=== PATIENT | male | born 1955 | race Caucasian/White ===

== ENCOUNTER 2020-07-12 12:08 | Inpatient (IN) ==
[2020-07-12] MEDS ORDERED: LASIX IVP STA (13:17)
--- NOTE | 2020-07-12 13:17 | DR.GENAD ---
HPI Time Seen Time Seen by Provider: 07/12/20 13:07 PCP Primary Care Physician: DACIA DAVISON HPI Comment HPI Comment: PATIENT WITH A HISTORY OF TYPE 2 DIABETES, HYPERTENSION, ONSET OF SWOLLEN SCROTUM AND DEPENDENT EDEMA IN LEGS AND FEET PAST 4 MONTHS. HAS HAD NO CHANGE IN SWELLING AFTER TAKING DIURETICS FOR 4 MONTHES. HAS BEEN CONSULTED BY A UROLOGIST ON 4 OCCASIONS. PATIENT IS MORBID OBESE, HAS OCCASIONAL DYSPNEA, DENIES CHEST PAIN, PAIN IN SCROTUM. Complaint/Symptoms Chief Complaint Doctors Comments: CHRONIC SWELLING IN SCROTUM AND LEGS X 4 MONTHS Chief Complaint:: PT. C/O CHRONIC PROBLEM WITH TESTICLES SWELLING. PROBLEM BEGAN IN MARCH. PT. STATES HE HAS BEEN TAKING LASIX AND ANTIBIOTICS. PT. STATES "I NEED SOME HELP. I NEED TO BE IN THE HOSPITAL." HE STATES THE SWELLING HAS GOTTEN WORSE. PT. HAS BEEN TO THE ER TWICE SINCE ONSET OF PROBLEM. COVID-19 Coronavirus risk:travel/contact w/high risk person: No Has patient experienced Coronavirus symptoms: No Source History Provided: Patient Mode of Arrival Mode of Arrival: Ambulatory Timing Onset of Chief Complaint: 03/21/20 PMH PMH Past Medical History: Yes Past Medical History: Diabetes, Dyslipidemia and Hypertension Past Surgical History: Yes Surgical History: Other Past Surgical History Comment: UMBILICAL HERNIA Family History History of Family Medical Conditions: Yes Family Medical History: Coronary Artery Disease Social History Does patient currently use any type of tobacco product: No Have you used tobacco products in the last 12 months: No Type of Tobacco Use: None Does any household member use tobacco: No Alcohol Use: None Do you use any recreational Drugs:: No Lives With: Family Lives Where: Home Travel Risk Coronavirus risk:travel/contact w/high risk person: No Has patient experienced Coronavirus symptoms: No Infectious screening In the last 2 months have you had wt loss of >10#?: NO Have you had fever, night sweats or hemotysis?: No Have you traveled outside the country in the last 6 months?: No Isolation: Standard ROS Review of Systems Constitutional: See HPI Eyes: No Symptoms Reported ENTM: No Symptoms Reported Respiratoy: See HPI and Short of Breath Cardiovascular: No Symptoms Reported Gastrointestinal/Abdominal: No Symptoms Reported Genitourinary: No Symptoms Reported and Other (SCROTAL EDEMA AND SWELLING) Neurological: No Symptoms Reported Musculoskeletal: No Symptoms Reported and Other (LOWER EXTREMITY EDEMA) Integumentary: No Symptoms Reported Hematologic/Lymphatic: No Symptoms Reported Endocrine: No Symptoms Reported Psychiatric: No Symptoms Reported All Other Systems: Reviewed and Negative PE Vital Signs Vitals: Temperature 98.6 F Pulse Rate [Left Brachial] 54 Pulse Rate 54 Respiratory Rate 18 Blood Pressure [Left Arm] 175/77 Blood Pressure 146/73 O2 Sat by Pulse Oximetry 99 General Limitations: No Limitations General Appearance: Alert and In No Apparent Distress Head Head Exam: Normal Inspection and Atraumatic Eyes Eye exam: Normal Appearance, PERRL and EOMI ENT ENT Exam: Normal Exam and Normal Oropharynx External Ear Exam: Normal External Inspection TM/Canal Exam: Bilateral: Normal Nose Exam: Normal Nose Exam Mouth Exam: Normal Inspection Throat Exam: Normal Inspection Neck Neck Exam: Normal Inspection and Full ROM Chest Chest Inspection: Normal Inspection and Symmetric Chest Wall Rise Respiratory Respiratory Exam: Normal Lung Sounds Bilat Respiratory Exam: Bilateral: Clear to Auscultation Cardiovascular Cardiovascular Exam: Regular Rate and Normal Rhythm Abdominal Exam Abdominal Exam: Normal Inspection, Normal Bowel Sounds and Soft Abdominal Tenderness: Other (MODERATE SCROTAL EDEMA WITH TESTICULAR TENDERNESS) Extremities Extremities Exam: Edema (3 + PITTING EDEMA BILAT FEET TO MID THIGH) Back Back Exam: Normal Inspection Neurologic Neurological Exam: Alert and Oriented X3 Psychiatric Psychiatric Exam: Normal Affect and Normal Mood Skin Skin Exam: Warm, Dry, Intact and Normal Color MDM Differential Diagnosis Differential Diagnosis: RIGHT SIDED CONGESTIVE HEART FAILURE, DEPENDENT EDEMA, COURSE Treatment Treatment: DEEPA DIURESIS AFTER IV LASIX 60MG IV Consultation Call Returned: 18:15 Consultation Comments: DISCUSSED WITH DR HOLLINS FOR OBSERVATION ROR Labs Reviewed Laboratory Results Reviewed?: Yes Result Diagrams: 07/12/20 13:48 07/12/20 13:48 Laboratory: WBC 8.9 X10^3/uL (3.6-10.0) 07/12/20 13:48 RBC 4.18 X10^6/uL (4.7-6.0) L 07/12/20 13:48 Hgb 12.7 g/dL (13.5-18.0) L 07/12/20 13:48 Hct 38.1 % (42.0-54.0) L 07/12/20 13:48 MCV 91.2 fL (80.0-100.0) 07/12/20 13:48 MCH 30.5 pg (27.0-34.0) 07/12/20 13:48 MCHC 33.4 g/dL (33.0-35.0) 07/12/20 13:48 RDW 14.6 % (11.6-16.5) 07/12/20 13:48 Plt Count 183 X10^3/uL (150.0-450.0) 07/12/20 13:48 MPV 9.4 fL (7.4-11.0) 07/12/20 13:48 Neut % (Auto) 70.8 % (42.0-75.0) 07/12/20 13:48 Lymph % (Auto) 17.1 % (21.0-51.0) L 07/12/20 13:48 [place] % (Auto) 9.0 % (0.0-13.0) 07/12/20 13:48 Eos % (Auto) 2.1 % (0.9-2.9) 07/12/20 13:48 Baso % (Auto) 1.0 % (0.2-1.0) 07/12/20 13:48 Neut # (Auto) 6.3 x10^3/uL (2.2-4.8) H 07/12/20 13:48 Lymph # (Auto) 1.5 X10^3/uL (1.3-2.9) 07/12/20 13:48 [place] # (Auto) 0.8 x10^3/uL (0.3-0.8) 07/12/20 13:48 Eos # (Auto) 0.2 x10^3/uL (0.0-0.2) 07/12/20 13:48 Baso # (Auto) 0.1 X10^3/uL (0.0-0.1) 07/12/20 13:48 Absolute Nucleated RBC 0.0 /100WBC 07/12/20 13:48 Sodium 142 mmol/L (136-145) 07/12/20 13:48 Corrected Sodium 143 mmol/L (136-145) 07/12/20 13:48 Potassium 3.8 mmol/L (3.5-5.1) 07/12/20 13:48 Chloride 106 mmol/L (98-107) 07/12/20 13:48 Carbon Dioxide 31.4 mmol/L (21-32) 07/12/20 13:48 BUN 18 mg/dL (7-18) 07/12/20 13:48 Creatinine 0.85 mg/dL (0.70-1.30) 07/12/20 13:48 Est GFR (MDRD) Af Amer > 60 (>60) 07/12/20 13:48 Est GFR (MDRD) Non-Af > 60 (>60) 07/12/20 13:48 Glucose 126 mg/dL (65-99) H 07/12/20 13:48 Calcium 8.8 mg/dL (8.5-10.1) 07/12/20 13:48 Corrected Calcium 10.2 mg/dL (8.5-10.1) H 07/12/20 13:48 Total Bilirubin 0.20 mg/dL (0.2-1.0) 07/12/20 13:48 AST 22 Units/L (15-37) 07/12/20 13:48 ALT 37 Units/L (12-78) 07/12/20 13:48 Alkaline Phosphatase 48 Units/L (46-116) 07/12/20 13:48 Troponin I < 0.02 ng/mL (0-1.5) 07/12/20 13:48 B-Natriuretic Peptide 134 pg/mL (0-79) H 07/12/20 13:48 Total Protein 6.0 g/dL (6.4-8.2) L 07/12/20 13:48 Albumin 2.3 g/dL (3.4-5.0) L 07/12/20 13:48 Globulin 3.7 g/dL (2.5-4.5) 07/12/20 13:48 Albumin/Globulin Ratio 0.6 Ratio (1.1-2.1) L 07/12/20 13:48 XRAY XRAY Interpreted by: Radiologist (TESTICULAR ULTRASOUND C/W NORMAL DOPPLER FLOW IN THE TESTICLES, MODERATE BILATERAL HYDROCOELES, PROMINENT DIFFUSE EDEMA SCROTAL WALL) EKG Rate: 51 Rhythm: NSR and SB ST: Nonsp Opioid Opioid Risk Tool Age (Deepa box if 16-45): No History of Preadolescent Sexual Abuse: No Total: 0 Total Score Risk Category: Low Risk Copyright: Diomedes MONTAGUE predicting aberrant behaviors Diagnosis Discharge Problem: Acute on chronic right-sided congestive heart failure
[2020-07-12] MEDS ORDERED: LASIX ONE (13:30)
[2020-07-12] MEDS ORDERED: LASIX IVP ONE (13:30)
[2020-07-12 14:00] LABS: BASOPHILS # (AUTO) 0.1 X10^3/uL (0.0-0.1); EOSINOPHILS # (AUTO) 0.2 x10^3/uL (0.0-0.2); EOSINOPHILS % (AUTO) 2.1 % (0.9-2.9); HEMATOCRIT 38.1 % (42.0-54.0); HEMOGLOBIN 12.7 g/dL (13.5-18.0); LYMPHOCYTES # (AUTO) 1.5 X10^3/uL (1.3-2.9); LYMPHOCYTES % (AUTO) 17.1 % (21.0-51.0); MEAN CORPUSCULAR HEMOGLOBIN 30.5 pg (27.0-34.0); MEAN CORPUSCULAR HGB CONC 33.4 g/dL (33.0-35.0); MEAN CORPUSCULAR VOLUME 91.2 fL (80.0-100.0); MEAN PLATELET VOLUME 9.4 fL (7.4-11.0); MONOCYTES # (AUTO) 0.8 x10^3/uL (0.3-0.8); NEUTROPHILS # (AUTO) 6.3 x10^3/uL (2.2-4.8); NEUTROPHILS % (AUTO) 70.8 % (42.0-75.0); PLATELET COUNT 183 X10^3/uL (150.0-450.0); RED BLOOD COUNT 4.18 X10^6/uL (4.7-6.0); RED CELL DISTRIBUTION WIDTH 14.6 % (11.6-16.5); WHITE BLOOD COUNT 8.9 X10^3/uL (3.6-10.0)
[2020-07-12 14:14] LABS: ALANINE AMINOTRANSFERASE 37 Units/L (12-78); ALBUMIN 2.3 g/dL (3.4-5.0); ALKALINE PHOSPHATASE 48 Units/L (46-116); ASPARTATE AMINO TRANSFERASE 22 Units/L (15-37); BLOOD UREA NITROGEN 18 mg/dL (7-18); CALCIUM 8.8 mg/dL (8.5-10.1); CARBON DIOXIDE 31.4 mmol/L (21-32); CHLORIDE 106 mmol/L (98-107); COR CA(FOR HYPOALB) 10.2 mg/dL (8.5-10.1); COR NA(FOR HYPERGLY) 143 mmol/L (136-145); CREATININE 0.85 mg/dL (0.70-1.30); SODIUM 142 mmol/L (136-145); TROPONIN I < 0.02 ng/mL (0-1.5); eGFR NON BLACK RACES > 60 (>60)
--- NOTE | 2020-07-12 15:19 | US ---
HISTORYSCROTAL SWELLING X 4 MONTHSSTUDYTESTICULAR ultrasoundCOMPARISONUltrasound 04/26/2020TECHNIQUEMultiple oshea scale and Doppler images of the scrotal contents are obtained with image documentation.FINDINGSThe right testicle measures 3.6 x 2.8 x 2.2 cm. The left testicle measures 4.6 x 2.8 x 3.1 cm. Testicular echogenicity is normal. Normal Doppler flow in the testicles.Small-bowel lateral epididymal cysts. Moderate bilateral hydroceles. Prominent diffuse edema in the scrotal wall may be cellulitis.IMPRESSIONNo evidence of orchitis or torsion.Moderate bilateral hydroceles.Diffuse scrotal wall edema could possibly be cellulitis.Electronically signed by: Aj Hayes (Jul 12, 2020 15:18:29)
--- NOTE | 2020-07-12 18:08 | RAD ---
CHEST, 1 VIEWHISTORY: DYSPNEAStudy: Single view of the chest.Comparison:NoneFindings:The cardiomediastinal silhouette is normal.No focal consolidations, pleural effusions or pneumothorax. Osseous structures demonstrate no acute abnormality.IMPRESSION:1. No acute cardiopulmonary process.Electronically signed by: ERIC RODRIGUES (Jul 12, 2020 18:07:20)
[2020-07-12] MEDS ORDERED: GLUCOPHAGE PO SCH (22:28)
[2020-07-12] MEDS ORDERED: LOVASTATIN 40 MG PO SCH (22:28)
[2020-07-12 22:32] LABS: BILIRUBIN,URINE NEGATIVE (NEGATIVE); BLOOD/HEMOGLOBIN,URINE 3+ (NEGATIVE); GLUCOSE, URINE NEGATIVE (NEGATIVE); KETONES,URINE NEGATIVE (NEGATIVE); LEUKOCYTE ESTERASE ,URINE NEGATIVE (NEGATIVE); NITRITES,URINE POSITIVE (NEGATIVE); PROTEIN,URINE 4+ (NEGATIVE); UROBILINOGEN,URINE NORMAL (NORMAL)
[2020-07-12 22:45] LABS: APPEARANCE,URINE CLOUDY (CLEAR); COLOR,URINE YELLOW (YELLOW)
[2020-07-12 22:46] LABS: AMORPHOUS SEDIMENT,UR 2+ /HPF (NEGATIVE); BACTERIA,URINE 3+ /HPF (NEGATIVE); RBC,URINE NONE SEEN /HPF (0-3); SQUAMOUS EPITHELIAL CELL,UR MODERATE /HPF (NEGATIVE)
[2020-07-12] MEDS ORDERED: GLUCOPHAGE ONE (22:56)
[2020-07-12] MEDS: LIPITOR TAB 10 MG PO SCH (23:04)
[2020-07-13] MEDS ORDERED: KLOR-CON PO PRN (00:05)
[2020-07-13] MEDS ORDERED: K-RIDER 10 MEQ/NS 100 ML 10 MEQ/100 ML BAG IV PRN (00:05)
[2020-07-13] MEDS ORDERED: POTASSIUM CHLORIDE LIQ 20 MEQ UDC PO PRN (00:05)
[2020-07-13] MEDS ORDERED: MAGNESIUM SULFATE 1 GRAM/100 mL PREMIX 1 GM/100 ML BAG IV PRN (00:05)
[2020-07-13] MEDS ORDERED: K-DUR TAB 20 MEQ PO ONE (00:07)
[2020-07-13] MEDS ORDERED: TYLENOL 325 MG TAB PO ONE (00:07)
[2020-07-13] MEDS: K-DUR TAB 20 MEQ PO PRN (00:12)
[2020-07-13] MEDS: TYLENOL 325 MG TAB PO PRN (00:23)
[2020-07-13] MEDS ORDERED: AMARYL TAB 4 MG ONE (05:35)
[2020-07-13] MEDS: AMARYL TAB 4 MG PO SCH (06:15)
[2020-07-13] MEDS ORDERED: GLIMEPIRIDE 4 MG PO SCH (09:00)
[2020-07-13] MEDS ORDERED: PATIENT'S HOME MEDICATION (Amlodipine Besylate 10 MG Tab) PO SCH (09:00)
[2020-07-13] MEDS ORDERED: RABEPRAZOLE 20 MG PO SCH (09:00)
[2020-07-13] MEDS: K-DUR TAB 20 MEQ PO SCH (09:48)
[2020-07-13] MEDS: DIFLUCAN 100 MG IV (MIX by PHARMACY)* 100 MG/50 ML BAG IV SCH (09:48)
[2020-07-13] MEDS: ROCEPHIN VIAL 1 GRAM 1 G in NS 100 ML IV + SPIKE MINIBAG* 100 ML IV SCH (09:49)
[2020-07-13] MEDS: PROTONIX TAB 40 MG PO SCH (09:49)
[2020-07-13] MEDS: NORVASC TAB 5 MG PO SCH (09:49)
[2020-07-13] MEDS: NYSTATIN POWDER TOP SCH ×4 (09:50→20:50)
[2020-07-13] MEDS: LASIX IVP SCH ×2 (09:50→16:45)
[2020-07-13] MEDS ORDERED: NS 500 ML IV 500 ML IV ONE (09:59)
[2020-07-13 14:46] LABS: BASOPHILS # (AUTO) 0.1 X10^3/uL (0.0-0.1); BASOPHILS % (AUTO) 0.9 % (0.2-1.0); EOSINOPHILS # (AUTO) 0.2 x10^3/uL (0.0-0.2); HEMATOCRIT 37.7 % (42.0-54.0); HEMOGLOBIN 12.4 g/dL (13.5-18.0); LYMPHOCYTES # (AUTO) 1.4 X10^3/uL (1.3-2.9); LYMPHOCYTES % (AUTO) 17.5 % (21.0-51.0); MEAN CORPUSCULAR HEMOGLOBIN 30.1 pg (27.0-34.0); MEAN CORPUSCULAR HGB CONC 32.8 g/dL (33.0-35.0); MEAN CORPUSCULAR VOLUME 91.9 fL (80.0-100.0); MONOCYTES # (AUTO) 0.7 x10^3/uL (0.3-0.8); MONOCYTES % (AUTO) 8.8 % (0.0-13.0); NEUTROPHILS # (AUTO) 5.5 x10^3/uL (2.2-4.8); NEUTROPHILS % (AUTO) 70.8 % (42.0-75.0); PLATELET COUNT 177 X10^3/uL (150.0-450.0); RED BLOOD COUNT 4.11 X10^6/uL (4.7-6.0); RED CELL DISTRIBUTION WIDTH 14.5 % (11.6-16.5); WHITE BLOOD COUNT 7.8 X10^3/uL (3.6-10.0)
[2020-07-13] MEDS ORDERED: DILAUDID INJ ONE (14:53)
[2020-07-13 16:58] LABS: ALANINE AMINOTRANSFERASE 32 Units/L (12-78); ALBUMIN 2.1 g/dL (3.4-5.0); ALKALINE PHOSPHATASE 49 Units/L (46-116); ASPARTATE AMINO TRANSFERASE 23 Units/L (15-37); BLOOD UREA NITROGEN 16 mg/dL (7-18); CALCIUM 8.9 mg/dL (8.5-10.1); CARBON DIOXIDE 33.2 mmol/L (21-32); COR CA(FOR HYPOALB) 10.4 mg/dL (8.5-10.1); CREATININE 1.11 mg/dL (0.70-1.30); TOTAL PROTEIN 5.7 g/dL (6.4-8.2); eGFR NON BLACK RACES > 60 (>60)
[2020-07-13 18:30] LABS: CHLORIDE 104 mmol/L (98-107); COR NA(FOR HYPERGLY) 144 mmol/L (136-145); SODIUM 142 mmol/L (136-145)
[2020-07-13] MEDS: LIPITOR TAB 10 MG PO SCH (20:49)
[2020-07-14 06:10] LABS: BASOPHILS # (AUTO) 0.1 X10^3/uL (0.0-0.1); BASOPHILS % (AUTO) 0.8 % (0.2-1.0); EOSINOPHILS # (AUTO) 0.1 x10^3/uL (0.0-0.2); EOSINOPHILS % (AUTO) 1.4 % (0.9-2.9); HEMATOCRIT 36.7 % (42.0-54.0); HEMOGLOBIN 12.2 g/dL (13.5-18.0); LYMPHOCYTES # (AUTO) 1.5 X10^3/uL (1.3-2.9); LYMPHOCYTES % (AUTO) 16.7 % (21.0-51.0); MEAN CORPUSCULAR HEMOGLOBIN 30.4 pg (27.0-34.0); MEAN CORPUSCULAR HGB CONC 33.3 g/dL (33.0-35.0); MEAN CORPUSCULAR VOLUME 91.1 fL (80.0-100.0); MONOCYTES # (AUTO) 0.8 x10^3/uL (0.3-0.8); MONOCYTES % (AUTO) 8.7 % (0.0-13.0); NEUTROPHILS # (AUTO) 6.5 x10^3/uL (2.2-4.8); NEUTROPHILS % (AUTO) 72.4 % (42.0-75.0); PLATELET COUNT 179 X10^3/uL (150.0-450.0); RED BLOOD COUNT 4.03 X10^6/uL (4.7-6.0); RED CELL DISTRIBUTION WIDTH 14.6 % (11.6-16.5); WHITE BLOOD COUNT 8.9 X10^3/uL (3.6-10.0)
[2020-07-14] MEDS: AMARYL TAB 4 MG PO SCH (06:12)
[2020-07-14 06:43] LABS: ALANINE AMINOTRANSFERASE 36 Units/L (12-78); ALBUMIN 2.1 g/dL (3.4-5.0); ALKALINE PHOSPHATASE 44 Units/L (46-116); ASPARTATE AMINO TRANSFERASE 20 Units/L (15-37); BLOOD UREA NITROGEN 17 mg/dL (7-18); CALCIUM 8.6 mg/dL (8.5-10.1); CARBON DIOXIDE 30.1 mmol/L (21-32); CHLORIDE 106 mmol/L (98-107); COR CA(FOR HYPOALB) 10.1 mg/dL (8.5-10.1); COR NA(FOR HYPERGLY) 144 mmol/L (136-145); CREATININE 0.97 mg/dL (0.70-1.30); SODIUM 143 mmol/L (136-145); TOTAL PROTEIN 5.6 g/dL (6.4-8.2); eGFR NON BLACK RACES > 60 (>60)
[2020-07-14] MEDS: DIFLUCAN 100 MG IV (MIX by PHARMACY)* 100 MG/50 ML BAG IV SCH (09:33)
[2020-07-14] MEDS: NORVASC TAB 5 MG PO SCH (09:33)
[2020-07-14] MEDS: K-DUR TAB 20 MEQ PO SCH (09:33)
[2020-07-14] MEDS: NYSTATIN POWDER TOP SCH ×4 (09:33→20:24)
[2020-07-14] MEDS: PROTONIX TAB 40 MG PO SCH (09:34)
[2020-07-14] MEDS: ROCEPHIN VIAL 1 GRAM 1 G in NS 100 ML IV + SPIKE MINIBAG* 100 ML IV SCH (09:34)
[2020-07-14] MEDS: LASIX IVP SCH ×2 (09:38→17:18)
[2020-07-14] MEDS: NORCO 5/325 MG TAB PO PRN ×2 (10:18→19:06)
--- NOTE | 2020-07-14 11:36 | DR.PROGNOT ---
Hospital Progress Notes - Progress Note for Day of: Progress Note Date: 07/14/20 - Chief Complaint Chief Complaint: pantoja cath in place and draining clear urine . moderate size bilateral hydroceles and skin edema . normal WBC . afebrile . - Past Medical Family Social History Past Med/Fam/Surg Hx: No changes since H&P Allergies: Allergies No Known Drug Allergies Allergy (Verified 07/12/20 12:15) - Review Of Systems ROS: No change since H&P - Vital Signs Vital Signs: Temperature 98.2 F Pulse Rate [Left Brachial] 51 Pulse Rate 54 Respiratory Rate 19 Blood Pressure [Left Arm] 189/84 Blood Pressure 146/73 O2 Sat by Pulse Oximetry 96 - Physical Exam Oriented: Normal Eyes: Normal Ear: Normal Nose: Normal Throat: Normal Respiratory: Normal Cardiovascular: Normal : Other (has catheter in place , scrotal edema and small hydroceles ) Speech Pattern: Clear, Appropriate - Laboratory and Diagnostics Result Diagrams: 07/14/20 05:22 07/14/20 05:22 Labs: 07/13/20 15:20 Urine,Clean Catch Urine Culture - Preliminary 07/13/20 15:45 Stool - Final Laboratory WBC 8.9 X10^3/uL (3.6-10.0) 07/14/20 05:22 RBC 4.03 X10^6/uL (4.7-6.0) L 07/14/20 05:22 Hgb 12.2 g/dL (13.5-18.0) L 07/14/20 05:22 Hct 36.7 % (42.0-54.0) L 07/14/20 05:22 MCV 91.1 fL (80.0-100.0) 07/14/20 05:22 MCH 30.4 pg (27.0-34.0) 07/14/20 05:22 MCHC 33.3 g/dL (33.0-35.0) 07/14/20 05:22 RDW 14.6 % (11.6-16.5) 07/14/20 05:22 Plt Count 179 X10^3/uL (150.0-450.0) 07/14/20 05:22 MPV 10.0 fL (7.4-11.0) 07/14/20 05:22 Neut % (Auto) 72.4 % (42.0-75.0) 07/14/20 05:22 Lymph % (Auto) 16.7 % (21.0-51.0) L 07/14/20 05:22 [place] % (Auto) 8.7 % (0.0-13.0) 07/14/20 05:22 Eos % (Auto) 1.4 % (0.9-2.9) 07/14/20 05:22 Baso % (Auto) 0.8 % (0.2-1.0) 07/14/20 05:22 Neut # (Auto) 6.5 x10^3/uL (2.2-4.8) H 07/14/20 05:22 Lymph # (Auto) 1.5 X10^3/uL (1.3-2.9) 07/14/20 05:22 [place] # (Auto) 0.8 x10^3/uL (0.3-0.8) 07/14/20 05:22 Eos # (Auto) 0.1 x10^3/uL (0.0-0.2) 07/14/20 05:22 Baso # (Auto) 0.1 X10^3/uL (0.0-0.1) 07/14/20 05:22 Absolute Nucleated RBC 0.0 /100WBC 07/14/20 05:22 Sodium 143 mmol/L (136-145) 07/14/20 05:22 Corrected Sodium 144 mmol/L (136-145) 07/14/20 05:22 Potassium 3.5 mmol/L (3.5-5.1) 07/14/20 05:22 Chloride 106 mmol/L (98-107) 07/14/20 05:22 Carbon Dioxide 30.1 mmol/L (21-32) 07/14/20 05:22 BUN 17 mg/dL (7-18) 07/14/20 05:22 Creatinine 0.97 mg/dL (0.70-1.30) 07/14/20 05:22 Est GFR (MDRD) Af Amer > 60 (>60) 07/14/20 05:22 Est GFR (MDRD) Non-Af > 60 (>60) 07/14/20 05:22 Glucose 139 mg/dL (65-99) H 07/14/20 05:22 POC Glucose (mg/dL) 174 mg/dL (65-99) H 07/14/20 11:23 Calcium 8.6 mg/dL (8.5-10.1) 07/14/20 05:22 Corrected Calcium 10.1 mg/dL (8.5-10.1) 07/14/20 05:22 Magnesium 2.0 mg/dL (1.7-2.9) 07/13/20 05:33 Total Bilirubin 0.20 mg/dL (0.2-1.0) 07/14/20 05:22 AST 20 Units/L (15-37) 07/14/20 05:22 ALT 36 Units/L (12-78) 07/14/20 05:22 Alkaline Phosphatase 44 Units/L (46-116) L 07/14/20 05:22 Troponin I < 0.02 ng/mL (0-1.5) 07/12/20 13:48 B-Natriuretic Peptide 140 pg/mL (0-79) H 07/14/20 05:22 Total Protein 5.6 g/dL (6.4-8.2) L 07/14/20 05:22 Albumin 2.1 g/dL (3.4-5.0) L 07/14/20 05:22 Globulin 3.5 g/dL (2.5-4.5) 07/14/20 05:22 Albumin/Globulin Ratio 0.6 Ratio (1.1-2.1) L 07/14/20 05:22 Specimen Type Random urine 07/12/20 22:24 Urine Color Yellow (YELLOW) 07/12/20 22:24 Urine Appearance Cloudy (CLEAR) 07/12/20 22:24 Urine pH 7.0 (5.0 - 8.0) 07/12/20 22:24 Ur Specific [place] 1.010 (1.000-1.030) 07/12/20 22:24 Urine Protein 4+ (NEGATIVE) 07/12/20 22:24 Urine Glucose (UA) Negative (NEGATIVE) 07/12/20 22:24 Urine Ketones Negative (NEGATIVE) 07/12/20 22:24 Urine Occult Blood 3+ (NEGATIVE) 07/12/20 22:24 Urine Nitrite Positive (NEGATIVE) 07/12/20 22:24 Urine Bilirubin Negative (NEGATIVE) 07/12/20 22:24 Urine Urobilinogen Normal (NORMAL) 07/12/20 22:24 Ur Leukocyte Esterase Negative (NEGATIVE) 07/12/20 22:24 Urine RBC None seen /HPF (0-3) 07/12/20 22:24 Urine WBC None seen /HPF (0-5) 07/12/20 22:24 Ur Squamous Epith Cells Moderate /HPF (NEGATIVE) 07/12/20 22:24 Amorphous Sediment 2+ /HPF (NEGATIVE) 07/12/20 22:24 Urine Bacteria 3+ /HPF (NEGATIVE) 07/12/20 22:24 Ur Culture Indicated? No/not indicated 07/12/20 22:24 Stool Description 75 cc liquid stool 07/13/20 15:45 Stl Occult Blood (IFOB) Negative (NEGATIVE) 07/13/20 15:45 Stool for White Cells Negative (NEGATIVE) 07/13/20 15:45 Stl C. diff Tox B Gene Negative (NEGATIVE) 07/13/20 15:45 Stl C. diff 027-NAP1-BI Negative (NEGATIVE) 07/13/20 15:45 SARS CoV-2 RNA Rapid MAGALIS Negative (NEGATIVE) 07/12/20 18:20 - Assessment and Plan 1: stricture of urethra . scrotal cellulitis and bilateral hydroceles ( no need for aspiration ) . morbid obesity . DM . same plan . and future dilation of of urethral miatus . - Problem Patient Problems: Patient Problems Acute on chronic right-sided congestive heart failure (Acute) I50.813
[2020-07-14] MEDS: LIPITOR TAB 10 MG PO SCH (20:24)
[2020-07-14] MEDS: RESTORIL CAP 15 MG PO PRN (21:22)
[2020-07-15] MEDS: AMARYL TAB 4 MG PO SCH (06:07)
[2020-07-15] MEDS: ROCEPHIN VIAL 1 GRAM 1 G in NS 100 ML IV + SPIKE MINIBAG* 100 ML IV SCH (08:51)
[2020-07-15] MEDS: NORVASC TAB 5 MG PO SCH (08:51)
[2020-07-15] MEDS: PROTONIX TAB 40 MG PO SCH (08:52)
[2020-07-15] MEDS: NYSTATIN POWDER TOP SCH ×4 (08:52→21:05)
[2020-07-15] MEDS: K-DUR TAB 20 MEQ PO SCH (08:52)
[2020-07-15] MEDS: NORCO 5/325 MG TAB PO PRN ×2 (08:56→21:01)
[2020-07-15] MEDS: LASIX IVP SCH ×2 (08:57→17:36)
[2020-07-15] MEDS ORDERED: DIFLUCAN 200 MG IV PREMIX* 200 MG/100 ML BAG IV SCH (09:00)
[2020-07-15] MEDS ORDERED: CONSULT PHARMACY - ANTIBIOTIC XX SCH (13:00)
[2020-07-15] MEDS: LOVENOX INJ 40 MG SYR SC SCH (13:23)
[2020-07-15] MEDS: LEVAQUIN PREMIX IV 750 MG 750 MG/150 ML BAG IV SCH (13:23)
[2020-07-15] MEDS: ZESTORETIC 20/25 MG PO SCH (16:09)
[2020-07-15] MEDS: FLONASE NASAL SPRAY ENOSTRIL SCH (16:11)
[2020-07-15] MEDS: LIPITOR TAB 10 MG PO SCH (21:02)
[2020-07-15 21:08] VITALS: BMI 56.5
[2020-07-15] MEDS: RESTORIL CAP 15 MG PO PRN (23:09)
[2020-07-16] MEDS: AMARYL TAB 4 MG PO SCH (06:09)
[2020-07-16 06:45] LABS: ALANINE AMINOTRANSFERASE 32 Units/L (12-78); ALBUMIN 2.1 g/dL (3.4-5.0); ALKALINE PHOSPHATASE 45 Units/L (46-116); ASPARTATE AMINO TRANSFERASE 20 Units/L (15-37); BLOOD UREA NITROGEN 14 mg/dL (7-18); CALCIUM 8.3 mg/dL (8.5-10.1); CARBON DIOXIDE 32.9 mmol/L (21-32); CHLORIDE 106 mmol/L (98-107); COR CA(FOR HYPOALB) 9.8 mg/dL (8.5-10.1); COR NA(FOR HYPERGLY) 144 mmol/L (136-145); CREATININE 0.91 mg/dL (0.70-1.30); SODIUM 143 mmol/L (136-145); TOTAL PROTEIN 5.7 g/dL (6.4-8.2); eGFR NON BLACK RACES > 60 (>60)
[2020-07-16 06:47] LABS: BASOPHILS # (AUTO) 0.1 X10^3/uL (0.0-0.1); BASOPHILS % (AUTO) 0.9 % (0.2-1.0); EOSINOPHILS # (AUTO) 0.2 x10^3/uL (0.0-0.2); EOSINOPHILS % (AUTO) 2.8 % (0.9-2.9); HEMATOCRIT 37.6 % (42.0-54.0); HEMOGLOBIN 12.2 g/dL (13.5-18.0); LYMPHOCYTES # (AUTO) 1.6 X10^3/uL (1.3-2.9); LYMPHOCYTES % (AUTO) 19.6 % (21.0-51.0); MEAN CORPUSCULAR HEMOGLOBIN 29.7 pg (27.0-34.0); MEAN CORPUSCULAR HGB CONC 32.5 g/dL (33.0-35.0); MEAN CORPUSCULAR VOLUME 91.3 fL (80.0-100.0); MEAN PLATELET VOLUME 10.2 fL (7.4-11.0); MONOCYTES # (AUTO) 0.7 x10^3/uL (0.3-0.8); MONOCYTES % (AUTO) 9.2 % (0.0-13.0); NEUTROPHILS # (AUTO) 5.5 x10^3/uL (2.2-4.8); NEUTROPHILS % (AUTO) 67.5 % (42.0-75.0); PLATELET COUNT 177 X10^3/uL (150.0-450.0); RED BLOOD COUNT 4.12 X10^6/uL (4.7-6.0); RED CELL DISTRIBUTION WIDTH 14.2 % (11.6-16.5); WHITE BLOOD COUNT 8.1 X10^3/uL (3.6-10.0)
[2020-07-16] MEDS: FLONASE NASAL SPRAY ENOSTRIL SCH (09:54)
[2020-07-16] MEDS: NORVASC TAB 5 MG PO SCH (09:55)
[2020-07-16] MEDS: NORCO 5/325 MG TAB PO PRN ×2 (09:55→21:50)
[2020-07-16] MEDS: ZESTORETIC 20/25 MG PO SCH (09:56)
[2020-07-16] MEDS: PROTONIX TAB 40 MG PO SCH (09:56)
[2020-07-16] MEDS: LEVAQUIN PREMIX IV 750 MG 750 MG/150 ML BAG IV SCH (09:56)
[2020-07-16] MEDS: K-DUR TAB 20 MEQ PO SCH (10:00)
[2020-07-16] MEDS: LASIX IVP SCH ×2 (10:00→17:15)
[2020-07-16] MEDS: NYSTATIN POWDER TOP SCH ×4 (10:00→21:48)
[2020-07-16] MEDS: LOVENOX INJ 40 MG SYR SC SCH (10:10)
--- NOTE | 2020-07-16 10:58 | RAD ---
HISTORYDYSPNEASTUDYCHEST, 1 [id number]/22/2021FINDINGSThe lungs are clear. No pneumothorax or significant effusion.The heart size is magnified.Bones are unremarkable.Thoracic epidural catheter stable in position.IMPRESSION1. No significant abnormalityElectronically signed by: Brady Reid (Jul 16, 2020 10:57:23)
[2020-07-16] MEDS: MOBIC TAB 15 MG PO SCH (14:48)
[2020-07-16] MEDS: ZyrTEC TAB 10 MG PO SCH (14:49)
[2020-07-16] MEDS: TYLENOL 325 MG TAB PO PRN (17:28)
[2020-07-16] MEDS: LIPITOR TAB 10 MG PO SCH (21:49)
[2020-07-16] MEDS: RESTORIL CAP 15 MG PO PRN (23:28)
[2020-07-17] MEDS: AMARYL TAB 4 MG PO SCH (06:20)
[2020-07-17 06:46] LABS: BASOPHILS # (AUTO) 0.1 X10^3/uL (0.0-0.1); BASOPHILS % (AUTO) 1.2 % (0.2-1.0); EOSINOPHILS # (AUTO) 0.3 x10^3/uL (0.0-0.2); EOSINOPHILS % (AUTO) 3.7 % (0.9-2.9); HEMATOCRIT 37.3 % (42.0-54.0); HEMOGLOBIN 12.3 g/dL (13.5-18.0); LYMPHOCYTES # (AUTO) 1.8 X10^3/uL (1.3-2.9); LYMPHOCYTES % (AUTO) 24.1 % (21.0-51.0); MEAN CORPUSCULAR HEMOGLOBIN 30.2 pg (27.0-34.0); MEAN CORPUSCULAR HGB CONC 33.1 g/dL (33.0-35.0); MEAN CORPUSCULAR VOLUME 91.2 fL (80.0-100.0); MEAN PLATELET VOLUME 10.3 fL (7.4-11.0); MONOCYTES # (AUTO) 0.8 x10^3/uL (0.3-0.8); NEUTROPHILS # (AUTO) 4.5 x10^3/uL (2.2-4.8); PLATELET COUNT 175 X10^3/uL (150.0-450.0); RED BLOOD COUNT 4.09 X10^6/uL (4.7-6.0); RED CELL DISTRIBUTION WIDTH 14.3 % (11.6-16.5); WHITE BLOOD COUNT 7.5 X10^3/uL (3.6-10.0)
[2020-07-17 07:16] LABS: ALANINE AMINOTRANSFERASE 34 Units/L (12-78); ALKALINE PHOSPHATASE 45 Units/L (46-116); ASPARTATE AMINO TRANSFERASE 21 Units/L (15-37); BLOOD UREA NITROGEN 17 mg/dL (7-18); CALCIUM 8.3 mg/dL (8.5-10.1); CARBON DIOXIDE 29.9 mmol/L (21-32); CHLORIDE 106 mmol/L (98-107); COR CA(FOR HYPOALB) 9.9 mg/dL (8.5-10.1); COR NA(FOR HYPERGLY) 144 mmol/L (136-145); CREATININE 0.99 mg/dL (0.70-1.30); SODIUM 143 mmol/L (136-145); TOTAL PROTEIN 5.6 g/dL (6.4-8.2); eGFR NON BLACK RACES > 60 (>60)
--- NOTE | 2020-07-17 10:48 | PCM.PROG ---
Progress Note - Progress Note for Day of Date of Exam: 07/17/20 - Subjective Subjective: Mr. Ray is a 65-year-old white male patient of who failed treatment for scrotal cellulitis, as well as candidiasis. He was admitted on 07/14/20. He also has a urinary tract infection. The patient had a complicated Pantoja placement which he will wear home on discharge and will have to follow up with his urologist, Dr. Harvey within the next 7-10 days for evaluation of removal of catheter. He did have Pseudomonas aeruginosa grow out on his urine culture, it was sensitive to Levaquin. We started him on Levaquin 750 mg which we will continue. The patient denies any chest pain or shortness of breath. He has been afebrile. The patient does have a little bit of dyspnea on exertion, but patient is morbidly obese. He is still experiencing some hypertension despite being on amlodipine. On morning rounds, the patient was sitting up on the bedside. He continues with diffuse diminished lung sounds throughout. No rales, wheezing, or rhonchi. Heart rate reveals a controlled rate and rhythm. Abdomen is obese with bowel sounds present times all four quadrants. He does have large lower abdominal folds with mild diffuse erythema at this time. He continues with diffuse scrotal edema and erythema, and indwelling Pantoja catheter. He has +2 lower extremity edema noted up to his ramon. He does have wrinkling of his skin bilaterally suggesting improved lower extremity swelling. His vitals this morning are: 98.3-50-20-95%-192/86. Labs were obtained. Abnormal lab values include the following: RBC 4.09, HGB 12.3, HCT 37.3, GLUCOSE 132, CALCIUM 8.3, ALK PHOS 45, TOTAL PROTEIN 5.6, ALBUMIN 2.0. Today, we will continue his IV antibiotics, pantoja catheter care, topical Nystatin, scrotal elevation, IV Lasix, and blood sugar control. We will resume his home medication of Lisinopril 20mg po daily today. Otherwise, plan to follow up with am labs and continue to monitor. TIME SPENT ON CLINICAL ASSESSMENT, REVIEWING LABS AND IMAGING, DECISION MAKING, AND DOCUMENTATION GREATER THAN 75 MINUTES. - Past Medical Family Social History Past Med/Fam/Surg Hx: No changes since H&P Allergies: Allergies No Known Drug Allergies Allergy (Verified 07/12/20 12:15) - Review of Systems ROS: No change since H&P - Vital Signs and I&O's Vital Signs: Temperature 98.3 F Pulse Rate [Left Brachial] 50 Pulse Rate 54 Respiratory Rate 20 Blood Pressure [Left Arm] 192/86 Blood Pressure 146/73 O2 Sat by Pulse Oximetry 95 Intake and Output: Intake & Output 07/14/20 07/15/20 07/16/20 07/17/20 11:59 11:59 11:59 11:59 Intake Total 600 / 600 800 / 800 920 / 920 960 / 960 Output Total 1625 / 1625 2300 / 2300 4650 / 4650 625 / 625 Balance -1025 / -1025 -1500 / -1500 -3730 / -3730 335 / 335 - Physical Exam Oriented: Normal Eyes: Normal Ear: Normal Nose: Normal Throat: Normal Respiratory: Normal Cardiovascular: Normal : Other (has catheter in place , scrotal edema and small hydroceles ) Auscultation: Bowel Sounds: Normal Palpation: Normal Tenderness: Normal Skin: Normal Musculoskeletal: Normal Psychiatric: Normal Mood Description: Calm Affect: Normal Speech Pattern: Clear, Appropriate - Laboratory and Diagnostics Result Diagrams: 07/17/20 05:56 07/17/20 05:56 Labs: 07/13/20 15:45 Stool Stool Culture - Final 07/13/20 15:45 Stool - Final 07/13/20 15:20 Urine,Clean Catch Urine Culture - Final Pseudomonas Aeruginosa Laboratory WBC 7.5 X10^3/uL (3.6-10.0) 07/17/20 05:56 RBC 4.09 X10^6/uL (4.7-6.0) L 07/17/20 05:56 Hgb 12.3 g/dL (13.5-18.0) L 07/17/20 05:56 Hct 37.3 % (42.0-54.0) L 07/17/20 05:56 MCV 91.2 fL (80.0-100.0) 07/17/20 05:56 MCH 30.2 pg (27.0-34.0) 07/17/20 05:56 MCHC 33.1 g/dL (33.0-35.0) 07/17/20 05:56 RDW 14.3 % (11.6-16.5) 07/17/20 05:56 Plt Count 175 X10^3/uL (150.0-450.0) 07/17/20 05:56 MPV 10.3 fL (7.4-11.0) 07/17/20 05:56 Neut % (Auto) 60.0 % (42.0-75.0) 07/17/20 05:56 Lymph % (Auto) 24.1 % (21.0-51.0) 07/17/20 05:56 [place] % (Auto) 11.0 % (0.0-13.0) 07/17/20 05:56 Eos % (Auto) 3.7 % (0.9-2.9) H 07/17/20 05:56 Baso % (Auto) 1.2 % (0.2-1.0) H 07/17/20 05:56 Neut # (Auto) 4.5 x10^3/uL (2.2-4.8) 07/17/20 05:56 Lymph # (Auto) 1.8 X10^3/uL (1.3-2.9) 07/17/20 05:56 [place] # (Auto) 0.8 x10^3/uL (0.3-0.8) 07/17/20 05:56 Eos # (Auto) 0.3 x10^3/uL (0.0-0.2) H 07/17/20 05:56 Baso # (Auto) 0.1 X10^3/uL (0.0-0.1) 07/17/20 05:56 Absolute Nucleated RBC 0.0 /100WBC 07/17/20 05:56 Sodium 143 mmol/L (136-145) 07/17/20 05:56 Corrected Sodium 144 mmol/L (136-145) 07/17/20 05:56 Potassium 3.5 mmol/L (3.5-5.1) 07/17/20 05:56 Chloride 106 mmol/L (98-107) 07/17/20 05:56 Carbon Dioxide 29.9 mmol/L (21-32) 07/17/20 05:56 BUN 17 mg/dL (7-18) 07/17/20 05:56 Creatinine 0.99 mg/dL (0.70-1.30) 07/17/20 05:56 Est GFR (MDRD) Af Amer > 60 (>60) 07/17/20 05:56 Est GFR (MDRD) Non-Af > 60 (>60) 07/17/20 05:56 Glucose 132 mg/dL (65-99) H 07/17/20 05:56 POC Glucose (mg/dL) 124 mg/dL (65-99) H 07/17/20 05:45 Calcium 8.3 mg/dL (8.5-10.1) L 07/17/20 05:56 Corrected Calcium 9.9 mg/dL (8.5-10.1) 07/17/20 05:56 Magnesium 2.0 mg/dL (1.7-2.9) 07/13/20 05:33 Total Bilirubin 0.20 mg/dL (0.2-1.0) 07/17/20 05:56 AST 21 Units/L (15-37) 07/17/20 05:56 ALT 34 Units/L (12-78) 07/17/20 05:56 Alkaline Phosphatase 45 Units/L (46-116) L 07/17/20 05:56 Troponin I < 0.02 ng/mL (0-1.5) 07/12/20 13:48 B-Natriuretic Peptide 140 pg/mL (0-79) H 07/14/20 05:22 Total Protein 5.6 g/dL (6.4-8.2) L 07/17/20 05:56 Albumin 2.0 g/dL (3.4-5.0) L 07/17/20 05:56 Globulin 3.6 g/dL (2.5-4.5) 07/17/20 05:56 Albumin/Globulin Ratio 0.6 Ratio (1.1-2.1) L 07/17/20 05:56 Specimen Type Random urine 07/12/20 22:24 Urine Color Yellow (YELLOW) 07/12/20 22:24 Urine Appearance Cloudy (CLEAR) 07/12/20 22:24 Urine pH 7.0 (5.0 - 8.0) 07/12/20 22:24 Ur Specific [place] 1.010 (1.000-1.030) 07/12/20 22:24 Urine Protein 4+ (NEGATIVE) 07/12/20 22:24 Urine Glucose (UA) Negative (NEGATIVE) 07/12/20 22:24 Urine Ketones Negative (NEGATIVE) 07/12/20 22:24 Urine Occult Blood 3+ (NEGATIVE) 07/12/20 22:24 Urine Nitrite Positive (NEGATIVE) 07/12/20 22:24 Urine Bilirubin Negative (NEGATIVE) 07/12/20 22:24 Urine Urobilinogen Normal (NORMAL) 07/12/20 22:24 Ur Leukocyte Esterase Negative (NEGATIVE) 07/12/20 22:24 Urine RBC None seen /HPF (0-3) 07/12/20 22:24 Urine WBC None seen /HPF (0-5) 07/12/20 22:24 Ur Squamous Epith Cells Moderate /HPF (NEGATIVE) 07/12/20 22:24 Amorphous Sediment 2+ /HPF (NEGATIVE) 07/12/20 22:24 Urine Bacteria 3+ /HPF (NEGATIVE) 07/12/20 22:24 Ur Culture Indicated? No/not indicated 07/12/20 22:24 Stool Description 75 cc liquid stool 07/13/20 15:45 Stl Occult Blood (IFOB) Negative (NEGATIVE) 07/13/20 15:45 Stool for White Cells Negative (NEGATIVE) 07/13/20 15:45 Stl C. diff Tox B Gene Negative (NEGATIVE) 07/13/20 15:45 Stl C. diff 027-NAP1-BI Negative (NEGATIVE) 07/13/20 15:45 SARS CoV-2 RNA Rapid MAGALIS Negative (NEGATIVE) 07/12/20 18:20 - Plan (1) Cellulitis of scrotum Status: Acute Plan: Continue IV antibiotics, Pantoja catheter care, topical Nystatin, scrotal elevation, and IV Lasix. Urology follow up on an outpatient basis. (2) Urinary tract infection Status: Acute Qualifiers: Urinary tract infection type: site unspecified Hematuria presence: without hematuria Qualified Code(s): N39.0 - Urinary tract infection, site not specified Plan: continue antibiotics (3) Diabetes mellitus Status: Acute Qualifiers: Diabetes mellitus type: type 2 Diabetes mellitus penitentiary insulin use: unspecified penitentiary insulin use status Diabetes mellitus complication status: with hyperglycemia Qualified Code(s): E11.65 - Type 2 diabetes mellitus with hyperglycemia Plan: continue blood sugar control (4) Hypertension Status: Chronic Qualifiers: Hypertension type: essential hypertension Plan: continue lisinopril and norvasc
[2020-07-17] MEDS ORDERED: ZESTRIL TAB 20 MG PO SCH (11:00)
[2020-07-17] MEDS ORDERED: CATAPRES-TTS-1 TD SCH (11:00)
[2020-07-17] MEDS: FLONASE NASAL SPRAY ENOSTRIL SCH (11:30)
[2020-07-17] MEDS: K-DUR TAB 20 MEQ PO SCH (11:31)
[2020-07-17] MEDS: LASIX IVP SCH ×2 (11:32→17:40)
[2020-07-17] MEDS: LEVAQUIN PREMIX IV 750 MG 750 MG/150 ML BAG IV SCH (11:32)
[2020-07-17] MEDS: NORVASC TAB 5 MG PO SCH (11:33)
[2020-07-17] MEDS: MOBIC TAB 15 MG PO SCH (11:35)
[2020-07-17] MEDS: NYSTATIN POWDER TOP SCH ×4 (11:36→20:55)
[2020-07-17] MEDS: PROTONIX TAB 40 MG PO SCH (11:36)
[2020-07-17] MEDS: ZyrTEC TAB 10 MG PO SCH (11:37)
[2020-07-17] MEDS: ZESTORETIC 20/25 MG PO SCH (11:37)
[2020-07-17] MEDS: LOVENOX INJ 40 MG SYR SC SCH (11:38)
[2020-07-17] MEDS: NORCO 5/325 MG TAB PO PRN ×2 (11:40→20:50)
[2020-07-17] MEDS: VICTOZA SC SCH (11:47)
[2020-07-17] MEDS: K-DUR TAB 20 MEQ PO PRN (20:50)
[2020-07-17] MEDS: LIPITOR TAB 10 MG PO SCH (20:50)
[2020-07-17] MEDS: RESTORIL CAP 15 MG PO PRN (20:50)
[2020-07-18] MEDS: NEURONTIN CAP 400 MG PO SCH ×4 (00:33→20:51)
[2020-07-18] MEDS: AMARYL TAB 4 MG PO SCH (06:04)
[2020-07-18] MEDS: TYLENOL 325 MG TAB PO PRN (06:35)
[2020-07-18 06:51] LABS: BASOPHILS # (AUTO) 0.1 X10^3/uL (0.0-0.1); BASOPHILS % (AUTO) 0.8 % (0.2-1.0); EOSINOPHILS # (AUTO) 0.3 x10^3/uL (0.0-0.2); EOSINOPHILS % (AUTO) 4.8 % (0.9-2.9); HEMATOCRIT 38.7 % (42.0-54.0); HEMOGLOBIN 12.6 g/dL (13.5-18.0); LYMPHOCYTES # (AUTO) 1.6 X10^3/uL (1.3-2.9); LYMPHOCYTES % (AUTO) 25.2 % (21.0-51.0); MEAN CORPUSCULAR HEMOGLOBIN 29.9 pg (27.0-34.0); MEAN CORPUSCULAR HGB CONC 32.6 g/dL (33.0-35.0); MEAN CORPUSCULAR VOLUME 91.7 fL (80.0-100.0); MEAN PLATELET VOLUME 10.3 fL (7.4-11.0); MONOCYTES # (AUTO) 0.7 x10^3/uL (0.3-0.8); MONOCYTES % (AUTO) 10.8 % (0.0-13.0); NEUTROPHILS # (AUTO) 3.8 x10^3/uL (2.2-4.8); NEUTROPHILS % (AUTO) 58.4 % (42.0-75.0); PLATELET COUNT 175 X10^3/uL (150.0-450.0); RED BLOOD COUNT 4.22 X10^6/uL (4.7-6.0); RED CELL DISTRIBUTION WIDTH 14.6 % (11.6-16.5); WHITE BLOOD COUNT 6.5 X10^3/uL (3.6-10.0)
[2020-07-18 06:55] LABS: ALANINE AMINOTRANSFERASE 34 Units/L (12-78); ALBUMIN 2.1 g/dL (3.4-5.0); ALKALINE PHOSPHATASE 46 Units/L (46-116); ASPARTATE AMINO TRANSFERASE 20 Units/L (15-37); BLOOD UREA NITROGEN 17 mg/dL (7-18); CALCIUM 8.5 mg/dL (8.5-10.1); CARBON DIOXIDE 32.2 mmol/L (21-32); CHLORIDE 105 mmol/L (98-107); COR NA(FOR HYPERGLY) 144 mmol/L (136-145); CREATININE 0.94 mg/dL (0.70-1.30); SODIUM 143 mmol/L (136-145); TOTAL PROTEIN 5.8 g/dL (6.4-8.2); eGFR NON BLACK RACES > 60 (>60)
[2020-07-18] MEDS ORDERED: LASIX IVP ONE ×3 (09:18→17:00)
[2020-07-18] MEDS: K-DUR TAB 20 MEQ PO SCH (09:19)
[2020-07-18] MEDS: ZyrTEC TAB 10 MG PO SCH (09:20)
[2020-07-18] MEDS: LEVAQUIN PREMIX IV 750 MG 750 MG/150 ML BAG IV SCH (09:20)
[2020-07-18] MEDS: ZESTORETIC 20/25 MG PO SCH (09:21)
[2020-07-18] MEDS: NORVASC TAB 5 MG PO SCH (09:22)
[2020-07-18] MEDS: PROTONIX TAB 40 MG PO SCH (09:22)
[2020-07-18] MEDS: MOBIC TAB 15 MG PO SCH (09:23)
[2020-07-18] MEDS: NORCO 5/325 MG TAB PO PRN (09:25)
[2020-07-18] MEDS: FLONASE NASAL SPRAY ENOSTRIL SCH (09:26)
[2020-07-18] MEDS: TORADOL 30 MG VIAL IVP PRN ×2 (10:18→20:52)
[2020-07-18] MEDS: LOVENOX INJ 40 MG SYR SC SCH (10:18)
[2020-07-18] MEDS: LASIX IVP SCH (10:20)
[2020-07-18] MEDS: NYSTATIN POWDER TOP SCH ×4 (10:21→20:53)
[2020-07-18] MEDS: VICTOZA SC SCH (10:21)
[2020-07-18] MEDS: ALBUMIN HUMAN 25%- 100 ML 100 ML IV SCH (10:21)
--- NOTE | 2020-07-18 13:24 | PCM.PROG ---
Progress Note - Progress Note for Day of Date of Exam: 07/18/20 - Subjective Subjective: Mr. Ray is a 65-year-old white male patient of who failed treatment for scrotal cellulitis, as well as candidiasis. He was admitted on 07/14/20. He also has a urinary tract infection. The patient had a complicated Pantoja placement which he will wear home on discharge and will have to follow up with his urologist, Dr. Harvey within the next 7-10 days for evaluation of removal of catheter. He did have Pseudomonas aeruginosa grow out on his urine culture, it was sensitive to Levaquin. He was started on Levaquin 750 mg which we will continue. The patient denies any chest pain or shortness of breath. He has been afebrile. The patient does have a little bit of dyspnea on exertion, but patient is morbidly obese. He is still experiencing some hypertension despite being on amlodipine. On morning rounds, the patient was sitting up on the bedside. He continues with diffuse diminished lung sounds throughout. No rales, wheezing, or rhonchi. Heart rate reveals a controlled rate and rhythm. Abdomen is obese with bowel sounds present times all four quadrants. He does have large lower abdominal folds with mild diffuse erythema at this time. He continues with diffuse scrotal edema and erythema, and indwelling Pantoja catheter. He has +2 lower extremity edema noted up to his ramon. He does have wrinkling of his skin bilaterally suggesting improved lower extremity swelling. His vitals this morning are: 97.9-54-20-93%-201/79. Labs were obtained. Abnormal lab values include the following: RBC 4.22, hgb 12.6, hct 38.7, carbon dioxide 32.2, glucose 130, total protein 5.8, albumin 2.1. Today, we will continue his IV antibiotics, pantoja catheter care, topical Nys tatin, scrotal elevation, IV Lasix, and blood sugar control. We will increase Lasix to 80mg iv bid today and then decrease back down to 40mg iv bid tomorrow. Otherwise, plan to follow up with am labs and continue to monitor. TIME SPENT ON CLINICAL ASSESSMENT, REVIEWING LABS AND IMAGING, DECISION MAKING, AND DOCUMENTATION GREATER THAN 75 MINUTES. - Past Medical Family Social History Past Med/Fam/Surg Hx: No changes since H&P Allergies: Allergies No Known Drug Allergies Allergy (Verified 07/12/20 12:15) - Review of Systems ROS: No change since H&P - Vital Signs and I&O's Vital Signs: Temperature 97.9 F Pulse Rate [Bilateral Brachial 54 ] Pulse Rate [Left Brachial] 48 Pulse Rate 54 Respiratory Rate 20 Blood Pressure [Right Arm] 201/79 Blood Pressure [Left Arm] 184/80 Blood Pressure 146/73 O2 Sat by Pulse Oximetry 93 Intake and Output: Intake & Output 07/16/20 07/17/20 07/18/20 07/19/20 11:59 11:59 11:59 11:59 Intake Total 920 / 920 960 / 960 1470 / 1470 Output Total 4650 / 4650 625 / 625 1200 / 1200 Balance -3730 / -3730 335 / 335 270 / 270 - Physical Exam Oriented: Normal Eyes: Normal Ear: Normal Nose: Normal Throat: Normal Respiratory: Normal Cardiovascular: Normal : Other (has catheter in place , scrotal edema and small hydroceles ) Auscultation: Bowel Sounds: Normal Tenderness: Normal Skin: Normal Musculoskeletal: Normal Psychiatric: Normal Mood Description: Calm Affect: Normal Speech Pattern: Clear, Appropriate - Laboratory and Diagnostics Result Diagrams: 07/18/20 05:38 07/18/20 05:38 Labs: 07/13/20 15:45 Stool Stool Culture - Final 07/13/20 15:45 Stool - Final 07/13/20 15:20 Urine,Clean Catch Urine Culture - Final Pseudomonas Aeruginosa Laboratory WBC 6.5 X10^3/uL (3.6-10.0) 07/18/20 05:38 RBC 4.22 X10^6/uL (4.7-6.0) L 07/18/20 05:38 Hgb 12.6 g/dL (13.5-18.0) L 07/18/20 05:38 Hct 38.7 % (42.0-54.0) L 07/18/20 05:38 MCV 91.7 fL (80.0-100.0) 07/18/20 05:38 MCH 29.9 pg (27.0-34.0) 07/18/20 05:38 MCHC 32.6 g/dL (33.0-35.0) L 07/18/20 05:38 RDW 14.6 % (11.6-16.5) 07/18/20 05:38 Plt Count 175 X10^3/uL (150.0-450.0) 07/18/20 05:38 MPV 10.3 fL (7.4-11.0) 07/18/20 05:38 Neut % (Auto) 58.4 % (42.0-75.0) 07/18/20 05:38 Lymph % (Auto) 25.2 % (21.0-51.0) 07/18/20 05:38 [place] % (Auto) 10.8 % (0.0-13.0) 07/18/20 05:38 Eos % (Auto) 4.8 % (0.9-2.9) H 07/18/20 05:38 Baso % (Auto) 0.8 % (0.2-1.0) 07/18/20 05:38 Neut # (Auto) 3.8 x10^3/uL (2.2-4.8) 07/18/20 05:38 Lymph # (Auto) 1.6 X10^3/uL (1.3-2.9) 07/18/20 05:38 [place] # (Auto) 0.7 x10^3/uL (0.3-0.8) 07/18/20 05:38 Eos # (Auto) 0.3 x10^3/uL (0.0-0.2) H 07/18/20 05:38 Baso # (Auto) 0.1 X10^3/uL (0.0-0.1) 07/18/20 05:38 Absolute Nucleated RBC 0.0 /100WBC 07/18/20 05:38 Sodium 143 mmol/L (136-145) 07/18/20 05:38 Corrected Sodium 144 mmol/L (136-145) 07/18/20 05:38 Potassium 3.8 mmol/L (3.5-5.1) 07/18/20 05:38 Chloride 105 mmol/L (98-107) 07/18/20 05:38 Carbon Dioxide 32.2 mmol/L (21-32) H 07/18/20 05:38 BUN 17 mg/dL (7-18) 07/18/20 05:38 Creatinine 0.94 mg/dL (0.70-1.30) 07/18/20 05:38 Est GFR (MDRD) Af Amer > 60 (>60) 07/18/20 05:38 Est GFR (MDRD) Non-Af > 60 (>60) 07/18/20 05:38 Glucose 130 mg/dL (65-99) H 07/18/20 05:38 POC Glucose (mg/dL) 109 mg/dL (65-99) H 07/18/20 11:45 Calcium 8.5 mg/dL (8.5-10.1) 07/18/20 05:38 Corrected Calcium 10.0 mg/dL (8.5-10.1) 07/18/20 05:38 Magnesium 2.1 mg/dL (1.7-2.9) 07/18/20 05:38 Total Bilirubin 0.20 mg/dL (0.2-1.0) 07/18/20 05:38 AST 20 Units/L (15-37) 07/18/20 05:38 ALT 34 Units/L (12-78) 07/18/20 05:38 Alkaline Phosphatase 46 Units/L (46-116) 07/18/20 05:38 Troponin I < 0.02 ng/mL (0-1.5) 07/12/20 13:48 B-Natriuretic Peptide 140 pg/mL (0-79) H 07/14/20 05:22 Total Protein 5.8 g/dL (6.4-8.2) L 07/18/20 05:38 Albumin 2.1 g/dL (3.4-5.0) L 07/18/20 05:38 Globulin 3.7 g/dL (2.5-4.5) 07/18/20 05:38 Albumin/Globulin Ratio 0.6 Ratio (1.1-2.1) L 07/18/20 05:38 Specimen Type Random urine 07/12/20 22:24 Urine Color Yellow (YELLOW) 07/12/20 22:24 Urine Appearance Cloudy (CLEAR) 07/12/20 22:24 Urine pH 7.0 (5.0 - 8.0) 07/12/20 22:24 Ur Specific [place] 1.010 (1.000-1.030) 07/12/20 22:24 Urine Protein 4+ (NEGATIVE) 07/12/20 22:24 Urine Glucose (UA) Negative (NEGATIVE) 07/12/20 22:24 Urine Ketones Negative (NEGATIVE) 07/12/20 22:24 Urine Occult Blood 3+ (NEGATIVE) 07/12/20 22:24 Urine Nitrite Positive (NEGATIVE) 07/12/20 22:24 Urine Bilirubin Negative (NEGATIVE) 07/12/20 22:24 Urine Urobilinogen Normal (NORMAL) 07/12/20 22:24 Ur Leukocyte Esterase Negative (NEGATIVE) 07/12/20 22:24 Urine RBC None seen /HPF (0-3) 07/12/20 22:24 Urine WBC None seen /HPF (0-5) 07/12/20 22:24 Ur Squamous Epith Cells Moderate /HPF (NEGATIVE) 07/12/20 22:24 Amorphous Sediment 2+ /HPF (NEGATIVE) 07/12/20 22:24 Urine Bacteria 3+ /HPF (NEGATIVE) 07/12/20 22:24 Ur Culture Indicated? No/not indicated 07/12/20 22:24 Stool Description 75 cc liquid stool 07/13/20 15:45 Stl Occult Blood (IFOB) Negative (NEGATIVE) 07/13/20 15:45 Stool for White Cells Negative (NEGATIVE) 07/13/20 15:45 Stl C. diff Tox B Gene Negative (NEGATIVE) 07/13/20 15:45 Stl C. diff [id number] Negative (NEGATIVE) 07/13/20 15:45 SARS CoV-2 RNA Rapid MAGALIS Negative (NEGATIVE) 07/12/20 18:20 - Plan (1) Cellulitis of scrotum Status: Acute Plan: Continue IV antibiotics, Pantoja catheter care, topical Nystatin, scrotal elevation, and IV Lasix. Urology follow up on an outpatient basis. 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
[2020-07-18] MEDS: RESTORIL CAP 15 MG PO PRN (20:51)
[2020-07-18] MEDS: LIPITOR TAB 10 MG PO SCH (20:51)
[2020-07-19] MEDS: NEURONTIN CAP 400 MG PO SCH (05:39)
[2020-07-19] MEDS: AMARYL TAB 4 MG PO SCH (06:02)
[2020-07-19 06:54] LABS: BASOPHILS # (AUTO) 0.1 X10^3/uL (0.0-0.1); EOSINOPHILS # (AUTO) 0.3 x10^3/uL (0.0-0.2); EOSINOPHILS % (AUTO) 4.7 % (0.9-2.9); HEMATOCRIT 39.1 % (42.0-54.0); LYMPHOCYTES # (AUTO) 1.5 X10^3/uL (1.3-2.9); LYMPHOCYTES % (AUTO) 22.9 % (21.0-51.0); MEAN CORPUSCULAR HEMOGLOBIN 30.2 pg (27.0-34.0); MEAN CORPUSCULAR HGB CONC 33.2 g/dL (33.0-35.0); MEAN CORPUSCULAR VOLUME 91.1 fL (80.0-100.0); MEAN PLATELET VOLUME 9.7 fL (7.4-11.0); MONOCYTES # (AUTO) 0.6 x10^3/uL (0.3-0.8); MONOCYTES % (AUTO) 8.9 % (0.0-13.0); NEUTROPHILS # (AUTO) 4.1 x10^3/uL (2.2-4.8); NEUTROPHILS % (AUTO) 62.5 % (42.0-75.0); PLATELET COUNT 184 X10^3/uL (150.0-450.0); RED BLOOD COUNT 4.29 X10^6/uL (4.7-6.0); RED CELL DISTRIBUTION WIDTH 14.3 % (11.6-16.5); WHITE BLOOD COUNT 6.6 X10^3/uL (3.6-10.0)
[2020-07-19 07:17] LABS: ALANINE AMINOTRANSFERASE 36 Units/L (12-78); ALBUMIN 2.2 g/dL (3.4-5.0); ALKALINE PHOSPHATASE 46 Units/L (46-116); ASPARTATE AMINO TRANSFERASE 24 Units/L (15-37); BLOOD UREA NITROGEN 19 mg/dL (7-18); CARBON DIOXIDE 32.4 mmol/L (21-32); CHLORIDE 104 mmol/L (98-107); COR CA(FOR HYPOALB) 10.4 mg/dL (8.5-10.1); COR NA(FOR HYPERGLY) 143 mmol/L (136-145); CREATININE 0.92 mg/dL (0.70-1.30); SODIUM 143 mmol/L (136-145); TOTAL PROTEIN 5.9 g/dL (6.4-8.2); eGFR NON BLACK RACES > 60 (>60)
[2020-07-19 08:41] VITALS: BP 198/88
[2020-07-19] MEDS: FLONASE NASAL SPRAY ENOSTRIL SCH (09:08)
[2020-07-19] MEDS: LEVAQUIN PREMIX IV 750 MG 750 MG/150 ML BAG IV SCH (09:09)
[2020-07-19] MEDS: K-DUR TAB 20 MEQ PO SCH (09:09)
[2020-07-19] MEDS: LASIX IVP SCH (09:09)
[2020-07-19] MEDS: LOVENOX INJ 40 MG SYR SC SCH (09:10)
[2020-07-19] MEDS: ZESTORETIC 20/25 MG PO SCH (09:11)
[2020-07-19] MEDS: PROTONIX TAB 40 MG PO SCH (09:13)
[2020-07-19] MEDS: VICTOZA SC SCH (09:13)
[2020-07-19] MEDS: MOBIC TAB 15 MG PO SCH (09:14)
[2020-07-19] MEDS: NORVASC TAB 5 MG PO SCH (09:14)
[2020-07-19] MEDS: NYSTATIN POWDER TOP SCH ×2 (09:14→14:35)
[2020-07-19] MEDS: ALBUMIN HUMAN 25%- 100 ML 100 ML IV SCH (09:14)
[2020-07-19] MEDS: ZyrTEC TAB 10 MG PO SCH (09:14)
== END 2020-07-19 14:00 | disposition home or self-care (01) | DRG 728 ==
LOC: ER 12:08 → MED/SURG 12:08
PROVIDERS: ADMIT Internal Medicine; ATTEND Internal Medicine
DX: N39.498 Other specified urinary incontinence; E11.65 Type 2 diabetes mellitus with hyperglycemia; N43.3 Hydrocele, unspecified; E66.01 Morbid (severe) obesity due to excess calories; I50.9 Heart failure, unspecified; R26.2 Difficulty in walking, not elsewhere classified; R06.02 Shortness of breath; B37.9 Candidiasis, unspecified; R19.7 Diarrhea, unspecified; N49.2 Inflammatory disorders of scrotum; Z20.822 Contact with and (suspected) exposure to COVID-19; I10 Essential (primary) hypertension; N39.0 Urinary tract infection, site not specified; B96.5 Pseudomonas (aeruginosa) (mallei) (pseudomallei) as the cause of diseases classified elsewhere; M79.89 Other specified soft tissue disorders; N40.1 Benign prostatic hyperplasia with lower urinary tract symptoms; N35.811 Other urethral stricture, male, meatal

== ENCOUNTER 2021-06-30 11:53 | Inpatient (IN) ==
[2021-06-30 11:57] VITALS: BMI 55.7
--- NOTE | 2021-06-30 12:38 | DR.EXTPAIN ---
HPI Time seen Time Seen by Provider: 06/30/21 12:38 PCP Primary Care Physician: MECCA HPI Comment HPI Comment: PATIENT IS 66YR OLD MALE IN ER WITH INCREASING SWELLING AND PAIN IN THE TESTICLES TIMES ONE YEAR. PAIN IS SHARP, 10/10. Complaint/Symptoms Chief Complaint Doctor Comments: INCEASING SWELLING AND PAIN TESTICLES TIMES ONE YEAR. NO FEVER, PENILE DISCHARGE OR DYSURIA. Chief Complaint:: PT C/O SWOLLEN TESTICLES. PATIENT STATES HE HAS BEEN DEALING WITH TH IS FOR APPROX 1 YEAR. HE HAS BEEN TO SEE SEVERAL DOCTORS. PATIENT STATES HE WAS SUPOSED TO SEE DR VEGAS TODAY, BUT THE PAIN IS UNBEARABLE. COVID-19 Coronavirus risk:travel/contact w/high risk person: No Has patient experienced Coronavirus symptoms: No Nurses notes reviewed Nurses Notes Review: Yes Source History Provided: Patient Mode of arrival Mode of Arrival: Ambulatory Timing Onset of Chief Complaint: 06/27/21 Context History of: None Associated signs and symptoms Associated Signs and Symptoms: Pain and Swelling Other history Other History: DM, HTN. PMH PMH Past Medical History: Yes Past Medical History: Diabetes, Dyslipidemia and Hypertension Past Surgical History: Yes Surgical History: Abdominal Surgery Family History History of Family Medical Conditions: Yes Family Medical History: Diabetes Mellitus and Hypertension Social History Does any household member use tobacco: No Alcohol Use: None Do you use any recreational Drugs:: No Lives With: Alone and Family Lives Where: Home Travel Risk Coronavirus risk:travel/contact w/high risk person: No Has patient experienced Coronavirus symptoms: No Infectious screening In the last 2 months have you had wt loss of >10#?: NO Have you had fever, night sweats or hemotysis?: No Have you traveled outside the country in the last 6 months?: No Isolation: Standard ROS Review of Systems Constitutional: No Symptoms Reported and See HPI; negative Fever, Weakness and Fatigue Eyes: No Symptoms Reported and See HPI ENTM: No Symptoms Reported and See HPI; negative Nose Discharge and Nose Congestion Respiratoy: No Symptoms Reported and See HPI; negative Moist Cough, Short of Breath and Wheezing Cardiovascular: See HPI and Edema; negative Chest Pain Gastrointestinal/Abdominal: No Symptoms Reported and See HPI Genitourinary: See HPI and Pain (TESTICULAR PAIN.); negative Dysuria Neurological: No Symptoms Reported and See HPI; negative Headache, Weakness and Dizziness Musculoskeletal: No Symptoms Reported and See HPI; negative Back Pain and Muscle Pain Integumentary: No Symptoms Reported and See HPI; negative Change in Color Hematologic/Lymphatic: No Symptoms Reported and See HPI Endocrine: No Symptoms Reported and See HPI; negative Increased Thirst and Increased Urine Psychiatric: No Symptoms Reported and See HPI All Other Systems: Reviewed and Negative PE Vital Signs Vitals: Temperature 97.8 F Pulse Rate [Left Brachial] 52 Pulse Rate 60 Respiratory Rate 20 Blood Pressure [Right Arm] 189/79 Blood Pressure [Left Arm] 171/79 Blood Pressure 218/88 O2 Sat by Pulse Oximetry 96 General Limitations: No Limitations General Appearance: Alert and In Distress Head Head Exam: Normal Inspection Eyes Eye exam: Normal Appearance; negative Scleral Icterus and Conjunctival Injection ENT ENT Exam: Normal Exam, Normal Oropharynx, Normal External Ear Exam and TM's Normal Bilaterally Neck Neck Exam: Normal Inspection and Trachea Midline; negative Tenderness Chest Chest Inspection: Normal Inspection and Symmetric Chest Wall Rise; negative Tenderness Respiratory Respiratory Exam: Normal Lung Sounds Bilat and Respiratory Distress (ON EXERTION.); negative Accessory Muscle Use and Chest Wall Tenderness Respiratory Exam: Bilateral: Rhonchi and Lower: Rhonchi Cardiovascular Cardiovascular Exam: Regular Rate, Normal Rhythm and Normal Heart Sounds; negative Systolic Murmur and Diastolic Murmur Abdominal Exam Abdominal Exam: Normal Inspection, Normal Bowel Sounds, Soft, Tenderness and Other (SCOTUM ENLARGE, RED AND TENDER.) Extremities Extremities Exam: Normal Capillary Refill and Edema Back Back Exam: Normal Inspection; negative (R) CVA Tenderness and (L) CVA Tenderness Neurological Neurological Exam: Alert and Oriented X3; negative Motor Sensory Deficit Psychiatric Psychiatric Exam: Normal Affect and Normal Mood Skin Skin Exam: Other (EDEMA.) MDM Differential Diagnosis Differential Diagnosis: Other (HYDROCELE, ORCHITIS, EDEMA.) COURSE Treatment Treatment: SEE ORDERS. LASIX 40 MG IV AND KCL 20MEQ PO GIVEN IN ER. LABS DISCUSSED. WILL ADMIT PATIENT FOR FURTHER MANAGEMENT. Consultation Consultation Comments: DISCUSSED PATIENT WITH DR. URIBE. HE WILL ZAHRA PATIENT. Education/Counseling Education/Counseling: Patient Educated On: Diagnosis and Needs for Follow Up ROR Labs Reviewed Laboratory Results Reviewed?: Yes Result Diagrams: 07/06/21 05:47 07/06/21 05:47 Laboratory: WBC 6.6 X10^3/uL (3.6-10.0) 06/30/21 13:48 RBC 4.20 X10^6/uL (4.7-6.0) L 06/30/21 13:48 Hgb 12.7 g/dL (13.5-18.0) L 06/30/21 13:48 Hct 38.0 % (42.0-54.0) L 06/30/21 13:48 MCV 90.6 fL (80.0-100.0) 06/30/21 13:48 MCH 30.4 pg (27.0-34.0) 06/30/21 13:48 MCHC 33.5 g/dL (33.0-35.0) 06/30/21 13:48 RDW 15.0 % (11.6-16.5) 06/30/21 13:48 Plt Count 177 X10^3/uL (150.0-450.0) 06/30/21 13:48 MPV 9.8 fL (7.4-11.0) 06/30/21 13:48 Neut % (Auto) 74.8 % (42.0-75.0) 06/30/21 13:48 Lymph % (Auto) 13.5 % (21.0-51.0) L 06/30/21 13:48 [place] % (Auto) 7.2 % (0.0-13.0) 06/30/21 13:48 Eos % (Auto) 3.5 % (0.9-2.9) H 06/30/21 13:48 Baso % (Auto) 1.0 % (0.2-1.0) 06/30/21 13:48 Neut # (Auto) 4.9 x10^3/uL (2.2-4.8) H 06/30/21 13:48 Lymph # (Auto) 0.9 X10^3/uL (1.3-2.9) L 06/30/21 13:48 [place] # (Auto) 0.5 x10^3/uL (0.3-0.8) 06/30/21 13:48 Eos # (Auto) 0.2 x10^3/uL (0.0-0.2) 06/30/21 13:48 Baso # (Auto) 0.1 X10^3/uL (0.0-0.1) 06/30/21 13:48 Absolute Nucleated RBC 0.0 /100WBC 06/30/21 13:48 Sodium 142 mmol/L (136-145) 06/30/21 13:48 Corrected Sodium TNP 06/30/21 13:48 Potassium 5.0 mmol/L (3.5-5.1) 06/30/21 13:48 Chloride 110 mmol/L (98-107) H 06/30/21 13:48 Carbon Dioxide 25.0 mmol/L (21-32) 06/30/21 13:48 BUN 16 mg/dL (7-18) 06/30/21 13:48 Creatinine 1.05 mg/dL (0.70-1.30) 06/30/21 13:48 Est GFR (MDRD) Af Amer > 60 (>60) 06/30/21 13:48 Est GFR (MDRD) Non-Af > 60 (>60) 06/30/21 13:48 Glucose 94 mg/dL (65-99) 06/30/21 13:48 Calcium 8.4 mg/dL (8.5-10.1) L 06/30/21 13:48 Corrected Calcium 9.4 mg/dL (8.5-10.1) 06/30/21 13:48 Total Bilirubin 0.50 mg/dL (0.2-1.0) 06/30/21 13:48 AST 32 Units/L (15-37) 06/30/21 13:48 ALT 38 Units/L (12-78) 06/30/21 13:48 Alkaline Phosphatase 52 Units/L (46-116) 06/30/21 13:48 B-Natriuretic Peptide 333 pg/mL (0-79) H 06/30/21 13:48 Total Protein 6.2 g/dL (6.4-8.2) L 06/30/21 13:48 Albumin 2.7 g/dL (3.4-5.0) L 06/30/21 13:48 Globulin 3.5 g/dL (2.5-4.5) 06/30/21 13:48 Albumin/Globulin Ratio 0.8 Ratio (1.1-2.1) L 06/30/21 13:48 Specimen Type Clean catch urine 06/30/21 13:50 Urine Color Yellow (YELLOW) 06/30/21 13:50 Urine Appearance Slightly hazy (CLEAR) 06/30/21 13:50 Urine pH 6.5 (5.0 - 8.0) 06/30/21 13:50 Ur Specific [place] 1.010 (1.000-1.030) 06/30/21 13:50 Urine Protein 4+ (NEGATIVE) 06/30/21 13:50 Urine Glucose (UA) Negative (NEGATIVE) 06/30/21 13:50 Urine Ketones Negative (NEGATIVE) 06/30/21 13:50 Urine Occult Blood 2+ (NEGATIVE) 06/30/21 13:50 Urine Nitrite Negative (NEGATIVE) 06/30/21 13:50 Urine Bilirubin Negative (NEGATIVE) 06/30/21 13:50 Urine Urobilinogen Normal (NORMAL) 06/30/21 13:50 Ur Leukocyte Esterase Negative (NEGATIVE) 06/30/21 13:50 Urine RBC 3-5 /HPF (0-3) A 06/30/21 13:50 Urine WBC 0-2 /HPF (0-5) 06/30/21 13:50 Ur Squamous Epith Cells Rare /HPF (NEGATIVE) 06/30/21 13:50 Urine Bacteria Trace /HPF (NEGATIVE) 06/30/21 13:50 Ur Culture Indicated? No/not indicated 06/30/21 13:50 SARS CoV-2 RNA Rapid MAGALIS Negative (NEGATIVE) 06/30/21 16:33 XRAY XRAY Interpreted by: Radiologist (REPORT NOTED AND DISCUSSED WITH PATIENT.) and Self Opioid Opioid Risk Tool Age (Jb box if 16-45): No History of Preadolescent Sexual Abuse: No Total: 0 Total Score Risk Category: Low Risk Copyright: [facility] predicting aberrant behaviors Diagnosis Discharge Problem: Cellulitis of scrotum CHF (congestive heart failure) Qualifiers: Heart failure type: combined systolic and diastolic Heart failure chronicity: acute on chronic Qualified Code(s): I50.43 - Acute on chronic combined systolic (congestive) and diastolic (congestive) heart failure Pulmonary edema Qualifiers: Chronicity: acute Qualified Code(s): J81.0 - Acute pulmonary edema Hypertension Qualifiers: Hypertension type: primary hypertension Qualified Code(s): I10 - Essential (primary) hypertension Hydrocele Qualifiers: Hydrocele type: unspecified Qualified Code(s): N43.3 - Hydrocele, unspecified Instructions Instructions: Edema How to Take Your Blood Pressure Scrotal Swelling Hypertension, Adult, [id number] Edema, [id number] Managing Your Hypertension Forms: EUA Consent Excuse From Work or School Precautions for COVID19 [facility] Social Distancing
--- NOTE | 2021-06-30 13:53 | US ---
HISTORYTesticular pain, scrotal swellingSTUDYTesticular ultrasoundCOMPARISONNoneTECHNIQUEMultipl e oshea scale and Doppler images of the right and left testicles were obtained.FINDINGSThere is marked scrotal wall thickening. No soft tissue gas or organized subcutaneous collection is identified. There are small simple appearing hydroceles bilaterally. The right testicle is 3.6 x 2.3 x 3.5 cm. The left testicle is 4.8 x 2.8 x 2.9 cm. No testicular mass identified. There are simple appearing bilateral epididymal head cysts, measuring up to 1.1 cm on the left. Symmetric color flow of the testicles is noted.IMPRESSIONMarked scrotal wall thickening. This is nonspecific, but could be secondary to cellulitis or volume overload. Deejay gangrene is not excluded, although no soft tissue gas is demonstrated.Small bilateral hydroceles.Electronically signed by: CÉSAR VOGT (Jun 30, 2021 13:52:38)
[2021-06-30 13:59] LABS: BASOPHILS # (AUTO) 0.1 X10^3/uL (0.0-0.1); EOSINOPHILS # (AUTO) 0.2 x10^3/uL (0.0-0.2); EOSINOPHILS % (AUTO) 3.5 % (0.9-2.9); HEMOGLOBIN 12.7 g/dL (13.5-18.0); LYMPHOCYTES # (AUTO) 0.9 X10^3/uL (1.3-2.9); LYMPHOCYTES % (AUTO) 13.5 % (21.0-51.0); MEAN CORPUSCULAR HEMOGLOBIN 30.4 pg (27.0-34.0); MEAN CORPUSCULAR HGB CONC 33.5 g/dL (33.0-35.0); MEAN CORPUSCULAR VOLUME 90.6 fL (80.0-100.0); MEAN PLATELET VOLUME 9.8 fL (7.4-11.0); MONOCYTES # (AUTO) 0.5 x10^3/uL (0.3-0.8); MONOCYTES % (AUTO) 7.2 % (0.0-13.0); NEUTROPHILS # (AUTO) 4.9 x10^3/uL (2.2-4.8); NEUTROPHILS % (AUTO) 74.8 % (42.0-75.0); WHITE BLOOD COUNT 6.6 X10^3/uL (3.6-10.0)
[2021-06-30 14:00] LABS: BILIRUBIN,URINE NEGATIVE (NEGATIVE); BLOOD/HEMOGLOBIN,URINE 2+ (NEGATIVE); GLUCOSE, URINE NEGATIVE (NEGATIVE); KETONES,URINE NEGATIVE (NEGATIVE); LEUKOCYTE ESTERASE ,URINE NEGATIVE (NEGATIVE); NITRITES,URINE NEGATIVE (NEGATIVE); PH,URINE 6.5 (5.0 - 8.0); PROTEIN,URINE 4+ (NEGATIVE); UROBILINOGEN,URINE NORMAL (NORMAL)
[2021-06-30 14:10] LABS: ALANINE AMINOTRANSFERASE 38 Units/L (12-78); ALBUMIN 2.7 g/dL (3.4-5.0); ALKALINE PHOSPHATASE 52 Units/L (46-116); ASPARTATE AMINO TRANSFERASE 32 Units/L (15-37); BLOOD UREA NITROGEN 16 mg/dL (7-18); CALCIUM 8.4 mg/dL (8.5-10.1); CHLORIDE 110 mmol/L (98-107); COR CA(FOR HYPOALB) 9.4 mg/dL (8.5-10.1); CREATININE 1.05 mg/dL (0.70-1.30); SODIUM 142 mmol/L (136-145); TOTAL PROTEIN 6.2 g/dL (6.4-8.2); eGFR NON BLACK RACES > 60 (>60)
[2021-06-30 14:12] LABS: APPEARANCE,URINE SLIGHTLY HAZY (CLEAR); COLOR,URINE YELLOW (YELLOW)
[2021-06-30 14:13] LABS: BACTERIA,URINE TRACE /HPF (NEGATIVE); SQUAMOUS EPITHELIAL CELL,UR RARE /HPF (NEGATIVE)
--- NOTE | 2021-06-30 15:35 | RAD ---
HISTORYCHF, EDEMA Relevant Clinical InformationSTUDYCHEST, 1 [id number]/26/2021FINDINGSThe cardiac silhouette is enlarged. There is pulmonary vascular congestion and mild bilateral interstitial prominence. No definite acute alveolar infiltrate or significant effusion is identified. No pneumothorax.IMPRESSIONCardiomegaly and mild bilateral interstitial prominence, suggestive of mild pulmonary edema from CHF.Electronically signed by: CLEMENT LEE (Jun 30, 2021 15:35:30)
[2021-06-30] MEDS ORDERED: LASIX IVP ONE ×2 (18:38→19:10)
[2021-06-30] MEDS ORDERED: NovoLIN R (or HumuLIN R) SUBCUT PRN (18:44)
[2021-06-30 19:49] LABS: CKMB % 1.2 % (<4); CREATINE KINASE MB 2.8 ng/mL (0-4.0)
[2021-06-30] MEDS ORDERED: K-DUR TAB 20 MEQ PO ONE (20:46)
[2021-06-30] MEDS: K-DUR TAB 20 MEQ PO SCH ×2 (20:50→20:59)
[2021-06-30] MEDS ORDERED: TYLENOL 325 MG TAB PO ONE (20:53)
[2021-06-30] MEDS: TYLENOL 325 MG TAB PO PRN (20:59)
[2021-06-30] MEDS: SNACK - Diabetic Appropriate PO SCH (20:59)
[2021-07-01] MEDS: TYLENOL 325 MG TAB PO PRN (01:27)
[2021-07-01 01:33] LABS: CKMB % 1.1 % (<4); CREATINE KINASE MB 2.4 ng/mL (0-4.0)
[2021-07-01 05:56] LABS: BASOPHILS # (AUTO) 0.1 X10^3/uL (0.0-0.1); BASOPHILS % (AUTO) 1.1 % (0.2-1.0); EOSINOPHILS # (AUTO) 0.2 x10^3/uL (0.0-0.2); HEMATOCRIT 33.4 % (42.0-54.0); HEMOGLOBIN 11.1 g/dL (13.5-18.0); LYMPHOCYTES # (AUTO) 1.5 X10^3/uL (1.3-2.9); LYMPHOCYTES % (AUTO) 22.4 % (21.0-51.0); MEAN CORPUSCULAR HEMOGLOBIN 30.3 pg (27.0-34.0); MEAN CORPUSCULAR HGB CONC 33.3 g/dL (33.0-35.0); MEAN PLATELET VOLUME 10.3 fL (7.4-11.0); MONOCYTES # (AUTO) 0.7 x10^3/uL (0.3-0.8); MONOCYTES % (AUTO) 10.9 % (0.0-13.0); NEUTROPHILS # (AUTO) 4.3 x10^3/uL (2.2-4.8); NEUTROPHILS % (AUTO) 62.6 % (42.0-75.0); RED BLOOD COUNT 3.67 X10^6/uL (4.7-6.0); RED CELL DISTRIBUTION WIDTH 15.3 % (11.6-16.5); WHITE BLOOD COUNT 6.8 X10^3/uL (3.6-10.0)
[2021-07-01 06:17] LABS: ALANINE AMINOTRANSFERASE 29 Units/L (12-78); ALBUMIN 2.2 g/dL (3.4-5.0); ALKALINE PHOSPHATASE 42 Units/L (46-116); ASPARTATE AMINO TRANSFERASE 23 Units/L (15-37); BLOOD UREA NITROGEN 17 mg/dL (7-18); CALCIUM 7.9 mg/dL (8.5-10.1); CARBON DIOXIDE 27.5 mmol/L (21-32); CHLORIDE 114 mmol/L (98-107); CHOL/HDL RATIO 2.7 (0.0-5.0); CHOLESTEROL 162 mg/dL (0-200); CKMB % 1.1 % (<4); COR CA(FOR HYPOALB) 9.3 mg/dL (8.5-10.1); COR NA(FOR HYPERGLY) 147 mmol/L (136-145); CREATINE KINASE 173 Units/L (39-308); CREATINE KINASE MB 1.9 ng/mL (0-4.0); CREATININE 1.31 mg/dL (0.70-1.30); HDL CHOLESTEROL 60 mg/dL (40-60); MAGNESIUM 2.3 mg/dL (1.7-2.9); SODIUM 146 mmol/L (136-145); TOTAL PROTEIN 5.1 g/dL (6.4-8.2); TRIGLYCERIDES 74 mg/dL (0-150); eGFR NON BLACK RACES 58 (>60)
[2021-07-01] MEDS: K-DUR TAB 20 MEQ PO SCH ×2 (08:56→20:15)
[2021-07-01] MEDS: LASIX IVP SCH ×2 (08:57→16:37)
[2021-07-01] MEDS: NORCO 5/325 MG TAB PO PRN ×2 (09:40→20:17)
[2021-07-01] MEDS: CATAPRES TAB 0.1 MG PO SCH ×2 (09:58→20:16)
[2021-07-01] MEDS: AMARYL TAB 4 MG PO SCH (09:58)
[2021-07-01] MEDS: CARDURA PO SCH (09:58)
[2021-07-01] MEDS: MOBIC TAB 15 MG PO SCH (09:59)
[2021-07-01] MEDS: SINGULAIR TAB 10 MG PO SCH (09:59)
[2021-07-01] MEDS: PROSCAR PO SCH (09:59)
[2021-07-01] MEDS: SYNTHROID 50 mcg TAB PO SCH (09:59)
[2021-07-01] MEDS: COREG TAB 25 MG PO SCH (09:59)
[2021-07-01] MEDS: VICTOZA SC SCH (10:00)
[2021-07-01] MEDS: ZESTORETIC 20/25 MG PO SCH (10:00)
[2021-07-01] MEDS: LOVENOX INJ 40 MG SYR SC SCH (10:00)
[2021-07-01 10:22] LABS: BILIRUBIN,URINE NEGATIVE (NEGATIVE); BLOOD/HEMOGLOBIN,URINE 1+ (NEGATIVE); GLUCOSE, URINE NEGATIVE (NEGATIVE); KETONES,URINE NEGATIVE (NEGATIVE); LEUKOCYTE ESTERASE ,URINE NEGATIVE (NEGATIVE); NITRITES,URINE NEGATIVE (NEGATIVE); PROTEIN,URINE 4+ (NEGATIVE); UROBILINOGEN,URINE NORMAL (NORMAL)
[2021-07-01 10:37] LABS: APPEARANCE,URINE CLEAR (CLEAR); BACTERIA,URINE TRACE /HPF (NEGATIVE); COLOR,URINE YELLOW (YELLOW); RBC,URINE 0-2 /HPF (0-3); SQUAMOUS EPITHELIAL CELL,UR RARE /HPF (NEGATIVE)
[2021-07-01] MEDS ORDERED: NORVASC TAB 10 MG PO STA (16:34)
[2021-07-01] MEDS ORDERED: NORVASC TAB 10 MG ONE (16:37)
[2021-07-01] MEDS ORDERED: NORVASC TAB 10 MG PO SCH (17:00)
[2021-07-01] MEDS ORDERED: APRESOLINE INJ 20 MG VIAL IVP ONE (18:18)
[2021-07-01] MEDS ORDERED: APRESOLINE INJ 20 MG VIAL ONE (18:23)
[2021-07-01] MEDS ORDERED: SNACK - Diabetic Appropriate PO SCH (20:00)
[2021-07-01] MEDS: SNACK - Diabetic Appropriate PO SCH (20:08)
[2021-07-01] MEDS ORDERED: ZESTRIL TAB 20 MG ONE (20:13)
[2021-07-01] MEDS: NEURONTIN CAP 400 MG PO SCH (20:15)
[2021-07-01] MEDS: ZESTRIL TAB 20 MG PO SCH (20:15)
[2021-07-02 06:33] LABS: BASOPHILS # (AUTO) 0.1 X10^3/uL (0.0-0.1); BASOPHILS % (AUTO) 1.2 % (0.2-1.0); EOSINOPHILS # (AUTO) 0.3 x10^3/uL (0.0-0.2); EOSINOPHILS % (AUTO) 3.8 % (0.9-2.9); HEMATOCRIT 36.5 % (42.0-54.0); HEMOGLOBIN 12.1 g/dL (13.5-18.0); LYMPHOCYTES # (AUTO) 1.6 X10^3/uL (1.3-2.9); LYMPHOCYTES % (AUTO) 21.8 % (21.0-51.0); MEAN CORPUSCULAR HEMOGLOBIN 29.9 pg (27.0-34.0); MEAN CORPUSCULAR VOLUME 90.7 fL (80.0-100.0); MEAN PLATELET VOLUME 10.6 fL (7.4-11.0); MONOCYTES # (AUTO) 0.7 x10^3/uL (0.3-0.8); MONOCYTES % (AUTO) 9.5 % (0.0-13.0); NEUTROPHILS # (AUTO) 4.6 x10^3/uL (2.2-4.8); NEUTROPHILS % (AUTO) 63.7 % (42.0-75.0); RED BLOOD COUNT 4.03 X10^6/uL (4.7-6.0); RED CELL DISTRIBUTION WIDTH 15.1 % (11.6-16.5); WHITE BLOOD COUNT 7.3 X10^3/uL (3.6-10.0)
[2021-07-02 06:49] LABS: ALANINE AMINOTRANSFERASE 29 Units/L (12-78); ALBUMIN 2.4 g/dL (3.4-5.0); ALKALINE PHOSPHATASE 43 Units/L (46-116); ASPARTATE AMINO TRANSFERASE 22 Units/L (15-37); BLOOD UREA NITROGEN 17 mg/dL (7-18); CARBON DIOXIDE 28.4 mmol/L (21-32); CHLORIDE 112 mmol/L (98-107); COR CA(FOR HYPOALB) 9.3 mg/dL (8.5-10.1); CREATININE 1.11 mg/dL (0.70-1.30); SODIUM 145 mmol/L (136-145); TOTAL PROTEIN 5.7 g/dL (6.4-8.2); eGFR NON BLACK RACES > 60 (>60)
[2021-07-02] MEDS: LOVENOX INJ 40 MG SYR SC SCH (08:06)
[2021-07-02] MEDS: CARDURA PO SCH (08:27)
[2021-07-02] MEDS: AMARYL TAB 4 MG PO SCH (08:27)
[2021-07-02] MEDS: PROSCAR PO SCH (08:28)
[2021-07-02] MEDS: SYNTHROID 50 mcg TAB PO SCH (08:28)
[2021-07-02] MEDS: NEURONTIN CAP 400 MG PO SCH ×2 (08:28→21:05)
[2021-07-02] MEDS: COREG TAB 25 MG PO SCH (08:28)
[2021-07-02] MEDS: LASIX IVP SCH ×2 (08:28→16:44)
[2021-07-02] MEDS: K-DUR TAB 20 MEQ PO SCH ×2 (08:28→21:08)
[2021-07-02] MEDS: MOBIC TAB 15 MG PO SCH (08:28)
[2021-07-02] MEDS: CATAPRES TAB 0.1 MG PO SCH ×2 (08:28→21:08)
[2021-07-02] MEDS: VICTOZA SC SCH (08:29)
[2021-07-02] MEDS: SINGULAIR TAB 10 MG PO SCH (08:29)
[2021-07-02] MEDS: ZESTORETIC 20/25 MG PO SCH (08:30)
[2021-07-02] MEDS: ACTOS PO SCH (09:16)
[2021-07-02] MEDS: APRESOLINE TAB 25 MG PO SCH ×3 (09:16→21:06)
[2021-07-02] MEDS: DIFLUCAN PO SCH (09:17)
[2021-07-02] MEDS: VIBRAMYCIN 100 MG in D5W 250 ML IV 250 ML IV SCH ×2 (09:17→21:09)
[2021-07-02] MEDS: GLUCOPHAGE XR 24-HR PO SCH ×2 (09:17→21:06)
[2021-07-02] MEDS: SNACK - Diabetic Appropriate PO SCH (19:26)
[2021-07-02] MEDS: NORCO 5/325 MG TAB PO PRN (19:26)
[2021-07-02] MEDS ORDERED: ZESTRIL TAB 20 MG ONE (20:14)
[2021-07-02] MEDS: TYLENOL 325 MG TAB PO PRN (21:05)
[2021-07-02] MEDS: ZESTRIL TAB 20 MG PO SCH (21:09)
[2021-07-03 05:21] LABS: BASOPHILS # (AUTO) 0.1 X10^3/uL (0.0-0.1); BASOPHILS % (AUTO) 1.2 % (0.2-1.0); EOSINOPHILS # (AUTO) 0.4 x10^3/uL (0.0-0.2); HEMATOCRIT 35.2 % (42.0-54.0); HEMOGLOBIN 11.7 g/dL (13.5-18.0); LYMPHOCYTES # (AUTO) 1.7 X10^3/uL (1.3-2.9); LYMPHOCYTES % (AUTO) 23.2 % (21.0-51.0); MEAN CORPUSCULAR HEMOGLOBIN 29.9 pg (27.0-34.0); MEAN CORPUSCULAR HGB CONC 33.2 g/dL (33.0-35.0); MEAN PLATELET VOLUME 10.5 fL (7.4-11.0); MONOCYTES # (AUTO) 0.8 x10^3/uL (0.3-0.8); MONOCYTES % (AUTO) 10.8 % (0.0-13.0); NEUTROPHILS # (AUTO) 4.3 x10^3/uL (2.2-4.8); NEUTROPHILS % (AUTO) 59.8 % (42.0-75.0); RED BLOOD COUNT 3.91 X10^6/uL (4.7-6.0); RED CELL DISTRIBUTION WIDTH 15.1 % (11.6-16.5); WHITE BLOOD COUNT 7.2 X10^3/uL (3.6-10.0)
[2021-07-03 05:34] LABS: ALANINE AMINOTRANSFERASE 27 Units/L (12-78); ALBUMIN 2.2 g/dL (3.4-5.0); ALKALINE PHOSPHATASE 41 Units/L (46-116); ASPARTATE AMINO TRANSFERASE 19 Units/L (15-37); BLOOD UREA NITROGEN 16 mg/dL (7-18); CARBON DIOXIDE 29.4 mmol/L (21-32); CHLORIDE 110 mmol/L (98-107); COR CA(FOR HYPOALB) 9.4 mg/dL (8.5-10.1); CREATININE 1.03 mg/dL (0.70-1.30); SODIUM 143 mmol/L (136-145); TOTAL PROTEIN 5.4 g/dL (6.4-8.2); eGFR NON BLACK RACES > 60 (>60)
[2021-07-03] MEDS: APRESOLINE TAB 25 MG PO SCH ×3 (05:39→21:02)
[2021-07-03] MEDS: ZESTORETIC 20/25 MG PO SCH (09:51)
[2021-07-03] MEDS: VIBRAMYCIN 100 MG in D5W 250 ML IV 250 ML IV SCH ×2 (09:51→21:02)
[2021-07-03] MEDS: LOVENOX INJ 40 MG SYR SC SCH (09:51)
[2021-07-03] MEDS: NEURONTIN CAP 400 MG PO SCH ×2 (09:52→21:01)
[2021-07-03] MEDS: COREG TAB 25 MG PO SCH (09:52)
[2021-07-03] MEDS: GLUCOPHAGE XR 24-HR PO SCH ×2 (09:52→21:01)
[2021-07-03] MEDS: CATAPRES TAB 0.1 MG PO SCH ×2 (09:53→21:01)
[2021-07-03] MEDS: SINGULAIR TAB 10 MG PO SCH (09:53)
[2021-07-03] MEDS: CARDURA PO SCH (09:54)
[2021-07-03] MEDS: SYNTHROID 50 mcg TAB PO SCH (09:54)
[2021-07-03] MEDS: DIFLUCAN PO SCH (09:54)
[2021-07-03] MEDS: ACTOS PO SCH (09:54)
[2021-07-03] MEDS: MOBIC TAB 15 MG PO SCH (09:55)
[2021-07-03] MEDS: LASIX IVP SCH ×2 (09:55→17:47)
[2021-07-03] MEDS: NORCO 5/325 MG TAB PO PRN ×2 (09:55→21:12)
[2021-07-03] MEDS: K-DUR TAB 20 MEQ PO SCH ×2 (09:55→21:01)
[2021-07-03] MEDS: PROSCAR PO SCH (09:58)
[2021-07-03] MEDS: VICTOZA SC SCH (09:58)
[2021-07-03] MEDS: SNACK - Diabetic Appropriate PO SCH (20:01)
[2021-07-03] MEDS ORDERED: ZESTRIL TAB 20 MG ONE (20:11)
[2021-07-03] MEDS: ZESTRIL TAB 20 MG PO SCH (21:02)
[2021-07-03] MEDS: TYLENOL 325 MG TAB PO PRN (23:28)
[2021-07-04] MEDS: APRESOLINE TAB 25 MG PO SCH ×3 (05:45→21:25)
[2021-07-04 06:18] LABS: BASOPHILS # (AUTO) 0.1 X10^3/uL (0.0-0.1); BASOPHILS % (AUTO) 1.3 % (0.2-1.0); EOSINOPHILS # (AUTO) 0.4 x10^3/uL (0.0-0.2); EOSINOPHILS % (AUTO) 5.6 % (0.9-2.9); HEMATOCRIT 36.8 % (42.0-54.0); HEMOGLOBIN 12.3 g/dL (13.5-18.0); LYMPHOCYTES # (AUTO) 1.8 X10^3/uL (1.3-2.9); LYMPHOCYTES % (AUTO) 25.2 % (21.0-51.0); MEAN CORPUSCULAR HEMOGLOBIN 30.1 pg (27.0-34.0); MEAN CORPUSCULAR HGB CONC 33.4 g/dL (33.0-35.0); MEAN CORPUSCULAR VOLUME 90.1 fL (80.0-100.0); MEAN PLATELET VOLUME 9.9 fL (7.4-11.0); MONOCYTES # (AUTO) 0.7 x10^3/uL (0.3-0.8); MONOCYTES % (AUTO) 10.3 % (0.0-13.0); NEUTROPHILS % (AUTO) 57.6 % (42.0-75.0); RED BLOOD COUNT 4.09 X10^6/uL (4.7-6.0); RED CELL DISTRIBUTION WIDTH 15.2 % (11.6-16.5)
[2021-07-04 06:40] LABS: ALANINE AMINOTRANSFERASE 29 Units/L (12-78); ALBUMIN 2.3 g/dL (3.4-5.0); ALKALINE PHOSPHATASE 45 Units/L (46-116); ASPARTATE AMINO TRANSFERASE 25 Units/L (15-37); BLOOD UREA NITROGEN 21 mg/dL (7-18); CALCIUM 7.9 mg/dL (8.5-10.1); CARBON DIOXIDE 30.1 mmol/L (21-32); CHLORIDE 105 mmol/L (98-107); COR CA(FOR HYPOALB) 9.3 mg/dL (8.5-10.1); CREATININE 1.24 mg/dL (0.70-1.30); SODIUM 141 mmol/L (136-145); TOTAL PROTEIN 5.6 g/dL (6.4-8.2); eGFR NON BLACK RACES > 60 (>60)
[2021-07-04] MEDS: VIBRAMYCIN 100 MG in D5W 250 ML IV 250 ML IV SCH ×2 (08:19→21:25)
[2021-07-04] MEDS: CARDURA PO SCH (08:19)
[2021-07-04] MEDS: LOVENOX INJ 40 MG SYR SC SCH (08:19)
[2021-07-04] MEDS: LASIX IVP SCH ×2 (08:20→16:39)
[2021-07-04] MEDS: PROSCAR PO SCH (08:20)
[2021-07-04] MEDS: ZESTORETIC 20/25 MG PO SCH (08:20)
[2021-07-04] MEDS: MOBIC TAB 15 MG PO SCH (08:20)
[2021-07-04] MEDS: DIFLUCAN PO SCH (08:20)
[2021-07-04] MEDS: ACTOS PO SCH (08:21)
[2021-07-04] MEDS: NEURONTIN CAP 400 MG PO SCH ×2 (08:21→21:24)
[2021-07-04] MEDS: K-DUR TAB 20 MEQ PO SCH ×2 (08:21→21:24)
[2021-07-04] MEDS: CATAPRES TAB 0.1 MG PO SCH ×2 (08:21→21:25)
[2021-07-04] MEDS: SYNTHROID 50 mcg TAB PO SCH (08:21)
[2021-07-04] MEDS: GLUCOPHAGE XR 24-HR PO SCH ×2 (08:21→21:24)
[2021-07-04] MEDS: COREG TAB 25 MG PO SCH (08:21)
[2021-07-04] MEDS: SINGULAIR TAB 10 MG PO SCH (08:22)
[2021-07-04] MEDS: VICTOZA SC SCH (08:50)
--- NOTE | 2021-07-04 10:36 | RAD ---
HISTORYSOB,CHFSTUDYCHEST x-ray, 1 VIEWCOMPARISONX-ray 06/30/2021FINDINGSCardiomegaly and probable CHF is similar to prior study. No pulmonary edema or pneumonia is seen. No evidence of pneumothorax or pleural effusion.IMPRESSIONPersistent CHF is suspected.Electronically signed by: Aj Hayes (Jul 04, 2021 10:35:37)
[2021-07-04] MEDS: TYLENOL 325 MG TAB PO PRN (13:12)
[2021-07-04] MEDS: LOMOTIL PO PRN (13:37)
--- NOTE | 2021-07-04 16:33 | PCM.PROG ---
Progress Note - Progress Note for Day of Date of Exam: 07/04/21 - Subjective Subjective: This is a 66-year-old morbidly obese patient who is admitted at this time with a diagnosis of congestive heart failure exacerbation, scrotal cellulitis, diabetes mellitus, and hypertension. The patient has progressive edema of the lower abdominal wall, genitalia, and lower extremities over the past year. Pt is currently on Lasix 40 IV bid and doxycycline. Pt had marked improved lower extremity edema, but continued diffuse scrotal edema, improving redness. Pt to have ECHO today, currently has elevated bp this am, denies chest pain or Sob. - Past Medical Family Social History Past Med/Fam/Surg Hx: No changes since H&P Allergies: Allergies No Known Drug Allergies Allergy (Verified 07/12/20 12:15) - Vital Signs and I&O's Vital Signs: Temperature 98.3 F Pulse Rate [Left Brachial] 51 Pulse Rate 60 Respiratory Rate 20 Blood Pressure [Right Arm] 174/70 Blood Pressure [Left Arm] 151/66 Blood Pressure 218/88 O2 Sat by Pulse Oximetry 96 Intake and Output: Intake & Output 07/02/21 07/03/21 07/04/21 07/05/21 11:59 11:59 11:59 11:59 Intake Total 2760 / 2760 2204 / 2204 2029 248 / 248 Balance 2760 / 2760 2204 / 2204 2029 248 / 248 - Physical Exam Oriented: Normal Eyes: Normal Ear: Normal Nose: Normal Throat: Normal Respiratory: Diminished Cardiovascular: Murmur, Edema : Other (scrotal edema) Skin: Decreased Turgur, Red, Tender Musculoskeletal: Left, Back:Lumbar Psychiatric: Anxiety Speech Pattern: Clear, Appropriate - Laboratory and Diagnostics Result Diagrams: 07/04/21 05:43 07/04/21 05:43 Labs: 07/01/21 10:11 Urine,Clean Catch Urine Culture - Final Escherichia Coli 06/30/21 19:13 Blood Blood Culture - Preliminary 06/30/21 19:00 Blood Blood Culture - Preliminary Laboratory WBC 7.0 X10^3/uL (3.6-10.0) 07/04/21 05:43 RBC 4.09 X10^6/uL (4.7-6.0) L 07/04/21 05:43 Hgb 12.3 g/dL (13.5-18.0) L 07/04/21 05:43 Hct 36.8 % (42.0-54.0) L 07/04/21 05:43 MCV 90.1 fL (80.0-100.0) 07/04/21 05:43 MCH 30.1 pg (27.0-34.0) 07/04/21 05:43 MCHC 33.4 g/dL (33.0-35.0) 07/04/21 05:43 RDW 15.2 % (11.6-16.5) 07/04/21 05:43 Plt Count 184 X10^3/uL (150.0-450.0) 07/04/21 05:43 MPV 9.9 fL (7.4-11.0) 07/04/21 05:43 Neut % (Auto) 57.6 % (42.0-75.0) 07/04/21 05:43 Lymph % (Auto) 25.2 % (21.0-51.0) 07/04/21 05:43 [place] % (Auto) 10.3 % (0.0-13.0) 07/04/21 05:43 Eos % (Auto) 5.6 % (0.9-2.9) H 07/04/21 05:43 Baso % (Auto) 1.3 % (0.2-1.0) H 07/04/21 05:43 Neut # (Auto) 4.0 x10^3/uL (2.2-4.8) 07/04/21 05:43 Lymph # (Auto) 1.8 X10^3/uL (1.3-2.9) 07/04/21 05:43 [place] # (Auto) 0.7 x10^3/uL (0.3-0.8) 07/04/21 05:43 Eos # (Auto) 0.4 x10^3/uL (0.0-0.2) H 07/04/21 05:43 Baso # (Auto) 0.1 X10^3/uL (0.0-0.1) 07/04/21 05:43 Absolute Nucleated RBC 0.1 /100WBC 07/04/21 05:43 PT 13.9 SECONDS (11.8-14.3) 07/01/21 04:39 INR Target Range - 07/01/21 04:39 INR 1.13 (0.8-1.3) 07/01/21 04:39 APTT 26.9 SECONDS (22.9-36.5) 07/01/21 04:39 PTT Comment - 07/01/21 04:39 Sodium 141 mmol/L (136-145) 07/04/21 05:43 Corrected Sodium TNP 07/04/21 05:43 Potassium 4.3 mmol/L (3.5-5.1) 07/04/21 05:43 Chloride 105 mmol/L (98-107) 07/04/21 05:43 Carbon Dioxide 30.1 mmol/L (21-32) 07/04/21 05:43 BUN 21 mg/dL (7-18) H 07/04/21 05:43 Creatinine 1.24 mg/dL (0.70-1.30) 07/04/21 05:43 Est GFR (MDRD) Af Amer > 60 (>60) 07/04/21 05:43 Est GFR (MDRD) Non-Af > 60 (>60) 07/04/21 05:43 Glucose 96 mg/dL (65-99) 07/04/21 05:43 POC Glucose (mg/dL) 118 mg/dL (65-99) H 07/04/21 12:45 Calcium 7.9 mg/dL (8.5-10.1) L 07/04/21 05:43 Corrected Calcium 9.3 mg/dL (8.5-10.1) 07/04/21 05:43 Magnesium 2.3 mg/dL (1.7-2.9) 07/01/21 04:39 Total Bilirubin 0.30 mg/dL (0.2-1.0) 07/04/21 05:43 AST 25 Units/L (15-37) 07/04/21 05:43 ALT 29 Units/L (12-78) 07/04/21 05:43 Alkaline Phosphatase 45 Units/L (46-116) L 07/04/21 05:43 Creatine Kinase 173 Units/L (39-308) 07/01/21 04:39 CK-MB (CK-2) 1.9 ng/mL (0-4.0) 07/01/21 04:39 CK/CKMB % Calc 1.1 % (<4) 07/01/21 04:39 Troponin I High Sens 36.6 ng/L (4.0-60.0) 07/01/21 04:39 B-Natriuretic Peptide 333 pg/mL (0-79) H 06/30/21 13:48 Total Protein 5.6 g/dL (6.4-8.2) L 07/04/21 05:43 Albumin 2.3 g/dL (3.4-5.0) L 07/04/21 05:43 Globulin 3.3 g/dL (2.5-4.5) 07/04/21 05:43 Albumin/Globulin Ratio 0.7 Ratio (1.1-2.1) L 07/04/21 05:43 Triglycerides 74 mg/dL (0-150) 07/01/21 04:39 Cholesterol 162 mg/dL (0-200) 07/01/21 04:39 LDL Cholesterol, Calc 87 mg/dL (0-100) 07/01/21 04:39 HDL Cholesterol 60 mg/dL (40-60) 07/01/21 04:39 Cholesterol/HDL Ratio 2.7 (0.0-5.0) 07/01/21 04:39 Specimen Type Clean catch urine 07/01/21 10:11 Urine Color Yellow (YELLOW) 07/01/21 10:11 Urine Appearance Clear (CLEAR) 07/01/21 10:11 Urine pH 6.0 (5.0 - 8.0) 07/01/21 10:11 Ur Specific [place] 1.020 (1.000-1.030) 07/01/21 10:11 Urine Protein 4+ (NEGATIVE) 07/01/21 10:11 Urine Glucose (UA) Negative (NEGATIVE) 07/01/21 10:11 Urine Ketones Negative (NEGATIVE) 07/01/21 10:11 Urine Occult Blood 1+ (NEGATIVE) 07/01/21 10:11 Urine Nitrite Negative (NEGATIVE) 07/01/21 10:11 Urine Bilirubin Negative (NEGATIVE) 07/01/21 10:11 Urine Urobilinogen Normal (NORMAL) 07/01/21 10:11 Ur Leukocyte Esterase Negative (NEGATIVE) 07/01/21 10:11 Urine RBC 0-2 /HPF (0-3) 07/01/21 10:11 Urine WBC 0-2 /HPF (0-5) 07/01/21 10:11 Ur Squamous Epith Cells Rare /HPF (NEGATIVE) 07/01/21 10:11 Urine Bacteria Trace /HPF (NEGATIVE) 07/01/21 10:11 Ur Culture Indicated? Yes/culture set up 07/01/21 10:11 SARS CoV-2 RNA Rapid MAGALIS Negative (NEGATIVE) 06/30/21 16:33 - Plan (1) Cellulitis of scrotum Status: Acute Plan: continue IV ATBX, CONTINUE SCROTAL SUPPORT/ELEVATION. IV LASIX WITH STRICT I&OS. PAIN CONTROL. 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
[2021-07-04] MEDS: SNACK - Diabetic Appropriate PO SCH (20:02)
[2021-07-04] MEDS ORDERED: ZESTRIL TAB 20 MG ONE (20:36)
[2021-07-04] MEDS: ZESTRIL TAB 20 MG PO SCH (21:25)
[2021-07-04] MEDS: NORCO 5/325 MG TAB PO PRN (22:32)
[2021-07-05 06:11] LABS: BASOPHILS # (AUTO) 0.1 X10^3/uL (0.0-0.1); BASOPHILS % (AUTO) 1.2 % (0.2-1.0); EOSINOPHILS # (AUTO) 0.3 x10^3/uL (0.0-0.2); EOSINOPHILS % (AUTO) 5.4 % (0.9-2.9); HEMATOCRIT 36.6 % (42.0-54.0); HEMOGLOBIN 12.1 g/dL (13.5-18.0); LYMPHOCYTES # (AUTO) 1.7 X10^3/uL (1.3-2.9); LYMPHOCYTES % (AUTO) 27.2 % (21.0-51.0); MEAN CORPUSCULAR HEMOGLOBIN 29.9 pg (27.0-34.0); MEAN CORPUSCULAR HGB CONC 33.2 g/dL (33.0-35.0); MONOCYTES # (AUTO) 0.5 x10^3/uL (0.3-0.8); MONOCYTES % (AUTO) 8.6 % (0.0-13.0); NEUTROPHILS # (AUTO) 3.6 x10^3/uL (2.2-4.8); NEUTROPHILS % (AUTO) 57.6 % (42.0-75.0); RED BLOOD COUNT 4.06 X10^6/uL (4.7-6.0); RED CELL DISTRIBUTION WIDTH 15.3 % (11.6-16.5); WHITE BLOOD COUNT 6.3 X10^3/uL (3.6-10.0)
[2021-07-05 06:20] LABS: ALANINE AMINOTRANSFERASE 32 Units/L (12-78); ALBUMIN 2.2 g/dL (3.4-5.0); ALKALINE PHOSPHATASE 46 Units/L (46-116); ASPARTATE AMINO TRANSFERASE 25 Units/L (15-37); BLOOD UREA NITROGEN 27 mg/dL (7-18); CALCIUM 7.9 mg/dL (8.5-10.1); CARBON DIOXIDE 28.4 mmol/L (21-32); CHLORIDE 105 mmol/L (98-107); COR CA(FOR HYPOALB) 9.3 mg/dL (8.5-10.1); SODIUM 140 mmol/L (136-145); TOTAL PROTEIN 5.6 g/dL (6.4-8.2); eGFR NON BLACK RACES > 60 (>60)
[2021-07-05] MEDS: APRESOLINE TAB 25 MG PO SCH ×3 (06:23→21:33)
[2021-07-05] MEDS: GLUCOPHAGE XR 24-HR PO SCH ×2 (08:15→20:42)
[2021-07-05] MEDS: ACTOS PO SCH (08:15)
[2021-07-05] MEDS: VIBRAMYCIN 100 MG in D5W 250 ML IV 250 ML IV SCH (08:15)
[2021-07-05] MEDS: LOVENOX INJ 40 MG SYR SC SCH (08:15)
[2021-07-05] MEDS: COREG TAB 25 MG PO SCH (08:15)
[2021-07-05] MEDS: ZESTORETIC 20/25 MG PO SCH (08:15)
[2021-07-05] MEDS: SINGULAIR TAB 10 MG PO SCH (08:16)
[2021-07-05] MEDS: CARDURA PO SCH (08:16)
[2021-07-05] MEDS: PROSCAR PO SCH (08:16)
[2021-07-05] MEDS: MOBIC TAB 15 MG PO SCH (08:16)
[2021-07-05] MEDS: NEURONTIN CAP 400 MG PO SCH ×2 (08:16→20:42)
[2021-07-05] MEDS: CATAPRES TAB 0.1 MG PO SCH ×2 (08:16→20:43)
[2021-07-05] MEDS: K-DUR TAB 20 MEQ PO SCH ×2 (08:16→20:43)
[2021-07-05] MEDS: SYNTHROID 50 mcg TAB PO SCH (08:16)
[2021-07-05] MEDS: LASIX IVP SCH ×2 (08:17→16:45)
[2021-07-05] MEDS: DIFLUCAN PO SCH (08:17)
[2021-07-05] MEDS: VICTOZA SC SCH (08:17)
[2021-07-05] MEDS: LOMOTIL PO PRN (13:00)
[2021-07-05] MEDS: ROCEPHIN 1 GRAM IV PREMIX 1 G/50 ML IV.SOLN. IV SCH (13:05)
[2021-07-05] MEDS ORDERED: NS 50 ML IV 50 ML IV ONE (13:12)
--- NOTE | 2021-07-05 13:18 | PCM.PROG ---
Progress Note - Subjective Subjective: This is a 66-year-old morbidly obese patient who is admitted at this time with a diagnosis of congestive heart failure exacerbation, scrotal cellulitis, diabetes mellitus, and hypertension and UTI. The patient has progressive edema of the lower abdominal wall, genitalia, and lower extremities over the past year. Pt is currently on Lasix 40 IV bid and doxycycline. Pt had marked improved lower extremity edema, but continued diffuse scrotal edema, improving redness. Patient reports pain so severe to scrotom with ambulation it is causing difficulty walking. - Past Medical Family Social History Past Med/Fam/Surg Hx: No changes since H&P Allergies: Allergies No Known Drug Allergies Allergy (Verified 07/12/20 12:15) - Review of Systems ROS: No change since H&P - Vital Signs and I&O's Vital Signs: Temperature 97.5 F Pulse Rate [Left Brachial] 55 Pulse Rate 60 Respiratory Rate 20 Blood Pressure [Right Arm] 174/70 Blood Pressure [Left Arm] 166/73 Blood Pressure 218/88 O2 Sat by Pulse Oximetry 96 Intake and Output: Intake & Output 07/02/21 07/03/21 07/04/21 07/05/21 23:59 23:59 23:59 23:59 Intake Total 3050 / 3050 2093 240 / 240 Output Total 1633 / 1633 2024 Balance 3050 / 3050 2093 505 / 505 -1785 / -1785 - Physical Exam Oriented: Normal, Time, Person, Place Eyes: Normal Ear: Normal Nose: Normal Throat: Normal Respiratory: Diminished Cardiovascular: Murmur, Edema : Other (scrotal edema) Auscultation: Bowel Sounds: Normal Palpation: Normal Tenderness: Normal Skin: Decreased Turgur, Red, Tender Musculoskeletal: Left, Back:Lumbar Psychiatric: Anxiety Mood Description: Calm Affect: Normal Speech Pattern: Clear, Appropriate - Laboratory and Diagnostics Result Diagrams: 07/05/21 05:51 07/05/21 05:51 Labs: 07/01/21 10:11 Urine,Clean Catch Urine Culture - Final Escherichia Coli 06/30/21 19:13 Blood Blood Culture - Preliminary 06/30/21 19:00 Blood Blood Culture - Preliminary Laboratory WBC 6.3 X10^3/uL (3.6-10.0) 07/05/21 05:51 RBC 4.06 X10^6/uL (4.7-6.0) L 07/05/21 05:51 Hgb 12.1 g/dL (13.5-18.0) L 07/05/21 05:51 Hct 36.6 % (42.0-54.0) L 07/05/21 05:51 MCV 90.0 fL (80.0-100.0) 07/05/21 05:51 MCH 29.9 pg (27.0-34.0) 07/05/21 05:51 MCHC 33.2 g/dL (33.0-35.0) 07/05/21 05:51 RDW 15.3 % (11.6-16.5) 07/05/21 05:51 Plt Count 184 X10^3/uL (150.0-450.0) 07/05/21 05:51 MPV 10.0 fL (7.4-11.0) 07/05/21 05:51 Neut % (Auto) 57.6 % (42.0-75.0) 07/05/21 05:51 Lymph % (Auto) 27.2 % (21.0-51.0) 07/05/21 05:51 [place] % (Auto) 8.6 % (0.0-13.0) 07/05/21 05:51 Eos % (Auto) 5.4 % (0.9-2.9) H 07/05/21 05:51 Baso % (Auto) 1.2 % (0.2-1.0) H 07/05/21 05:51 Neut # (Auto) 3.6 x10^3/uL (2.2-4.8) 07/05/21 05:51 Lymph # (Auto) 1.7 X10^3/uL (1.3-2.9) 07/05/21 05:51 [place] # (Auto) 0.5 x10^3/uL (0.3-0.8) 07/05/21 05:51 Eos # (Auto) 0.3 x10^3/uL (0.0-0.2) H 07/05/21 05:51 Baso # (Auto) 0.1 X10^3/uL (0.0-0.1) 07/05/21 05:51 Absolute Nucleated RBC 0.0 /100WBC 07/05/21 05:51 PT 13.9 SECONDS (11.8-14.3) 07/01/21 04:39 INR Target Range - 07/01/21 04:39 INR 1.13 (0.8-1.3) 07/01/21 04:39 APTT 26.9 SECONDS (22.9-36.5) 07/01/21 04:39 PTT Comment - 07/01/21 04:39 Sodium 140 mmol/L (136-145) 07/05/21 05:51 Corrected Sodium TNP 07/05/21 05:51 Potassium 4.2 mmol/L (3.5-5.1) 07/05/21 05:51 Chloride 105 mmol/L (98-107) 07/05/21 05:51 Carbon Dioxide 28.4 mmol/L (21-32) 07/05/21 05:51 BUN 27 mg/dL (7-18) H 07/05/21 05:51 Creatinine 1.20 mg/dL (0.70-1.30) 07/05/21 05:51 Est GFR (MDRD) Af Amer > 60 (>60) 07/05/21 05:51 Est GFR (MDRD) Non-Af > 60 (>60) 07/05/21 05:51 Glucose 105 mg/dL (65-99) H 07/05/21 05:51 POC Glucose (mg/dL) 112 mg/dL (65-99) H 07/05/21 11:18 Calcium 7.9 mg/dL (8.5-10.1) L 07/05/21 05:51 Corrected Calcium 9.3 mg/dL (8.5-10.1) 07/05/21 05:51 Magnesium 2.3 mg/dL (1.7-2.9) 07/01/21 04:39 Total Bilirubin 0.30 mg/dL (0.2-1.0) 07/05/21 05:51 AST 25 Units/L (15-37) 07/05/21 05:51 ALT 32 Units/L (12-78) 07/05/21 05:51 Alkaline Phosphatase 46 Units/L (46-116) 07/05/21 05:51 Creatine Kinase 173 Units/L (39-308) 07/01/21 04:39 CK-MB (CK-2) 1.9 ng/mL (0-4.0) 07/01/21 04:39 CK/CKMB % Calc 1.1 % (<4) 07/01/21 04:39 Troponin I High Sens 36.6 ng/L (4.0-60.0) 07/01/21 04:39 B-Natriuretic Peptide 333 pg/mL (0-79) H 06/30/21 13:48 Total Protein 5.6 g/dL (6.4-8.2) L 07/05/21 05:51 Albumin 2.2 g/dL (3.4-5.0) L 07/05/21 05:51 Globulin 3.4 g/dL (2.5-4.5) 07/05/21 05:51 Albumin/Globulin Ratio 0.6 Ratio (1.1-2.1) L 07/05/21 05:51 Triglycerides 74 mg/dL (0-150) 07/01/21 04:39 Cholesterol 162 mg/dL (0-200) 07/01/21 04:39 LDL Cholesterol, Calc 87 mg/dL (0-100) 07/01/21 04:39 HDL Cholesterol 60 mg/dL (40-60) 07/01/21 04:39 Cholesterol/HDL Ratio 2.7 (0.0-5.0) 07/01/21 04:39 Specimen Type Clean catch urine 07/01/21 10:11 Urine Color Yellow (YELLOW) 07/01/21 10:11 Urine Appearance Clear (CLEAR) 07/01/21 10:11 Urine pH 6.0 (5.0 - 8.0) 07/01/21 10:11 Ur Specific [place] 1.020 (1.000-1.030) 07/01/21 10:11 Urine Protein 4+ (NEGATIVE) 07/01/21 10:11 Urine Glucose (UA) Negative (NEGATIVE) 07/01/21 10:11 Urine Ketones Negative (NEGATIVE) 07/01/21 10:11 Urine Occult Blood 1+ (NEGATIVE) 07/01/21 10:11 Urine Nitrite Negative (NEGATIVE) 07/01/21 10:11 Urine Bilirubin Negative (NEGATIVE) 07/01/21 10:11 Urine Urobilinogen Normal (NORMAL) 07/01/21 10:11 Ur Leukocyte Esterase Negative (NEGATIVE) 07/01/21 10:11 Urine RBC 0-2 /HPF (0-3) 07/01/21 10:11 Urine WBC 0-2 /HPF (0-5) 07/01/21 10:11 Ur Squamous Epith Cells Rare /HPF (NEGATIVE) 07/01/21 10:11 Urine Bacteria Trace /HPF (NEGATIVE) 07/01/21 10:11 Ur Culture Indicated? Yes/culture set up 07/01/21 10:11 SARS CoV-2 RNA Rapid MAGALIS Negative (NEGATIVE) 06/30/21 16:33 - Plan (1) Urinary tract infection Status: Acute Qualifiers: Urinary tract infection type: site unspecified Hematuria presence: without hematuria Qualified Code(s): N39.0 - Urinary tract infection, site not specified Plan: D/c Doxy. Start IV rocephin (2) Cellulitis of scrotum Status: Acute Plan: continue IV ATBX, CONTINUE SCROTAL SUPPORT/ELEVATION. IV LASIX WITH STRICT I&OS. PAIN CONTROL. 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
[2021-07-05] MEDS: SNACK - Diabetic Appropriate PO SCH (20:00)
[2021-07-05] MEDS ORDERED: ZESTRIL TAB 20 MG ONE (20:12)
[2021-07-05] MEDS: ZESTRIL TAB 20 MG PO SCH (20:42)
[2021-07-05] MEDS: NORCO 5/325 MG TAB PO PRN (20:43)
[2021-07-05] MEDS: ALDACTONE TAB 25 MG PO SCH (21:33)
[2021-07-06] MEDS: APRESOLINE TAB 25 MG PO SCH (05:13)
--- NOTE | 2021-07-06 05:23 | RAD ---
PROCEDURE: Chest X-ray 1 View .HISTORY: Congestive heart failure.TECHNIQUE: AP view .COMPARISON: 07/04/2021.TECHNICAL QUALITY: Satisfactory .FINDINGS:Unchanged heart size upper limits of normal.Mildly increased central vascularity similar to increased compared to previous study.No pulmonary edema or pleural fluid.IMPRESSION:Unchanged start size with mild central vascular prominence.Electronically signed by: Vincent Kelsey (Jul 06, 2021 05:23:22)
[2021-07-06 06:19] LABS: BASOPHILS # (AUTO) 0.1 X10^3/uL (0.0-0.1); BASOPHILS % (AUTO) 1.2 % (0.2-1.0); EOSINOPHILS # (AUTO) 0.3 x10^3/uL (0.0-0.2); EOSINOPHILS % (AUTO) 4.7 % (0.9-2.9); HEMOGLOBIN 12.8 g/dL (13.5-18.0); LYMPHOCYTES # (AUTO) 1.6 X10^3/uL (1.3-2.9); LYMPHOCYTES % (AUTO) 24.9 % (21.0-51.0); MEAN CORPUSCULAR HEMOGLOBIN 30.3 pg (27.0-34.0); MEAN CORPUSCULAR HGB CONC 33.7 g/dL (33.0-35.0); MEAN CORPUSCULAR VOLUME 89.9 fL (80.0-100.0); MEAN PLATELET VOLUME 9.9 fL (7.4-11.0); MONOCYTES # (AUTO) 0.6 x10^3/uL (0.3-0.8); MONOCYTES % (AUTO) 9.2 % (0.0-13.0); NEUTROPHILS # (AUTO) 3.9 x10^3/uL (2.2-4.8); RED BLOOD COUNT 4.22 X10^6/uL (4.7-6.0); RED CELL DISTRIBUTION WIDTH 15.4 % (11.6-16.5); WHITE BLOOD COUNT 6.5 X10^3/uL (3.6-10.0)
[2021-07-06 06:36] LABS: ALANINE AMINOTRANSFERASE 34 Units/L (12-78); ALBUMIN 2.4 g/dL (3.4-5.0); ALKALINE PHOSPHATASE 49 Units/L (46-116); ASPARTATE AMINO TRANSFERASE 29 Units/L (15-37); BLOOD UREA NITROGEN 29 mg/dL (7-18); CALCIUM 8.2 mg/dL (8.5-10.1); CARBON DIOXIDE 29.5 mmol/L (21-32); CHLORIDE 105 mmol/L (98-107); COR CA(FOR HYPOALB) 9.5 mg/dL (8.5-10.1); COR NA(FOR HYPERGLY) 140 mmol/L (136-145); CREATININE 1.18 mg/dL (0.70-1.30); SODIUM 139 mmol/L (136-145); TOTAL PROTEIN 5.9 g/dL (6.4-8.2); eGFR NON BLACK RACES > 60 (>60)
[2021-07-06] MEDS: ROCEPHIN 1 GRAM IV PREMIX 1 G/50 ML IV.SOLN. IV SCH (08:54)
[2021-07-06] MEDS: ZESTORETIC 20/25 MG PO SCH (08:54)
[2021-07-06] MEDS: DIFLUCAN PO SCH (08:55)
[2021-07-06] MEDS: SINGULAIR TAB 10 MG PO SCH (08:55)
[2021-07-06] MEDS: K-DUR TAB 20 MEQ PO SCH (08:55)
[2021-07-06] MEDS: LASIX IVP SCH (08:55)
[2021-07-06] MEDS: COREG TAB 25 MG PO SCH (08:56)
[2021-07-06] MEDS: MOBIC TAB 15 MG PO SCH (08:56)
[2021-07-06] MEDS: NEURONTIN CAP 400 MG PO SCH (08:56)
[2021-07-06] MEDS: SYNTHROID 50 mcg TAB PO SCH (08:57)
[2021-07-06] MEDS: CARDURA PO SCH (08:57)
[2021-07-06] MEDS: PROSCAR PO SCH (08:57)
[2021-07-06] MEDS: ACTOS PO SCH (08:57)
[2021-07-06] MEDS: ALDACTONE TAB 25 MG PO SCH (08:58)
[2021-07-06] MEDS: CATAPRES TAB 0.1 MG PO SCH (08:58)
[2021-07-06] MEDS: GLUCOPHAGE XR 24-HR PO SCH (08:58)
[2021-07-06] MEDS: LOVENOX INJ 40 MG SYR SC SCH (08:59)
[2021-07-06] MEDS: VICTOZA SC SCH (08:59)
--- NOTE | 2021-07-06 09:18 | DR.PROGNOT ---
Hospital Progress Notes - Progress Note for Day of: Progress Note Date: 07/05/21 - Chief Complaint Chief Complaint: feeling better with less pain and swelling of the genital area .. - Past Medical Family Social History Past Med/Fam/Surg Hx: No changes since H&P Allergies: Allergies No Known Drug Allergies Allergy (Verified 07/12/20 12:15) - Review Of Systems ROS: No change since H&P - Vital Signs Vital Signs: Temperature 98.2 F Pulse Rate [Left Brachial] 47 Pulse Rate 60 Respiratory Rate 18 Blood Pressure [Right Arm] 174/70 Blood Pressure [Left Arm] 186/81 Blood Pressure 218/88 O2 Sat by Pulse Oximetry 94 - Physical Exam Oriented: Normal, Time, Person, Place Eyes: Normal Ear: Normal Nose: Normal Throat: Normal Respiratory: Diminished Cardiovascular: Murmur, Edema : Other (scrotal edema) GI:Auscultation: Normal GI:Palpation: Normal GI: Tenderness: Normal Skin: Decreased Turgur, Red, Tender, Other (scrotum is soft now . skin edema is subsiding ...still has large edematous area of lower abdominal wall on the Lt side ) Musculoskeletal: Left, Back:Lumbar Psychiatric: Anxiety Mood Description: Calm Affect: Normal Speech Pattern: Clear, Appropriate - Laboratory and Diagnostics Result Diagrams: 07/06/21 05:47 07/06/21 05:47 Labs: 07/01/21 10:11 Urine,Clean Catch Urine Culture - Final Escherichia Coli 06/30/21 19:13 Blood Blood Culture - Preliminary 06/30/21 19:00 Blood Blood Culture - Preliminary Laboratory WBC 6.5 X10^3/uL (3.6-10.0) 07/06/21 05:47 RBC 4.22 X10^6/uL (4.7-6.0) L 07/06/21 05:47 Hgb 12.8 g/dL (13.5-18.0) L 07/06/21 05:47 Hct 38.0 % (42.0-54.0) L 07/06/21 05:47 MCV 89.9 fL (80.0-100.0) 07/06/21 05:47 MCH 30.3 pg (27.0-34.0) 07/06/21 05:47 MCHC 33.7 g/dL (33.0-35.0) 07/06/21 05:47 RDW 15.4 % (11.6-16.5) 07/06/21 05:47 Plt Count 189 X10^3/uL (150.0-450.0) 07/06/21 05:47 MPV 9.9 fL (7.4-11.0) 07/06/21 05:47 Neut % (Auto) 60.0 % (42.0-75.0) 07/06/21 05:47 Lymph % (Auto) 24.9 % (21.0-51.0) 07/06/21 05:47 [place] % (Auto) 9.2 % (0.0-13.0) 07/06/21 05:47 Eos % (Auto) 4.7 % (0.9-2.9) H 07/06/21 05:47 Baso % (Auto) 1.2 % (0.2-1.0) H 07/06/21 05:47 Neut # (Auto) 3.9 x10^3/uL (2.2-4.8) 07/06/21 05:47 Lymph # (Auto) 1.6 X10^3/uL (1.3-2.9) 07/06/21 05:47 [place] # (Auto) 0.6 x10^3/uL (0.3-0.8) 07/06/21 05:47 Eos # (Auto) 0.3 x10^3/uL (0.0-0.2) H 07/06/21 05:47 Baso # (Auto) 0.1 X10^3/uL (0.0-0.1) 07/06/21 05:47 Absolute Nucleated RBC 0.0 /100WBC 07/06/21 05:47 PT 13.9 SECONDS (11.8-14.3) 07/01/21 04:39 INR Target Range - 07/01/21 04:39 INR 1.13 (0.8-1.3) 07/01/21 04:39 APTT 26.9 SECONDS (22.9-36.5) 07/01/21 04:39 PTT Comment - 07/01/21 04:39 Sodium 139 mmol/L (136-145) 07/06/21 05:47 Corrected Sodium 140 mmol/L (136-145) 07/06/21 05:47 Potassium 4.0 mmol/L (3.5-5.1) 07/06/21 05:47 Chloride 105 mmol/L (98-107) 07/06/21 05:47 Carbon Dioxide 29.5 mmol/L (21-32) 07/06/21 05:47 BUN 29 mg/dL (7-18) H 07/06/21 05:47 Creatinine 1.18 mg/dL (0.70-1.30) 07/06/21 05:47 Est GFR (MDRD) Af Amer > 60 (>60) 07/06/21 05:47 Est GFR (MDRD) Non-Af > 60 (>60) 07/06/21 05:47 Glucose 122 mg/dL (65-99) H 07/06/21 05:47 POC Glucose (mg/dL) 129 mg/dL (65-99) H 07/06/21 05:37 Calcium 8.2 mg/dL (8.5-10.1) L 07/06/21 05:47 Corrected Calcium 9.5 mg/dL (8.5-10.1) 07/06/21 05:47 Magnesium 2.3 mg/dL (1.7-2.9) 07/01/21 04:39 Total Bilirubin 0.20 mg/dL (0.2-1.0) 07/06/21 05:47 AST 29 Units/L (15-37) 07/06/21 05:47 ALT 34 Units/L (12-78) 07/06/21 05:47 Alkaline Phosphatase 49 Units/L (46-116) 07/06/21 05:47 Creatine Kinase 173 Units/L (39-308) 07/01/21 04:39 CK-MB (CK-2) 1.9 ng/mL (0-4.0) 07/01/21 04:39 CK/CKMB % Calc 1.1 % (<4) 07/01/21 04:39 Troponin I High Sens 36.6 ng/L (4.0-60.0) 07/01/21 04:39 B-Natriuretic Peptide 333 pg/mL (0-79) H 06/30/21 13:48 Total Protein 5.9 g/dL (6.4-8.2) L 07/06/21 05:47 Albumin 2.4 g/dL (3.4-5.0) L 07/06/21 05:47 Globulin 3.5 g/dL (2.5-4.5) 07/06/21 05:47 Albumin/Globulin Ratio 0.7 Ratio (1.1-2.1) L 07/06/21 05:47 Triglycerides 74 mg/dL (0-150) 07/01/21 04:39 Cholesterol 162 mg/dL (0-200) 07/01/21 04:39 LDL Cholesterol, Calc 87 mg/dL (0-100) 07/01/21 04:39 HDL Cholesterol 60 mg/dL (40-60) 07/01/21 04:39 Cholesterol/HDL Ratio 2.7 (0.0-5.0) 07/01/21 04:39 Specimen Type Clean catch urine 07/01/21 10:11 Urine Color Yellow (YELLOW) 07/01/21 10:11 Urine Appearance Clear (CLEAR) 07/01/21 10:11 Urine pH 6.0 (5.0 - 8.0) 07/01/21 10:11 Ur Specific [place] 1.020 (1.000-1.030) 07/01/21 10:11 Urine Protein 4+ (NEGATIVE) 07/01/21 10:11 Urine Glucose (UA) Negative (NEGATIVE) 07/01/21 10:11 Urine Ketones Negative (NEGATIVE) 07/01/21 10:11 Urine Occult Blood 1+ (NEGATIVE) 07/01/21 10:11 Urine Nitrite Negative (NEGATIVE) 07/01/21 10:11 Urine Bilirubin Negative (NEGATIVE) 07/01/21 10:11 Urine Urobilinogen Normal (NORMAL) 07/01/21 10:11 Ur Leukocyte Esterase Negative (NEGATIVE) 07/01/21 10:11 Urine RBC 0-2 /HPF (0-3) 07/01/21 10:11 Urine WBC 0-2 /HPF (0-5) 07/01/21 10:11 Ur Squamous Epith Cells Rare /HPF (NEGATIVE) 07/01/21 10:11 Urine Bacteria Trace /HPF (NEGATIVE) 07/01/21 10:11 Ur Culture Indicated? Yes/culture set up 07/01/21 10:11 SARS CoV-2 RNA Rapid MAGALIS Negative (NEGATIVE) 06/30/21 16:33 - Assessment and Plan 1: large genital edema and dermatitis . large pannicula with mild panniculitis . CHF . Pt is improving with ABT , Diuretics and elevation . - Problem Patient Problems: Patient Problems Hypertension (Chronic) I10 CAD (coronary artery disease) (Chronic) I25.10 LALITA (obstructive sleep apnea) (Chronic) G47.33 Cellulitis of scrotum (Acute) N49.2 Dependent edema (Acute) R60.9 Urinary tract infection (Acute) N39.0 Diabetes mellitus (Chronic) E11.9 CHF (congestive heart failure) (Acute) I50.9
[2021-07-06] MEDS: NORCO 5/325 MG TAB PO PRN (09:29)
[2021-07-06 10:44] VITALS: BP 174/75
--- NOTE | 2021-08-09 13:47 | PCM.DCPLAN ---
Discharge Plan - Discharge Plan Hospital Course: Admit date: 06/30/21 Discharge date 07/06/21 DOS 07/06/21 Admit diagnosis1.Congestive heart failure exacerbation. 2. Scrotal cellulitis. 3. Diabetes. 4. Hypertension. Discharge diagnosis: 1. Urinary tract infection type (2) Cellulitis of scrotum (3) Hypertension (4) CAD (coronary artery disease) (5) LALITA (obstructive sleep apnea) (6) Dependent edema (7) Diabetes mellitus (8) CHF (congestive heart failure) Hospital Course: The patient is a 66-year-old white male who is a patient of Dr. Naqvi's private practice. He is morbidly obese, around 400 pounds. He has a history of hypertension, CHF, sleep apnea, diabetes, and osteoarthritis. The patient has had some problems with a hydrocele to his scrotum and has experienced episodes of increased edema and pain, and he has been more edematous to his lower extremities and scrotom over the past several days. The patient has recently been evaluated due to the increased swelling on the left side of his abdomen, and he has seen Urology for his BPH and hydrocele, as well. Urology has not recommended any intervention at this time on outpatient visits. The patient states that his scrotum was approximately the size of a grapefruit and had been very, very painful and tender. He was having difficulty sitting and ambulating at all due to pain. The patient was evaluated in the ER and had a testicular ultrasound; see report. He was noted to have some pulmonary edema on his chest x-ray and was admitted for further treatment. Patient was treated with IV abx and IV lasix due to cellulitis and swelling. Patient reports some improvement in pain and swelling however continues to have discomfort. Dr. Freire (general surgery) was consulted to rule out fourniers gangrene; which was infact ruled out. Edema improved as well as cellulitis to scrotom. CXR was clear without CHF on 07/06/21. Patient was discharged home on PO abx for UTI, no other med changes. Urine culture was positive for e. coli; blood cultures negative. Symptoms improved. Patient was instructed to follow up with urology and PCP outpatient. Disposition: 01 HOME, SELF-CARE Condition: Stable Health Concerns: Post Hospitalization: new medications and changes needed to prevent readmission or further decline. Pt educated and given instructions on all concerns. Plan of Treatment: Continue with present treatment and follow up plan. Pt is to keep follow up appointment as instructed and take medications as ordered. Prescriptions: New clindamycin HCl [Cleocin HCl] 150 mg Capsule 150 mg PO QID Qty: 28 RF: 0 Transmission Status: Received by [facility] furosemide [Lasix] 40 mg Tablet 40 mg PO QAM Qty: 30 RF: 0 Transmission Status: Received by [facility] Continued clotrimazole-betamethasone 1-0.05 % cream 1 applic TOPICAL TID gabapentin 400 mg Capsule 400 mg PO BID glimepiride 4 mg tablet 4 mg PO DAILY hydralazine 100 mg tablet 100 mg PO BID levocetirizine 5 mg tablet 5 mg PO DAILY lovastatin 20 mg tablet 20 mg PO BID metformin 1,000 mg tablet 1,000 mg PO BID potassium chloride 20 mEq tablet,ER particles/crystals 20 meq PO BID rabeprazole 20 mg tablet,delayed release (DR/EC) 20 mg PO DAILY Discontinued spironolactone 50 mg tablet 50 mg PO BID No Action carvedilol 25 mg tablet 25 mg PO DAILY clonidine HCl 0.1 mg tablet 0.1 mg PO BID doxazosin 4 mg tablet 4 mg PO DAILY finasteride 5 mg tablet 5 mg PO DAILY levothyroxine 50 mcg tablet 50 mcg PO DAILY lisinopril 20 mg tablet 20 mg PO QHS lisinopril-hydrochlorothiazide 20-25 mg tablet 1 tab PO DAILY meloxicam 15 mg Tablet 15 mg PO DAILY montelukast 10 mg tablet 10 mg PO DAILY Victoza 3-Manuel 0.6 mg/0.1 mL (18 mg/3 mL) Pen Injector 1.8 mg SUBCUT DAILY - Follow ups/Referrals Follow ups/Referrals: JOANNE WING [Primary Care Provider] - 07/13/21 1:45 pm Hugo Chery [STAFF PHYSICIAN] - 12/07/21 2:00 pm DEEPA CONNER [CONSULTING PHYSICIAN] - 1 WEEK
== END 2021-07-06 11:50 | disposition home or self-care (01) | DRG 292 ==
LOC: U 11:53 → ER 11:53 → MED/SURG 11:53 → OBSVTOIN 18:35 → MED/SURG 21:50
PROVIDERS: ADMIT Internal Medicine; ATTEND Internal Medicine

== ENCOUNTER 2022-08-28 23:23 | Inpatient (IN) ==
--- NOTE | 2022-08-28 23:45 | DR.EXTPAIN ---
HPI Time seen Time Seen by Provider: 08/28/22 23:44 HPI Comment HPI Comment: PATIENT IS 67YR OLD MALE IN ER [facility] AFTER HE FELL IN THE SHOWER AND HIT HIS HEAD AND BACK OF HIS NECK. HE WAS IN ER EARLIER TODAY AFTER SYNCOPAL EPISODE WHILE AT THE [employer] EVALUATED IN ER WND DISCHARGE HOME. FELL 3 TIMES AFTER DISCHARGE WITHOUT PASSING OUT. PAIN IN THE NECK AREA AND SCALP AREA WHERE HE HIT HIS HEADACD. SLIGHT DIZZINESS AND HEADACHE CURRENTLY. NO CHEST PAIN. Complaint/Symptoms Chief Complaint Doctor Comments: PAIN BACK OF HEAD AND NECK. FELL 3 TIMES SINCE HE WAS DISCHARGE HOME FROM ER. Chief Complaint:: Patient stated that he fell 3 time at home since he was discharged from the ER previously today. Patient was trying to get a shower and then he fell backwards and hit his head and neck on the tub floor. Patient stated that he is hurting on the back of his head and neck. COVID-19 Coronavirus risk:travel/contact w/high risk person: No Has patient experienced Coronavirus symptoms: No Source History Provided: Patient Mode of arrival Mode of Arrival: Stretcher Timing Onset of Chief Complaint: 08/28/22 PMH PMH Past Medical History: Yes Past Medical History: Diabetes, Dyslipidemia and Hypertension Past Surgical History: Yes Surgical History: Abdominal Surgery and Weight Loss Surgery Family History History of Family Medical Conditions: Yes Family Medical History: Diabetes Mellitus and Hypertension Social History Does any household member use tobacco: No Do you use any recreational Drugs:: No Lives With: Family Lives Where: Home Travel Risk Coronavirus risk:travel/contact w/high risk person: No Has patient experienced Coronavirus symptoms: No Infectious screening In the last 2 months have you had wt loss of >10#?: NO Have you had fever, night sweats or hemotysis?: No Have you traveled outside the country in the last 6 months?: No Isolation: Standard ROS Review of Systems Constitutional: Weakness and Fatigue; negative Fever Eyes: No Symptoms Reported; negative Blurred Vision ENTM: No Symptoms Reported; negative Ear Pain, Nose Discharge or Nose Congestion Respiratoy: No Symptoms Reported; negative Moist Cough, Short of Breath or Wheezing Cardiovascular: Syncope (EPISODE OF SYNCOPY EARLIER TODAY.); negative Chest Pain or Palpitations Gastrointestinal/Abdominal: No Symptoms Reported; negative Abdominal Pain, Diarrhea, Nausea or Vomiting Genitourinary: No Symptoms Reported; negative Dysuria Neurological: Headache, Weakness and Dizziness Musculoskeletal: Back Pain (LOWER BACK PAIN.), Neck Pain and Hip (RT HIP PAIN.) Integumentary: Dryness Hematologic/Lymphatic: Easy Bruising Endocrine: No Symptoms Reported; negative Increased Thirst or Increased Urine Psychiatric: No Symptoms Reported PE Vital Signs Vitals: Temperature 98.0 F Pulse Rate [Brachial] 60 Pulse Rate 51 Respiratory Rate 18 Blood Pressure [Right Arm] 179/73 Blood Pressure [Left Arm] 99/56 Blood Pressure 161/61 O2 Sat by Pulse Oximetry 99 General Limitations: No Limitations General Appearance: Alert and In No Apparent Distress Head Head Exam: Other (SCALP TENDERNESS.) Eyes Eye exam: Normal Appearance and PERRL; negative Scleral Icterus or Conjunctival Injection ENT ENT Exam: Normal Exam, Normal Oropharynx, Normal External Ear Exam and TM's Normal Bilaterally Neck Neck Exam: Trachea Midline and Tenderness Chest Chest Inspection: Normal Inspection and Symmetric Chest Wall Rise; negative Tenderness Respiratory Respiratory Exam: Normal Lung Sounds Bilat; negative Accessory Muscle Use, Chest Wall Tenderness or Respiratory Distress Respiratory Exam: Bilateral: Rhonchi Cardiovascular Cardiovascular Exam: Regular Rate, Normal Rhythm and Normal Heart Sounds; negative Systolic Murmur or Diastolic Murmur Abdominal Exam Abdominal Exam: Normal Inspection, Normal Bowel Sounds and Soft; negative Tenderness Extremities Extremities Exam: Tenderness (RIGHT HIP TENDER.) and Normal Capillary Refill Back Back Exam: Paraspinal Tenderness (LOER BACK AND PELVIC TENDERNESS.) Neurological Neurological Exam: Alert and Oriented X3; negative Motor Sensory Deficit Psychiatric Psychiatric Exam: Normal Affect and Normal Mood Skin Skin Exam: Dry COURSE Treatment Treatment: SEE ORDERS DONE WHILE PATIENT WAS IN ER. CT REPORTS DISCUSSED WITH PATIENT. HE IS WEAK AND FEELING DIZZY. WILL NOT BE ABLE TO DISCHARGE HOME. HE WILL BE ADMITTED TO HOSPITAL FOR FURTHER EVALUATION AND MANAGEMENT. Consultation Consultation Comments: DISCUSSED PATIENT WITH DR. EMERSON. HE WILL ADMIT PATIENT. ROR Labs Reviewed Laboratory Results Reviewed?: Yes Result Diagrams: 08/31/22 06:12 08/31/22 06:12 Laboratory: 08/30/22 14:30 Urine,Clean Catch Urine Culture - Preliminary WBC 6.3 X10^3/uL (3.6-10.0) 08/31/22 06:12 RBC 2.88 X10^6/uL (4.7-6.0) L 08/31/22 06:12 Hgb 9.2 g/dL (13.5-18.0) L 08/31/22 06:12 Hct 26.8 % (42.0-54.0) L 08/31/22 06:12 MCV 93.2 fL (80.0-100.0) 08/31/22 06:12 MCH 32.0 pg (27.0-34.0) 08/31/22 06:12 MCHC 34.4 g/dL (33.0-35.0) 08/31/22 06:12 RDW 15.6 % (11.6-16.5) 08/31/22 06:12 Plt Count 125 X10^3/uL (150.0-450.0) L 08/31/22 06:12 MPV 10.2 fL (7.4-11.0) 08/31/22 06:12 Neut % (Auto) 64.2 % (42.0-75.0) 08/31/22 06:12 Lymph % (Auto) 22.4 % (21.0-51.0) 08/31/22 06:12 Ford % (Auto) 10.7 % (0.0-13.0) 08/31/22 06:12 Eos % (Auto) 2.0 % (0.9-2.9) 08/31/22 06:12 Baso % (Auto) 0.7 % (0.2-1.0) 08/31/22 06:12 Neut # (Auto) 4.0 x10^3/uL (2.2-4.8) 08/31/22 06:12 Lymph # (Auto) 1.4 X10^3/uL (1.3-2.9) 08/31/22 06:12 Ford # (Auto) 0.7 x10^3/uL (0.3-0.8) 08/31/22 06:12 Eos # (Auto) 0.1 x10^3/uL (0.0-0.2) 08/31/22 06:12 Baso # (Auto) 0.0 X10^3/uL (0.0-0.1) 08/31/22 06:12 Absolute Nucleated RBC 0.0 /100WBC 08/31/22 06:12 Sample Site Rrad 08/29/22 10:15 ABG pH 7.490 (7.35-7.45) H 08/29/22 10:15 ABG pCO2 29.0 mmHg (35.0-45.0) L 08/29/22 10:15 ABG pO2 107.0 mmHg (80.0-100.0) H 08/29/22 10:15 ABG HCO3 22.1 mmol/L (22-26) 08/29/22 10:15 ABG O2 Saturation 99.0 % (90-100) 08/29/22 10:15 ABG Base Excess -0.3 mmol/L (-2.0-2.0) 08/29/22 10:15 Ford Test Pos 08/29/22 10:15 A-a Gradient 6.0 mmHg 08/29/22 10:15 FiO2 21.0 08/29/22 10:15 Blood Gas Comments Mitchell well ms/eb 08/29/22 10:15 Sodium 144 mmol/L (136-145) 08/31/22 06:12 Corrected Sodium TNP 08/31/22 06:12 Potassium 3.7 mmol/L (3.5-5.1) 08/31/22 06:12 Chloride 111 mmol/L (98-107) H 08/31/22 06:12 Carbon Dioxide 23.9 mmol/L (21-32) 08/31/22 06:12 BUN 25 mg/dL (7-18) H 08/31/22 06:12 Creatinine 1.57 mg/dL (0.70-1.30) H 08/31/22 06:12 Est GFR (MDRD) Af Amer 57 (>60) L 08/31/22 06:12 Est GFR (MDRD) Non-Af 47 (>60) L 08/31/22 06:12 Glucose 81 mg/dL (65-99) 08/31/22 06:12 POC Glucose (mg/dL) 73 mg/dL (65-99) 08/31/22 05:08 Calcium 7.7 mg/dL (8.5-10.1) L 08/31/22 06:12 Corrected Calcium 9.5 mg/dL (8.5-10.1) 08/31/22 06:12 Magnesium 1.8 mg/dL (2.0-2.9) L 08/31/22 06:12 Total Bilirubin 0.40 mg/dL (0.2-1.0) 08/31/22 06:12 AST 26 Units/L (15-37) 08/31/22 06:12 ALT 22 Units/L (12-78) 08/31/22 06:12 Alkaline Phosphatase 63 Units/L (46-116) 08/31/22 06:12 Creatine Kinase 297 Units/L (39-308) 08/30/22 04:51 Troponin I High Sens 45.7 ng/L (4.0-60.0) 08/29/22 16:55 Total Protein 4.8 g/dL (6.4-8.2) L 08/31/22 06:12 Albumin 1.8 g/dL (3.4-5.0) L 08/31/22 06:12 Globulin 3.0 g/dL (2.5-4.5) 08/31/22 06:12 Albumin/Globulin Ratio 0.6 Ratio (1.1-2.1) L 08/31/22 06:12 Triglycerides 56 mg/dL (0-150) 08/30/22 04:51 Cholesterol 113 mg/dL (0-200) 08/30/22 04:51 LDL Cholesterol, Calc 51 mg/dL (0-100) 08/30/22 04:51 HDL Cholesterol 51 mg/dL (40-60) 08/30/22 04:51 Cholesterol/HDL Ratio 2.2 (0.0-5.0) 08/30/22 04:51 XRAY XRAY Interpreted by: Radiologist (REPORTS NOTED.) and Self Opioid Opioid Risk Tool Age (Jb box if 16-45): No History of Preadolescent Sexual Abuse: No Total: 0 Total Score Risk Category: Low Risk Copyright: Diomedes MONTAGUE predicting aberrant behaviors Discharge Plan Diagnosis Discharge Problem: Frequent falls, Contusion, multiple sites, Acute pain of right hip Episode of syncope Qualifiers: Syncope type: unspecified Qualified Code(s): R55 - Syncope and collapse Discharge Plan Patient Disposition: ADMITTED INPATIENT Condition: Stable
[2022-08-28] MEDS ORDERED: NS 1,000 ML IV 1,000 ML ONE (23:56)
[2022-08-29] MEDS: NS 1,000 ML IV 1,000 ML IV SCH ×2 (00:02→17:44)
[2022-08-29 00:06] LABS: HEMOGLOBIN 10.6 g/dL (13.5-18.0); RED CELL DISTRIBUTION WIDTH 16.1 % (11.6-16.5); WHITE BLOOD COUNT 6.5 X10^3/uL (3.6-10.0)
[2022-08-29 00:09] LABS: BASOPHILS % (AUTO) 0.6 % (0.2-1.0); EOSINOPHILS % (AUTO) 0.4 % (0.9-2.9); HEMATOCRIT 30.7 % (42.0-54.0); LYMPHOCYTES # (AUTO) 0.8 X10^3/uL (1.3-2.9); LYMPHOCYTES % (AUTO) 11.7 % (21.0-51.0); MEAN CORPUSCULAR HEMOGLOBIN 32.2 pg (27.0-34.0); MEAN CORPUSCULAR HGB CONC 34.6 g/dL (33.0-35.0); MEAN CORPUSCULAR VOLUME 92.9 fL (80.0-100.0); MEAN PLATELET VOLUME 9.8 fL (7.4-11.0); MONOCYTES # (AUTO) 0.5 x10^3/uL (0.3-0.8); MONOCYTES % (AUTO) 7.3 % (0.0-13.0); NEUTROPHILS # (AUTO) 5.2 x10^3/uL (2.2-4.8); RED BLOOD COUNT 3.31 X10^6/uL (4.7-6.0)
[2022-08-29 00:15] LABS: CALCIUM 7.9 mg/dL (8.5-10.1); CARBON DIOXIDE 25.7 mmol/L (21-32); COR CA(FOR HYPOALB) 9.5 mg/dL (8.5-10.1); CREATININE 1.83 mg/dL (0.70-1.30); TOTAL PROTEIN 5.1 g/dL (6.4-8.2)
--- NOTE | 2022-08-29 00:33 | CT ---
STUDY: CT CERVICAL SPINE WITHOUT IV CONTRASTCOMPARISON: NoneTECHNIQUE: Axial images were acquired through the cervical spine without IV contrast. sagittal and coronal reformatted images were provided. All images reviewed in a variety of windows and levels.RADIATION REDUCTION TECHNIQUE: Automated exposure control, Adjustment of the mA and/or kV according to patient size, or iterative reconstruction techniques were used.HISTORY: PT C/O HEAD/NECK PAIN AFTER FALLING 3 TIMES SINCE BEING DISCHARGED FROM ER EARLIER LAST PM 08/28/22FINDINGS:Please note that lack of IV contrast limits evaluation of soft tissue structures and vascular detail.There is no evidence of an acute osseous fracture or subluxation.The skull base is intact.Mastoid air cells are well-aerated.The visualized portions of the paraspinous muscles are unremarkable.There are no abnormal areas of increased attenuation within the spinal canal to suggest an epidural hematoma.The visualized lung apices are clear.There are no obvious abnormal masses seen within the visualized soft tissues of the neck.Degenerative changes are noted.IMPRESSION:THERE IS NO EVIDENCE OF ACUTE FRACTURE OR SUBLUXATIONElectronically signed by: Juan F Bauer (Aug 29, 2022 00:32:14)
[2022-08-29] MEDS: NEURONTIN CAP 400 MG PO SCH ×3 (05:21→22:00)
[2022-08-29 05:30] LABS: BASOPHILS % (AUTO) 0.7 % (0.2-1.0); EOSINOPHILS % (AUTO) 0.1 % (0.9-2.9); HEMATOCRIT 27.5 % (42.0-54.0); HEMOGLOBIN 9.4 g/dL (13.5-18.0); LYMPHOCYTES # (AUTO) 0.8 X10^3/uL (1.3-2.9); MEAN CORPUSCULAR HEMOGLOBIN 31.5 pg (27.0-34.0); MEAN CORPUSCULAR HGB CONC 34.1 g/dL (33.0-35.0); MEAN CORPUSCULAR VOLUME 92.6 fL (80.0-100.0); MEAN PLATELET VOLUME 10.4 fL (7.4-11.0); MONOCYTES # (AUTO) 0.5 x10^3/uL (0.3-0.8); MONOCYTES % (AUTO) 7.5 % (0.0-13.0); NEUTROPHILS # (AUTO) 5.4 x10^3/uL (2.2-4.8); NEUTROPHILS % (AUTO) 79.7 % (42.0-75.0); RED BLOOD COUNT 2.97 X10^6/uL (4.7-6.0); WHITE BLOOD COUNT 6.8 X10^3/uL (3.6-10.0)
[2022-08-29 05:49] LABS: ALBUMIN 1.8 g/dL (3.4-5.0); CALCIUM 7.7 mg/dL (8.5-10.1); CARBON DIOXIDE 25.2 mmol/L (21-32); COR CA(FOR HYPOALB) 9.5 mg/dL (8.5-10.1); CREATININE 1.65 mg/dL (0.70-1.30); TOTAL PROTEIN 4.5 g/dL (6.4-8.2)
[2022-08-29] MEDS ORDERED: COREG TAB 25 MG PO SCH (09:00)
[2022-08-29] MEDS ORDERED: APRESOLINE TAB 25 MG PO SCH (09:00)
[2022-08-29] MEDS ORDERED: COREG TAB 3.125 MG PO SCH (09:00)
[2022-08-29] MEDS ORDERED: PATIENT'S HOME MEDICATION (Hydralazine 100 mg tablet) PO SCH (09:00)
[2022-08-29] MEDS ORDERED: PATIENT'S HOME MEDICATION (Levocetirizine 5 mg tablet) PO SCH (09:00)
[2022-08-29] MEDS ORDERED: NYSTATIN POWDER ONE (09:52)
[2022-08-29] MEDS ORDERED: DIFLUCAN ONE (09:52)
[2022-08-29] MEDS: SINGULAIR TAB 10 MG PO SCH ×2 (10:02→10:06)
[2022-08-29] MEDS: PROSCAR PO SCH ×2 (10:02→10:06)
[2022-08-29] MEDS: CARDURA PO SCH ×2 (10:02→10:06)
[2022-08-29] MEDS: PROTONIX TAB 40 MG PO SCH ×2 (10:04→10:06)
[2022-08-29] MEDS: ZyrTEC TAB 10 MG PO SCH ×2 (10:04→10:06)
[2022-08-29] MEDS: DIFLUCAN PO SCH ×2 (10:04→10:07)
[2022-08-29] MEDS: NYSTATIN POWDER TOP SCH ×2 (10:07→21:59)
[2022-08-29] MEDS: SYNTHROID 50 mcg TAB PO SCH (10:18)
[2022-08-29 10:21] LABS: ABG ALLEN TEST POS; ABG BASE EXCESS -0.3 mmol/L (-2.0-2.0); ABG HCO3 22.1 mmol/L (22-26)
--- NOTE | 2022-08-29 13:07 | DR.H&P ---
H&P - History & Physical for Day of: H&P Date: 08/28/22 - Chief Complaint Chief Complaint: PASSED OUT, FALLING, LEG WEAKNESS - History of Present Illness History of Present Illness: PT IS 67 WM, ER ADMISSION AFTER PRESENTING WITH CO WEAKNESS WITH MULTIPLE RECENT FALLS. PT HAD A WITNESSED SYNCOPAL EPISODE THIS AM AND WAS EVALUATED IN THE ER AND RELEASED, THIS HAD ADDITIONAL FALLS AT HOME RETURNING PT TO ER. PT HAD GASTRIC SLEEVE OPERATION WITH ~140 LBS WEIGHT LOSS. PT REPORTS POOR PO INTAKE AND DEHYDRATION. RECENT BP MEDICATIONS WERE MADE DUE TO LOWER BP WITH HIS WEIGHT LOSS. PT DENIES ANY CHEST PAIN OR SOB BUT REPORTS FREQUENT DIZZINESS WITH STANDING AND EXERTION. - Past Medical History Past Medical History: Arthritis, Diabetes, Dyslipidemia, Hypertension - Past Surgical History Surgical History: Abdominal Surgery, Weight Loss Surgery - Family History Family Medical History: Heart Failure - Social History Does patient currently use any type of tobacco product: No Have you used tobacco products in the last 12 months: No Type of Tobacco Use: None Does any household member use tobacco: No Alcohol Use: None Drug Use: None - Medications Home Medications: No Known Drug Allergies Allergy (Unknown, Verified 08/28/22 19:12) CONTINUE taking the following medications carvedilol 25 mg tablet 25 mg PO QDAY 08/28/22 [History] doxazosin 4 mg tablet 4 mg PO QDAY 08/28/22 [History] finasteride 5 mg tablet 5 mg PO QDAY 08/28/22 [History] levocetirizine 5 mg tablet 5 mg PO QDAY 08/28/22 [History] levothyroxine 50 mcg tablet 50 mcg PO QDAY 08/28/22 [History] montelukast 10 mg tablet 10 mg PO QDAY 08/28/22 [History] rabeprazole 20 mg tablet,delayed release 20 mg PO QDAY 08/28/22 [History] - Review of Systems Constitutional: Weakness Eyes: No Symptoms Reported ENT: No Symptoms Reported Respiratory: Shortness of Breath Cardiovascular: Palpitations Gastrointestinal: Nausea, Vomiting, Diarrhea Genitourinary: Frequency Musculoskeletal: Back Pain, Neck Pain Skin: Bruising Neurological: Weakness - Physical Exam Vital Signs: Temperature 97.9 F Pulse Rate [Brachial] 53 Pulse Rate 51 Respiratory Rate 18 Blood Pressure [Right Arm] 114/55 Blood Pressure [Left Arm] 174/75 Blood Pressure 161/61 O2 Sat by Pulse Oximetry 98 Oriented: Normal Eyes: Normal Ear: Normal Nose: Normal Throat: Normal Respiratory: RLL Diminished, LLL Diminished Cardiovascular: Normal. negative: Edema : Normal Auscultation: Bowel Sounds: Normal Palpation: Normal Tenderness: Normal Skin: Decreased Turgur, Red (DIFFUSE REDNESS TO LOWER ABDOMINAL SKIN FOLDS) Musculoskeletal: Back:Thoracic, Back:Lumbar, Motor Deficit, Instability Psychiatric: Anxiety Mood Description: Anxious Affect: Anxious Speech Pattern: Clear, Appropriate - Assessment/Plan (1) Episode of syncope Status: Acute Plan: ADMIT, CT HEAD OBTAIN ON ER EVALUATION. XRAY OF NECK AND BACK OBTAINED IN THE ER. SERIAL CE AND EKG, BP MONITORING. BS CONTROL, IV HYDRATION WITH STRICT I&OS. VERIFY HOME MEDICATION (2) Acute renal failure Status: Acute (3) Generalized weakness Status: Acute (4) Dehydration Status: Acute (5) Hypotension Status: Acute (6) Diabetes mellitus Status: None (7) Benign hypertension Status: None (8) Abnormal chest xray Status: Acute (9) Weakness of lower extremity Status: Acute - Allergies Allergies/Adverse Reactions: Allergies Allergy/AdvReac Type Severity Reaction Status Date / Time No Known Drug Allergies Allergy Unknown Verified 08/28/22 19:12
--- NOTE | 2022-08-29 13:11 | PCM.PROG ---
Progress Note - Progress Note for Day of Date of Exam: 08/29/22 - Subjective Subjective: PT IS 67 WM, ER ADMISSION AFTER A SYNCOPAL EPISODE WITH NECK AND BACK INJURIES A RESULT OF HIS FALLING. PT WAS DEHYDRATION ON ADMISSION WITH ELEVATED BUN/CREAT AND IN RHABDO WITH ELEVATED CREATNINE KINASE. PT HAS SLIGHT IMPROVEMENT IN RENAL FUNCTION THIS AM. PT CO SEVERE BILATERAL LOWER EXTREMITY WEAKNESS AND DIZZINESS WITH STANDING. PTS HOME MEDICATIONS WERE REVIEWED WITH CHANGES DUE TO HYPOTENSION. PT HAD AN ABNORMAL CXR ON ER EVALUATION AND CT OF CHEST WITH CONTRAST ORDERED FOR THE AM, AFTER IV HYDRATION TO IMPROVE RENAL FUNCTION. PLAN TO CONSULT PT AND CT OF LSPINE AND PELVIS. - Past Medical Family Social History Past Med/Fam/Surg Hx: No changes since H&P Allergies: Allergies No Known Drug Allergies Allergy (Unknown, Verified 08/28/22 19:12) Onset Date: 12/21/2011 - Review of Systems ROS: No change since H&P - Vital Signs and I&O's Vital Signs: Temperature 97.9 F Pulse Rate [Brachial] 53 Pulse Rate 51 Respiratory Rate 18 Blood Pressure [Right Arm] 114/55 Blood Pressure [Left Arm] 174/75 Blood Pressure 161/61 O2 Sat by Pulse Oximetry 98 Intake and Output: Intake & Output 08/27/22 08/28/22 08/29/22 08/30/22 11:59 11:59 11:59 11:59 Intake Total 60 / 60 Balance 60 / 60 - Physical Exam Oriented: Normal Eyes: Normal Ear: Normal Nose: Normal Throat: Normal Respiratory: Diminished Cardiovascular: Normal. negative: Edema : Normal Auscultation: Bowel Sounds: Normal Tenderness: Normal Skin: Decreased Turgur, Red (DIFFUSE REDNESS TO LOWER ABDOMINAL SKIN FOLDS) Musculoskeletal: Back:Thoracic, Back:Lumbar, Motor Deficit, Instability Psychiatric: Anxiety Mood Description: Anxious Affect: Anxious Speech Pattern: Clear, Appropriate - Laboratory and Diagnostics Result Diagrams: 08/29/22 05:04 08/29/22 05:04 Labs: Laboratory WBC 6.8 X10^3/uL (3.6-10.0) 08/29/22 05:04 RBC 2.97 X10^6/uL (4.7-6.0) L 08/29/22 05:04 Hgb 9.4 g/dL (13.5-18.0) L 08/29/22 05:04 Hct 27.5 % (42.0-54.0) L 08/29/22 05:04 MCV 92.6 fL (80.0-100.0) 08/29/22 05:04 MCH 31.5 pg (27.0-34.0) 08/29/22 05:04 MCHC 34.1 g/dL (33.0-35.0) 08/29/22 05:04 RDW 16.0 % (11.6-16.5) 08/29/22 05:04 Plt Count 149 X10^3/uL (150.0-450.0) L 08/29/22 05:04 MPV 10.4 fL (7.4-11.0) 08/29/22 05:04 Neut % (Auto) 79.7 % (42.0-75.0) H 08/29/22 05:04 Lymph % (Auto) 12.0 % (21.0-51.0) L 08/29/22 05:04 Barren % (Auto) 7.5 % (0.0-13.0) 08/29/22 05:04 Eos % (Auto) 0.1 % (0.9-2.9) L 08/29/22 05:04 Baso % (Auto) 0.7 % (0.2-1.0) 08/29/22 05:04 Neut # (Auto) 5.4 x10^3/uL (2.2-4.8) H 08/29/22 05:04 Lymph # (Auto) 0.8 X10^3/uL (1.3-2.9) L 08/29/22 05:04 Barren # (Auto) 0.5 x10^3/uL (0.3-0.8) 08/29/22 05:04 Eos # (Auto) 0.0 x10^3/uL (0.0-0.2) 08/29/22 05:04 Baso # (Auto) 0.0 X10^3/uL (0.0-0.1) 08/29/22 05:04 Absolute Nucleated RBC 0.1 /100WBC 08/29/22 05:04 Sample Site Rrad 08/29/22 10:15 ABG pH 7.490 (7.35-7.45) H 08/29/22 10:15 ABG pCO2 29.0 mmHg (35.0-45.0) L 08/29/22 10:15 ABG pO2 107.0 mmHg (80.0-100.0) H 08/29/22 10:15 ABG HCO3 22.1 mmol/L (22-26) 08/29/22 10:15 ABG O2 Saturation 99.0 % (90-100) 08/29/22 10:15 ABG Base Excess -0.3 mmol/L (-2.0-2.0) 08/29/22 10:15 Ford Test Pos 08/29/22 10:15 A-a Gradient 6.0 mmHg 08/29/22 10:15 FiO2 21.0 08/29/22 10:15 Blood Gas Comments Mitchell well ms/eb 08/29/22 10:15 Sodium 144 mmol/L (136-145) 08/29/22 05:04 Corrected Sodium 144 mmol/L (136-145) 08/29/22 05:04 Potassium 4.3 mmol/L (3.5-5.1) 08/29/22 05:04 Chloride 112 mmol/L (98-107) H 08/29/22 05:04 Carbon Dioxide 25.2 mmol/L (21-32) 08/29/22 05:04 BUN 32 mg/dL (7-18) H 08/29/22 05:04 Creatinine 1.65 mg/dL (0.70-1.30) H 08/29/22 05:04 Est GFR (MDRD) Af Amer 54 (>60) L 08/29/22 05:04 Est GFR (MDRD) Non-Af 44 (>60) L 08/29/22 05:04 Glucose 120 mg/dL (65-99) H 08/29/22 05:04 POC Glucose (mg/dL) 98 mg/dL (65-99) 08/29/22 11:32 Calcium 7.7 mg/dL (8.5-10.1) L 08/29/22 05:04 Corrected Calcium 9.5 mg/dL (8.5-10.1) 08/29/22 05:04 Total Bilirubin 0.50 mg/dL (0.2-1.0) 08/29/22 05:04 AST 27 Units/L (15-37) 08/29/22 05:04 ALT 22 Units/L (12-78) 08/29/22 05:04 Alkaline Phosphatase 62 Units/L (46-116) 08/29/22 05:04 Creatine Kinase 436 Units/L (39-308) H 08/29/22 11:01 Troponin I High Sens 45.3 ng/L (4.0-60.0) 08/29/22 11:01 Total Protein 4.5 g/dL (6.4-8.2) L 08/29/22 05:04 Albumin 1.8 g/dL (3.4-5.0) L 08/29/22 05:04 Globulin 2.7 g/dL (2.5-4.5) 08/29/22 05:04 Albumin/Globulin Ratio 0.7 Ratio (1.1-2.1) L 08/29/22 05:04 - Plan (1) Rhabdomyolysis Status: Acute Plan: IV HYDRATION, STRICT I&OS. CARDIAC MONITORING. BP CONTROL. ORHTOSTATIC PRESSURES (2) Episode of syncope Status: Acute Plan: CT HEAD OBTAIN ON ER EVALUATION. XRAY OF NECK AND BACK OBTAINED IN THE ER. SERIAL CE AND EKG, BP MONITORING. BS CONTROL, IV HYDRATION WITH STRICT I&OS. VERIFY HOME MEDICATION (3) Acute renal failure Status: Acute (4) Generalized weakness Status: Acute (5) Dehydration Status: Acute (6) Hypotension Status: Acute (7) Diabetes mellitus Status: None (8) Benign hypertension Status: None (9) Abnormal chest xray Status: Acute (10) Weakness of lower extremity Status: Acute
--- NOTE | 2022-08-29 16:59 | CT ---
HISTORYSYNCOPE/FALLS, CONTUSTIONSSTUDYLUMBAR SPINE W/O CONCOMPARISONNone availableTECHNIQUEAxial images through the lumbar spine were performed without contrast. CT scan was performed following ALARA (As low as Reasonably Achievable).Coronal and Sagittal reformatted images were performed.FINDINGSThere is preservation of the lumbar lordosis. There 5 lumbar type vertebral bodies. There is no evidence of acute fractures there is a focal lucency at along the superior endplate of L4 with mild sclerotic borders title is could represent and Schmorl nodule.The lung bases are clear. No evidence of adrenal masses.There is no specific perinephric stranding. There are bilateral none obstructive renal calculus. No focal dilatation of the abdominal aorta.The SI joint demonstrate no focal abnormalities.L3-L4 and L4-L5 demonstrate broad-based disc bulging, no significant neural foraminal stenosis, there is mild narrowing of the spinal canal at L4-L5. There is moderate right neural foraminal stenosis at L5-S1 due to an enlarged facet.IMPRESSIONNo evidence of acute fractures, Schmorl nodule along the superior endplate of L4 with mild peripheral sclerosis.Electronically signed by: Roseanna Pinto (Aug 29, 2022 16:52:16)
[2022-08-29] MEDS ORDERED: ZESTRIL TAB 20 MG ONE (21:27)
[2022-08-29] MEDS: ZESTRIL TAB 20 MG PO SCH (22:00)
[2022-08-30] MEDS: NS 1,000 ML IV 1,000 ML IV SCH ×3 (03:30→19:00)
[2022-08-30 05:07] LABS: BASOPHILS # (AUTO) 0.1 X10^3/uL (0.0-0.1); BASOPHILS % (AUTO) 1.1 % (0.2-1.0); EOSINOPHILS # (AUTO) 0.1 x10^3/uL (0.0-0.2); EOSINOPHILS % (AUTO) 1.5 % (0.9-2.9); HEMATOCRIT 24.2 % (42.0-54.0); HEMOGLOBIN 8.2 g/dL (13.5-18.0); LYMPHOCYTES # (AUTO) 1.8 X10^3/uL (1.3-2.9); LYMPHOCYTES % (AUTO) 34.4 % (21.0-51.0); MEAN CORPUSCULAR HEMOGLOBIN 31.5 pg (27.0-34.0); MEAN CORPUSCULAR VOLUME 92.7 fL (80.0-100.0); MEAN PLATELET VOLUME 9.6 fL (7.4-11.0); MONOCYTES # (AUTO) 0.5 x10^3/uL (0.3-0.8); MONOCYTES % (AUTO) 9.1 % (0.0-13.0); NEUTROPHILS # (AUTO) 2.9 x10^3/uL (2.2-4.8); NEUTROPHILS % (AUTO) 53.9 % (42.0-75.0); RED BLOOD COUNT 2.61 X10^6/uL (4.7-6.0); RED CELL DISTRIBUTION WIDTH 15.8 % (11.6-16.5); WHITE BLOOD COUNT 5.3 X10^3/uL (3.6-10.0)
[2022-08-30 05:19] LABS: ALANINE AMINOTRANSFERASE 20 Units/L (12-78); ALBUMIN 1.6 g/dL (3.4-5.0); ALKALINE PHOSPHATASE 57 Units/L (46-116); ASPARTATE AMINO TRANSFERASE 27 Units/L (15-37); BLOOD UREA NITROGEN 30 mg/dL (7-18); CALCIUM 7.3 mg/dL (8.5-10.1); CARBON DIOXIDE 24.8 mmol/L (21-32); CHLORIDE 110 mmol/L (98-107); CHOL/HDL RATIO 2.2 (0.0-5.0); CHOLESTEROL 113 mg/dL (0-200); COR CA(FOR HYPOALB) 9.2 mg/dL (8.5-10.1); CREATININE 1.72 mg/dL (0.70-1.30); HDL CHOLESTEROL 51 mg/dL (40-60); SODIUM 142 mmol/L (136-145); TOTAL PROTEIN 4.3 g/dL (6.4-8.2); TRIGLYCERIDES 56 mg/dL (0-150); eGFR NON BLACK RACES 42 (>60)
[2022-08-30] MEDS: NEURONTIN CAP 400 MG PO SCH ×3 (06:10→21:50)
[2022-08-30] MEDS ORDERED: NS 100 ML IV 100 ML ONE (08:22)
[2022-08-30] MEDS: NYSTATIN POWDER TOP SCH ×2 (09:00→21:51)
--- NOTE | 2022-08-30 09:48 | CT ---
HISTORYABN CXR FINDINGS.brSTUDYCHEST WITH CONCOMPARISONNo prior CT for comparisonTECHNIQUEMultiple axial images of the chest were obtained from the thoracic inlet to the upper abdomen after the administration of IV contrast. Omnipaque 350 IV contrast was utilized.. Dose reduction techniques including Automated Exposure Control (AEC) and adjustment of mA and kV were utilized.FINDINGSVisualized thyroid gland unremarkable.No pericardial effusion. Trace left pleural flowNo mediastinal or hilar adenopathy. Is no axillary adenopathy.Heart size is prominent with coronary artery calcifications, aortic valve calcifications and mitral annulus calcifications.Previous chest radiograph described right paratracheal density, no abnormality in this region with azygos vein likely contributing to the finding.Upper abdomen shows gastric bypass surgical changes.The bones show no lytic or destructive process with multilevel thoracic spondylosis and spinal stimulator leads evident.Lungs show minimal bronchiolitis tree-in-bud densities in the right middle lobe. Is no pneumothorax. No suspicious pulmonary nodule.IMPRESSION- No abnormality at the right paratracheal region.- Trace left pleural effusion.- Minimal focal tree-in-bud bronchiolitis within the right middle lobe.- Severe coronary artery calcifications.Electronically signed by: Vikas Alex (Aug 30, 2022 09:47:10)
[2022-08-30] MEDS: ZyrTEC TAB 10 MG PO SCH (10:02)
[2022-08-30] MEDS: DIFLUCAN PO SCH (10:03)
[2022-08-30] MEDS: SYNTHROID 50 mcg TAB PO SCH (10:03)
[2022-08-30] MEDS: PROTONIX TAB 40 MG PO SCH (10:04)
[2022-08-30] MEDS: SINGULAIR TAB 10 MG PO SCH (10:04)
[2022-08-30] MEDS: CARDURA PO SCH (10:04)
[2022-08-30] MEDS: PROSCAR PO SCH (10:06)
[2022-08-30] MEDS: HEMOCYTE-PLUS PO SCH (14:35)
[2022-08-30] MEDS ORDERED: ZESTRIL TAB 20 MG ONE (20:44)
[2022-08-30] MEDS: ZESTRIL TAB 20 MG PO SCH (21:52)
[2022-08-31] MEDS: NEURONTIN CAP 400 MG PO SCH ×3 (05:44→21:24)
[2022-08-31 07:12] LABS: BASOPHILS % (AUTO) 0.7 % (0.2-1.0); EOSINOPHILS # (AUTO) 0.1 x10^3/uL (0.0-0.2); HEMATOCRIT 26.8 % (42.0-54.0); HEMOGLOBIN 9.2 g/dL (13.5-18.0); LYMPHOCYTES # (AUTO) 1.4 X10^3/uL (1.3-2.9); LYMPHOCYTES % (AUTO) 22.4 % (21.0-51.0); MEAN CORPUSCULAR HGB CONC 34.4 g/dL (33.0-35.0); MEAN CORPUSCULAR VOLUME 93.2 fL (80.0-100.0); MEAN PLATELET VOLUME 10.2 fL (7.4-11.0); MONOCYTES # (AUTO) 0.7 x10^3/uL (0.3-0.8); MONOCYTES % (AUTO) 10.7 % (0.0-13.0); NEUTROPHILS % (AUTO) 64.2 % (42.0-75.0); RED BLOOD COUNT 2.88 X10^6/uL (4.7-6.0); RED CELL DISTRIBUTION WIDTH 15.6 % (11.6-16.5); WHITE BLOOD COUNT 6.3 X10^3/uL (3.6-10.0)
[2022-08-31 07:26] LABS: ALANINE AMINOTRANSFERASE 22 Units/L (12-78); ALBUMIN 1.8 g/dL (3.4-5.0); ALKALINE PHOSPHATASE 63 Units/L (46-116); ASPARTATE AMINO TRANSFERASE 26 Units/L (15-37); BLOOD UREA NITROGEN 25 mg/dL (7-18); CALCIUM 7.7 mg/dL (8.5-10.1); CARBON DIOXIDE 23.9 mmol/L (21-32); CHLORIDE 111 mmol/L (98-107); COR CA(FOR HYPOALB) 9.5 mg/dL (8.5-10.1); CREATININE 1.57 mg/dL (0.70-1.30); SODIUM 144 mmol/L (136-145); TOTAL PROTEIN 4.8 g/dL (6.4-8.2); eGFR NON BLACK RACES 47 (>60)
[2022-08-31 07:58] VITALS: BMI 35.8
[2022-08-31] MEDS: NORCO 5/325 MG TAB PO PRN ×2 (08:08→21:23)
[2022-08-31] MEDS: CARDURA PO SCH (10:15)
[2022-08-31] MEDS: ROCEPHIN VIAL 1 GRAM 1 G in NS 100 ML IV 100 ML IV SCH (10:15)
[2022-08-31] MEDS: XOPENEX 1.25 MG/3 ML NEBULE NEB SCH ×3 (10:30→20:28)
[2022-08-31] MEDS: PULMICORT NEB TX 0.5 MG NEB SCH ×2 (10:30→20:28)
[2022-08-31] MEDS: PROSCAR PO SCH (10:35)
[2022-08-31] MEDS: SOLU-Medrol 40 MG VIAL IVP SCH ×3 (10:35→21:28)
[2022-08-31] MEDS: NS 1,000 ML IV 1,000 ML IV SCH ×3 (10:36→21:32)
[2022-08-31] MEDS: HEMOCYTE-PLUS PO SCH (10:36)
[2022-08-31] MEDS: ZyrTEC TAB 10 MG PO SCH (10:36)
[2022-08-31] MEDS: DIFLUCAN PO SCH (10:36)
[2022-08-31] MEDS: PROTONIX TAB 40 MG PO SCH (10:37)
[2022-08-31] MEDS: SYNTHROID 50 mcg TAB PO SCH (10:37)
[2022-08-31] MEDS: SINGULAIR TAB 10 MG PO SCH (10:37)
[2022-08-31] MEDS: FLONASE NASAL SPRAY ENOSTRIL SCH ×2 (11:00→21:26)
--- NOTE | 2022-08-31 11:38 | VAS ---
HISTORY:Syncope, fallsStudy: Bilateral Carotid UltrasoundComparison:Ultrasound 06/19/2022Technique: Multiple oshea scale and color flow Doppler images of the right and left carotid arterial system were obtained. The vertebral arterial system was evaluated as well.Findings:Normal color flow Doppler is seen throughout the right and left carotid arterial system. There is no visualized plaque at the bilateral carotid bifurcations. Peak systolic velocity in the right ICA is 110 cm/sec. Peak systolic velocity in the left ICA is 59 cm/sec. The right ICA/CCA ratio is 1.2. The left ICA/CCA ratio is0.6. The right and left vertebral arteries demonstrate antegrade flowIMPRESSION:1.No hemodynamically significant carotid stenosis identified.2. Normal antegrade flow in the vertebral arteries.Electronically signed by: MARJAN ALCAZAR (Aug 31, 2022 11:36:44)
[2022-08-31] MEDS: NYSTATIN POWDER TOP SCH ×2 (12:20→21:27)
[2022-08-31] MEDS ORDERED: POTASSIUM CHL 40 MEQ/NS 0.45% 500 ML IV PRN (12:28)
[2022-08-31] MEDS ORDERED: POTASSIUM CHL 60 MEQ/NS 0.45% 500 ML IV PRN (12:28)
[2022-08-31] MEDS ORDERED: MAGNESIUM SULFATE 1 GRAM/100 mL PREMIX 1 G/100 ML BAG IV PRN (12:28)
[2022-08-31] MEDS ORDERED: POTASSIUM CHLORIDE LIQ 20 MEQ UDC PO PRN (12:28)
[2022-08-31] MEDS ORDERED: MICRO K EXTEN CAP 10 MEQ PO PRN (12:28)
[2022-08-31] MEDS ORDERED: K-RIDER 10 MEQ/NS 100 ML 10 MEQ/100 ML BAG IV PRN (12:28)
[2022-08-31] MEDS ORDERED: K-DUR TAB 20 MEQ PO PRN (12:28)
[2022-08-31] MEDS ORDERED: KLOR-CON PO PRN (12:28)
[2022-08-31] MEDS: MAGNESIUM SULFATE 1 GRAM/100 mL PREMIX 1 G/100 ML BAG IV PRN ×2 (15:08→18:06)
[2022-08-31] MEDS ORDERED: NovoLIN R (or HumuLIN R) SUBCUT PRN (20:05)
[2022-08-31] MEDS ORDERED: ZESTRIL TAB 20 MG ONE (20:42)
[2022-08-31] MEDS: ZESTRIL TAB 20 MG PO SCH (21:23)
[2022-09-01] MEDS: XOPENEX 1.25 MG/3 ML NEBULE NEB SCH ×4 (04:48→21:13)
[2022-09-01] MEDS: NEURONTIN CAP 400 MG PO SCH ×3 (05:24→21:23)
[2022-09-01 06:15] LABS: BASOPHILS % (AUTO) 0.1 % (0.2-1.0); HEMATOCRIT 28.4 % (42.0-54.0); HEMOGLOBIN 9.7 g/dL (13.5-18.0); LYMPHOCYTES # (AUTO) 0.4 X10^3/uL (1.3-2.9); MEAN CORPUSCULAR HEMOGLOBIN 32.1 pg (27.0-34.0); MEAN CORPUSCULAR VOLUME 94.3 fL (80.0-100.0); MEAN PLATELET VOLUME 10.3 fL (7.4-11.0); MONOCYTES # (AUTO) 0.1 x10^3/uL (0.3-0.8); MONOCYTES % (AUTO) 1.5 % (0.0-13.0); NEUTROPHILS % (AUTO) 90.4 % (42.0-75.0); RED BLOOD COUNT 3.02 X10^6/uL (4.7-6.0); RED CELL DISTRIBUTION WIDTH 15.7 % (11.6-16.5); WHITE BLOOD COUNT 5.5 X10^3/uL (3.6-10.0)
[2022-09-01 06:29] LABS: ALBUMIN 2.1 g/dL (3.4-5.0); CALCIUM 7.8 mg/dL (8.5-10.1); CARBON DIOXIDE 21.1 mmol/L (21-32); COR CA(FOR HYPOALB) 9.3 mg/dL (8.5-10.1); CREATININE 1.62 mg/dL (0.70-1.30); TOTAL PROTEIN 5.5 g/dL (6.4-8.2)
[2022-09-01 06:45] LABS: BAND NEUTROPHILS % 2 % (0-10); PLATELET MORPHOLOGY COMMENT NORMAL (NORMAL)
[2022-09-01] MEDS: PULMICORT NEB TX 0.5 MG NEB SCH ×2 (08:37→21:13)
[2022-09-01] MEDS: NS 1,000 ML IV 1,000 ML IV SCH ×3 (09:32→21:29)
[2022-09-01] MEDS: NYSTATIN POWDER TOP SCH ×2 (10:00→21:25)
[2022-09-01] MEDS: DIFLUCAN PO SCH (10:10)
[2022-09-01] MEDS: ROCEPHIN VIAL 1 GRAM 1 G in NS 100 ML IV 100 ML IV SCH (10:24)
[2022-09-01] MEDS: HEMOCYTE-PLUS PO SCH (10:24)
[2022-09-01] MEDS: SYNTHROID 50 mcg TAB PO SCH (10:25)
[2022-09-01] MEDS: PROTONIX TAB 40 MG PO SCH (10:25)
[2022-09-01] MEDS: CARDURA PO SCH (10:26)
[2022-09-01] MEDS: PROSCAR PO SCH (10:26)
[2022-09-01] MEDS: SINGULAIR TAB 10 MG PO SCH (10:26)
[2022-09-01] MEDS: ZyrTEC TAB 10 MG PO SCH (10:26)
[2022-09-01] MEDS: FLONASE NASAL SPRAY ENOSTRIL SCH ×2 (10:27→21:24)
[2022-09-01] MEDS ORDERED: ZESTRIL TAB 20 MG ONE (21:14)
[2022-09-01] MEDS: NORCO 5/325 MG TAB PO PRN (21:23)
[2022-09-01] MEDS: ZESTRIL TAB 20 MG PO SCH (21:23)
[2022-09-01] MEDS: SNACK - Diabetic Appropriate PO SCH (21:24)
[2022-09-02] MEDS: NS 1,000 ML IV 1,000 ML IV SCH ×3 (01:59→17:55)
[2022-09-02] MEDS: NEURONTIN CAP 400 MG PO SCH ×3 (06:18→21:24)
[2022-09-02] MEDS: XOPENEX 1.25 MG/3 ML NEBULE NEB SCH ×3 (06:30→20:16)
[2022-09-02 06:46] LABS: BASOPHILS % (AUTO) 0.6 % (0.2-1.0); EOSINOPHILS # (AUTO) 0.1 x10^3/uL (0.0-0.2); HEMATOCRIT 24.2 % (42.0-54.0); HEMOGLOBIN 8.3 g/dL (13.5-18.0); LYMPHOCYTES # (AUTO) 1.6 X10^3/uL (1.3-2.9); LYMPHOCYTES % (AUTO) 24.2 % (21.0-51.0); MEAN CORPUSCULAR HEMOGLOBIN 32.4 pg (27.0-34.0); MEAN CORPUSCULAR HGB CONC 34.4 g/dL (33.0-35.0); MEAN CORPUSCULAR VOLUME 94.1 fL (80.0-100.0); MEAN PLATELET VOLUME 9.9 fL (7.4-11.0); MONOCYTES # (AUTO) 0.3 x10^3/uL (0.3-0.8); MONOCYTES % (AUTO) 5.2 % (0.0-13.0); NEUTROPHILS # (AUTO) 4.6 x10^3/uL (2.2-4.8); RED BLOOD COUNT 2.57 X10^6/uL (4.7-6.0); RED CELL DISTRIBUTION WIDTH 15.7 % (11.6-16.5); WHITE BLOOD COUNT 6.7 X10^3/uL (3.6-10.0)
[2022-09-02 07:00] LABS: ALANINE AMINOTRANSFERASE 23 Units/L (12-78); ALBUMIN 1.7 g/dL (3.4-5.0); ALKALINE PHOSPHATASE 52 Units/L (46-116); ASPARTATE AMINO TRANSFERASE 22 Units/L (15-37); BLOOD UREA NITROGEN 23 mg/dL (7-18); CALCIUM 7.1 mg/dL (8.5-10.1); CARBON DIOXIDE 22.6 mmol/L (21-32); CHLORIDE 111 mmol/L (98-107); COR CA(FOR HYPOALB) 8.9 mg/dL (8.5-10.1); CREATININE 1.45 mg/dL (0.70-1.30); SODIUM 142 mmol/L (136-145); TOTAL PROTEIN 4.5 g/dL (6.4-8.2); eGFR NON BLACK RACES 52 (>60)
[2022-09-02] MEDS: ROCEPHIN VIAL 1 GRAM 1 G in NS 100 ML IV 100 ML IV SCH (09:14)
[2022-09-02] MEDS: SINGULAIR TAB 10 MG PO SCH (09:14)
[2022-09-02] MEDS: SYNTHROID 50 mcg TAB PO SCH (09:14)
[2022-09-02] MEDS: HEMOCYTE-PLUS PO SCH (09:14)
[2022-09-02] MEDS: ZyrTEC TAB 10 MG PO SCH (09:14)
[2022-09-02] MEDS: PROSCAR PO SCH (09:14)
[2022-09-02] MEDS: PROTONIX TAB 40 MG PO SCH (09:14)
[2022-09-02] MEDS: CARDURA PO SCH (09:14)
[2022-09-02] MEDS: NYSTATIN POWDER TOP SCH ×2 (09:15→21:26)
[2022-09-02] MEDS: DIFLUCAN PO SCH (09:15)
[2022-09-02] MEDS: FLONASE NASAL SPRAY ENOSTRIL SCH ×2 (09:15→21:24)
--- NOTE | 2022-09-02 10:41 | RAD ---
HISTORYPneumonia SOBSTUDYAP chestCOMPARISONApril 2022FINDINGSProminent upper-normal heart size with no definite pulmonary, mediastinal or pleural abnormality.IMPRESSIONNo change or acute findings.Electronically signed by: BRIAN ROMAN (Sep 02, 2022 10:40:11)
[2022-09-02] MEDS: ALBUMIN HUMAN 25%- 100 ML 100 ML IV SCH ×2 (11:37→11:38)
[2022-09-02] MEDS: PULMICORT NEB TX 0.5 MG NEB SCH ×2 (13:58→20:16)
[2022-09-02] MEDS: NORCO 5/325 MG TAB PO PRN ×2 (14:30→21:25)
[2022-09-02] MEDS ORDERED: ZESTRIL TAB 20 MG ONE (20:08)
[2022-09-02] MEDS: SNACK - Diabetic Appropriate PO SCH (21:00)
[2022-09-02] MEDS: ZESTRIL TAB 20 MG PO SCH (21:25)
[2022-09-03] MEDS: NS 1,000 ML IV 1,000 ML IV SCH ×4 (03:52→19:48)
[2022-09-03] MEDS: XOPENEX 1.25 MG/3 ML NEBULE NEB SCH ×3 (05:05→20:50)
[2022-09-03 06:20] LABS: EOSINOPHILS # (AUTO) 0.1 x10^3/uL (0.0-0.2); EOSINOPHILS % (AUTO) 2.7 % (0.9-2.9); HEMATOCRIT 23.2 % (42.0-54.0); LYMPHOCYTES # (AUTO) 1.4 X10^3/uL (1.3-2.9); LYMPHOCYTES % (AUTO) 31.3 % (21.0-51.0); MEAN CORPUSCULAR HEMOGLOBIN 32.4 pg (27.0-34.0); MEAN CORPUSCULAR HGB CONC 34.4 g/dL (33.0-35.0); MEAN CORPUSCULAR VOLUME 94.2 fL (80.0-100.0); MONOCYTES # (AUTO) 0.4 x10^3/uL (0.3-0.8); MONOCYTES % (AUTO) 7.8 % (0.0-13.0); NEUTROPHILS # (AUTO) 2.6 x10^3/uL (2.2-4.8); NEUTROPHILS % (AUTO) 57.2 % (42.0-75.0); RED BLOOD COUNT 2.46 X10^6/uL (4.7-6.0); RED CELL DISTRIBUTION WIDTH 16.1 % (11.6-16.5); WHITE BLOOD COUNT 4.5 X10^3/uL (3.6-10.0)
[2022-09-03] MEDS: NEURONTIN CAP 400 MG PO SCH ×3 (06:34→21:19)
[2022-09-03 06:39] LABS: ALANINE AMINOTRANSFERASE 24 Units/L (12-78); ALBUMIN 1.9 g/dL (3.4-5.0); ALKALINE PHOSPHATASE 47 Units/L (46-116); ASPARTATE AMINO TRANSFERASE 20 Units/L (15-37); BLOOD UREA NITROGEN 20 mg/dL (7-18); CALCIUM 7.3 mg/dL (8.5-10.1); CARBON DIOXIDE 22.5 mmol/L (21-32); CHLORIDE 114 mmol/L (98-107); CREATININE 1.32 mg/dL (0.70-1.30); SODIUM 144 mmol/L (136-145); TOTAL PROTEIN 4.4 g/dL (6.4-8.2); eGFR NON BLACK RACES 58 (>60)
[2022-09-03] MEDS: PULMICORT NEB TX 0.5 MG NEB SCH ×2 (08:18→20:50)
[2022-09-03] MEDS: CARDURA PO SCH (09:23)
[2022-09-03] MEDS: PROTONIX TAB 40 MG PO SCH (09:23)
[2022-09-03] MEDS: SYNTHROID 50 mcg TAB PO SCH (09:23)
[2022-09-03] MEDS: SINGULAIR TAB 10 MG PO SCH (09:23)
[2022-09-03] MEDS: ROCEPHIN VIAL 1 GRAM 1 G in NS 100 ML IV 100 ML IV SCH (09:23)
[2022-09-03] MEDS: PROSCAR PO SCH (09:23)
[2022-09-03] MEDS: FLONASE NASAL SPRAY ENOSTRIL SCH ×2 (09:24→20:44)
[2022-09-03] MEDS: ZyrTEC TAB 10 MG PO SCH (09:24)
[2022-09-03] MEDS: DIFLUCAN PO SCH (09:24)
[2022-09-03] MEDS: NYSTATIN POWDER TOP SCH ×2 (09:25→20:44)
--- NOTE | 2022-09-03 09:37 | RAD ---
HISTORYPneumoniaSTUDYAP chestCOMPARISONApril 2022FINDINGSStable heart size with no evidence for developing pulmonary, mediastinal or hilar abnormality.IMPRESSIONNo change; no acute findings.Electronically signed by: BRIAN ROMAN (Sep 03, 2022 09:36:00)
[2022-09-03] MEDS: HEMOCYTE-PLUS PO SCH (10:14)
[2022-09-03] MEDS: NORCO 5/325 MG TAB PO PRN ×2 (10:14→20:43)
[2022-09-03] MEDS: ALBUMIN HUMAN 25%- 100 ML 100 ML IV SCH (10:15)
--- NOTE | 2022-09-03 11:30 | PCM.PROG ---
Progress Note - Progress Note for Day of Date of Exam: 09/02/22 - Subjective Subjective: IS A 67 YEAR OLD PATIENT OF . HE IS CURRENTLY INPATIENT STATUS FOR TREATMENT OF PNEUMONIA, DEHYDRATION, ACUTE RENAL FAILURE, AND FAILURE TO THRIVE. HE ALSO HAD A RECENT SYNCOPAL EPISODE AND HAS HAD MULTIPLE RECENT FALLS. HIS PMH INCLUDES DM II, DYSLIPIDEMIA, HTN, ARTHRITIS, OBESITY, BARIATRIC SURGERY. TODAY, HE IS ALERT AND ORIENTED, LYING IN BED ON MORNING ROUNDS. HE COMPLAINS OF GENERALIZED WEAKNESS, BACK PAIN, AND HEAD CONGESTION TODAY. HE ALSO REPORTS OCCASIONAL SHORTNESS OF BREATH AND COUGH. ON EXAMINATION, HEART IS REGULAR IN RATE AND RHYTHM. BILATERAL LUNGS ARE NOTED WITH EXPIRATORY WHEEZING, DIMINISHED. ABDOMEN IS OBESE, SOFT, AND NON-TENDER WITH NORMAL BOWEL SOUNDS NOTED IN ALL QUADRANTS. PARASPINAL TENDERNESS NOTED. NO UPPER OR LOWER EXTREMITY EDEMA IS NOTED, BUT HIS DOES HAVE UPPER AND LOWER EXTREMITY MUSCLE ATROPHY. HIS VITALS THIS MORNING ARE: 98.7-51-18-97%-137/63. HE IS CURRENTLY ON ROOM AIR, BUT USES THE CPAP OR OXYGEN VIA NASAL CANNULA AT NIGHT. LABS WERE OBTAINED. WBC 6.7, RBC 2.57, HGB 8.3, HCT 24.2, PLT COUNT 125, SODIUM 142, POTASSIUM 3.5, CHLORIDE 11, BUN 23, CREATININE 1.45, GLUCOSE 83, CALCIUM 7.1, AST 22, ALT 23, ALK PHOS 52, TOTAL PROTEIN 4.5, ALBUMIN 1.7. HE IS CURRENTLY RECEIVING NORMAL SALINE AT 75 ML/HR, ROCEPHIN 1G IV DAILY, HUMULIN R SLIDING SCALE, PULMICORT AND XOPENEX NEB TX, DIFLUCAN 100MG DAILY, NYSTATIN POWDER BID, PROTONIX 40MG PO DAILY, FLONASE BID, THE POTASSIUM AND MAGNESIUM PROTOCOLS, AND HIS HOME MEDICATIONS WERE RESUMED. WE WILL ADD ALBUMIN 25% IV DAILY TODAY. OTHERWISE, WE WILL CONTINUE WITH CURRENT PLAN OF CARE. WE WILL FOLLOW-UP WITH AM LABS AND CHEST XRAY AND CONTINUE TO MONITOR. TIME SPENT ON CLINICAL ASSESSMENT, REVIWING LABS AND IMAGING, DECISION MAKING, AND DOCUMENTATION GREATER THAN 45 MINUTES. - Past Medical Family Social History Past Med/Fam/Surg Hx: No changes since H&P Allergies: Allergies No Known Drug Allergies Allergy (Unknown, Verified 08/28/22 19:12) Onset Date: 12/21/2011 - Review of Systems ROS: No change since H&P - Vital Signs and I&O's Vital Signs: Temperature 98.4 F Pulse Rate [Brachial] 73 Pulse Rate 88 Respiratory Rate 18 Blood Pressure [Right Arm] 149/67 Blood Pressure [Left Arm] 158/73 Blood Pressure 161/61 O2 Sat by Pulse Oximetry 99 Intake and Output: Intake & Output 08/31/22 09/01/22 09/02/22 09/03/22 11:59 11:59 11:59 11:59 Intake Total 3969 / 3969 2460 / 2460 4487 / 4487 3922 / 3922 Output Total 500 / 500 1500 / 1500 2330 / 2330 1825 / 1825 Balance 3469 / 3469 960 / 960 2157 / 2157 2096 / 2096 - Physical Exam Oriented: Normal Eyes: Normal Ear: Normal Nose: Normal Throat: Normal Respiratory: Diminished, Wheezes Cardiovascular: Normal. negative: Edema : Normal Auscultation: Bowel Sounds: Normal Palpation: Normal Tenderness: Normal Skin: Red (DIFFUSE REDNESS TO LOWER ABDOMINAL SKIN FOLDS) Musculoskeletal: Back:Thoracic, Back:Lumbar, Motor Deficit, Instability Psychiatric: Anxiety Mood Description: Anxious Affect: Anxious Speech Pattern: Clear, Appropriate - Laboratory and Diagnostics Result Diagrams: 09/03/22 05:51 09/03/22 05:51 Labs: 08/30/22 14:30 Urine,Clean Catch Urine Culture - Final Klebsiella Pneumoniae Laboratory WBC 4.5 X10^3/uL (3.6-10.0) 09/03/22 05:51 RBC 2.46 X10^6/uL (4.7-6.0) L 09/03/22 05:51 Hgb 8.0 g/dL (13.5-18.0) L 09/03/22 05:51 Hct 23.2 % (42.0-54.0) L 09/03/22 05:51 MCV 94.2 fL (80.0-100.0) 09/03/22 05:51 MCH 32.4 pg (27.0-34.0) 09/03/22 05:51 MCHC 34.4 g/dL (33.0-35.0) 09/03/22 05:51 RDW 16.1 % (11.6-16.5) 09/03/22 05:51 Plt Count 121 X10^3/uL (150.0-450.0) L 09/03/22 05:51 Plt Count Comment Decreased (ADEQUATE) 09/01/22 05:42 MPV 10.0 fL (7.4-11.0) 09/03/22 05:51 Neut % (Auto) 57.2 % (42.0-75.0) 09/03/22 05:51 Lymph % (Auto) 31.3 % (21.0-51.0) 09/03/22 05:51 [place] % (Auto) 7.8 % (0.0-13.0) 09/03/22 05:51 Eos % (Auto) 2.7 % (0.9-2.9) 09/03/22 05:51 Baso % (Auto) 1.0 % (0.2-1.0) 09/03/22 05:51 Neut # (Auto) 2.6 x10^3/uL (2.2-4.8) 09/03/22 05:51 Lymph # (Auto) 1.4 X10^3/uL (1.3-2.9) 09/03/22 05:51 [place] # (Auto) 0.4 x10^3/uL (0.3-0.8) 09/03/22 05:51 Eos # (Auto) 0.1 x10^3/uL (0.0-0.2) 09/03/22 05:51 Baso # (Auto) 0.0 X10^3/uL (0.0-0.1) 09/03/22 05:51 Absolute Nucleated RBC 0.0 /100WBC 09/03/22 05:51 Total Counted 100 09/01/22 05:42 Neutrophils % (Manual) 91 % (39-76) H 09/01/22 05:42 Band Neutrophils % 2 % (0-10) 09/01/22 05:42 Lymphocytes % (Manual) 7 % (13-43) L 09/01/22 05:42 Plt Morphology Comment Normal (NORMAL) 09/01/22 05:42 RBC Morphology Normal (NORMAL) 09/01/22 05:42 Sample Site Rrad 08/29/22 10:15 ABG pH 7.490 (7.35-7.45) H 08/29/22 10:15 ABG pCO2 29.0 mmHg (35.0-45.0) L 08/29/22 10:15 ABG pO2 107.0 mmHg (80.0-100.0) H 08/29/22 10:15 ABG HCO3 22.1 mmol/L (22-26) 08/29/22 10:15 ABG O2 Saturation 99.0 % (90-100) 08/29/22 10:15 ABG Base Excess -0.3 mmol/L (-2.0-2.0) 08/29/22 10:15 Ford Test Pos 08/29/22 10:15 A-a Gradient 6.0 mmHg 08/29/22 10:15 FiO2 21.0 08/29/22 10:15 Blood Gas Comments [place] well ms/eb 08/29/22 10:15 Sodium 144 mmol/L (136-145) 09/03/22 05:51 Corrected Sodium TNP 09/03/22 05:51 Potassium 3.5 mmol/L (3.5-5.1) 09/03/22 05:51 Chloride 114 mmol/L (98-107) H 09/03/22 05:51 Carbon Dioxide 22.5 mmol/L (21-32) 09/03/22 05:51 BUN 20 mg/dL (7-18) H 09/03/22 05:51 Creatinine 1.32 mg/dL (0.70-1.30) H 09/03/22 05:51 Est GFR (MDRD) Af Amer > 60 (>60) 09/03/22 05:51 Est GFR (MDRD) Non-Af 58 (>60) L 09/03/22 05:51 Glucose 84 mg/dL (65-99) 09/03/22 05:51 POC Glucose (mg/dL) 84 mg/dL (65-99) 09/03/22 06:08 Calcium 7.3 mg/dL (8.5-10.1) L 09/03/22 05:51 Corrected Calcium 9.0 mg/dL (8.5-10.1) 09/03/22 05:51 Magnesium 2.1 mg/dL (2.0-2.9) 09/01/22 05:42 Total Bilirubin 0.20 mg/dL (0.2-1.0) 09/03/22 05:51 AST 20 Units/L (15-37) 09/03/22 05:51 ALT 24 Units/L (12-78) 09/03/22 05:51 Alkaline Phosphatase 47 Units/L (46-116) 09/03/22 05:51 Creatine Kinase 297 Units/L (39-308) 08/30/22 04:51 Troponin I High Sens 45.7 ng/L (4.0-60.0) 08/29/22 16:55 Total Protein 4.4 g/dL (6.4-8.2) L 09/03/22 05:51 Albumin 1.9 g/dL (3.4-5.0) L 09/03/22 05:51 Globulin 2.5 g/dL (2.5-4.5) 09/03/22 05:51 Albumin/Globulin Ratio 0.8 Ratio (1.1-2.1) L 09/03/22 05:51 Triglycerides 56 mg/dL (0-150) 08/30/22 04:51 Cholesterol 113 mg/dL (0-200) 08/30/22 04:51 LDL Cholesterol, Calc 51 mg/dL (0-100) 08/30/22 04:51 HDL Cholesterol 51 mg/dL (40-60) 08/30/22 04:51 Cholesterol/HDL Ratio 2.2 (0.0-5.0) 08/30/22 04:51 Stl Occult Blood (IFOB) Negative (NEGATIVE) 09/03/22 08:05 - Plan (1) Pneumonia Status: Acute (2) Dehydration Status: Acute (3) Episode of syncope Status: Acute (4) Degenerative joint disease of cervical and lumbar spine Status: Acute (5) Failure to thrive Status: Acute (6) Muscle atrophy Status: Acute Qualifiers: Muscle atrophy area: multiple sites Qualified Code(s): M62.59 - Muscle wasting and atrophy, not elsewhere classified, multiple sites (7) Diabetes mellitus Status: Chronic Qualifiers: Diabetes mellitus type: type 2 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
--- NOTE | 2022-09-03 12:23 | PCM.PROG ---
Progress Note - Progress Note for Day of Date of Exam: 09/03/22 - Subjective Subjective: IS A 67 YEAR OLD PATIENT OF . HE IS CURRENTLY INPATIENT STATUS FOR TREATMENT OF PNEUMONIA, DEHYDRATION, ACUTE RENAL FAILURE, AND FAILURE TO THRIVE. HE ALSO HAD A RECENT SYNCOPAL EPISODE AND HAS HAD MULTIPLE RECENT FALLS. HIS PMH INCLUDES DM II, DYSLIPIDEMIA, HTN, ARTHRITIS, OBESITY, BARIATRIC SURGERY. TODAY, HE IS ALERT AND ORIENTED, LYING IN BED ON MORNING ROUNDS. HE COMPLAINS OF GENERALIZED WEAKNESS, BACK PAIN, AND HEAD CONGESTION TODAY. HE ALSO REPORTS OCCASIONAL SHORTNESS OF BREATH AND COUGH. ON EXAMINATION, HEART IS REGULAR IN RATE AND RHYTHM. BILATERAL LUNGS ARE NOTED WITH EXPIRATORY WHEEZING, DIMINISHED. ABDOMEN IS OBESE, SOFT, AND NON-TENDER WITH NORMAL BOWEL SOUNDS NOTED IN ALL QUADRANTS. PARASPINAL TENDERNESS NOTED. NO UPPER OR LOWER EXTREMITY EDEMA IS NOTED, BUT HIS DOES HAVE UPPER AND LOWER EXTREMITY MUSCLE ATROPHY. HIS VITALS THIS MORNING ARE: 98.4-73-18-99%-158/73. HE IS CURRENTLY ON ROOM AIR, BUT USES THE CPAP OR OXYGEN VIA NASAL CANNULA AT NIGHT. LABS WERE OBTAINED. WBC 4.5, RBC 2.46, HGB 8.0, HCT 23.2, PLT COUNT 121, SODIUM 144, POTASSIUM 3.5, CHLORIDE 114, BUN 20, CREATININE 1.32, GLUCOSE 84, CALCIUM 7.3, AST 20, ALT 24, ALK PHOS 47, TOTAL PROTEIN 4.4, ALBUMIN 1.9. HE IS CURRENTLY RECEIVING NORMAL SALINE AT 75 ML/HR, ALBUMIN 25% IV DAILY, ROCEPHIN 1G IV DAILY, HUMULIN R SLIDING SCALE, PULMICORT AND XOPENEX NEB TX, DIFLUCAN 100MG DAILY, NYSTATIN POWDER BID, PROTONIX 40MG PO DAILY, FLONASE BID, THE POTASSIUM AND MAGNESIUM PROTOCOLS, AND HIS HOME MEDICATIONS WERE RESUMED. WE WILL CONTINUE WITH CURRENT PLAN OF CARE. OTHERWISE, WE WILL FOLLOW-UP WITH AM LABS AND CHEST XRAY AND CONTINUE TO MONITOR. TIME SPENT ON CLINICAL ASSESSMENT, REVIWING LABS AND IMAGING, DECISION MAKING, AND DOCUMENTATION GREATER THAN 45 MINUTES. - Past Medical Family Social History Past Med/Fam/Surg Hx: No changes since H&P Allergies: Allergies No Known Drug Allergies Allergy (Unknown, Verified 08/28/22 19:12) Onset Date: 12/21/2011 - Review of Systems ROS: No change since H&P - Vital Signs and I&O's Vital Signs: Temperature 98.4 F Pulse Rate [Brachial] 73 Pulse Rate 88 Respiratory Rate 18 Blood Pressure [Right Arm] 149/67 Blood Pressure [Left Arm] 158/73 Blood Pressure 161/61 O2 Sat by Pulse Oximetry 99 Intake and Output: Intake & Output 09/01/22 09/02/22 09/03/22 09/04/22 11:59 11:59 11:59 11:59 Intake Total 2460 / 2460 4487 / 4487 3922 / 3922 Output Total 1500 / 1500 2330 / 2330 1825 / 1825 Balance 960 / 960 2157 / 2157 209 / 2096 - Physical Exam Oriented: Normal Eyes: Normal Ear: Normal Nose: Normal Throat: Normal Respiratory: Diminished, Wheezes Cardiovascular: Normal. negative: Edema : Normal Auscultation: Bowel Sounds: Normal Tenderness: Normal Skin: Red (DIFFUSE REDNESS TO LOWER ABDOMINAL SKIN FOLDS) Musculoskeletal: Back:Thoracic, Back:Lumbar, Motor Deficit, Instability Psychiatric: Anxiety Mood Description: Anxious Affect: Anxious Speech Pattern: Clear, Appropriate - Laboratory and Diagnostics Result Diagrams: 09/03/22 05:51 09/03/22 05:51 Labs: 08/30/22 14:30 Urine,Clean Catch Urine Culture - Final Klebsiella Pneumoniae Laboratory WBC 4.5 X10^3/uL (3.6-10.0) 09/03/22 05:51 RBC 2.46 X10^6/uL (4.7-6.0) L 09/03/22 05:51 Hgb 8.0 g/dL (13.5-18.0) L 09/03/22 05:51 Hct 23.2 % (42.0-54.0) L 09/03/22 05:51 MCV 94.2 fL (80.0-100.0) 09/03/22 05:51 MCH 32.4 pg (27.0-34.0) 09/03/22 05:51 MCHC 34.4 g/dL (33.0-35.0) 09/03/22 05:51 RDW 16.1 % (11.6-16.5) 09/03/22 05:51 Plt Count 121 X10^3/uL (150.0-450.0) L 09/03/22 05:51 Plt Count Comment Decreased (ADEQUATE) 09/01/22 05:42 MPV 10.0 fL (7.4-11.0) 09/03/22 05:51 Neut % (Auto) 57.2 % (42.0-75.0) 09/03/22 05:51 Lymph % (Auto) 31.3 % (21.0-51.0) 09/03/22 05:51 [place] % (Auto) 7.8 % (0.0-13.0) 09/03/22 05:51 Eos % (Auto) 2.7 % (0.9-2.9) 09/03/22 05:51 Baso % (Auto) 1.0 % (0.2-1.0) 09/03/22 05:51 Neut # (Auto) 2.6 x10^3/uL (2.2-4.8) 09/03/22 05:51 Lymph # (Auto) 1.4 X10^3/uL (1.3-2.9) 09/03/22 05:51 [place] # (Auto) 0.4 x10^3/uL (0.3-0.8) 09/03/22 05:51 Eos # (Auto) 0.1 x10^3/uL (0.0-0.2) 09/03/22 05:51 Baso # (Auto) 0.0 X10^3/uL (0.0-0.1) 09/03/22 05:51 Absolute Nucleated RBC 0.0 /100WBC 09/03/22 05:51 Total Counted 100 09/01/22 05:42 Neutrophils % (Manual) 91 % (39-76) H 09/01/22 05:42 Band Neutrophils % 2 % (0-10) 09/01/22 05:42 Lymphocytes % (Manual) 7 % (13-43) L 09/01/22 05:42 Plt Morphology Comment Normal (NORMAL) 09/01/22 05:42 RBC Morphology Normal (NORMAL) 09/01/22 05:42 Sample Site Rrad 08/29/22 10:15 ABG pH 7.490 (7.35-7.45) H 08/29/22 10:15 ABG pCO2 29.0 mmHg (35.0-45.0) L 08/29/22 10:15 ABG pO2 107.0 mmHg (80.0-100.0) H 08/29/22 10:15 ABG HCO3 22.1 mmol/L (22-26) 08/29/22 10:15 ABG O2 Saturation 99.0 % (90-100) 08/29/22 10:15 ABG Base Excess -0.3 mmol/L (-2.0-2.0) 08/29/22 10:15 Ford Test Pos 08/29/22 10:15 A-a Gradient 6.0 mmHg 08/29/22 10:15 FiO2 21.0 08/29/22 10:15 Blood Gas Comments [place] well ms/eb 08/29/22 10:15 Sodium 144 mmol/L (136-145) 09/03/22 05:51 Corrected Sodium TNP 09/03/22 05:51 Potassium 3.5 mmol/L (3.5-5.1) 09/03/22 05:51 Chloride 114 mmol/L (98-107) H 09/03/22 05:51 Carbon Dioxide 22.5 mmol/L (21-32) 09/03/22 05:51 BUN 20 mg/dL (7-18) H 09/03/22 05:51 Creatinine 1.32 mg/dL (0.70-1.30) H 09/03/22 05:51 Est GFR (MDRD) Af Amer > 60 (>60) 09/03/22 05:51 Est GFR (MDRD) Non-Af 58 (>60) L 09/03/22 05:51 Glucose 84 mg/dL (65-99) 09/03/22 05:51 POC Glucose (mg/dL) 80 mg/dL (65-99) 09/03/22 12:14 Calcium 7.3 mg/dL (8.5-10.1) L 09/03/22 05:51 Corrected Calcium 9.0 mg/dL (8.5-10.1) 09/03/22 05:51 Magnesium 2.1 mg/dL (2.0-2.9) 09/01/22 05:42 Total Bilirubin 0.20 mg/dL (0.2-1.0) 09/03/22 05:51 AST 20 Units/L (15-37) 09/03/22 05:51 ALT 24 Units/L (12-78) 09/03/22 05:51 Alkaline Phosphatase 47 Units/L (46-116) 09/03/22 05:51 Creatine Kinase 297 Units/L (39-308) 08/30/22 04:51 Troponin I High Sens 45.7 ng/L (4.0-60.0) 08/29/22 16:55 Total Protein 4.4 g/dL (6.4-8.2) L 09/03/22 05:51 Albumin 1.9 g/dL (3.4-5.0) L 09/03/22 05:51 Globulin 2.5 g/dL (2.5-4.5) 09/03/22 05:51 Albumin/Globulin Ratio 0.8 Ratio (1.1-2.1) L 09/03/22 05:51 Triglycerides 56 mg/dL (0-150) 08/30/22 04:51 Cholesterol 113 mg/dL (0-200) 08/30/22 04:51 LDL Cholesterol, Calc 51 mg/dL (0-100) 08/30/22 04:51 HDL Cholesterol 51 mg/dL (40-60) 08/30/22 04:51 Cholesterol/HDL Ratio 2.2 (0.0-5.0) 08/30/22 04:51 Stl Occult Blood (IFOB) Negative (NEGATIVE) 09/03/22 08:05 - Plan (1) Pneumonia Status: Acute (2) Dehydration Status: Acute (3) Episode of syncope Status: Acute Plan: CT HEAD OBTAIN ON ER EVALUATION. XRAY OF NECK AND BACK OBTAINED IN THE ER. SERIAL CE AND EKG, BP MONITORING. BS CONTROL, IV HYDRATION WITH STRICT I&OS. 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
[2022-09-03] MEDS ORDERED: ZESTRIL TAB 20 MG ONE (20:07)
[2022-09-03] MEDS: ZESTRIL TAB 20 MG PO SCH (20:42)
[2022-09-03] MEDS: SNACK - Diabetic Appropriate PO SCH (20:44)
[2022-09-04] MEDS: XOPENEX 1.25 MG/3 ML NEBULE NEB SCH (05:25)
[2022-09-04 06:16] LABS: EOSINOPHILS # (AUTO) 0.1 x10^3/uL (0.0-0.2); EOSINOPHILS % (AUTO) 2.8 % (0.9-2.9); HEMATOCRIT 23.9 % (42.0-54.0); HEMOGLOBIN 8.1 g/dL (13.5-18.0); LYMPHOCYTES # (AUTO) 1.2 X10^3/uL (1.3-2.9); MEAN CORPUSCULAR HEMOGLOBIN 31.9 pg (27.0-34.0); MEAN CORPUSCULAR VOLUME 93.9 fL (80.0-100.0); MEAN PLATELET VOLUME 10.1 fL (7.4-11.0); MONOCYTES # (AUTO) 0.4 x10^3/uL (0.3-0.8); MONOCYTES % (AUTO) 8.3 % (0.0-13.0); NEUTROPHILS # (AUTO) 2.9 x10^3/uL (2.2-4.8); NEUTROPHILS % (AUTO) 62.9 % (42.0-75.0); RED BLOOD COUNT 2.54 X10^6/uL (4.7-6.0); RED CELL DISTRIBUTION WIDTH 16.4 % (11.6-16.5); WHITE BLOOD COUNT 4.7 X10^3/uL (3.6-10.0)
[2022-09-04] MEDS: NEURONTIN CAP 400 MG PO SCH (06:25)
[2022-09-04] MEDS: NORCO 5/325 MG TAB PO PRN (06:30)
[2022-09-04 06:36] LABS: ALANINE AMINOTRANSFERASE 27 Units/L (12-78); ALBUMIN 2.2 g/dL (3.4-5.0); ALKALINE PHOSPHATASE 52 Units/L (46-116); ASPARTATE AMINO TRANSFERASE 21 Units/L (15-37); BLOOD UREA NITROGEN 17 mg/dL (7-18); CALCIUM 7.5 mg/dL (8.5-10.1); CARBON DIOXIDE 23.2 mmol/L (21-32); COR CA(FOR HYPOALB) 8.9 mg/dL (8.5-10.1); CREATININE 1.23 mg/dL (0.70-1.30); SODIUM 146 mmol/L (136-145); TOTAL PROTEIN 4.7 g/dL (6.4-8.2); eGFR NON BLACK RACES > 60 (>60)
[2022-09-04 06:37] LABS: CHLORIDE 115 mmol/L (98-107)
[2022-09-04] MEDS: NS 1,000 ML IV 1,000 ML IV SCH (07:18)
[2022-09-04] MEDS: PULMICORT NEB TX 0.5 MG NEB SCH (08:28)
--- NOTE | 2022-09-04 08:39 | RAD ---
HISTORYPneumonia SOBSTUDYAP chestCOMPARISONApril 2022FINDINGSHeart size is unchanged, mildly enlarged with clear lungs and pleural spaces. There is no evidence for developing pneumonia, CHF or pleural fluid.IMPRESSIONNo change or acute findings.Electronically signed by: BRIAN ROMAN (Sep 04, 2022 08:38:20)
[2022-09-04] MEDS: HEMOCYTE-PLUS PO SCH (09:15)
[2022-09-04] MEDS: DIFLUCAN PO SCH (09:16)
[2022-09-04] MEDS: PROSCAR PO SCH (09:17)
[2022-09-04] MEDS: SINGULAIR TAB 10 MG PO SCH (09:17)
[2022-09-04] MEDS: SYNTHROID 50 mcg TAB PO SCH (09:18)
[2022-09-04] MEDS: PROTONIX TAB 40 MG PO SCH (09:18)
[2022-09-04] MEDS: NYSTATIN POWDER TOP SCH (09:18)
[2022-09-04] MEDS: ZyrTEC TAB 10 MG PO SCH (09:19)
[2022-09-04] MEDS: CARDURA PO SCH (09:19)
[2022-09-04] MEDS: FLONASE NASAL SPRAY ENOSTRIL SCH (09:20)
[2022-09-04] MEDS: ROCEPHIN VIAL 1 GRAM 1 G in NS 100 ML IV 100 ML IV SCH (09:20)
[2022-09-04] MEDS: ALBUMIN HUMAN 25%- 100 ML 100 ML IV SCH (10:52)
[2022-09-04 12:26] VITALS: BP 139/71
--- NOTE | 2022-09-04 17:44 | PCM.PROG ---
Progress Note - Progress Note for Day of Date of Exam: 09/01/22 - Subjective Subjective: IS A 67 YEAR OLD PATIENT OF . HE IS CURRENTLY INPATIENT STATUS FOR TREATMENT OF PNEUMONIA, DEHYDRATION, ACUTE RENAL FAILURE, AND FAILURE TO THRIVE. HE ALSO HAD A RECENT SYNCOPAL EPISODE AND HAS HAD MULTIPLE RECENT FALLS. HIS PMH INCLUDES DM II, DYSLIPIDEMIA, HTN, ARTHRITIS, OBESITY, BARIATRIC SURGERY. TODAY, HE IS ALERT AND ORIENTED, LYING IN BED ON MORNING ROUNDS. HE COMPLAINS OF GENERALIZED WEAKNESS, BACK PAIN, AND HEAD CONGESTION TODAY. HE ALSO REPORTS OCCASIONAL SHORTNESS OF BREATH AND COUGH. ON EXAMINATION, HEART IS REGULAR IN RATE AND RHYTHM. BILATERAL LUNGS ARE NOTED WITH EXPIRATORY WHEEZING, DIMINISHED. ABDOMEN IS OBESE, SOFT, AND NON-TENDER WITH NORMAL BOWEL SOUNDS NOTED IN ALL QUADRANTS. PARASPINAL TENDERNESS NOTED. NO UPPER OR LOWER EXTREMITY EDEMA IS NOTED, BUT HIS DOES HAVE UPPER AND LOWER EXTREMITY MUSCLE ATROPHY. - Past Medical Family Social History Past Med/Fam/Surg Hx: No changes since H&P Allergies: Allergies No Known Drug Allergies Allergy (Unknown, Verified 08/28/22 19:12) Onset Date: 12/21/2011 - Review of Systems ROS: No change since H&P - Vital Signs and I&O's Vital Signs: Temperature 98.6 F Pulse Rate [Brachial] 46 Pulse Rate 72 Respiratory Rate 20 Blood Pressure [Right Arm] 139/71 Blood Pressure [Left Arm] 153/67 Blood Pressure 161/61 O2 Sat by Pulse Oximetry 94 Intake and Output: Intake & Output 09/02/22 09/03/22 09/04/22 09/05/22 11:59 11:59 11:59 11:59 Intake Total 4487 / 4487 3922 / 3922 2792 / 2792 Output Total 2330 / 2330 1825 / 1825 1800 / 1800 Balance 2157 / 2157 2097 / 2097 992 / 992 - Physical Exam Oriented: Normal Eyes: Normal Ear: Normal Nose: Normal Throat: Normal Respiratory: Diminished, Wheezes Cardiovascular: Normal. negative: Edema : Normal Auscultation: Bowel Sounds: Normal Tenderness: Normal Skin: Red (DIFFUSE REDNESS TO LOWER ABDOMINAL SKIN FOLDS) Musculoskeletal: Back:Thoracic, Back:Lumbar, Motor Deficit, Instability Psychiatric: Anxiety Mood Description: Anxious Affect: Anxious Speech Pattern: Clear, Appropriate - Laboratory and Diagnostics Result Diagrams: 09/04/22 05:24 09/04/22 05:24 Labs: 08/30/22 14:30 Urine,Clean Catch Urine Culture - Final Klebsiella Pneumoniae Laboratory WBC 4.7 X10^3/uL (3.6-10.0) 09/04/22 05:24 RBC 2.54 X10^6/uL (4.7-6.0) L 09/04/22 05:24 Hgb 8.1 g/dL (13.5-18.0) L 09/04/22 05:24 Hct 23.9 % (42.0-54.0) L 09/04/22 05:24 MCV 93.9 fL (80.0-100.0) 09/04/22 05:24 MCH 31.9 pg (27.0-34.0) 09/04/22 05:24 MCHC 34.0 g/dL (33.0-35.0) 09/04/22 05:24 RDW 16.4 % (11.6-16.5) 09/04/22 05:24 Plt Count 130 X10^3/uL (150.0-450.0) L 09/04/22 05:24 Plt Count Comment Decreased (ADEQUATE) 09/01/22 05:42 MPV 10.1 fL (7.4-11.0) 09/04/22 05:24 Neut % (Auto) 62.9 % (42.0-75.0) 09/04/22 05:24 Lymph % (Auto) 25.0 % (21.0-51.0) 09/04/22 05:24 [place] % (Auto) 8.3 % (0.0-13.0) 09/04/22 05:24 Eos % (Auto) 2.8 % (0.9-2.9) 09/04/22 05:24 Baso % (Auto) 1.0 % (0.2-1.0) 09/04/22 05:24 Neut # (Auto) 2.9 x10^3/uL (2.2-4.8) 09/04/22 05:24 Lymph # (Auto) 1.2 X10^3/uL (1.3-2.9) L 09/04/22 05:24 [place] # (Auto) 0.4 x10^3/uL (0.3-0.8) 09/04/22 05:24 Eos # (Auto) 0.1 x10^3/uL (0.0-0.2) 09/04/22 05:24 Baso # (Auto) 0.0 X10^3/uL (0.0-0.1) 09/04/22 05:24 Absolute Nucleated RBC 0.1 /100WBC 09/04/22 05:24 Total Counted 100 09/01/22 05:42 Neutrophils % (Manual) 91 % (39-76) H 09/01/22 05:42 Band Neutrophils % 2 % (0-10) 09/01/22 05:42 Lymphocytes % (Manual) 7 % (13-43) L 09/01/22 05:42 Plt Morphology Comment Normal (NORMAL) 09/01/22 05:42 RBC Morphology Normal (NORMAL) 09/01/22 05:42 Sample Site Rrad 08/29/22 10:15 ABG pH 7.490 (7.35-7.45) H 08/29/22 10:15 ABG pCO2 29.0 mmHg (35.0-45.0) L 08/29/22 10:15 ABG pO2 107.0 mmHg (80.0-100.0) H 08/29/22 10:15 ABG HCO3 22.1 mmol/L (22-26) 08/29/22 10:15 ABG O2 Saturation 99.0 % (90-100) 08/29/22 10:15 ABG Base Excess -0.3 mmol/L (-2.0-2.0) 08/29/22 10:15 Ford Test Pos 08/29/22 10:15 A-a Gradient 6.0 mmHg 08/29/22 10:15 FiO2 21.0 08/29/22 10:15 Blood Gas Comments [place] well ms/eb 08/29/22 10:15 Sodium 146 mmol/L (136-145) H 09/04/22 05:24 Corrected Sodium TNP 09/04/22 05:24 Potassium 3.8 mmol/L (3.5-5.1) 09/04/22 05:24 Chloride 115 mmol/L (98-107) H* 09/04/22 05:24 Carbon Dioxide 23.2 mmol/L (21-32) 09/04/22 05:24 BUN 17 mg/dL (7-18) 09/04/22 05:24 Creatinine 1.23 mg/dL (0.70-1.30) 09/04/22 05:24 Est GFR (MDRD) Af Amer > 60 (>60) 09/04/22 05:24 Est GFR (MDRD) Non-Af > 60 (>60) 09/04/22 05:24 Glucose 79 mg/dL (65-99) 09/04/22 05:24 POC Glucose (mg/dL) 69 mg/dL (65-99) 09/04/22 06:24 Calcium 7.5 mg/dL (8.5-10.1) L 09/04/22 05:24 Corrected Calcium 8.9 mg/dL (8.5-10.1) 09/04/22 05:24 Magnesium 2.1 mg/dL (2.0-2.9) 09/01/22 05:42 Total Bilirubin 0.20 mg/dL (0.2-1.0) 09/04/22 05:24 AST 21 Units/L (15-37) 09/04/22 05:24 ALT 27 Units/L (12-78) 09/04/22 05:24 Alkaline Phosphatase 52 Units/L (46-116) 09/04/22 05:24 Creatine Kinase 297 Units/L (39-308) 08/30/22 04:51 Troponin I High Sens 45.7 ng/L (4.0-60.0) 08/29/22 16:55 Total Protein 4.7 g/dL (6.4-8.2) L 09/04/22 05:24 Albumin 2.2 g/dL (3.4-5.0) L 09/04/22 05:24 Globulin 2.5 g/dL (2.5-4.5) 09/04/22 05:24 Albumin/Globulin Ratio 0.9 Ratio (1.1-2.1) L 09/04/22 05:24 Triglycerides 56 mg/dL (0-150) 08/30/22 04:51 Cholesterol 113 mg/dL (0-200) 08/30/22 04:51 LDL Cholesterol, Calc 51 mg/dL (0-100) 08/30/22 04:51 HDL Cholesterol 51 mg/dL (40-60) 08/30/22 04:51 Cholesterol/HDL Ratio 2.2 (0.0-5.0) 08/30/22 04:51 Stl Occult Blood (IFOB) Negative (NEGATIVE) 09/03/22 08:05 - Plan (1) Rhabdomyolysis Status: Acute Plan: IV HYDRATION, STRICT I&OS. CARDIAC MONITORING. BP CONTROL. ORHTOSTATIC PRESSURES (2) Episode of syncope Status: Acute Plan: CT HEAD OBTAIN ON ER EVALUATION. XRAY OF NECK AND BACK OBTAINED IN THE ER. SERIAL CE AND EKG, BP MONITORING. BS CONTROL, IV HYDRATION WITH STRICT I&OS. VERIFY HOME MEDICATION (3) Acute renal failure Status: Acute (4) Generalized weakness Status: Acute (5) Dehydration Status: Acute (6) Hypotension Status: Acute (7) Diabetes mellitus Status: Chronic Qualifiers: Diabetes mellitus type: type 2 Diabetes mellitus terminal clerk insulin use: unspecified half-way insulin use status Diabetes mellitus complication status: with hyperglycemia Qualified Code(s): E11.65 - Type 2 diabetes mellitus with hyperglycemia (8) Benign hypertension Status: None (9) Abnormal chest xray Status: Acute (10) Weakness of lower extremity Status: Acute (11) Pneumonia Status: Acute
== END 2022-09-04 13:03 | disposition home or self-care (01) | DRG 194 ==
LOC: MED/SURG 23:23 → ER 23:23 → MED/SURG 08-29 01:08
PROVIDERS: ADMIT Family Medicine; ATTEND Internal Medicine
DX: M50.30 Other cervical disc degeneration, unspecified cervical region; E11.65 Type 2 diabetes mellitus with hyperglycemia; N39.0 Urinary tract infection, site not specified; R62.7 Adult failure to thrive; R06.02 Shortness of breath; R53.1 Weakness; R55 Syncope and collapse; J18.8 Other pneumonia, unspecified organism; R26.89 Other abnormalities of gait and mobility; I95.89 Other hypotension; E78.2 Mixed hyperlipidemia; Z98.84 Bariatric surgery status; B96.1 Klebsiella pneumoniae [K. pneumoniae] as the cause of diseases classified elsewhere; R51.9 Headache, unspecified; I11.0 Hypertensive heart disease with heart failure; E86.0 Dehydration; W18.2XXA Fall in (into) shower or empty bathtub, initial encounter; M51.36 Other intervertebral disc degeneration, lumbar region; Y92.002 Bathroom of unspecified non-institutional (private) residence as the place of occurrence of the external cause; M62.59 Muscle wasting and atrophy, not elsewhere classified, multiple sites; R29.6 Repeated falls; I50.9 Heart failure, unspecified; M62.82 Rhabdomyolysis; N17.8 Other acute kidney failure

== ENCOUNTER 2022-11-09 11:20 | Inpatient (IN) ==
--- NOTE | 2022-11-09 11:43 | DR.DIZZY ---
HPI Time seen Time Seen by Provider: 11/09/22 11:42 PCP Primary Care Physician: Leandra Acosta Complaint Chief Complaint Doctor Comments: Patient states that he feels very weak. His GI doctor is Dr Jaramillo and he saw him in the past few weeks and was told that he needed to f/u with Dr Jones. Patient was too weak to make the appointment today.He also states that he has been having black stools. Patient denies: headache,chest pain, sob,nausea,vomiting,back pain.Patient has a h/o CHF,CAD,obstructive sleep apnea. Chief Complaint:: Ems responded to patient who had fallen. Patient found in disheveled home with feces on floor around him, and lower legs. Patient CO:weakness, diarrhea, and possible anemia. Patient states he saw Dr Hartley and was reffered to DR Jones and was going today. COVID-19 Coronavirus risk:travel/contact w/high risk person: No Has patient experienced Coronavirus symptoms: No Source History Provided: Patient and EMS Mode of Arrival Mode of Arrival: EMS Timing Onset of Chief Complaint: 11/06/22 Context Stroke Symptoms: Weakness of limb PMH PMH Past Medical History: Yes Past Medical History: Arthritis, Diabetes, Dyslipidemia and Hypertension Past Surgical History: Yes Surgical History: Abdominal Surgery and Weight Loss Surgery Family History History of Family Medical Conditions: Yes Family Medical History: Heart Failure Social History Does patient currently use any type of tobacco product: No Have you used tobacco products in the last 12 months: No Type of Tobacco Use: None Does any household member use tobacco: No Alcohol Use: None Do you use any recreational Drugs:: No Lives With: Alone Lives Where: Home Travel Risk Coronavirus risk:travel/contact w/high risk person: No Has patient experienced Coronavirus symptoms: No Infectious screening In the last 2 months have you had wt loss of >10#?: NO Have you had fever, night sweats or hemotysis?: No Have you traveled outside the country in the last 6 months?: No Isolation: Standard ROS Review of Systems Constitutional: Malaise and Weakness Eyes: No Symptoms Reported ENTM: No Symptoms Reported Respiratoy: No Symptoms Reported Cardiovascular: negative Chest Pain Gastrointestinal/Abdominal: Diarrhea (black stools); negative Nausea or Vomiting Genitourinary: No Symptoms Reported Neurological: No Symptoms Reported Musculoskeletal: No Symptoms Reported Integumentary: No Symptoms Reported Hematologic/Lymphatic: No Symptoms Reported Endocrine: No Symptoms Reported Psychiatric: No Symptoms Reported All Other Systems: Reviewed and Negative PE Vital Signs Vitals: Vital Signs Pulse Rate 69 Pulse Rate 69 Pulse Rate 69 Pulse Rate 72 Pulse Rate 69 Pulse Rate 72 Pulse Rate 69 Respiratory Rate 14 Respiratory Rate 9 Respiratory Rate 9 Respiratory Rate 18 Respiratory Rate 14 Respiratory Rate 14 Respiratory Rate 16 O2 Sat by Pulse Oximetry 98 O2 Sat by Pulse Oximetry 99 O2 Sat by Pulse Oximetry 100 O2 Sat by Pulse Oximetry 100 General Limitations: No Limitations General Appearance: Alert and In No Apparent Distress Head Head Exam: Normal Inspection Eyes Eye exam: Normal Appearance ENT ENT Exam: Normal Exam, Normal Oropharynx and Normal External Ear Exam Neck Neck Exam: Normal Inspection and Full ROM Chest Chest Inspection: Normal Inspection Respiratory Respiratory Exam: Normal Lung Sounds Bilat Respiratory Exam: Bilateral: Clear to Auscultation Cardiovascular Cardiovascular Exam: Regular Rate and Normal Rhythm Abdominal Exam Abdominal Exam: Normal Inspection, Normal Bowel Sounds and Soft Rectal Rectal Exam: Deferred, Heme (+) Stool and Black Stool Extremeties Extremities Exam: Normal Inspection and Full ROM Back Back Exam: Normal Inspection and Full ROM Neurologic Neurological Exam: Alert and Oriented X3 Psychiatric Psychiatric Exam: Normal Affect and Normal Mood Skin Skin Exam: Warm, Dry, Intact and Pallor MDM Differential Diagnosis Differential Diagnosis: Anemia, Dehydration, Electrolyte disorder and Myocardial infarction Differential Diagnosis Comment: GI Bleed,Obstruction,perforation,Bowel ischemia COURSE Treatment Treatment: Patient was brought to a monitored room and iv access was initiated patient was given protonix 80mg iv because occult + for black stool.Patient has a hgb 6.1 and hct 18.Patient was typed and crossed for 2 units PRBCs. Patient's abd/pevis CT revealed: UGI bleed,Acute pancreatitis,Sympotomatic severe Anemia. Patient has been accepted inpatient to Dr Naqvi's service. Patient has been stable in the ED. ROR Labs Reviewed Laboratory Results Reviewed?: Yes Result Diagrams: 11/09/22 12:05 11/09/22 12:05 Laboratory: WBC 5.2 X10^3/uL (3.6-10.0) 11/09/22 12:05 RBC 1.91 X10^6/uL (4.7-6.0) L 11/09/22 12:05 Hgb 6.1 g/dL (13.5-18.0) L* 11/09/22 12:05 Hct 18.0 % (42.0-54.0) L* 11/09/22 12:05 MCV 94.0 fL (80.0-100.0) 11/09/22 12:05 MCH 31.9 pg (27.0-34.0) 11/09/22 12:05 MCHC 34.0 g/dL (33.0-35.0) 11/09/22 12:05 RDW 14.6 % (11.6-16.5) 11/09/22 12:05 Plt Count 173 X10^3/uL (150.0-450.0) 11/09/22 12:05 MPV 9.5 fL (7.4-11.0) 11/09/22 12:05 Neut % (Auto) 76.4 % (42.0-75.0) H 11/09/22 12:05 Lymph % (Auto) 17.1 % (21.0-51.0) L 11/09/22 12:05 [place] % (Auto) 5.5 % (0.0-13.0) 11/09/22 12:05 Eos % (Auto) 0.3 % (0.9-2.9) L 11/09/22 12:05 Baso % (Auto) 0.7 % (0.2-1.0) 11/09/22 12:05 Neut # (Auto) 4.0 x10^3/uL (2.2-4.8) 11/09/22 12:05 Lymph # (Auto) 0.9 X10^3/uL (1.3-2.9) L 11/09/22 12:05 [place] # (Auto) 0.3 x10^3/uL (0.3-0.8) 11/09/22 12:05 Eos # (Auto) 0.0 x10^3/uL (0.0-0.2) 11/09/22 12:05 Baso # (Auto) 0.0 X10^3/uL (0.0-0.1) 11/09/22 12:05 Absolute Nucleated RBC 0.0 /100WBC 11/09/22 12:05 Sample Site Lrad 11/09/22 12:10 ABG pH 7.800 (7.35-7.45) H* 11/09/22 12:10 ABG pCO2 12.0 mmHg (35.0-45.0) L* 11/09/22 12:10 ABG pO2 184.0 mmHg (80.0-100.0) H 11/09/22 12:10 ABG HCO3 18.7 mmol/L (22-26) L 11/09/22 12:10 ABG O2 Saturation 100.0 % (90-100) 11/09/22 12:10 ABG Base Excess 3.4 mmol/L (-2.0-2.0) H 11/09/22 12:10 Ford Test Pos 11/09/22 12:10 A-a Gradient -49.0 mmHg 11/09/22 12:10 FiO2 21.0 11/09/22 12:10 Blood Gas Comments Pt garrett well elj cdn 11/09/22 12:10 Sodium 144 mmol/L (136-145) 11/09/22 12:05 Corrected Sodium 144 mmol/L (136-145) 11/09/22 12:05 Potassium 4.1 mmol/L (3.5-5.1) 11/09/22 12:05 Chloride 112 mmol/L (98-107) H 11/09/22 12:05 Carbon Dioxide 23.5 mmol/L (21-32) 11/09/22 12:05 BUN 48 mg/dL (7-18) H 11/09/22 12:05 Creatinine 1.08 mg/dL (0.70-1.30) 11/09/22 12:05 Est GFR (MDRD) Af Amer > 60 (>60) 11/09/22 12:05 Est GFR (MDRD) Non-Af > 60 (>60) 11/09/22 12:05 Glucose 117 mg/dL (65-99) H 11/09/22 12:05 Lactic Acid 1.0 mmol/L (0.4-2.0) 11/09/22 12:05 Calcium 7.6 mg/dL (8.5-10.1) L 11/09/22 12:05 Corrected Calcium 9.3 mg/dL (8.5-10.1) 11/09/22 12:05 Magnesium 2.1 mg/dL (2.0-2.9) 11/09/22 12:05 Total Bilirubin 0.30 mg/dL (0.2-1.0) 11/09/22 12:05 AST 25 Units/L (15-37) 11/09/22 12:05 ALT 26 Units/L (12-78) 11/09/22 12:05 Alkaline Phosphatase 43 Units/L (46-116) L 11/09/22 12:05 Creatine Kinase 84 Units/L (39-308) 11/09/22 12:05 Troponin I High Sens 33.3 ng/L (4.0-60.0) 11/09/22 12:05 C-Reactive Protein 0.70 mg/L (0-3.0) 11/09/22 12:05 Total Protein 4.4 g/dL (6.4-8.2) L 11/09/22 12:05 Albumin 1.9 g/dL (3.4-5.0) L 11/09/22 12:05 Globulin 2.5 g/dL (2.5-4.5) 11/09/22 12:05 Albumin/Globulin Ratio 0.8 Ratio (1.1-2.1) L 11/09/22 12:05 Amylase 29 Units/L (25-115) 11/09/22 12:05 Lipase 77 Units/L (73-393) 11/09/22 12:05 Stool Occult Blood Positive (NEGATIVE) A 11/09/22 11:58 Blood Type A POSITIVE 11/09/22 13:22 Blood Type A POSITIVE 11/09/22 13:22 Antibody Screen Negative 11/09/22 13:22 Crossmatch See Detail 11/09/22 13:22 XRAY X-ray Results: HISTORY Patient found in disheveled home with feces on floor around him, and lower legs. Patient CAOx3, weakness, diarrhea, and possible anemia. Hernia. STUDY ABDOMEN/PELVIS WITH CON COMPARISON CT abdomen and pelvis 04/29/2021, chest radiograph 11/09/[address] axial images of the abdomen and pelvis were obtained with IV contrast. Coronal and sagittal images were reconstructed. Dose reduction techniques included Automated Exposure Control (AEC) and adjustment of mA and kV. FINDINGS A small collection of nodules are seen in the medial right middle lobe also present on the most recent prior chest CT 08/30/2022 but new since 04/29/2021. Largest measures about 6 mm. Recommend follow-up chest CT in 3-6 months.This follow-up is based on recommendations established by the Fleischner Society 2017. No pneumonia or pleural effusion. Heart size normal. The patient has anasarca with generalized edema. This is manifested as increased density in the subcutaneous fat and the intra-abdominal fat. The liver is normal in size and configuration. The gallbladder has no inflammati on around it. The spleen is normal in size and shape. The adrenal glands are normal. Very subtle retroperitoneal edema is noted around the pancreas. The finding might represent acute pancreatitis. Otherwise pancreas is uniformly enhancing without necrosis or ischemia. No peripancreatic fluid collection. Stone in the right kidney measures about 3 mm. Cyst in the left kidney measures about 3 cm. Renal enhancement is symmetric with no solid mass. There is no hydronephrosis or significant perirenal edema. The ureters are not dilated. The bladder is normally distended. It has no wall thickening or perivesical edema. There is a suture line in the stomach. Also in the small bowel the left upper abdomen. The bowel is not dilated. There is no wall thickening in the bowel or edema around the bowel. The appendix is normal in size with no inflammation around it. No evidence of appendicitis. There are diverticula in the colon. But there is no wall thickening or pericolonic edema to suggest acute diverticulitis. Degenerative changes are present in the spine. IMPRESSION 1. Findings suggesting acute pancreatitis 2. Anasarca 3. Nonobstructing right renal calculus 4. Right middle lobe lung nodules; recommend follow-up chest CT in 3-6 months 5. Colonic diverticula Electronically signed by: Brady Reid (Nov 09, 2022 14:24:44) EKG Compared to prior EKG Dated: 11/09/22 Rate: 70 [place]: Normal ([place] Negative) Rhythm: Paced (AV dual paced rhythm with prolonged AV conduction) Opioid Opioid Risk Tool Age (Jb box if 16-45): No History of Preadolescent Sexual Abuse: No Total: 0 Total Score Risk Category: Low Risk Copyright: Diomedes MONTAGUE predicting aberrant behaviors Discharge Plan Diagnosis Discharge Problem: Acute upper GI hemorrhage, Acute pancreatitis, Severe anemia, Anasarca, Right middle lobe pulmonary nodule, Diverticulosis, Upper GI bleed, Symptomatic anemia, Lung nodules Discharge Plan Patient Disposition: 09 ADMITTED INPATIENT Condition: Stable
[2022-11-09] MEDS ORDERED: NS 1,000 ML IV 1,000 ML IV ONE ×2 (11:57→13:32)
[2022-11-09] MEDS ORDERED: PROTONIX INJ 40 MG VIAL IVP ONE (11:57)
[2022-11-09] MEDS ORDERED: PROTONIX INJ 40 MG VIAL ONE (11:59)
[2022-11-09] MEDS ORDERED: NS 1,000 ML IV 1,000 ML ONE ×2 (11:59→13:12)
--- NOTE | 2022-11-09 12:06 | EKG ---
Test Reason : weakness Blood Pressure : */* mmHG Vent. Rate : 70 BPM Atrial Rate : 70 BPM P-R Int : 286 ms QRS Dur : 78 ms QT Int : 396 ms P-R-T Axes : * -37 38 degrees QTc Int : 427 ms Atrial paced, ventricular sensed rhythm Abnormal ECG When compared with ECG of 28-AUG-2022 15:42, Electronic ventricular pacemaker has replaced Sinus rhythm Confirmed by Hugo Chery ([id number]) on 11/10/2022 7:50:08 AM Referred By: Confirmed By: Hugo Chery
[2022-11-09 12:18] LABS: ABG BASE EXCESS 3.4 mmol/L (-2.0-2.0); ABG HCO3 18.7 mmol/L (22-26)
[2022-11-09 12:20] LABS: ABG ALLEN TEST POS
[2022-11-09 12:42] LABS: BASOPHILS % (AUTO) 0.7 % (0.2-1.0); EOSINOPHILS % (AUTO) 0.3 % (0.9-2.9); LYMPHOCYTES # (AUTO) 0.9 X10^3/uL (1.3-2.9); LYMPHOCYTES % (AUTO) 17.1 % (21.0-51.0); MEAN CORPUSCULAR HEMOGLOBIN 31.9 pg (27.0-34.0); MEAN PLATELET VOLUME 9.5 fL (7.4-11.0); MONOCYTES # (AUTO) 0.3 x10^3/uL (0.3-0.8); MONOCYTES % (AUTO) 5.5 % (0.0-13.0); NEUTROPHILS % (AUTO) 76.4 % (42.0-75.0); PLATELET COUNT 173 X10^3/uL (150.0-450.0); RED BLOOD COUNT 1.91 X10^6/uL (4.7-6.0); RED CELL DISTRIBUTION WIDTH 14.6 % (11.6-16.5); WHITE BLOOD COUNT 5.2 X10^3/uL (3.6-10.0)
[2022-11-09 12:59] LABS: HEMOGLOBIN 6.1 g/dL (13.5-18.0)
[2022-11-09 13:07] LABS: ALANINE AMINOTRANSFERASE 26 Units/L (12-78); ALBUMIN 1.9 g/dL (3.4-5.0); ALKALINE PHOSPHATASE 43 Units/L (46-116); AMYLASE 29 Units/L (25-115); ASPARTATE AMINO TRANSFERASE 25 Units/L (15-37); BLOOD UREA NITROGEN 48 mg/dL (7-18); CALCIUM 7.6 mg/dL (8.5-10.1); CARBON DIOXIDE 23.5 mmol/L (21-32); CHLORIDE 112 mmol/L (98-107); COR CA(FOR HYPOALB) 9.3 mg/dL (8.5-10.1); COR NA(FOR HYPERGLY) 144 mmol/L (136-145); CREATINE KINASE 84 Units/L (39-308); CREATININE 1.08 mg/dL (0.70-1.30); GLUCOSE 117 mg/dL (65-99); LIPASE 77 Units/L (73-393); MAGNESIUM 2.1 mg/dL (2.0-2.9); POTASSIUM 4.1 mmol/L (3.5-5.1); SODIUM 144 mmol/L (136-145); TOTAL PROTEIN 4.4 g/dL (6.4-8.2); eGFR NON BLACK RACES > 60 (>60)
[2022-11-09] MEDS ORDERED: OMNIPAQUE 350 mg/mL 100 mL BTL 100 ML ONE (13:26)
[2022-11-09] MEDS ORDERED: NS 100 ML IV 100 ML ONE (13:26)
--- NOTE | 2022-11-09 14:26 | CT ---
HISTORYPatient found in disheveled home with feces on floor around him, and lower legs. Patient CAOx3, weakness, diarrhea, and possible anemia. Hernia.STUDYABDOMEN/PELVIS WITH CONCOMPARISONCT abdomen and pelvis 04/29/2021, chest radiograph 11/09/2022TECHNIQUEMultiple CT axial images of the abdomen and pelvis were obtained with IV contrast. Coronal and sagittal images were reconstructed. Dose reduction techniques included Automated Exposure Control (AEC) and adjustment of mA and kV.FINDINGSA small collection of nodules are seen in the medial right middle lobe also present on the most recent prior chest CT 08/30/2022 but new since 04/29/2021. Largest measures about 6 mm. Recommend follow-up chest CT in 3-6 months.This follow-up is based on recommendations established by the Fleischner Society 2017.No pneumonia or pleural effusion. Heart size normal.The patient has anasarca with generalized edema. This is manifested as increased density in the subcutaneous fat and the intra-abdominal fat.The liver is normal in size and configuration. The gallbladder has no inflammation around it. The spleen is normal in size and shape. The adrenal glands are normal.Very subtle retroperitoneal edema is noted around the pancreas. The finding might represent acute pancreatitis. Otherwise pancreas is uniformly enhancing without necrosis or ischemia. No peripancreatic fluid collection.Stone in the right kidney measures about 3 mm. Cyst in the left kidney measures about 3 cm. Renal enhancement is symmetric with no solid mass. There is no hydronephrosis or significant perirenal edema. The ureters are not dilated. The bladder is normally distended. It has no wall thickening or perivesical edema.There is a suture line in the stomach. Also in the small bowel the left upper abdomen. The bowel is not dilated. There is no wall thickening in the bowel or edema around the bowel. The appendix is normal in size with no inflammation around it. No evidence of appendicitis. There are diverticula in the colon. But there is no wall thickening or pericolonic edema to suggest acute diverticulitis.Degenerative changes are present in the spine.IMPRESSION1. Findings suggesting acute pancreatitis2. Anasarca3. Nonobstructing right renal calculus4. Right middle lobe lung nodules; recommend follow-up chest CT in 3-6 months5. Colonic diverticulaElectronically signed by: Brady Reid (Nov 09, 2022 14:24:44)
--- NOTE | 2022-11-09 15:47 | RAD ---
HISTORYWEAKNESSSTUDYCHEST, 1 VIEWCOMPARISONApril 17TECHNIQUEChest x-ray single frontal viewFINDINGSThe patient is rotated on exam. The heart size is stable. A dual lead cardiac pacemaker is in place with battery pack localized to the left chest wall. A spinal stimulator is in place. The lungs are clear, as are the pleural spaces. No evidence of free air or pneumothorax. No acute bony abnormalities of the chest.IMPRESSIONNo acute radiographic abnormalities of the chestElectronically signed by: ANTONIETA REHMAN (Nov 09, 2022 15:46:33)
[2022-11-09 17:28] VITALS: BMI 33.6
[2022-11-09] MEDS: PROTONIX INJ 40 MG VIAL IVP SCH ×2 (18:59→21:00)
[2022-11-09] MEDS: TYLENOL 325 MG TAB PO PRN (19:16)
[2022-11-09] MEDS ORDERED: ZESTRIL TAB 20 MG ONE (21:01)
[2022-11-09] MEDS: ZESTRIL TAB 20 MG PO SCH (21:09)
[2022-11-10 01:04] LABS: HEMATOCRIT 20.8 % (42.0-54.0)
[2022-11-10 01:08] LABS: HEMOGLOBIN 7.1 g/dL (13.5-18.0)
[2022-11-10 05:25] LABS: ALANINE AMINOTRANSFERASE 20 Units/L (12-78); ALBUMIN 1.7 g/dL (3.4-5.0); ALKALINE PHOSPHATASE 36 Units/L (46-116); ASPARTATE AMINO TRANSFERASE 21 Units/L (15-37); BLOOD UREA NITROGEN 40 mg/dL (7-18); CALCIUM 7.4 mg/dL (8.5-10.1); CHLORIDE 114 mmol/L (98-107); COR CA(FOR HYPOALB) 9.2 mg/dL (8.5-10.1); CREATININE 0.97 mg/dL (0.70-1.30); GLUCOSE 98 mg/dL (65-99); POTASSIUM 3.9 mmol/L (3.5-5.1); SODIUM 146 mmol/L (136-145); eGFR NON BLACK RACES > 60 (>60)
[2022-11-10 05:31] LABS: BASOPHILS % (AUTO) 0.6 % (0.2-1.0); EOSINOPHILS % (AUTO) 0.5 % (0.9-2.9); LYMPHOCYTES # (AUTO) 1.6 X10^3/uL (1.3-2.9); MEAN CORPUSCULAR HEMOGLOBIN 30.9 pg (27.0-34.0); MEAN CORPUSCULAR HGB CONC 34.5 g/dL (33.0-35.0); MEAN CORPUSCULAR VOLUME 89.5 fL (80.0-100.0); MEAN PLATELET VOLUME 9.1 fL (7.4-11.0); MONOCYTES # (AUTO) 0.5 x10^3/uL (0.3-0.8); MONOCYTES % (AUTO) 7.5 % (0.0-13.0); NEUTROPHILS # (AUTO) 4.5 x10^3/uL (2.2-4.8); NEUTROPHILS % (AUTO) 67.4 % (42.0-75.0); PLATELET COUNT 151 X10^3/uL (150.0-450.0); RED BLOOD COUNT 2.15 X10^6/uL (4.7-6.0); WHITE BLOOD COUNT 6.7 X10^3/uL (3.6-10.0)
[2022-11-10 05:36] LABS: HEMOGLOBIN 6.6 g/dL (13.5-18.0)
[2022-11-10 05:37] LABS: HEMATOCRIT 19.2 % (42.0-54.0)
[2022-11-10] MEDS ORDERED: PHARMACY CONSULT - POTASSIUM & MAGNESIUM XX SCH (06:00)
[2022-11-10] MEDS ORDERED: NS 500 ML IV 500 ML IV ONE (08:15)
[2022-11-10] MEDS: PROTONIX INJ 40 MG VIAL IVP SCH ×2 (09:39→20:29)
[2022-11-10] MEDS ORDERED: DIPRIVAN VIAL 20 ML ONE (11:17)
[2022-11-10] MEDS ORDERED: NS 1,000 ML IV 1,000 ML ONE (11:26)
[2022-11-10] MEDS ORDERED: VERSED ONE (11:44)
--- NOTE | 2022-11-10 12:31 | DR.H&P ---
H&P - History & Physical for Day of: H&P Date: 11/09/22 - Chief Complaint Chief Complaint: WEAKNESS WITH FALL, BLACK STOOLS - History of Present Illness History of Present Illness: Patient states that he feels very weak. His GI doctor is Dr Jaramillo and he saw him in the past few weeks and was told that he needed to f/u with Dr Jones. Patient was too weak to make the appointment today.He also states that he has been having black stools. Patient denies: headache,chest pain, sob,nausea,vomiting,back pain.Patient has a h/o CHF,CAD,obstructive sleep apnea. - Past Medical History Past Medical History: Hypertension, Dyslipidemia, Diabetes, Arthritis - Past Surgical History Surgical History: Weight Loss Surgery Additional Surgical History: PACEMAKER - Family History Family Medical History: [place], Hypertension - Social History Does patient currently use any type of tobacco product: No Have you used tobacco products in the last 12 months: No Type of Tobacco Use: None Does any household member use tobacco: No Alcohol Use: None - Review of Systems Constitutional: Weakness, Malaise. denies: Fever Eyes: No Symptoms Reported ENT: No Symptoms Reported Respiratory: SOB with Excertion Cardiovascular: Light Headedness Gastrointestinal: Nausea, Melena Genitourinary: No Symptoms Reported Musculoskeletal: Back Pain Skin: No Symptoms Reported Neurological: Weakness - Physical Exam Vital Signs: Vital Signs Temperature 98.7 F Pulse Rate [Left Radial] 71 Respiratory Rate 18 Blood Pressure [Right Arm] 152/65 O2 Sat by Pulse Oximetry 100 11/10/22 10:28 11/10/22 10:50 11/10/22 11:05 Oxygen Delivery Method Room Air B.P. 152/70 151/70 TEMP 97.5 F 97.8 F Respiration Rate 18 16 PULSE 70 70 Sp02 Percentage 98 98 11/10/22 11:45 Oxygen Delivery Method B.P. 170/77 TEMP 97.9 F Respiration Rate 20 PULSE 69 Sp02 Percentage 99 Oriented: Normal Eyes: Normal Ear: Normal Nose: Normal Throat: Normal Respiratory: RLL Diminished, LLL Diminished Cardiovascular: Normal, Other (PACER PRESENT) Auscultation: Bowel Sounds: Increased Tenderness: Diffuse, Mild Skin: Decreased Turgur Musculoskeletal: Back:Lumbar Psychiatric: Anxiety Affect: Anxious Speech Pattern: Clear, Appropriate - Assessment/Plan (1) Acute upper GI hemorrhage Status: Acute Plan: ADMIT, NPO, GI CONSULT. PPI THERAPY, TYPE/ CROSS AND TRANSFUSE 2 UNIT PRBC PER PROTOCOL. CXR ON ADMISSION, BP CONTROL. VERIFY HOME MEDICATION, IV HYDRATION. OCCULT STOOL (2) Anemia Status: Acute (3) Hypertension Status: Chronic (4) CAD (coronary artery disease) Status: Chronic (5) Diabetes mellitus Qualifiers: Status: Chronic (6) CHF (congestive heart failure) Qualifiers: Status: Chronic - Allergies Allergies/Adverse Reactions: Allergies Allergy/AdvReac Type Severity Reaction Status Date / Time No Known Drug Allergies Allergy Unknown Verified 08/28/22 19:12 - Medications Home Medications: Home Medications Medication Instructions Recorded Confirmed gabapentin 400 mg capsule 400 mg PO TID 06/30/21 11/09/22 lisinopril 20 mg tablet 20 mg PO QHS 06/30/21 11/09/22 finasteride 5 mg tablet 5 mg PO QDAY 08/28/22 11/09/22 levocetirizine 5 mg tablet 5 mg PO QDAY 08/28/22 11/09/22 levothyroxine 50 mcg tablet 50 mcg PO QDAY 08/28/22 11/09/22 amlodipine 5 mg tablet 5 mg PO QDAY 11/09/22 11/09/22 doxazosin 4 mg tablet 4 mg PO QDAY 11/09/22 11/09/22 lovastatin 20 mg tablet 20 mg PO QDAY 11/09/22 11/09/22 metoprolol succinate 25 mg 25 mg PO QDAY 11/09/22 11/09/22 tablet,extended release 24 hr montelukast 10 mg tablet 10 mg PO QDAY 11/09/22 11/09/22 rabeprazole 20 mg tablet,delayed 20 mg PO QDAY 11/09/22 11/09/22 release tramadol 50 mg tablet 50 mg PO BID PRN 11/09/22 11/09/22
[2022-11-10] MEDS ORDERED: NS 1/2 1,000 ML IV 1,000 ML IV ONE (13:35)
[2022-11-10] MEDS: NORVASC TAB 5 MG PO SCH (13:40)
[2022-11-10] MEDS: CARDURA PO SCH (13:40)
[2022-11-10] MEDS: SYNTHROID 50 mcg TAB PO SCH (13:40)
[2022-11-10] MEDS: SINGULAIR TAB 10 MG PO SCH (13:41)
[2022-11-10] MEDS: TOPROL XL PO SCH (13:41)
[2022-11-10] MEDS: LIPITOR TAB 10 MG PO SCH (13:41)
[2022-11-10] MEDS: NS 1/2 1,000 ML IV 1,000 ML IV SCH (16:11)
[2022-11-10] MEDS: CARAFATE PO SCH ×2 (16:59→20:30)
[2022-11-10] MEDS: TYLENOL 325 MG TAB PO PRN (17:02)
[2022-11-10 20:02] LABS: HEMATOCRIT 24.2 % (42.0-54.0); HEMOGLOBIN 8.3 g/dL (13.5-18.0)
[2022-11-10] MEDS ORDERED: ZESTRIL TAB 20 MG ONE (20:18)
[2022-11-10] MEDS: ZESTRIL TAB 20 MG PO SCH (20:29)
[2022-11-11 05:00] LABS: BASOPHILS # (AUTO) 0.1 X10^3/uL (0.0-0.1); BASOPHILS % (AUTO) 0.9 % (0.2-1.0); EOSINOPHILS # (AUTO) 0.1 x10^3/uL (0.0-0.2); EOSINOPHILS % (AUTO) 1.9 % (0.9-2.9); HEMATOCRIT 25.5 % (42.0-54.0); HEMOGLOBIN 8.9 g/dL (13.5-18.0); LYMPHOCYTES # (AUTO) 1.6 X10^3/uL (1.3-2.9); LYMPHOCYTES % (AUTO) 28.6 % (21.0-51.0); MEAN CORPUSCULAR HEMOGLOBIN 31.2 pg (27.0-34.0); MEAN CORPUSCULAR HGB CONC 34.9 g/dL (33.0-35.0); MEAN CORPUSCULAR VOLUME 89.3 fL (80.0-100.0); MEAN PLATELET VOLUME 9.2 fL (7.4-11.0); MONOCYTES # (AUTO) 0.3 x10^3/uL (0.3-0.8); MONOCYTES % (AUTO) 5.6 % (0.0-13.0); NEUTROPHILS # (AUTO) 3.6 x10^3/uL (2.2-4.8); PLATELET COUNT 163 X10^3/uL (150.0-450.0); RED BLOOD COUNT 2.86 X10^6/uL (4.7-6.0); RED CELL DISTRIBUTION WIDTH 16.9 % (11.6-16.5); WHITE BLOOD COUNT 5.7 X10^3/uL (3.6-10.0)
[2022-11-11] MEDS: MORPHINE SULFATE INJ 2 MG INJ IVP PRN (05:05)
[2022-11-11 05:16] LABS: ALANINE AMINOTRANSFERASE 24 Units/L (12-78); ALBUMIN 2.1 g/dL (3.4-5.0); ALKALINE PHOSPHATASE 46 Units/L (46-116); ASPARTATE AMINO TRANSFERASE 24 Units/L (15-37); BLOOD UREA NITROGEN 28 mg/dL (7-18); CALCIUM 7.9 mg/dL (8.5-10.1); CARBON DIOXIDE 22.8 mmol/L (21-32); CHLORIDE 113 mmol/L (98-107); COR CA(FOR HYPOALB) 9.4 mg/dL (8.5-10.1); CREATININE 0.95 mg/dL (0.70-1.30); GLUCOSE 107 mg/dL (65-99); POTASSIUM 3.6 mmol/L (3.5-5.1); SODIUM 145 mmol/L (136-145); TOTAL PROTEIN 4.7 g/dL (6.4-8.2); eGFR NON BLACK RACES > 60 (>60)
[2022-11-11] MEDS: CARAFATE PO SCH ×4 (05:35→20:31)
[2022-11-11] MEDS ORDERED: PHARMACY CONSULT - POTASSIUM & MAGNESIUM XX SCH ×2 (06:00)
[2022-11-11] MEDS ORDERED: K-DUR TAB 20 MEQ PO ONE (08:00)
[2022-11-11] MEDS: CARDURA PO SCH (09:13)
[2022-11-11] MEDS: TOPROL XL PO SCH (09:13)
[2022-11-11] MEDS: SYNTHROID 50 mcg TAB PO SCH (09:13)
[2022-11-11] MEDS: SINGULAIR TAB 10 MG PO SCH (09:13)
[2022-11-11] MEDS: PROTONIX INJ 40 MG VIAL IVP SCH ×2 (09:14→20:32)
[2022-11-11] MEDS: LIPITOR TAB 10 MG PO SCH (09:14)
[2022-11-11] MEDS: NORVASC TAB 5 MG PO SCH ×2 (09:14→14:04)
[2022-11-11] MEDS ORDERED: ZEBETA TAB 5 MG PO SCH (10:00)
--- NOTE | 2022-11-11 12:30 | PCM.PROG ---
Progress Note Progress Note for Day of Date of Exam: 11/11/22 Subjective Subjective: The patient is sitting up on side of the bed this morning and reports she is feeling much better. He has no complaints at this time and he had no significant events since yesterday morning or through last night. I do see that his blood pressure has been running high and he is on amlodipine 5 mg daily along with metoprolol ER 25 mg daily and lisinopril 20 mg daily. I discussed increases his amlodipine to 10 mg he is willing to do that. His hemoglobin has trended up and is 8.9 this morning which is up from 8.3 yesterday. EGD results showed that he had 2 gastric ulcers however they were covered with blood clots. There was no evidence of any acute bleeding at this time. Past Medical Family Social History Allergies: Allergies No Known Drug Allergies Allergy (Unknown, Verified 08/28/22 19:12) Onset Date: 12/21/2011 Review of Systems ROS: No change since H&P Vital Signs and I&O's Vital Signs: Vital Signs Temperature 97.6 F Pulse Rate [Left Radial] 70 Respiratory Rate 23 Respiratory Rate 18 Respiratory Rate 18 Blood Pressure [Left Arm] 167/80 O2 Sat by Pulse Oximetry 100 Intake and Output: Intake & Output 11/09/22 11/10/22 11/11/22 11/12/22 11:59 11:59 11:59 11:59 Intake Total 2042 1801 / 1801 Output Total 760 / 760 Balance 2042 1041 / 1041 Physical Exam Oriented: Normal Eyes: Normal Ear: Normal Nose: Normal Throat: Normal Respiratory: Normal Cardiovascular: Normal and Other (PACER PRESENT) Auscultation: Bowel Sounds: Increased Tenderness: Diffuse and Mild Skin: Decreased Turgur Musculoskeletal: Back:Lumbar Psychiatric: Anxiety Affect: Anxious Speech Pattern: Clear and Appropriate Laboratory and Diagnostics Result Diagrams: 11/11/22 04:20 11/11/22 04:20 Labs: 11/09/22 12:20 Blood Blood Culture - Preliminary 11/09/22 12:05 Blood Blood Culture - Preliminary Laboratory WBC 5.7 X10^3/uL (3.6-10.0) 11/11/22 04:20 RBC 2.86 X10^6/uL (4.7-6.0) L 11/11/22 04:20 Hgb 8.9 g/dL (13.5-18.0) L 11/11/22 04:20 Hct 25.5 % (42.0-54.0) L 11/11/22 04:20 MCV 89.3 fL (80.0-100.0) 11/11/22 04:20 MCH 31.2 pg (27.0-34.0) 11/11/22 04:20 MCHC 34.9 g/dL (33.0-35.0) 11/11/22 04:20 RDW 16.9 % (11.6-16.5) H 11/11/22 04:20 Plt Count 163 X10^3/uL (150.0-450.0) 11/11/22 04:20 MPV 9.2 fL (7.4-11.0) 11/11/22 04:20 Neut % (Auto) 63.0 % (42.0-75.0) 11/11/22 04:20 Lymph % (Auto) 28.6 % (21.0-51.0) 11/11/22 04:20 [place] % (Auto) 5.6 % (0.0-13.0) 11/11/22 04:20 Eos % (Auto) 1.9 % (0.9-2.9) 11/11/22 04:20 Baso % (Auto) 0.9 % (0.2-1.0) 11/11/22 04:20 Neut # (Auto) 3.6 x10^3/uL (2.2-4.8) 11/11/22 04:20 Lymph # (Auto) 1.6 X10^3/uL (1.3-2.9) 11/11/22 04:20 [place] # (Auto) 0.3 x10^3/uL (0.3-0.8) 11/11/22 04:20 Eos # (Auto) 0.1 x10^3/uL (0.0-0.2) 11/11/22 04:20 Baso # (Auto) 0.1 X10^3/uL (0.0-0.1) 11/11/22 04:20 Absolute Nucleated RBC 0.0 /100WBC 11/11/22 04:20 Sample Site Lrad 11/09/22 12:10 ABG pH 7.800 (7.35-7.45) H* 11/09/22 12:10 ABG pCO2 12.0 mmHg (35.0-45.0) L* 11/09/22 12:10 ABG pO2 184.0 mmHg (80.0-100.0) H 11/09/22 12:10 ABG HCO3 18.7 mmol/L (22-26) L 11/09/22 12:10 ABG O2 Saturation 100.0 % (90-100) 11/09/22 12:10 ABG Base Excess 3.4 mmol/L (-2.0-2.0) H 11/09/22 12:10 [place] Test Pos 11/09/22 12:10 A-a Gradient -49.0 mmHg 11/09/22 12:10 FiO2 21.0 11/09/22 12:10 Blood Gas Comments Pt garrett well elj cdn 11/09/22 12:10 Sodium 145 mmol/L (136-145) 11/11/22 04:20 Corrected Sodium TNP 11/11/22 04:20 Potassium 3.6 mmol/L (3.5-5.1) 11/11/22 04:20 Chloride 113 mmol/L (98-107) H 11/11/22 04:20 Carbon Dioxide 22.8 mmol/L (21-32) 11/11/22 04:20 BUN 28 mg/dL (7-18) H 11/11/22 04:20 Creatinine 0.95 mg/dL (0.70-1.30) 11/11/22 04:20 Est GFR (MDRD) Af Amer > 60 (>60) 11/11/22 04:20 Est GFR (MDRD) Non-Af > 60 (>60) 11/11/22 04:20 Glucose 107 mg/dL (65-99) H 11/11/22 04:20 Lactic Acid 1.0 mmol/L (0.4-2.0) 11/09/22 12:05 Calcium 7.9 mg/dL (8.5-10.1) L 11/11/22 04:20 Corrected Calcium 9.4 mg/dL (8.5-10.1) 11/11/22 04:20 Magnesium 2.1 mg/dL (2.0-2.9) 11/09/22 12:05 Iron 143 ug/dL (50-175) 11/10/22 04:20 Transferrin 106 mg/dL (202-364) L 11/10/22 04:20 Ferritin 317 ng/mL (26-388) 11/10/22 04:20 Total Bilirubin 0.60 mg/dL (0.2-1.0) 11/11/22 04:20 AST 24 Units/L (15-37) 11/11/22 04:20 ALT 24 Units/L (12-78) 11/11/22 04:20 Alkaline Phosphatase 46 Units/L (46-116) 11/11/22 04:20 Creatine Kinase 84 Units/L (39-308) 11/09/22 12:05 Troponin I High Sens 33.3 ng/L (4.0-60.0) 11/09/22 12:05 C-Reactive Protein 0.70 mg/L (0-3.0) 11/09/22 12:05 Total Protein 4.7 g/dL (6.4-8.2) L 11/11/22 04:20 Albumin 2.1 g/dL (3.4-5.0) L 11/11/22 04:20 Globulin 2.6 g/dL (2.5-4.5) 11/11/22 04:20 Albumin/Globulin Ratio 0.8 Ratio (1.1-2.1) L 11/11/22 04:20 Amylase 29 Units/L (25-115) 11/09/22 12:05 Lipase 77 Units/L (73-393) 11/09/22 12:05 Vitamin B12 335 pg/mL (193-986) 11/10/22 04:20 Folate 15.6 ng/mL (>8.6) 11/10/22 04:20 Stool Occult Blood Positive (NEGATIVE) A 11/09/22 11:58 Stl Occult Blood (IFOB) Positive (NEGATIVE) A 11/11/22 05:19 Blood Type A POSITIVE 11/09/22 13:22 Blood Type A POSITIVE 11/09/22 13:22 Antibody Screen Negative 11/09/22 13:22 Crossmatch See Detail 11/09/22 13:22 Plan (1) Acute upper GI hemorrhage: Status: Acute Plan: Continue IV Protonix. Possible discharge home tomorrow as long as his hemoglobin is not dropping back down. Recheck CBC in a.m. (2) Anemia: Status: Acute Narrative Support Text: Hemoglobin is now trending up since yesterday and after his 2 units of blood he received.. Plan: Repeat CBC tomorrow morning. (3) Hypertension: Status: Chronic Plan: Increase amlodipine from 5 mg daily to 10 mg daily. (4) CAD (coronary artery disease): Status: Chronic (5) Diabetes mellitus: Status: Chronic Plan: Continue sliding scale regular insulin per protocol. (6) CHF (congestive heart failure): Status: Chronic Plan: Monitor for fluid overload.
[2022-11-11] MEDS: NS 1/2 1,000 ML IV 1,000 ML IV SCH (13:44)
[2022-11-11] MEDS: TYLENOL 325 MG TAB PO PRN (16:03)
[2022-11-11] MEDS ORDERED: ZESTRIL TAB 20 MG ONE (20:07)
[2022-11-11] MEDS: ZESTRIL TAB 20 MG PO SCH (21:13)
[2022-11-12] MEDS ORDERED: NS 1/2 1,000 ML IV 1,000 ML IV ONE ×2 (03:45→13:42)
[2022-11-12] MEDS: NS 1/2 1,000 ML IV 1,000 ML IV SCH ×2 (04:43→10:36)
[2022-11-12 04:49] LABS: EOSINOPHILS # (AUTO) 0.1 x10^3/uL (0.0-0.2); EOSINOPHILS % (AUTO) 2.6 % (0.9-2.9); HEMATOCRIT 22.5 % (42.0-54.0); HEMOGLOBIN 7.8 g/dL (13.5-18.0); LYMPHOCYTES # (AUTO) 1.3 X10^3/uL (1.3-2.9); LYMPHOCYTES % (AUTO) 30.9 % (21.0-51.0); MEAN CORPUSCULAR HEMOGLOBIN 31.2 pg (27.0-34.0); MEAN CORPUSCULAR HGB CONC 34.9 g/dL (33.0-35.0); MEAN CORPUSCULAR VOLUME 89.5 fL (80.0-100.0); MEAN PLATELET VOLUME 8.7 fL (7.4-11.0); MONOCYTES # (AUTO) 0.3 x10^3/uL (0.3-0.8); MONOCYTES % (AUTO) 7.2 % (0.0-13.0); NEUTROPHILS # (AUTO) 2.5 x10^3/uL (2.2-4.8); NEUTROPHILS % (AUTO) 58.3 % (42.0-75.0); PLATELET COUNT 139 X10^3/uL (150.0-450.0); RED BLOOD COUNT 2.51 X10^6/uL (4.7-6.0); RED CELL DISTRIBUTION WIDTH 17.1 % (11.6-16.5); WHITE BLOOD COUNT 4.3 X10^3/uL (3.6-10.0)
[2022-11-12 05:00] LABS: ALANINE AMINOTRANSFERASE 23 Units/L (12-78); ALBUMIN 1.9 g/dL (3.4-5.0); ALKALINE PHOSPHATASE 42 Units/L (46-116); ASPARTATE AMINO TRANSFERASE 25 Units/L (15-37); BLOOD UREA NITROGEN 17 mg/dL (7-18); CALCIUM 7.6 mg/dL (8.5-10.1); CARBON DIOXIDE 25.8 mmol/L (21-32); CHLORIDE 112 mmol/L (98-107); COR CA(FOR HYPOALB) 9.3 mg/dL (8.5-10.1); CREATININE 0.84 mg/dL (0.70-1.30); GLUCOSE 89 mg/dL (65-99); MAGNESIUM 1.8 mg/dL (2.0-2.9); POTASSIUM 3.7 mmol/L (3.5-5.1); SODIUM 144 mmol/L (136-145); TOTAL PROTEIN 4.3 g/dL (6.4-8.2); eGFR NON BLACK RACES > 60 (>60)
[2022-11-12] MEDS: CARAFATE PO SCH ×4 (05:37→21:09)
[2022-11-12] MEDS ORDERED: PHARMACY CONSULT - POTASSIUM & MAGNESIUM XX SCH (06:00)
[2022-11-12] MEDS: MORPHINE SULFATE INJ 2 MG INJ IVP PRN ×3 (07:48→23:02)
[2022-11-12] MEDS: MAGNESIUM SULFATE 1 GRAM/100 mL PREMIX 1 G/100 ML BAG IV SCH ×2 (07:49→09:34)
[2022-11-12 08:15] VITALS: RESP 20
[2022-11-12] MEDS: TOPROL XL PO SCH (09:30)
[2022-11-12] MEDS: LIPITOR TAB 10 MG PO SCH (09:31)
[2022-11-12] MEDS: PROTONIX INJ 40 MG VIAL IVP SCH ×2 (09:32→21:10)
[2022-11-12] MEDS: NORVASC TAB 5 MG PO SCH (09:32)
[2022-11-12] MEDS: K-RIDER 10 MEQ/NS 100 ML 10 MEQ/100 ML BAG IV SCH ×2 (09:33→10:00)
[2022-11-12] MEDS: SINGULAIR TAB 10 MG PO SCH (09:33)
[2022-11-12] MEDS: SYNTHROID 50 mcg TAB PO SCH (09:36)
[2022-11-12] MEDS: CARDURA PO SCH (09:36)
[2022-11-12] MEDS: NEURONTIN CAP 400 MG PO SCH ×2 (13:48→21:09)
[2022-11-12] MEDS: ARTIFICIAL TEARS DROPS AFFEYE SCH ×2 (16:42→21:11)
[2022-11-12] MEDS ORDERED: ZESTRIL TAB 20 MG ONE (20:31)
[2022-11-12] MEDS: ZESTRIL TAB 20 MG PO SCH (21:09)
[2022-11-13 05:25] LABS: BASOPHILS # (AUTO) 0.1 X10^3/uL (0.0-0.1); BASOPHILS % (AUTO) 1.3 % (0.2-1.0); EOSINOPHILS # (AUTO) 0.2 x10^3/uL (0.0-0.2); EOSINOPHILS % (AUTO) 3.1 % (0.9-2.9); HEMATOCRIT 23.5 % (42.0-54.0); HEMOGLOBIN 8.3 g/dL (13.5-18.0); LYMPHOCYTES # (AUTO) 1.7 X10^3/uL (1.3-2.9); LYMPHOCYTES % (AUTO) 30.6 % (21.0-51.0); MEAN CORPUSCULAR HGB CONC 35.2 g/dL (33.0-35.0); MEAN CORPUSCULAR VOLUME 90.9 fL (80.0-100.0); MEAN PLATELET VOLUME 9.2 fL (7.4-11.0); MONOCYTES # (AUTO) 0.4 x10^3/uL (0.3-0.8); MONOCYTES % (AUTO) 7.1 % (0.0-13.0); NEUTROPHILS # (AUTO) 3.2 x10^3/uL (2.2-4.8); NEUTROPHILS % (AUTO) 57.9 % (42.0-75.0); PLATELET COUNT 160 X10^3/uL (150.0-450.0); RED BLOOD COUNT 2.58 X10^6/uL (4.7-6.0); RED CELL DISTRIBUTION WIDTH 16.8 % (11.6-16.5); WHITE BLOOD COUNT 5.5 X10^3/uL (3.6-10.0)
[2022-11-13 05:38] LABS: ALANINE AMINOTRANSFERASE 23 Units/L (12-78); ALBUMIN 1.9 g/dL (3.4-5.0); ALKALINE PHOSPHATASE 45 Units/L (46-116); ASPARTATE AMINO TRANSFERASE 22 Units/L (15-37); BLOOD UREA NITROGEN 12 mg/dL (7-18); CALCIUM 7.5 mg/dL (8.5-10.1); CARBON DIOXIDE 25.8 mmol/L (21-32); CHLORIDE 109 mmol/L (98-107); COR CA(FOR HYPOALB) 9.2 mg/dL (8.5-10.1); CREATININE 0.94 mg/dL (0.70-1.30); GLUCOSE 78 mg/dL (65-99); POTASSIUM 3.9 mmol/L (3.5-5.1); SODIUM 143 mmol/L (136-145); TOTAL PROTEIN 4.2 g/dL (6.4-8.2); eGFR NON BLACK RACES > 60 (>60)
[2022-11-13] MEDS: NEURONTIN CAP 400 MG PO SCH ×2 (06:13→14:21)
[2022-11-13] MEDS: CARAFATE PO SCH ×3 (06:13→17:19)
--- NOTE | 2022-11-13 07:45 | PCM.PROG ---
Progress Note Progress Note for Day of Date of Exam: 11/12/22 Subjective Subjective: The patient is lying in bed with no new complaints this morning. His blood pressure is doing better. His hemoglobin dropped from 8.9-8.3 this morning. Because of this we will keep him another day to make sure his hemoglobin is trending up settle down before he goes home. Past Medical Family Social History Allergies: Allergies No Known Drug Allergies Allergy (Unknown, Verified 08/28/22 19:12) Onset Date: 12/21/2011 Review of Systems ROS: No change since H&P Vital Signs and I&O's Vital Signs: Vital Signs Temperature 97.4 F Temperature 97.8 F Pulse Rate [Left Radial] 71 Pulse Rate [Left Radial] 65 Respiratory Rate 20 Respiratory Rate 20 Blood Pressure [Left Arm] 155/74 Blood Pressure [Left Arm] 154/74 O2 Sat by Pulse Oximetry 100 O2 Sat by Pulse Oximetry 99 11/13/22 04:00 11/13/22 05:09 Temperature 97.4 F L Temperature Source Oral Pulse Rate [Left Radial] 71 Pulse Assessment Method [Left Radial] Dinamap Respiratory Rate 20 O2 Sat by Pulse Oximetry 100 Blood Pressure [Left Arm] 155/74 Blood Pressure Mean [Left Arm] 101 Blood Pressure Source [Left Arm] Automatic Cuff Blood Pressure Position [Left Arm] Semi Pisano's Weight 248 lb Intake and Output: Intake & Output 11/10/22 11/11/22 11/12/22 11/13/22 11:59 11:59 11:59 11:59 Intake Total 2042 1801 / 1801 3641 / 3641 2226 / 2226 Output Total 760 / 760 1044 / 1044 1600 / 1600 Balance 2042 1041 / 1041 2597 / 2597 626 / 626 Physical Exam Oriented: Normal Eyes: Normal Ear: Normal Nose: Normal Throat: Normal Respiratory: Normal Cardiovascular: Normal and Other (PACER PRESENT) Auscultation: Bowel Sounds: Increased Tenderness: Diffuse and Mild Skin: Decreased Turgur Musculoskeletal: Back:Lumbar Psychiatric: Anxiety Affect: Anxious Speech Pattern: Clear and Appropriate Laboratory and Diagnostics Result Diagrams: 11/13/22 04:05 11/13/22 04:05 Labs: 11/09/22 12:20 Blood Blood Culture - Preliminary 11/09/22 12:05 Blood Blood Culture - Preliminary Laboratory WBC 5.5 X10^3/uL (3.6-10.0) 11/13/22 04:05 RBC 2.58 X10^6/uL (4.7-6.0) L 11/13/22 04:05 Hgb 8.3 g/dL (13.5-18.0) L 11/13/22 04:05 Hct 23.5 % (42.0-54.0) L 11/13/22 04:05 MCV 90.9 fL (80.0-100.0) 11/13/22 04:05 MCH 32.0 pg (27.0-34.0) 11/13/22 04:05 MCHC 35.2 g/dL (33.0-35.0) H 11/13/22 04:05 RDW 16.8 % (11.6-16.5) H 11/13/22 04:05 Plt Count 160 X10^3/uL (150.0-450.0) 11/13/22 04:05 MPV 9.2 fL (7.4-11.0) 11/13/22 04:05 Neut % (Auto) 57.9 % (42.0-75.0) 11/13/22 04:05 Lymph % (Auto) 30.6 % (21.0-51.0) 11/13/22 04:05 [place] % (Auto) 7.1 % (0.0-13.0) 11/13/22 04:05 Eos % (Auto) 3.1 % (0.9-2.9) H 11/13/22 04:05 Baso % (Auto) 1.3 % (0.2-1.0) H 11/13/22 04:05 Neut # (Auto) 3.2 x10^3/uL (2.2-4.8) 11/13/22 04:05 Lymph # (Auto) 1.7 X10^3/uL (1.3-2.9) 11/13/22 04:05 [place] # (Auto) 0.4 x10^3/uL (0.3-0.8) 11/13/22 04:05 Eos # (Auto) 0.2 x10^3/uL (0.0-0.2) 11/13/22 04:05 Baso # (Auto) 0.1 X10^3/uL (0.0-0.1) 11/13/22 04:05 Absolute Nucleated RBC 0.1 /100WBC 11/13/22 04:05 Sample Site Lrad 11/09/22 12:10 ABG pH 7.800 (7.35-7.45) H* 11/09/22 12:10 ABG pCO2 12.0 mmHg (35.0-45.0) L* 11/09/22 12:10 ABG pO2 184.0 mmHg (80.0-100.0) H 11/09/22 12:10 ABG HCO3 18.7 mmol/L (22-26) L 11/09/22 12:10 ABG O2 Saturation 100.0 % (90-100) 11/09/22 12:10 ABG Base Excess 3.4 mmol/L (-2.0-2.0) H 11/09/22 12:10 [place] Test Pos 11/09/22 12:10 A-a Gradient -49.0 mmHg 11/09/22 12:10 FiO2 21.0 11/09/22 12:10 Blood Gas Comments Pt garrett well elj cdn 11/09/22 12:10 Sodium 143 mmol/L (136-145) 11/13/22 04:05 Corrected Sodium TNP 11/13/22 04:05 Potassium 3.9 mmol/L (3.5-5.1) 11/13/22 04:05 Chloride 109 mmol/L (98-107) H 11/13/22 04:05 Carbon Dioxide 25.8 mmol/L (21-32) 11/13/22 04:05 BUN 12 mg/dL (7-18) 11/13/22 04:05 Creatinine 0.94 mg/dL (0.70-1.30) 11/13/22 04:05 Est GFR (MDRD) Af Amer > 60 (>60) 11/13/22 04:05 Est GFR (MDRD) Non-Af > 60 (>60) 11/13/22 04:05 Glucose 78 mg/dL (65-99) 11/13/22 04:05 Lactic Acid 1.0 mmol/L (0.4-2.0) 11/09/22 12:05 Calcium 7.5 mg/dL (8.5-10.1) L 11/13/22 04:05 Corrected Calcium 9.2 mg/dL (8.5-10.1) 11/13/22 04:05 Magnesium 2.0 mg/dL (2.0-2.9) 11/13/22 04:05 Iron 143 ug/dL (50-175) 11/10/22 04:20 Transferrin 106 mg/dL (202-364) L 11/10/22 04:20 Ferritin 317 ng/mL (26-388) 11/10/22 04:20 Total Bilirubin 0.30 mg/dL (0.2-1.0) 11/13/22 04:05 AST 22 Units/L (15-37) 11/13/22 04:05 ALT 23 Units/L (12-78) 11/13/22 04:05 Alkaline Phosphatase 45 Units/L (46-116) L 11/13/22 04:05 Creatine Kinase 84 Units/L (39-308) 11/09/22 12:05 Troponin I High Sens 33.3 ng/L (4.0-60.0) 11/09/22 12:05 C-Reactive Protein 0.70 mg/L (0-3.0) 11/09/22 12:05 Total Protein 4.2 g/dL (6.4-8.2) L 11/13/22 04:05 Albumin 1.9 g/dL (3.4-5.0) L 11/13/22 04:05 Globulin 2.3 g/dL (2.5-4.5) L 11/13/22 04:05 Albumin/Globulin Ratio 0.8 Ratio (1.1-2.1) L 11/13/22 04:05 Amylase 29 Units/L (25-115) 11/09/22 12:05 Lipase 77 Units/L (73-393) 11/09/22 12:05 Vitamin B12 335 pg/mL (193-986) 11/10/22 04:20 Folate 15.6 ng/mL (>8.6) 11/10/22 04:20 Stool Occult Blood Positive (NEGATIVE) A 11/09/22 11:58 Stl Occult Blood (IFOB) Positive (NEGATIVE) A 11/11/22 05:19 Blood Type A POSITIVE 11/09/22 13:22 Blood Type A POSITIVE 11/09/22 13:22 Antibody Screen Negative 11/09/22 13:22 Crossmatch See Detail 11/09/22 13:22 Plan (1) Acute upper GI hemorrhage: Status: Acute Plan: Continue IV Protonix. Possible discharge home tomorrow as long as his hemoglobin is not dropping back down. Recheck CBC in a.m. (2) Anemia: Status: Acute Plan: Repeat CBC tomorrow morning. (3) Hypertension: Status: Chronic Plan: Increase amlodipine from 5 mg daily to 10 mg daily. (4) CAD (coronary artery disease): Status: Chronic (5) Diabetes mellitus: Status: Chronic Plan: Continue sliding scale regular insulin per protocol. (6) CHF (congestive heart failure): Status: Chronic Plan: Monitor for fluid overload.
[2022-11-13] MEDS: ARTIFICIAL TEARS DROPS AFFEYE SCH ×3 (08:47→17:19)
[2022-11-13] MEDS: TOPROL XL PO SCH (08:48)
[2022-11-13] MEDS: PROTONIX INJ 40 MG VIAL IVP SCH (08:48)
[2022-11-13] MEDS: SYNTHROID 50 mcg TAB PO SCH (08:49)
[2022-11-13] MEDS: SINGULAIR TAB 10 MG PO SCH (08:49)
[2022-11-13] MEDS: CARDURA PO SCH (08:49)
[2022-11-13] MEDS: NORVASC TAB 5 MG PO SCH (08:50)
[2022-11-13] MEDS: MORPHINE SULFATE INJ 2 MG INJ IVP PRN ×2 (08:58→17:00)
[2022-11-13] MEDS: NS 1/2 1,000 ML IV 1,000 ML IV SCH (09:37)
[2022-11-13 16:39] VITALS: BP 155/77; PULSE 69; TEMP 97.9; O2SAT 98
[2022-11-13] MEDS ORDERED: LIPITOR TAB 10 MG PO SCH (21:00)
== END 2022-11-13 19:20 | disposition home or self-care (01) | DRG 380 ==
LOC: ER 11:20 → MED/SURG 14:57
PROVIDERS: ADMIT Internal Medicine; ATTEND Internal Medicine
DX: Z98.84 Bariatric surgery status; E78.2 Mixed hyperlipidemia; Z95.0 Presence of cardiac pacemaker; I50.9 Heart failure, unspecified; K25.9 Gastric ulcer, unspecified as acute or chronic, without hemorrhage or perforation; K28.3 Acute gastrojejunal ulcer without hemorrhage or perforation; K85.80 Other acute pancreatitis without necrosis or infection; G47.33 Obstructive sleep apnea (adult) (pediatric); E66.01 Morbid (severe) obesity due to excess calories; I25.10 Atherosclerotic heart disease of native coronary artery without angina pectoris; D64.89 Other specified anemias; E11.65 Type 2 diabetes mellitus with hyperglycemia; R55 Syncope and collapse; R53.1 Weakness; W18.39XA Other fall on same level, initial encounter; R06.02 Shortness of breath; R42 Dizziness and giddiness; Z86.79 Personal history of other diseases of the circulatory system; I11.0 Hypertensive heart disease with heart failure

== ENCOUNTER 2024-04-23 13:17 | Inpatient (IN) ==
[2024-04-23 14:17] LABS: BILIRUBIN,URINE NEGATIVE (NEGATIVE); BLOOD/HEMOGLOBIN,URINE 4+ (NEGATIVE); GLUCOSE, URINE NEGATIVE (NEGATIVE); KETONES,URINE NEGATIVE (NEGATIVE); LEUKOCYTE ESTERASE ,URINE 1+ (NEGATIVE); NITRITES,URINE NEGATIVE (NEGATIVE); PROTEIN,URINE 2+ (NEGATIVE); UROBILINOGEN,URINE NORMAL (NORMAL)
[2024-04-23 14:27] LABS: APPEARANCE,URINE CLEAR (CLEAR); BACTERIA,URINE 1+ /HPF (NEGATIVE); COLOR,URINE YELLOW (YELLOW); SQUAMOUS EPITHELIAL CELL,UR FEW /HPF (NEGATIVE)
--- NOTE | 2024-04-23 14:39 | DR.GENAD ---
HPI Time Seen Time Seen by Provider: 04/23/24 14:29 PCP Primary Care Physician: Leandra Acosta Complaint/Symptoms Chief Complaint Doctors Comments: 68-year-old male, history of lymphedema, complains of increasing peripheral edema in bilateral lower extremities, up to the level of his waist, including groin and scrotum. Complains of diffuse weeping from his right lower extremity. Denies dyspnea. Denies chest pain. Denies fever. Admits to chills. Chief Complaint:: Edema bilateral legs for months but the patient states his right leg has been weeping excessively and he has been feeling bad with generalized weakness x 2 days, noted 3+-4+ pitting edema bilaterally lower ext. with excessive drainage soaking right mily leg. He denies SOB or dyspnea COVID-19 Coronavirus risk:travel/contact w/high risk person: No Has patient experienced Coronavirus symptoms: No Source History Provided: Patient Mode of Arrival Mode of Arrival: Ambulatory Timing Onset of Chief Complaint: 04/21/24 PMH PMH Past Medical History: Yes Past Medical History: Anemia, Arthritis, Diabetes, Dyslipidemia and Hypertension Past Surgical History: Yes Surgical History: Abdominal Surgery and Weight Loss Surgery Past Surgical History Comment: pacer/defib, umbilical hernia, plastic surgery to abdomen, Watchman Family History History of Family Medical Conditions: Yes Family Medical History: [place], Heart Failure and Hypertension Social History Does patient currently use any type of tobacco product: No Have you used tobacco products in the last 12 months: No Type of Tobacco Use: None Does any household member use tobacco: No Alcohol Use: None Do you use any recreational Drugs:: No Lives With: Alone Lives Where: Home Travel Risk Coronavirus risk:travel/contact w/high risk person: No Has patient experienced Coronavirus symptoms: No Infectious screening In the last 2 months have you had wt loss of >10#?: NO Have you had fever, night sweats or hemotysis?: No Have you traveled outside the country in the last 6 months?: No Isolation: Standard ROS Review of Systems Constitutional: Chills; negative Fever Cardiovascular: Edema; negative Chest Pain PE Vital Signs Vitals: Vital Signs Temperature 97.4 F Pulse Rate 77 Respiratory Rate 14 Blood Pressure 113/59 O2 Sat by Pulse Oximetry 100 General Limitations: No Limitations General Appearance: Alert and In No Apparent Distress Head Head Exam: Normal Inspection Eyes Eye exam: Normal Appearance ENT ENT Exam: Normal Exam External Ear Exam: Normal External Inspection TM/Canal Exam: Bilateral: Normal Nose Exam: Normal Nose Exam Mouth Exam: Normal Inspection Throat Exam: Normal Inspection Neck Neck Exam: Normal Inspection Chest Chest Inspection: Normal Inspection Respiratory Respiratory Exam: Normal Lung Sounds Bilat Respiratory Exam: Bilateral: Clear to Auscultation Cardiovascular Cardiovascular Exam: Regular Rate and Normal Rhythm Abdominal Exam Abdominal Exam: Normal Inspection, Normal Bowel Sounds and Soft Extremities Extremities Exam: Edema ([place] pitting edema from RLE, 3+ pitting edema in LLE) Back Back Exam: Normal Inspection Neurologic Neurological Exam: Alert and Oriented X3 Psychiatric Psychiatric Exam: Normal Affect and Normal Mood Skin Skin Exam: Warm, Dry, Intact and Normal Color ROR Labs Reviewed 04/23/24 14:44 04/23/24 14:44 Laboratory: WBC 10.9 X10^3/uL (3.6-10.0) H 04/23/24 14:44 RBC 3.25 X10^6/uL (4.7-6.0) L 04/23/24 14:44 Hgb 10.3 g/dL (13.5-18.0) L 04/23/24 14:44 Hct 31.5 % (42.0-54.0) L 04/23/24 14:44 MCV 96.8 fL (80.0-100.0) 04/23/24 14:44 MCH 31.7 pg (27.0-34.0) 04/23/24 14:44 MCHC 32.8 g/dL (33.0-35.0) L 04/23/24 14:44 RDW 16.6 % (11.6-16.5) H 04/23/24 14:44 Plt Count 239 X10^3/uL (150.0-450.0) 04/23/24 14:44 MPV 8.7 fL (7.4-11.0) 04/23/24 14:44 Neut % (Auto) 88.1 % (42.0-75.0) H 04/23/24 14:44 Lymph % (Auto) 7.7 % (21.0-51.0) L 04/23/24 14:44 [place] % (Auto) 3.9 % (0.0-13.0) 04/23/24 14:44 Eos % (Auto) 0.1 % (0.9-2.9) L 04/23/24 14:44 Baso % (Auto) 0.2 % (0.2-1.0) 04/23/24 14:44 Neut # (Auto) 9.6 x10^3/uL (2.2-4.8) H 04/23/24 14:44 Lymph # (Auto) 0.8 X10^3/uL (1.3-2.9) L 04/23/24 14:44 [place] # (Auto) 0.4 x10^3/uL (0.3-0.8) 04/23/24 14:44 Eos # (Auto) 0.0 x10^3/uL (0.0-0.2) 04/23/24 14:44 Baso # (Auto) 0.0 X10^3/uL (0.0-0.1) 04/23/24 14:44 Absolute Nucleated RBC 0.0 /100WBC 04/23/24 14:44 Sodium 142 mmol/L (136-145) 04/23/24 14:44 Corrected Sodium 143 mmol/L (136-145) 04/23/24 14:44 Potassium 3.7 mmol/L (3.5-5.1) 04/23/24 14:44 Chloride 107 mmol/L (98-107) 04/23/24 14:44 Carbon Dioxide 30.3 mmol/L (21-32) 04/23/24 14:44 BUN 30 mg/dL (7-18) H 04/23/24 14:44 Creatinine 1.33 mg/dL (0.70-1.30) H 04/23/24 14:44 Est GFR (MDRD) Af Amer > 60 (>60) 04/23/24 14:44 Est GFR (MDRD) Non-Af 57 (>60) L 04/23/24 14:44 Glucose 121 mg/dL (65-99) H 04/23/24 14:44 Lactic Acid 1.1 mmol/L (0.4-2.0) 04/23/24 14:44 Calcium 8.4 mg/dL (8.5-10.1) L 04/23/24 14:44 Corrected Calcium 10.2 mg/dL (8.5-10.1) H 04/23/24 14:44 Total Bilirubin 0.20 mg/dL (0.2-1.0) 04/23/24 14:44 AST 35 Units/L (15-37) 04/23/24 14:44 ALT 38 Units/L (12-78) 04/23/24 14:44 Alkaline Phosphatase 109 Units/L (46-116) 04/23/24 14:44 Total Protein 6.0 g/dL (6.4-8.2) L 04/23/24 14:44 Albumin 1.7 g/dL (3.4-5.0) L 04/23/24 14:44 Globulin 4.3 g/dL (2.5-4.5) 04/23/24 14:44 Albumin/Globulin Ratio 0.4 Ratio (1.1-2.1) L 04/23/24 14:44 Specimen Type Clean catch urine 04/23/24 14:03 Urine Color Yellow (YELLOW) 04/23/24 14:03 Urine Appearance Clear (CLEAR) 04/23/24 14:03 Urine pH 5.0 (5.0 - 8.0) 04/23/24 14:03 Ur Specific [place] 1.015 (1.000-1.030) 04/23/24 14:03 Urine Protein 2+ (NEGATIVE) 04/23/24 14:03 Urine Glucose (UA) Negative (NEGATIVE) 04/23/24 14:03 Urine Ketones Negative (NEGATIVE) 04/23/24 14:03 Urine Blood 4+ (NEGATIVE) 04/23/24 14:03 Urine Nitrite Negative (NEGATIVE) 04/23/24 14:03 Urine Bilirubin Negative (NEGATIVE) 04/23/24 14:03 Urine Urobilinogen Normal (NORMAL) 04/23/24 14:03 Ur Leukocyte Esterase 1+ (NEGATIVE) 04/23/24 14:03 Urine RBC 3-5 /HPF (0-3) A 04/23/24 14:03 Urine WBC 5-10 /HPF (0-5) A 04/23/24 14:03 Ur Squamous Epith Cells Few /HPF (NEGATIVE) 04/23/24 14:03 Urine Bacteria 1+ /HPF (NEGATIVE) 04/23/24 14:03 Ur Culture Indicated? No/not indicated 04/23/24 14:03 Opioid Opioid Risk Tool Age (Jb box if 16-45): No History of Preadolescent Sexual Abuse: No Total: 0 Total Score Risk Category: Low Risk Copyright: Diomedes MONTAGUE predicting aberrant behaviors Discharge Plan Diagnosis Discharge Problem: Edema, peripheral Discharge Plan Patient Disposition: 09 ADMITTED INPATIENT Condition: Stable Prescriptions: No Action levothyroxine 50 mcg tablet 50 mcg PO QDAY amlodipine 5 mg tablet 5 mg PO QDAY PRN tramadol 50 mg tablet 50 mg PO BID PRN doxazosin 4 mg tablet 4 mg PO QDAY montelukast 10 mg tablet 10 mg PO QDAY gabapentin 400 mg Capsule 400 mg PO TID furosemide 40 mg tablet 40 mg PO QDAY metoprolol succinate 50 mg tablet extended release 24 hr 50 mg PO QDAY potassium chloride 20 mEq tablet,ER particles/crystals 20 meq PO QDAY amitriptyline 10 mg tablet 10 mg PO QPM pantoprazole [Protonix] 40 mg tablet,delayed release (DR/EC) 40 mg PO QDAY Health Concerns: Post Hospitalization: new medications and changes needed to prevent readmission or further decline. Pt educated and given instructions on all concerns. Plan of Treatment: Continue with present treatment and follow up plan. Pt is to keep follow up appointment as instructed and take medications as ordered. Orders to Discharge Patient Discharge Orders: Transfer (Routine); Ordered 04/23/24 Ordered By: Victorino Masterson Follow ups/Referrals Follow ups/Referrals: JOANNE ACOSTA [Primary Care Provider] - 3 days Instructions Stand Alone Forms: Find Help Web Site, Post Hospital Follow Up Care ADDITIONAL NOTES Additional Notes Additional Notes: Accepted by Dr Naqvi at 1606PM
[2024-04-23] MEDS: LASIX IVP ONE (14:54)
[2024-04-23 15:23] LABS: ALANINE AMINOTRANSFERASE 38 Units/L (12-78); ALBUMIN 1.7 g/dL (3.4-5.0); ALKALINE PHOSPHATASE 109 Units/L (46-116); ASPARTATE AMINO TRANSFERASE 35 Units/L (15-37); BLOOD UREA NITROGEN 30 mg/dL (7-18); CALCIUM 8.4 mg/dL (8.5-10.1); CARBON DIOXIDE 30.3 mmol/L (21-32); CHLORIDE 107 mmol/L (98-107); COR CA(FOR HYPOALB) 10.2 mg/dL (8.5-10.1); COR NA(FOR HYPERGLY) 143 mmol/L (136-145); CREATININE 1.33 mg/dL (0.70-1.30); GLUCOSE 121 mg/dL (65-99); POTASSIUM 3.7 mmol/L (3.5-5.1); SODIUM 142 mmol/L (136-145); eGFR NON BLACK RACES 57 (>60)
[2024-04-23 15:24] LABS: BASOPHILS % (AUTO) 0.2 % (0.2-1.0); EOSINOPHILS % (AUTO) 0.1 % (0.9-2.9); HEMATOCRIT 31.5 % (42.0-54.0); HEMOGLOBIN 10.3 g/dL (13.5-18.0); LYMPHOCYTES # (AUTO) 0.8 X10^3/uL (1.3-2.9); LYMPHOCYTES % (AUTO) 7.7 % (21.0-51.0); MEAN CORPUSCULAR HEMOGLOBIN 31.7 pg (27.0-34.0); MEAN CORPUSCULAR HGB CONC 32.8 g/dL (33.0-35.0); MEAN CORPUSCULAR VOLUME 96.8 fL (80.0-100.0); MEAN PLATELET VOLUME 8.7 fL (7.4-11.0); MONOCYTES # (AUTO) 0.4 x10^3/uL (0.3-0.8); MONOCYTES % (AUTO) 3.9 % (0.0-13.0); NEUTROPHILS # (AUTO) 9.6 x10^3/uL (2.2-4.8); NEUTROPHILS % (AUTO) 88.1 % (42.0-75.0); PLATELET COUNT 239 X10^3/uL (150.0-450.0); RED BLOOD COUNT 3.25 X10^6/uL (4.7-6.0); RED CELL DISTRIBUTION WIDTH 16.6 % (11.6-16.5); WHITE BLOOD COUNT 10.9 X10^3/uL (3.6-10.0)
--- NOTE | 2024-04-23 16:09 | DR.GENAD ---
HPI Time Seen Time Seen by Provider: 04/23/24 14:29 PCP Primary Care Physician: Leandra Acosta Complaint/Symptoms Chief Complaint:: Edema bilateral legs for months but the patient states his right leg has been weeping excessively and he has been feeling bad with generalized weakness x 2 days, noted 3+-4+ pitting edema bilaterally lower ext. with excessive drainage soaking right mily leg. He denies SOB or dyspnea COVID-19 Coronavirus risk:travel/contact w/high risk person: No Has patient experienced Coronavirus symptoms: No Source History Provided: Patient Mode of Arrival Mode of Arrival: Ambulatory Timing Onset of Chief Complaint: 04/21/24 PMH PMH Past Medical History: Yes Past Medical History: Anemia, Arthritis, Diabetes, Dyslipidemia and Hypertension Past Surgical History: Yes Surgical History: Abdominal Surgery and Weight Loss Surgery Past Surgical History Comment: pacer/defib, umbilical hernia, plastic surgery to abdomen, Watchman Family History History of Family Medical Conditions: Yes Family Medical History: [place], Heart Failure and Hypertension Social History Does patient currently use any type of tobacco product: No Have you used tobacco products in the last 12 months: No Type of Tobacco Use: None Does any household member use tobacco: No Alcohol Use: None Do you use any recreational Drugs:: No Lives With: Alone Lives Where: Home Travel Risk Coronavirus risk:travel/contact w/high risk person: No Has patient experienced Coronavirus symptoms: No Infectious screening In the last 2 months have you had wt loss of >10#?: NO Have you had fever, night sweats or hemotysis?: No Have you traveled outside the country in the last 6 months?: No Isolation: Standard PE Vital Signs Vitals: Vital Signs Temperature 97.4 F Pulse Rate 77 Respiratory Rate 14 Blood Pressure 113/59 O2 Sat by Pulse Oximetry 100 ROR Labs Reviewed 04/23/24 14:44 04/23/24 14:44 Laboratory: WBC 10.9 X10^3/uL (3.6-10.0) H 04/23/24 14:44 RBC 3.25 X10^6/uL (4.7-6.0) L 04/23/24 14:44 Hgb 10.3 g/dL (13.5-18.0) L 04/23/24 14:44 Hct 31.5 % (42.0-54.0) L 04/23/24 14:44 MCV 96.8 fL (80.0-100.0) 04/23/24 14:44 MCH 31.7 pg (27.0-34.0) 04/23/24 14:44 MCHC 32.8 g/dL (33.0-35.0) L 04/23/24 14:44 RDW 16.6 % (11.6-16.5) H 04/23/24 14:44 Plt Count 239 X10^3/uL (150.0-450.0) 04/23/24 14:44 MPV 8.7 fL (7.4-11.0) 04/23/24 14:44 Neut % (Auto) 88.1 % (42.0-75.0) H 04/23/24 14:44 Lymph % (Auto) 7.7 % (21.0-51.0) L 04/23/24 14:44 [place] % (Auto) 3.9 % (0.0-13.0) 04/23/24 14:44 Eos % (Auto) 0.1 % (0.9-2.9) L 04/23/24 14:44 Baso % (Auto) 0.2 % (0.2-1.0) 04/23/24 14:44 Neut # (Auto) 9.6 x10^3/uL (2.2-4.8) H 04/23/24 14:44 Lymph # (Auto) 0.8 X10^3/uL (1.3-2.9) L 04/23/24 14:44 [place] # (Auto) 0.4 x10^3/uL (0.3-0.8) 04/23/24 14:44 Eos # (Auto) 0.0 x10^3/uL (0.0-0.2) 04/23/24 14:44 Baso # (Auto) 0.0 X10^3/uL (0.0-0.1) 04/23/24 14:44 Absolute Nucleated RBC 0.0 /100WBC 04/23/24 14:44 Sodium 142 mmol/L (136-145) 04/23/24 14:44 Corrected Sodium 143 mmol/L (136-145) 04/23/24 14:44 Potassium 3.7 mmol/L (3.5-5.1) 04/23/24 14:44 Chloride 107 mmol/L (98-107) 04/23/24 14:44 Carbon Dioxide 30.3 mmol/L (21-32) 04/23/24 14:44 BUN 30 mg/dL (7-18) H 04/23/24 14:44 Creatinine 1.33 mg/dL (0.70-1.30) H 04/23/24 14:44 Est GFR (MDRD) Af Amer > 60 (>60) 04/23/24 14:44 Est GFR (MDRD) Non-Af 57 (>60) L 04/23/24 14:44 Glucose 121 mg/dL (65-99) H 04/23/24 14:44 Lactic Acid 1.1 mmol/L (0.4-2.0) 04/23/24 14:44 Calcium 8.4 mg/dL (8.5-10.1) L 04/23/24 14:44 Corrected Calcium 10.2 mg/dL (8.5-10.1) H 04/23/24 14:44 Total Bilirubin 0.20 mg/dL (0.2-1.0) 04/23/24 14:44 AST 35 Units/L (15-37) 04/23/24 14:44 ALT 38 Units/L (12-78) 04/23/24 14:44 Alkaline Phosphatase 109 Units/L (46-116) 04/23/24 14:44 Total Protein 6.0 g/dL (6.4-8.2) L 04/23/24 14:44 Albumin 1.7 g/dL (3.4-5.0) L 04/23/24 14:44 Globulin 4.3 g/dL (2.5-4.5) 04/23/24 14:44 Albumin/Globulin Ratio 0.4 Ratio (1.1-2.1) L 04/23/24 14:44 Specimen Type Clean catch urine 04/23/24 14:03 Urine Color Yellow (YELLOW) 04/23/24 14:03 Urine Appearance Clear (CLEAR) 04/23/24 14:03 Urine pH 5.0 (5.0 - 8.0) 04/23/24 14:03 Ur Specific [place] 1.015 (1.000-1.030) 04/23/24 14:03 Urine Protein 2+ (NEGATIVE) 04/23/24 14:03 Urine Glucose (UA) Negative (NEGATIVE) 04/23/24 14:03 Urine Ketones Negative (NEGATIVE) 04/23/24 14:03 Urine Blood 4+ (NEGATIVE) 04/23/24 14:03 Urine Nitrite Negative (NEGATIVE) 04/23/24 14:03 Urine Bilirubin Negative (NEGATIVE) 04/23/24 14:03 Urine Urobilinogen Normal (NORMAL) 04/23/24 14:03 Ur Leukocyte Esterase 1+ (NEGATIVE) 04/23/24 14:03 Urine RBC 3-5 /HPF (0-3) A 04/23/24 14:03 Urine WBC 5-10 /HPF (0-5) A 04/23/24 14:03 Ur Squamous Epith Cells Few /HPF (NEGATIVE) 04/23/24 14:03 Urine Bacteria 1+ /HPF (NEGATIVE) 04/23/24 14:03 Ur Culture Indicated? No/not indicated 04/23/24 14:03 Opioid Opioid Risk Tool Age (Jb box if 16-45): No History of Preadolescent Sexual Abuse: No Total: 0 Total Score Risk Category: Low Risk Copyright: Diomedes MONTAGUE predicting aberrant behaviors Discharge Plan Diagnosis Discharge Problem: Edema, peripheral Discharge Plan Patient Disposition: 09 ADMITTED INPATIENT Condition: Stable Prescriptions: No Action levothyroxine 50 mcg tablet 50 mcg PO QDAY amlodipine 5 mg tablet 5 mg PO QDAY PRN tramadol 50 mg tablet 50 mg PO BID PRN doxazosin 4 mg tablet 4 mg PO QDAY montelukast 10 mg tablet 10 mg PO QDAY gabapentin 400 mg Capsule 400 mg PO TID furosemide 40 mg tablet 40 mg PO QDAY metoprolol succinate 50 mg tablet extended release 24 hr 50 mg PO QDAY potassium chloride 20 mEq tablet,ER particles/crystals 20 meq PO QDAY amitriptyline 10 mg tablet 10 mg PO QPM pantoprazole [Protonix] 40 mg tablet,delayed release (DR/EC) 40 mg PO QDAY Health Concerns: Post Hospitalization: new medications and changes needed to prevent readmission or further decline. Pt educated and given instructions on all concerns. Plan of Treatment: Continue with present treatment and follow up plan. Pt is to keep follow up appointment as instructed and take medications as ordered. Orders to Discharge Patient Discharge Orders: Transfer (Routine); Ordered 04/23/24 Ordered By: Victorino Masterson Follow ups/Referrals Follow ups/Referrals: JOANNE ACOSTA [Primary Care Provider] - 3 days Instructions Stand Alone Forms: Find Help Web Site, Post Hospital Follow Up Care
[2024-04-23] MEDS ORDERED: NORVASC TAB 5 MG PO PRN (17:04)
[2024-04-23] MEDS: K-DUR TAB 20 MEQ PO SCH (17:13)
[2024-04-23] MEDS: TOPROL XL PO SCH (17:13)
[2024-04-23] MEDS: LASIX IVP SCH (17:14)
[2024-04-23] MEDS: ULTRAM PO PRN (17:44)
[2024-04-23 17:48] VITALS: BMI 26.0
[2024-04-23] MEDS: ELAVIL PO SCH (21:57)
[2024-04-23] MEDS: NEURONTIN CAP 400 MG PO SCH (21:58)
[2024-04-24 06:08] LABS: BASOPHILS % (AUTO) 0.6 % (0.2-1.0); EOSINOPHILS % (AUTO) 0.4 % (0.9-2.9); HEMATOCRIT 26.7 % (42.0-54.0); HEMOGLOBIN 9.1 g/dL (13.5-18.0); LYMPHOCYTES % (AUTO) 13.6 % (21.0-51.0); MEAN CORPUSCULAR HEMOGLOBIN 32.5 pg (27.0-34.0); MEAN CORPUSCULAR HGB CONC 33.9 g/dL (33.0-35.0); MEAN CORPUSCULAR VOLUME 95.8 fL (80.0-100.0); MEAN PLATELET VOLUME 8.8 fL (7.4-11.0); MONOCYTES # (AUTO) 0.4 x10^3/uL (0.3-0.8); MONOCYTES % (AUTO) 5.3 % (0.0-13.0); NEUTROPHILS # (AUTO) 5.9 x10^3/uL (2.2-4.8); NEUTROPHILS % (AUTO) 80.1 % (42.0-75.0); PLATELET COUNT 214 X10^3/uL (150.0-450.0); RED BLOOD COUNT 2.79 X10^6/uL (4.7-6.0); RED CELL DISTRIBUTION WIDTH 16.4 % (11.6-16.5); WHITE BLOOD COUNT 7.4 X10^3/uL (3.6-10.0)
[2024-04-24 06:28] LABS: ALANINE AMINOTRANSFERASE 31 Units/L (12-78); ALBUMIN 1.3 g/dL (3.4-5.0); ALKALINE PHOSPHATASE 90 Units/L (46-116); ASPARTATE AMINO TRANSFERASE 27 Units/L (15-37); BLOOD UREA NITROGEN 27 mg/dL (7-18); CARBON DIOXIDE 27.8 mmol/L (21-32); CHLORIDE 109 mmol/L (98-107); COR CA(FOR HYPOALB) 10.2 mg/dL (8.5-10.1); CREATININE 1.03 mg/dL (0.70-1.30); GLUCOSE 86 mg/dL (65-99); MAGNESIUM 1.8 mg/dL (2.0-2.9); POTASSIUM 3.6 mmol/L (3.5-5.1); SODIUM 143 mmol/L (136-145); TOTAL PROTEIN 4.9 g/dL (6.4-8.2); eGFR NON BLACK RACES > 60 (>60)
[2024-04-24] MEDS ORDERED: CONSULT PHARMACY - POTASSIUM & MAGNESIUM XX SCH (08:00)
[2024-04-24 08:36] LABS: RETICULOCYTE % 0.61 % (0.8-2.2)
[2024-04-24] MEDS ORDERED: PATIENT'S HOME MEDICATION (Doxazosin 4 mg tablet) PO SCH (09:00)
[2024-04-24] MEDS: LASIX IVP SCH (09:47)
[2024-04-24] MEDS: CARDURA PO SCH (09:48)
[2024-04-24] MEDS: SINGULAIR TAB 10 MG PO SCH (09:48)
[2024-04-24] MEDS: SYNTHROID 50 mcg TAB PO SCH (09:48)
[2024-04-24] MEDS: PROTONIX TAB 40 MG PO SCH (09:48)
[2024-04-24] MEDS: MAG-OX TAB PO SCH (09:54)
[2024-04-24] MEDS: ALBUMIN HUMAN 25%- 100 ML 100 ML IV SCH (09:55)
[2024-04-24] MEDS: INVanz INJ 1 GRAM VIAL 1 G in NS 100 ML IV 100 ML IV SCH (09:55)
[2024-04-24] MEDS: XARELTO PO SCH (09:56)
[2024-04-24] MEDS ORDERED: INVanz INJ 1 GRAM VIAL 0.5 G in NS 50 ML IV 50 ML IV SCH (10:00)
[2024-04-24] MEDS: NS 500 ML IV 500 ML IV ONE (10:34)
--- NOTE | 2024-04-24 12:04 | VAS ---
EXAM:[facility] Bilateral lower extremity DVT ultrasound examination with Doppler imaging.HISTORY:PERIPHERAL EDEMA, BILAT REDNESS, EDEMA, RT LOWER LEG ULCER; . Evaluate for evidence for DVT.Bilateral lower extremity pain and swelling.COMPARISON:: NoneTECHNIQUE:Ultrasound of the deep venous vasculature of the bilateral lower extremities was performed. Color and spectral doppler imaging was utilized for the purposes of this examination as well.FINDINGS:The deep veins of both lower extremities are normal in size and configuration. No intraluminal filling defects are seen on grayscale or color flow imaging.The veins compress normally. Doppler waveforms are normal at rest and with augmentation. Diffuse lower extremity soft tissue swelling and edema is seen.IMPRESSION:Negative bilateral lower extremity DVT ultrasound exam(s).THIS IS AN ELECTRONICALLY VERIFIED FINAL [id number]/2024 11:50 AM - Electronically signed by Nile Seay MD
[2024-04-24] MEDS: K-DUR TAB 20 MEQ PO NR (13:20)
[2024-04-24] MEDS: NORCO 5/325 MG TAB PO PRN (17:50)
[2024-04-25 06:19] LABS: ALANINE AMINOTRANSFERASE 38 Units/L (12-78); ALBUMIN 1.7 g/dL (3.4-5.0); ALKALINE PHOSPHATASE 95 Units/L (46-116); ASPARTATE AMINO TRANSFERASE 33 Units/L (15-37); BASOPHILS % (AUTO) 0.7 % (0.2-1.0); BLOOD UREA NITROGEN 23 mg/dL (7-18); CALCIUM 8.1 mg/dL (8.5-10.1); CARBON DIOXIDE 29.5 mmol/L (21-32); CHLORIDE 105 mmol/L (98-107); COR CA(FOR HYPOALB) 9.9 mg/dL (8.5-10.1); COR NA(FOR HYPERGLY) 140 mmol/L (136-145); CREATININE 1.28 mg/dL (0.70-1.30); EOSINOPHILS % (AUTO) 0.7 % (0.9-2.9); GLUCOSE 124 mg/dL (65-99); HEMATOCRIT 30.6 % (42.0-54.0); HEMOGLOBIN 10.3 g/dL (13.5-18.0); LYMPHOCYTES # (AUTO) 1.5 X10^3/uL (1.3-2.9); LYMPHOCYTES % (AUTO) 22.5 % (21.0-51.0); MAGNESIUM 1.9 mg/dL (2.0-2.9); MEAN CORPUSCULAR HEMOGLOBIN 32.4 pg (27.0-34.0); MEAN CORPUSCULAR HGB CONC 33.6 g/dL (33.0-35.0); MEAN CORPUSCULAR VOLUME 96.4 fL (80.0-100.0); MEAN PLATELET VOLUME 8.7 fL (7.4-11.0); MONOCYTES # (AUTO) 0.4 x10^3/uL (0.3-0.8); MONOCYTES % (AUTO) 5.8 % (0.0-13.0); NEUTROPHILS # (AUTO) 4.7 x10^3/uL (2.2-4.8); NEUTROPHILS % (AUTO) 70.3 % (42.0-75.0); PLATELET COUNT 277 X10^3/uL (150.0-450.0); POTASSIUM 3.8 mmol/L (3.5-5.1); RED BLOOD COUNT 3.18 X10^6/uL (4.7-6.0); RED CELL DISTRIBUTION WIDTH 16.6 % (11.6-16.5); SODIUM 139 mmol/L (136-145); TOTAL PROTEIN 5.7 g/dL (6.4-8.2); WHITE BLOOD COUNT 6.7 X10^3/uL (3.6-10.0); eGFR NON BLACK RACES 59 (>60)
[2024-04-25] MEDS ORDERED: CONSULT PHARMACY - POTASSIUM & MAGNESIUM XX SCH (07:00)
[2024-04-25] MEDS: MAG-OX TAB PO SCH (09:10)
[2024-04-25] MEDS: NORCO 7.5/325 MG TAB PO PRN (11:21)
[2024-04-25] MEDS: K-DUR TAB 20 MEQ PO SCH (11:27)
[2024-04-25] MEDS ORDERED: LASIX IVP SCH (17:00)
--- NOTE | 2024-04-25 22:39 | DR.CONSULT ---
CONSULT Consultation for Day of: Date: 04/24/24 Chief Complaint Chief Complaint: swelling , redness and 4 cm x 4 cm x 0.2 cm ulcer right leg below knee Allergies Allergies Allergy/AdvReac Type Severity Reaction Status Date / Time No Known Drug Allergies Allergy Unknown Verified 04/23/24 13:37 History of Present Illness History of Present Illness: 68 yo male with history of gastric bypass and > 190 lb weight loss seen by me for siginicant venous ninsufficiency and has had b/l iliac vein stenting for b/l iliac vein compression and has had right GSV abaltion in the recent past. Presents for admission with cellulitis right leg below the knee and 4 x 4 x0.2 cm ulcer to medial right calf. On IV antibiotics Past Medical History Past Medical History: Anemia, Arthritis, Diabetes, Dyslipidemia and Hypertension Past Surgical History Surgical History: Abdominal Surgery and Weight Loss Surgery Additional Surgical History: PACEMAKER Family History Family Medical History: [place], Heart Failure and Hypertension Social History Does patient currently use any type of tobacco product: No Have you used tobacco products in the last 12 months: No Type of Tobacco Use: None Does any household member use tobacco: No Alcohol Use: None Drug Use: None Medications Home Medications: No Known Drug Allergies Allergy (Unknown, Verified 04/23/24 13:37) CONTINUE taking the following medications pantoprazole 40 mg tablet,delayed release (Protonix) 40 mg PO QDAY 04/23/24 [History amitrytyline 10 mg po q PM Amlodipine 5 milligrams daily doxazosin 4 milligrams daily Lasix 40 milligrams daily levothyroxine 50 micrograms daily metorprolol 50 milligrams daily montelukast 10 mg daily potassium chloride 20 milligrams daily Tramadol 50 milligrams BID PRN pain Review of Systems Constitutional: See HPI Eyes: No Symptoms Reported ENT: No Symptoms Reported Respiratory: No Symptoms Reported Cardiovascular: No Symptoms Reported Gastrointestinal: No Symptoms Reported Genitourinary: No Symptoms Reported Musculoskeletal: No Symptoms Reported Skin: No Symptoms Reported Neurological: No Symptoms Reported Physical Exam Vital Signs: Vital Signs Temperature 97.8 F Temperature 98.4 F Pulse Rate [Radial] 77 Pulse Rate [Radial] 71 Respiratory Rate 18 Respiratory Rate 17 Respiratory Rate 18 Blood Pressure [Right Arm] 164/78 Blood Pressure [Right Arm] 145/64 O2 Sat by Pulse Oximetry 97 O2 Sat by Pulse Oximetry 97 venous U/s both legs neagaive for DVT Oriented: Normal, Person and Place Eyes: Normal Ear: Normal Nose: Normal Throat: Normal Respiratory: Clear Throughout Cardiovascular: Normal : Normal Auscultation: Bowel Sounds: Normal Palpation: Normal Tenderness: Normal Skin: Other (redness of the right leg below the knee circumferentially, 4 by 4 cm ulcer right medial calf ) Musculoskeletal: Normal Psychiatric: Normal Mood Description: Calm Affect: Normal Speech Pattern: Clear and Appropriate Plan (1) Cellulitis of right leg: Status: Acute Plan: continue IV antibiotics, Elevate right leg, consider jona boot, when discharged followed with me in the office (2) Hypertension: Status: Chronic (3) CAD (coronary artery disease): Status: Chronic (4) CHF (congestive heart failure): Status: Acute Qualifiers: Heart failure chronicity: acute on chronic Heart failure type: combined systolic and diastolic Qualified Code(s): I50.43 - Acute on chronic combined systolic (congestive) and diastolic (congestive) heart failure
[2024-04-26 06:57] LABS: BASOPHILS # (AUTO) 0.1 X10^3/uL (0.0-0.1); BASOPHILS % (AUTO) 1.1 % (0.2-1.0); EOSINOPHILS # (AUTO) 0.1 x10^3/uL (0.0-0.2); EOSINOPHILS % (AUTO) 1.1 % (0.9-2.9); HEMATOCRIT 26.7 % (42.0-54.0); LYMPHOCYTES # (AUTO) 1.3 X10^3/uL (1.3-2.9); LYMPHOCYTES % (AUTO) 21.9 % (21.0-51.0); MEAN CORPUSCULAR HEMOGLOBIN 32.6 pg (27.0-34.0); MEAN CORPUSCULAR HGB CONC 33.7 g/dL (33.0-35.0); MEAN CORPUSCULAR VOLUME 96.7 fL (80.0-100.0); MEAN PLATELET VOLUME 8.7 fL (7.4-11.0); MONOCYTES # (AUTO) 0.5 x10^3/uL (0.3-0.8); NEUTROPHILS % (AUTO) 67.9 % (42.0-75.0); PLATELET COUNT 227 X10^3/uL (150.0-450.0); RED BLOOD COUNT 2.76 X10^6/uL (4.7-6.0); RED CELL DISTRIBUTION WIDTH 16.4 % (11.6-16.5); WHITE BLOOD COUNT 5.8 X10^3/uL (3.6-10.0)
[2024-04-26 07:12] LABS: ALANINE AMINOTRANSFERASE 31 Units/L (12-78); ALBUMIN 1.6 g/dL (3.4-5.0); ALKALINE PHOSPHATASE 71 Units/L (46-116); ASPARTATE AMINO TRANSFERASE 27 Units/L (15-37); BLOOD UREA NITROGEN 24 mg/dL (7-18); CALCIUM 7.8 mg/dL (8.5-10.1); CARBON DIOXIDE 31.8 mmol/L (21-32); CHLORIDE 107 mmol/L (98-107); COR CA(FOR HYPOALB) 9.7 mg/dL (8.5-10.1); CREATININE 1.22 mg/dL (0.70-1.30); GLUCOSE 105 mg/dL (65-99); POTASSIUM 3.8 mmol/L (3.5-5.1); SODIUM 140 mmol/L (136-145); eGFR NON BLACK RACES > 60 (>60)
--- NOTE | 2024-04-26 12:29 | PCM.PROG ---
Progress Note Progress Note for Day of Date of Exam: 04/26/24 Subjective Subjective: Patient is a 68-year-old male admitted for right lower extremity cellulitis and right medial calf ulcer, along with venous insufficiency. This morning he is resting comfortably in bed. No acute events overnight. He is being followed by vascular surgeryDr. Keen. He is currently receiving IV antibiotics Invanz. Wound culture pending. Blood culture no growth to date. Labs/imaging: WBC 5.8, hemoglobin 9.0, platelets 227, sodium 140, potassium 3.8, creatinine 1.22, glucose 105. Will continue current treatment plan and antibiotics. Follow-up with surgery recommendations. Continue closely monitor and follow-up labs/imaging. Past Medical Family Social History Allergies: Allergies No Known Drug Allergies Allergy (Unknown, Verified 04/23/24 13:37) Onset Date: 12/21/2011 Review of Systems ROS changes noted: see HPI Vital Signs and I&O's Vital Signs: Vital Signs Temperature 97.4 F Temperature 98.4 F Pulse Rate [Radial] 70 Pulse Rate [Radial] 74 Respiratory Rate 20 Respiratory Rate 18 Respiratory Rate 18 Respiratory Rate 20 Blood Pressure [Right Arm] 171/79 Blood Pressure [Right Arm] 160/72 O2 Sat by Pulse Oximetry 96 O2 Sat by Pulse Oximetry 97 Intake and Output: Intake & Output 04/23/24 04/24/24 04/25/24 04/26/24 23:59 23:59 23:59 23:59 Intake Total 250 / 250 2310 / 2310 4889 / 4889 350 / 350 Output Total 1276 / 1276 2 / 2 3222 / 3222 4 / 4 Balance -1026 / -1026 2308 / 2308 1667 / 1667 346 / 346 Physical Exam Oriented: Normal, Person and Place Eyes: Normal Ear: Normal Nose: Normal Throat: Normal Cardiovascular: Normal : Normal Auscultation: Bowel Sounds: Normal Tenderness: Normal Skin: Other (redness of the right leg below the knee circumferentially, 4 by 4 cm ulcer right medial calf ) Musculoskeletal: Normal Psychiatric: Normal Mood Description: Calm Affect: Normal Speech Pattern: Clear and Appropriate Laboratory and Diagnostics 04/26/24 06:02 04/26/24 06:02 Labs: 04/23/24 21:55 Leg - Right Wound Gram Stain - Final 04/23/24 21:55 Leg - Right Wound Culture - Preliminary Acinetobacter Baumanii/Haemoly 04/23/24 14:50 Blood Blood Culture - Preliminary 04/23/24 14:44 Blood Blood Culture - Preliminary Laboratory WBC 5.8 X10^3/uL (3.6-10.0) 04/26/24 06:02 RBC 2.76 X10^6/uL (4.7-6.0) L 04/26/24 06:02 Hgb 9.0 g/dL (13.5-18.0) L 04/26/24 06:02 Hct 26.7 % (42.0-54.0) L 04/26/24 06:02 MCV 96.7 fL (80.0-100.0) 04/26/24 06:02 MCH 32.6 pg (27.0-34.0) 04/26/24 06:02 MCHC 33.7 g/dL (33.0-35.0) 04/26/24 06:02 RDW 16.4 % (11.6-16.5) 04/26/24 06:02 Plt Count 227 X10^3/uL (150.0-450.0) 04/26/24 06:02 MPV 8.7 fL (7.4-11.0) 04/26/24 06:02 Neut % (Auto) 67.9 % (42.0-75.0) 04/26/24 06:02 Lymph % (Auto) 21.9 % (21.0-51.0) 04/26/24 06:02 [place] % (Auto) 8.0 % (0.0-13.0) 04/26/24 06:02 Eos % (Auto) 1.1 % (0.9-2.9) 04/26/24 06:02 Baso % (Auto) 1.1 % (0.2-1.0) H 04/26/24 06:02 Neut # (Auto) 4.0 x10^3/uL (2.2-4.8) 04/26/24 06:02 Lymph # (Auto) 1.3 X10^3/uL (1.3-2.9) 04/26/24 06:02 [place] # (Auto) 0.5 x10^3/uL (0.3-0.8) 04/26/24 06:02 Eos # (Auto) 0.1 x10^3/uL (0.0-0.2) 04/26/24 06:02 Baso # (Auto) 0.1 X10^3/uL (0.0-0.1) 04/26/24 06:02 Absolute Nucleated RBC 0.1 /100WBC 04/26/24 06:02 Absolute Retic 0.0167 10^6/uL 04/24/24 05:20 Percent Retic 0.61 % (0.8-2.2) L 04/24/24 05:20 Sodium 140 mmol/L (136-145) 04/26/24 06:02 Corrected Sodium TNP 04/26/24 06:02 Potassium 3.8 mmol/L (3.5-5.1) 04/26/24 06:02 Chloride 107 mmol/L (98-107) 04/26/24 06:02 Carbon Dioxide 31.8 mmol/L (21-32) 04/26/24 06:02 BUN 24 mg/dL (7-18) H 04/26/24 06:02 Creatinine 1.22 mg/dL (0.70-1.30) 04/26/24 06:02 Est GFR (MDRD) Af Amer > 60 (>60) 04/26/24 06:02 Est GFR (MDRD) Non-Af > 60 (>60) 04/26/24 06:02 Glucose 105 mg/dL (65-99) H 04/26/24 06:02 Lactic Acid 1.1 mmol/L (0.4-2.0) 04/23/24 14:44 Calcium 7.8 mg/dL (8.5-10.1) L 04/26/24 06:02 Corrected Calcium 9.7 mg/dL (8.5-10.1) 04/26/24 06:02 Magnesium 2.0 mg/dL (2.0-2.9) 04/26/24 06:02 Iron 21 ug/dL (50-175) L 04/24/24 05:20 TIBC 100 ug/dL (250-450) L 04/24/24 05:20 Transferrin 84 mg/dL (202-364) L 04/24/24 05:20 Ferritin 247 ng/mL (26-388) 04/24/24 05:20 Total Bilirubin 0.20 mg/dL (0.2-1.0) 04/26/24 06:02 AST 27 Units/L (15-37) 04/26/24 06:02 ALT 31 Units/L (12-78) 04/26/24 06:02 Alkaline Phosphatase 71 Units/L (46-116) 04/26/24 06:02 Total Protein 5.0 g/dL (6.4-8.2) L 04/26/24 06:02 Albumin 1.6 g/dL (3.4-5.0) L 04/26/24 06:02 Globulin 3.4 g/dL (2.5-4.5) 04/26/24 06:02 Albumin/Globulin Ratio 0.5 Ratio (1.1-2.1) L 04/26/24 06:02 Vitamin B12 718 pg/mL (193-986) 04/24/24 05:20 Folate 19.8 ng/mL (>8.6) 04/24/24 05:20 Specimen Type Clean catch urine 04/23/24 14:03 Urine Color Yellow (YELLOW) 04/23/24 14:03 Urine Appearance Clear (CLEAR) 04/23/24 14:03 Urine pH 5.0 (5.0 - 8.0) 04/23/24 14:03 Ur Specific [place] 1.015 (1.000-1.030) 04/23/24 14:03 Urine Protein 2+ (NEGATIVE) 04/23/24 14:03 Urine Glucose (UA) Negative (NEGATIVE) 04/23/24 14:03 Urine Ketones Negative (NEGATIVE) 04/23/24 14:03 Urine Blood 4+ (NEGATIVE) 04/23/24 14:03 Urine Nitrite Negative (NEGATIVE) 04/23/24 14:03 Urine Bilirubin Negative (NEGATIVE) 04/23/24 14:03 Urine Urobilinogen Normal (NORMAL) 04/23/24 14:03 Ur Leukocyte Esterase 1+ (NEGATIVE) 04/23/24 14:03 Urine RBC 3-5 /HPF (0-3) A 04/23/24 14:03 Urine WBC 5-10 /HPF (0-5) A 04/23/24 14:03 Ur Squamous Epith Cells Few /HPF (NEGATIVE) 04/23/24 14:03 Urine Bacteria 1+ /HPF (NEGATIVE) 04/23/24 14:03 Ur Culture Indicated? No/not indicated 04/23/24 14:03 Plan (1) Cellulitis of right leg: Status: Acute (2) Hypertension: Status: Chronic (3) CAD (coronary artery disease): Status: Chronic (4) CHF (congestive heart failure): Status: Acute Qualifiers: Heart failure chronicity: acute on chronic Heart failure type: combined systolic and diastolic Qualified Code(s): I50.43 - Acute on chronic combined systolic (congestive) and diastolic (congestive) heart failure
[2024-04-27 06:12] LABS: BASOPHILS # (AUTO) 0.1 X10^3/uL (0.0-0.1); EOSINOPHILS # (AUTO) 0.1 x10^3/uL (0.0-0.2); EOSINOPHILS % (AUTO) 1.1 % (0.9-2.9); HEMATOCRIT 28.8 % (42.0-54.0); HEMOGLOBIN 9.7 g/dL (13.5-18.0); LYMPHOCYTES # (AUTO) 1.5 X10^3/uL (1.3-2.9); LYMPHOCYTES % (AUTO) 27.2 % (21.0-51.0); MEAN CORPUSCULAR HEMOGLOBIN 32.5 pg (27.0-34.0); MEAN CORPUSCULAR HGB CONC 33.8 g/dL (33.0-35.0); MEAN PLATELET VOLUME 8.9 fL (7.4-11.0); MONOCYTES # (AUTO) 0.4 x10^3/uL (0.3-0.8); MONOCYTES % (AUTO) 6.5 % (0.0-13.0); NEUTROPHILS # (AUTO) 3.5 x10^3/uL (2.2-4.8); NEUTROPHILS % (AUTO) 64.2 % (42.0-75.0); PLATELET COUNT 245 X10^3/uL (150.0-450.0); RED CELL DISTRIBUTION WIDTH 16.6 % (11.6-16.5); WHITE BLOOD COUNT 5.5 X10^3/uL (3.6-10.0)
[2024-04-27 06:27] LABS: ALANINE AMINOTRANSFERASE 35 Units/L (12-78); ALBUMIN 1.8 g/dL (3.4-5.0); ALKALINE PHOSPHATASE 73 Units/L (46-116); ASPARTATE AMINO TRANSFERASE 36 Units/L (15-37); BLOOD UREA NITROGEN 20 mg/dL (7-18); CALCIUM 7.9 mg/dL (8.5-10.1); CARBON DIOXIDE 33.5 mmol/L (21-32); CHLORIDE 107 mmol/L (98-107); COR CA(FOR HYPOALB) 9.7 mg/dL (8.5-10.1); CREATININE 1.08 mg/dL (0.70-1.30); GLUCOSE 100 mg/dL (65-99); SODIUM 142 mmol/L (136-145); TOTAL PROTEIN 5.3 g/dL (6.4-8.2); eGFR NON BLACK RACES > 60 (>60)
--- NOTE | 2024-04-27 11:29 | PCM.PROG ---
Progress Note Progress Note for Day of Date of Exam: 04/27/24 Subjective Subjective: Patient is a 68-year-old male admitted for right lower extremity cellulitis and right medial calf ulcer, along with venous insufficiency. He is sitting up in bed this morning. No acute events overnight. He is being followed by vascular surgeryDr. Keen. He is currently receiving IV anti biotics Invanz. Wound culture positive for ACINETOBACTER BAUMANII/HAEMOLY. Blood culture no growth to date. Labs/imaging: WBC 5.5, hemoglobin 9.7, platelets 245, sodium 142, potassium 4.0, creatinine 1.08, glucose 100. Will change antibiotics from Invanz to gentamicin. Otherise, will continue current treatment plan and antibiotics. Follow-up with surgery recommendations. Continue closely monitor and follow-up labs/imaging. Past Medical Family Social History Allergies: Allergies No Known Drug Allergies Allergy (Unknown, Verified 04/23/24 13:37) Onset Date: 12/21/2011 Review of Systems ROS changes noted: see HPI Vital Signs and I&O's Vital Signs: Vital Signs Temperature 98.4 F Temperature 97.9 F Pulse Rate [Radial] 70 Pulse Rate [Radial] 60 Respiratory Rate 20 Respiratory Rate 20 Respiratory Rate 18 Respiratory Rate 18 Respiratory Rate 19 Blood Pressure [Right Arm] 148/73 Blood Pressure [Right Arm] 164/84 O2 Sat by Pulse Oximetry 96 O2 Sat by Pulse Oximetry 97 Intake and Output: Intake & Output 04/24/24 04/25/24 04/26/24 04/27/24 23:59 23:59 23:59 23:59 Intake Total 2310 / 2310 4889 / 4889 5387 / 5387 480 / 480 Output Total 3222 / 3222 1205 / 1205 3 / 3 Balance 2308 / 2308 1667 / 1667 4182 / 4182 477 / 477 Physical Exam Oriented: Normal, Person and Place Eyes: Normal Ear: Normal Nose: Normal Throat: Normal Cardiovascular: Normal : Normal Auscultation: Bowel Sounds: Normal Tenderness: Normal Skin: Other (redness of the right leg below the knee circumferentially, 4 by 4 cm ulcer right medial calf ) Musculoskeletal: Normal Psychiatric: Normal Mood Description: Calm Affect: Normal Speech Pattern: Clear and Appropriate Laboratory and Diagnostics 04/27/24 05:10 04/27/24 05:10 Labs: 04/23/24 21:55 Leg - Right Wound Gram Stain - Final 04/23/24 21:55 Leg - Right Wound Culture - Final Acinetobacter Baumanii/Haemoly 04/23/24 14:50 Blood Blood Culture - Preliminary 04/23/24 14:44 Blood Blood Culture - Preliminary Laboratory WBC 5.5 X10^3/uL (3.6-10.0) 04/27/24 05:10 RBC 3.00 X10^6/uL (4.7-6.0) L 04/27/24 05:10 Hgb 9.7 g/dL (13.5-18.0) L 04/27/24 05:10 Hct 28.8 % (42.0-54.0) L 04/27/24 05:10 MCV 96.0 fL (80.0-100.0) 04/27/24 05:10 MCH 32.5 pg (27.0-34.0) 04/27/24 05:10 MCHC 33.8 g/dL (33.0-35.0) 04/27/24 05:10 RDW 16.6 % (11.6-16.5) H 04/27/24 05:10 Plt Count 245 X10^3/uL (150.0-450.0) 04/27/24 05:10 MPV 8.9 fL (7.4-11.0) 04/27/24 05:10 Neut % (Auto) 64.2 % (42.0-75.0) 04/27/24 05:10 Lymph % (Auto) 27.2 % (21.0-51.0) 04/27/24 05:10 [place] % (Auto) 6.5 % (0.0-13.0) 04/27/24 05:10 Eos % (Auto) 1.1 % (0.9-2.9) 04/27/24 05:10 Baso % (Auto) 1.0 % (0.2-1.0) 04/27/24 05:10 Neut # (Auto) 3.5 x10^3/uL (2.2-4.8) 04/27/24 05:10 Lymph # (Auto) 1.5 X10^3/uL (1.3-2.9) 04/27/24 05:10 [place] # (Auto) 0.4 x10^3/uL (0.3-0.8) 04/27/24 05:10 Eos # (Auto) 0.1 x10^3/uL (0.0-0.2) 04/27/24 05:10 Baso # (Auto) 0.1 X10^3/uL (0.0-0.1) 04/27/24 05:10 Absolute Nucleated RBC 0.5 /100WBC 04/27/24 05:10 Absolute Retic 0.0167 10^6/uL 04/24/24 05:20 Percent Retic 0.61 % (0.8-2.2) L 04/24/24 05:20 Sodium 142 mmol/L (136-145) 04/27/24 05:10 Corrected Sodium TNP 04/27/24 05:10 Potassium 4.0 mmol/L (3.5-5.1) 04/27/24 05:10 Chloride 107 mmol/L (98-107) 04/27/24 05:10 Carbon Dioxide 33.5 mmol/L (21-32) H 04/27/24 05:10 BUN 20 mg/dL (7-18) H 04/27/24 05:10 Creatinine 1.08 mg/dL (0.70-1.30) 04/27/24 05:10 Est GFR (MDRD) Af Amer > 60 (>60) 04/27/24 05:10 Est GFR (MDRD) Non-Af > 60 (>60) 04/27/24 05:10 Glucose 100 mg/dL (65-99) H 04/27/24 05:10 Lactic Acid 1.1 mmol/L (0.4-2.0) 04/23/24 14:44 Calcium 7.9 mg/dL (8.5-10.1) L 04/27/24 05:10 Corrected Calcium 9.7 mg/dL (8.5-10.1) 04/27/24 05:10 Magnesium 2.0 mg/dL (2.0-2.9) 04/26/24 06:02 Iron 21 ug/dL (50-175) L 04/24/24 05:20 TIBC 100 ug/dL (250-450) L 04/24/24 05:20 Transferrin 84 mg/dL (202-364) L 04/24/24 05:20 Ferritin 247 ng/mL (26-388) 04/24/24 05:20 Total Bilirubin 0.20 mg/dL (0.2-1.0) 04/27/24 05:10 AST 36 Units/L (15-37) 04/27/24 05:10 ALT 35 Units/L (12-78) 04/27/24 05:10 Alkaline Phosphatase 73 Units/L (46-116) 04/27/24 05:10 Total Protein 5.3 g/dL (6.4-8.2) L 04/27/24 05:10 Albumin 1.8 g/dL (3.4-5.0) L 04/27/24 05:10 Globulin 3.5 g/dL (2.5-4.5) 04/27/24 05:10 Albumin/Globulin Ratio 0.5 Ratio (1.1-2.1) L 04/27/24 05:10 Vitamin B12 718 pg/mL (193-986) 04/24/24 05:20 Folate 19.8 ng/mL (>8.6) 04/24/24 05:20 Specimen Type Clean catch urine 04/23/24 14:03 Urine Color Yellow (YELLOW) 04/23/24 14:03 Urine Appearance Clear (CLEAR) 04/23/24 14:03 Urine pH 5.0 (5.0 - 8.0) 04/23/24 14:03 Ur Specific [place] 1.015 (1.000-1.030) 04/23/24 14:03 Urine Protein 2+ (NEGATIVE) 04/23/24 14:03 Urine Glucose (UA) Negative (NEGATIVE) 04/23/24 14:03 Urine Ketones Negative (NEGATIVE) 04/23/24 14:03 Urine Blood 4+ (NEGATIVE) 04/23/24 14:03 Urine Nitrite Negative (NEGATIVE) 04/23/24 14:03 Urine Bilirubin Negative (NEGATIVE) 04/23/24 14:03 Urine Urobilinogen Normal (NORMAL) 04/23/24 14:03 Ur Leukocyte Esterase 1+ (NEGATIVE) 04/23/24 14:03 Urine RBC 3-5 /HPF (0-3) A 04/23/24 14:03 Urine WBC 5-10 /HPF (0-5) A 04/23/24 14:03 Ur Squamous Epith Cells Few /HPF (NEGATIVE) 04/23/24 14:03 Urine Bacteria 1+ /HPF (NEGATIVE) 04/23/24 14:03 Ur Culture Indicated? No/not indicated 04/23/24 14:03 Plan (1) Cellulitis of right leg: Status: Acute (2) Hypertension: Status: Chronic (3) CAD (coronary artery disease): Status: Chronic (4) CHF (congestive heart failure): Status: Acute Qualifiers: Heart failure chronicity: acute on chronic Heart failure type: combined systolic and diastolic Qualified Code(s): I50.43 - Acute on chronic combined systolic (congestive) and diastolic (congestive) heart failure
[2024-04-27] MEDS: GENTAMICIN IV SCH (12:40)
[2024-04-27] MEDS: NS IV SCH (12:40)
[2024-04-27] MEDS: CONSULT PHARMACY - GENTAMICIN XX SCH (18:57)
[2024-04-28 06:03] LABS: BASOPHILS # (AUTO) 0.1 X10^3/uL (0.0-0.1); BASOPHILS % (AUTO) 1.1 % (0.2-1.0); EOSINOPHILS # (AUTO) 0.1 x10^3/uL (0.0-0.2); EOSINOPHILS % (AUTO) 1.6 % (0.9-2.9); HEMOGLOBIN 9.3 g/dL (13.5-18.0); LYMPHOCYTES # (AUTO) 1.6 X10^3/uL (1.3-2.9); LYMPHOCYTES % (AUTO) 24.6 % (21.0-51.0); MEAN CORPUSCULAR HEMOGLOBIN 32.2 pg (27.0-34.0); MEAN CORPUSCULAR HGB CONC 33.3 g/dL (33.0-35.0); MEAN CORPUSCULAR VOLUME 96.6 fL (80.0-100.0); MEAN PLATELET VOLUME 8.2 fL (7.4-11.0); MONOCYTES # (AUTO) 0.4 x10^3/uL (0.3-0.8); MONOCYTES % (AUTO) 6.5 % (0.0-13.0); NEUTROPHILS # (AUTO) 4.3 x10^3/uL (2.2-4.8); NEUTROPHILS % (AUTO) 66.2 % (42.0-75.0); PLATELET COUNT 236 X10^3/uL (150.0-450.0); WHITE BLOOD COUNT 6.5 X10^3/uL (3.6-10.0)
[2024-04-28 06:20] LABS: ALANINE AMINOTRANSFERASE 39 Units/L (12-78); ALBUMIN 1.7 g/dL (3.4-5.0); ALKALINE PHOSPHATASE 64 Units/L (46-116); ASPARTATE AMINO TRANSFERASE 38 Units/L (15-37); BLOOD UREA NITROGEN 18 mg/dL (7-18); CALCIUM 7.8 mg/dL (8.5-10.1); CARBON DIOXIDE 31.2 mmol/L (21-32); CHLORIDE 107 mmol/L (98-107); COR CA(FOR HYPOALB) 9.6 mg/dL (8.5-10.1); CREATININE 0.95 mg/dL (0.70-1.30); GLUCOSE 81 mg/dL (65-99); POTASSIUM 4.3 mmol/L (3.5-5.1); SODIUM 141 mmol/L (136-145); TOTAL PROTEIN 4.9 g/dL (6.4-8.2); eGFR NON BLACK RACES > 60 (>60)
[2024-04-28] MEDS: FLONASE NASAL SPRAY ENOSTRIL SCH (10:11)
--- NOTE | 2024-04-28 14:46 | RAD ---
EXAM: Portable AP chest HISTORY: Dyspnea CHF edema COMPARISON: 04/10/2023 FINDINGS: Heart size is within normal limits with stable AICD position. The right lung is clear. There is in distinct density behind the heart with partial obscuration of the diaphragm. Spinal cord stimulator is again noted. IMPRESSION: Interval increase in retrocardiac parenchymal density concerning for developing infiltrate or atel ectasis. Follow-up suggested. THIS IS AN ELECTRONICALLY VERIFIED FINAL REPORT 04/28/2024 2:42 PM - Electronically signed by Kendall Branch MD
[2024-04-28] MEDS ORDERED: PHARMACY COMMENT IV SCH (22:15)
[2024-04-29 06:35] LABS: BASOPHILS # (AUTO) 0.1 X10^3/uL (0.0-0.1); BASOPHILS % (AUTO) 1.1 % (0.2-1.0); EOSINOPHILS # (AUTO) 0.1 x10^3/uL (0.0-0.2); EOSINOPHILS % (AUTO) 1.9 % (0.9-2.9); HEMATOCRIT 28.7 % (42.0-54.0); HEMOGLOBIN 9.6 g/dL (13.5-18.0); LYMPHOCYTES # (AUTO) 1.7 X10^3/uL (1.3-2.9); LYMPHOCYTES % (AUTO) 23.8 % (21.0-51.0); MEAN CORPUSCULAR HEMOGLOBIN 32.2 pg (27.0-34.0); MEAN CORPUSCULAR HGB CONC 33.3 g/dL (33.0-35.0); MEAN CORPUSCULAR VOLUME 96.8 fL (80.0-100.0); MEAN PLATELET VOLUME 8.8 fL (7.4-11.0); MONOCYTES # (AUTO) 0.4 x10^3/uL (0.3-0.8); MONOCYTES % (AUTO) 5.4 % (0.0-13.0); NEUTROPHILS # (AUTO) 4.9 x10^3/uL (2.2-4.8); NEUTROPHILS % (AUTO) 67.8 % (42.0-75.0); PLATELET COUNT 270 X10^3/uL (150.0-450.0); RED BLOOD COUNT 2.97 X10^6/uL (4.7-6.0); RED CELL DISTRIBUTION WIDTH 16.3 % (11.6-16.5); WHITE BLOOD COUNT 7.2 X10^3/uL (3.6-10.0)
[2024-04-29 06:50] LABS: ALANINE AMINOTRANSFERASE 37 Units/L (12-78); ALBUMIN 1.6 g/dL (3.4-5.0); ALKALINE PHOSPHATASE 65 Units/L (46-116); ASPARTATE AMINO TRANSFERASE 40 Units/L (15-37); BLOOD UREA NITROGEN 17 mg/dL (7-18); CARBON DIOXIDE 28.6 mmol/L (21-32); CHLORIDE 107 mmol/L (98-107); COR CA(FOR HYPOALB) 9.9 mg/dL (8.5-10.1); CREATININE 0.87 mg/dL (0.70-1.30); GLUCOSE 74 mg/dL (65-99); POTASSIUM 4.5 mmol/L (3.5-5.1); SODIUM 140 mmol/L (136-145); eGFR NON BLACK RACES > 60 (>60)
[2024-04-29 08:00] VITALS: BP 166/79; PULSE 69; RESP 18; TEMP 97.7; O2SAT 97
[2024-04-29 09:01] LABS: CREATININE 1.05 mg/dL (0.70-1.30)
[2024-04-29] MEDS: PHARMACY COMMENT IV SCH (09:43)
--- NOTE | 2024-04-29 13:48 | DR.H&P ---
H&P History & Physical for Day of: H&P Date: 04/23/24 Chief Complaint Chief Complaint: redness and swelling to legs, wound right leg History of Present Illness History of Present Illness: PT IS 68 WM, ER ADMISSION AFTER PRESENTING WITH CO SEVERE LOWER LEG SWELLING WITH WOUND TO RIGHT WITH WEEPING. PT STATES HE WAS INSTRUCTED BY CARDIOLOGY TO REPORT TO ER DUE TO CHF. PT HAS BEEN TAKING LASIX AT HOME WITHOUT IMRPOVEMENT. PT CO FEVER TO LOWER LEGS. PT HAS PMH OF AFIB S/P WATCHMAN, HTN, DM, OA, BPH AND PVD. PT STATES HE WAS SEEN DR PRECIADO FOR VASCULAR DISEASE AND WOULD LIKE FOR HIM TO BE NOTIFIED OF HIS ADMISSION. PT ADMITTED FOR TREATMENT AND EVALUATION OF ACUTE ILLNESS. Past Medical History Past Medical History: Anemia, Arthritis, Diabetes, Dyslipidemia and Hypertension Past Surgical History Surgical History: Abdominal Surgery and Weight Loss Surgery Additional Surgical History: PACEMAKER Family History Family Medical History: [place], Heart Failure and Hypertension Social History Does patient currently use any type of tobacco product: No Have you used tobacco products in the last 12 months: No Type of Tobacco Use: None Does any household member use tobacco: No Alcohol Use: None Drug Use: None Medications Home Medications: Home Medications Medication Instructions Recorded Confirmed Type gabapentin 400 mg capsule 400 mg PO TID 06/30/21 04/23/24 History levothyroxine 50 mcg tablet 50 mcg PO QDAY 08/28/22 04/23/24 History amlodipine 5 mg tablet 5 mg PO QDAY PRN 11/09/22 04/23/24 History doxazosin 4 mg tablet 4 mg PO QDAY 11/09/22 04/23/24 History montelukast 10 mg tablet 10 mg PO QDAY 11/09/22 04/23/24 History tramadol 50 mg tablet 50 mg PO BID PRN 11/09/22 04/23/24 History amitriptyline 10 mg tablet 10 mg PO QPM 04/04/24 04/23/24 History furosemide 40 mg tablet 40 mg PO QDAY 04/04/24 04/23/24 History metoprolol succinate 50 mg 50 mg PO QDAY 04/04/24 04/23/24 History tablet,extended release 24 hr potassium chloride 20 mEq 20 meq PO QDAY 04/04/24 04/23/24 History tablet,extended release(part/cryst) pantoprazole 40 mg tablet,delayed 40 mg PO QDAY 04/23/24 04/23/24 History release (Protonix) Allergies Allergies Allergy/AdvReac Type Severity Reaction Status Date / Time No Known Drug Allergies Allergy Unknown Verified 04/23/24 13:37 Labs 04/29/24 05:16 04/29/24 08:34 Labs: 04/23/24 14:50 Blood Blood Culture - Final 04/23/24 14:44 Blood Blood Culture - Final 04/23/24 21:55 Leg - Right Wound Gram Stain - Final 04/23/24 21:55 Leg - Right Wound Culture - Final Acinetobacter Baumanii/Haemoly Laboratory WBC 7.2 X10^3/uL (3.6-10.0) 04/29/24 05:16 RBC 2.97 X10^6/uL (4.7-6.0) L 04/29/24 05:16 Hgb 9.6 g/dL (13.5-18.0) L 04/29/24 05:16 Hct 28.7 % (42.0-54.0) L 04/29/24 05:16 MCV 96.8 fL (80.0-100.0) 04/29/24 05:16 MCH 32.2 pg (27.0-34.0) 04/29/24 05:16 MCHC 33.3 g/dL (33.0-35.0) 04/29/24 05:16 RDW 16.3 % (11.6-16.5) 04/29/24 05:16 Plt Count 270 X10^3/uL (150.0-450.0) 04/29/24 05:16 MPV 8.8 fL (7.4-11.0) 04/29/24 05:16 Neut % (Auto) 67.8 % (42.0-75.0) 04/29/24 05:16 Lymph % (Auto) 23.8 % (21.0-51.0) 04/29/24 05:16 [place] % (Auto) 5.4 % (0.0-13.0) 04/29/24 05:16 Eos % (Auto) 1.9 % (0.9-2.9) 04/29/24 05:16 Baso % (Auto) 1.1 % (0.2-1.0) H 04/29/24 05:16 Neut # (Auto) 4.9 x10^3/uL (2.2-4.8) H 04/29/24 05:16 Lymph # (Auto) 1.7 X10^3/uL (1.3-2.9) 04/29/24 05:16 [place] # (Auto) 0.4 x10^3/uL (0.3-0.8) 04/29/24 05:16 Eos # (Auto) 0.1 x10^3/uL (0.0-0.2) 04/29/24 05:16 Baso # (Auto) 0.1 X10^3/uL (0.0-0.1) 04/29/24 05:16 Absolute Nucleated RBC 0.1 /100WBC 04/29/24 05:16 Absolute Retic 0.0167 10^6/uL 04/24/24 05:20 Percent Retic 0.61 % (0.8-2.2) L 04/24/24 05:20 Sodium 140 mmol/L (136-145) 04/29/24 05:16 Corrected Sodium TNP 04/29/24 05:16 Potassium 4.5 mmol/L (3.5-5.1) 04/29/24 05:16 Chloride 107 mmol/L (98-107) 04/29/24 05:16 Carbon Dioxide 28.6 mmol/L (21-32) 04/29/24 05:16 BUN 17 mg/dL (7-18) 04/29/24 05:16 Creatinine 1.05 mg/dL (0.70-1.30) 04/29/24 08:34 Est GFR (MDRD) Af Amer > 60 (>60) 04/29/24 05:16 Est GFR (MDRD) Non-Af > 60 (>60) 04/29/24 05:16 Glucose 74 mg/dL (65-99) 04/29/24 05:16 POC Glucose (mg/dL) 95 mg/dL (65-99) 04/27/24 11:26 Lactic Acid 1.1 mmol/L (0.4-2.0) 04/23/24 14:44 Calcium 8.0 mg/dL (8.5-10.1) L 04/29/24 05:16 Corrected Calcium 9.9 mg/dL (8.5-10.1) 04/29/24 05:16 Magnesium 2.0 mg/dL (2.0-2.9) 04/26/24 06:02 Iron 21 ug/dL (50-175) L 04/24/24 05:20 TIBC 100 ug/dL (250-450) L 04/24/24 05:20 Transferrin 84 mg/dL (202-364) L 04/24/24 05:20 Ferritin 247 ng/mL (26-388) 04/24/24 05:20 Total Bilirubin 0.10 mg/dL (0.2-1.0) L 04/29/24 05:16 AST 40 Units/L (15-37) H 04/29/24 05:16 ALT 37 Units/L (12-78) 04/29/24 05:16 Alkaline Phosphatase 65 Units/L (46-116) 04/29/24 05:16 Total Protein 5.0 g/dL (6.4-8.2) L 04/29/24 05:16 Albumin 1.6 g/dL (3.4-5.0) L 04/29/24 05:16 Globulin 3.4 g/dL (2.5-4.5) 04/29/24 05:16 Albumin/Globulin Ratio 0.5 Ratio (1.1-2.1) L 04/29/24 05:16 Vitamin B12 718 pg/mL (193-986) 04/24/24 05:20 Folate 19.8 ng/mL (>8.6) 04/24/24 05:20 Specimen Type Clean catch urine 04/23/24 14:03 Urine Color Yellow (YELLOW) 04/23/24 14:03 Urine Appearance Clear (CLEAR) 04/23/24 14:03 Urine pH 5.0 (5.0 - 8.0) 04/23/24 14:03 Ur Specific [place] 1.015 (1.000-1.030) 04/23/24 14:03 Urine Protein 2+ (NEGATIVE) 04/23/24 14:03 Urine Glucose (UA) Negative (NEGATIVE) 04/23/24 14:03 Urine Ketones Negative (NEGATIVE) 04/23/24 14:03 Urine Blood 4+ (NEGATIVE) 04/23/24 14:03 Urine Nitrite Negative (NEGATIVE) 04/23/24 14:03 Urine Bilirubin Negative (NEGATIVE) 04/23/24 14:03 Urine Urobilinogen Normal (NORMAL) 04/23/24 14:03 Ur Leukocyte Esterase 1+ (NEGATIVE) 04/23/24 14:03 Urine RBC 3-5 /HPF (0-3) A 04/23/24 14:03 Urine WBC 5-10 /HPF (0-5) A 04/23/24 14:03 Ur Squamous Epith Cells Few /HPF (NEGATIVE) 04/23/24 14:03 Urine Bacteria 1+ /HPF (NEGATIVE) 04/23/24 14:03 Ur Culture Indicated? No/not indicated 04/23/24 14:03 Gentamicin Peak 5.3 ug/mL (5-10) 04/28/24 23:20 Gentamicin Trough 3.0 ug/mL (0-1.9) H 04/29/24 08:34 Review of Systems Constitutional: See HPI Eyes: No Symptoms Reported ENT: No Symptoms Reported Respiratory: No Symptoms Reported Cardiovascular: No Symptoms Reported Gastrointestinal: No Symptoms Reported Genitourinary: No Symptoms Reported Musculoskeletal: No Symptoms Reported Skin: No Symptoms Reported Neurological: No Symptoms Reported Physical Exam Vital Signs: Vital Signs Temperature 97.7 F Pulse Rate [Radial] 69 Respiratory Rate 18 Respiratory Rate 18 Respiratory Rate 18 Blood Pressure [Right Arm] 166/79 O2 Sat by Pulse Oximetry 97 Oriented: Normal, Person and Place Eyes: Normal Ear: Normal Throat: Red Respiratory: RLL Diminished and LLL Diminished Cardiovascular: Edema : Normal Auscultation: Bowel Sounds: Normal Palpation: Normal Tenderness: Normal Skin: Decreased Turgur, Red, Tender, Hot and Wound (RIGHT LOWER LEG ) Musculoskeletal: Back:Lumbar, Tender, Motor Deficit and Sensory Deficit Psychiatric: Normal Mood Description: Anxious Affect: Anxious Speech Pattern: Clear and Appropriate Assessment/Plan (1) Cellulitis of right leg: Status: Acute Plan: ADMIT, WOUND AND BLOOD CULTURES ON ADMISSION, IV ATBX IV LASIX, BP CONTROL, PRN SUPPLEMENTAL O2 IV ALBUMIN REPLACEMENT THERAPY VERIFY HOME MEDICATIONS CONTINUE XARELTO, CONSULT DR PRECIADO (2) Hypertension: Status: Chronic (3) CAD (coronary artery disease): Status: Chronic (4) CHF (congestive heart failure): Qualifiers: Heart failure chronicity: acute on chronic Heart failure type: combined systolic and diastolic Qualified Code(s): I50.43 - Acute on chronic combined systolic (congestive) and diastolic (congestive) heart failure Status: Acute
== END 2024-04-29 12:25 | disposition home or self-care (01) | DRG 602 ==
LOC: ER 13:17 → MED/SURG 16:01
PROVIDERS: ADMIT Internal Medicine; ATTEND Internal Medicine
DX: L97.218 Non-pressure chronic ulcer of right calf with other specified severity; Z16.19 Resistance to other specified beta lactam antibiotics; Z16.29 Resistance to other single specified antibiotic; E11.65 Type 2 diabetes mellitus with hyperglycemia; R60.0 Localized edema; L03.116 Cellulitis of left lower limb; I50.43 Acute on chronic combined systolic (congestive) and diastolic (congestive) heart failure; E11.622 Type 2 diabetes mellitus with other skin ulcer; B96.83 Acinetobacter baumannii as the cause of diseases classified elsewhere; Z98.84 Bariatric surgery status; Z95.818 Presence of other cardiac implants and grafts; Z16.13 Resistance to carbapenem; Z95.0 Presence of cardiac pacemaker; I87.2 Venous insufficiency (chronic) (peripheral); I11.0 Hypertensive heart disease with heart failure; E83.42 Hypomagnesemia; S51.812A Laceration without foreign body of left forearm, initial encounter; I48.91 Unspecified atrial fibrillation; X58.XXXA Exposure to other specified factors, initial encounter; M19.90 Unspecified osteoarthritis, unspecified site; E78.5 Hyperlipidemia, unspecified; I25.10 Atherosclerotic heart disease of native coronary artery without angina pectoris; L03.115 Cellulitis of right lower limb

== ENCOUNTER 2024-05-26 07:59 | Observation (INO) ==
[2024-05-26] MEDS ORDERED: LASIX IVP ONE (08:41)
[2024-05-26] MEDS: LASIX IVP ONE (08:46)
--- NOTE | 2024-05-26 08:50 | DR.GENAD ---
HPI Time Seen Time Seen by Provider: 05/26/24 08:38 PCP Primary Care Physician: Karla Complaint/Symptoms Chief Complaint:: Pt states he's got some swelling in his bilateral lower extremities. Pt states he has not taken his lasix this week because he doesnt want to have to get up to urinate. PT states if he takes it he will have to pee on himself. Self Treatment fo Chief Complaint: hx chf, not taking Lasix as hard to go to [place] after takes, no other co COVID-19 Coronavirus risk:travel/contact w/high risk person: No Has patient experienced Coronavirus symptoms: No Nurses notes reviewed Nurses Notes Review: Yes Source History Provided: Patient Mode of Arrival Mode of Arrival: Ambulatory Timing Onset of Chief Complaint: 04/26/24 PMH PMH Past Medical History: Yes Past Medical History: Anemia, Arthritis, Diabetes, Dyslipidemia and Hypertension Past Surgical History: Yes Surgical History: Abdominal Surgery and Weight Loss Surgery Family History History of Family Medical Conditions: Yes Family Medical History: ID, Heart Failure and Hypertension Social History Alcohol Use: None Do you use any recreational Drugs:: No Lives With: Alone Lives Where: Home Travel Risk Coronavirus risk:travel/contact w/high risk person: No Has patient experienced Coronavirus symptoms: No Infectious screening Have you traveled outside the country in the last 6 months?: No Isolation: Standard ROS Review of Systems Constitutional: No Symptoms Reported Eyes: No Symptoms Reported ENTM: No Symptoms Reported Respiratoy: No Symptoms Reported Cardiovascular: No Symptoms Reported Gastrointestinal/Abdominal: No Symptoms Reported Genitourinary: No Symptoms Reported Neurological: No Symptoms Reported Musculoskeletal: Other (swelling LE) Integumentary: No Symptoms Reported Hematologic/Lymphatic: No Symptoms Reported Endocrine: No Symptoms Reported Psychiatric: No Symptoms Reported All Other Systems: Reviewed and Negative PE Vital Signs Vitals: Vital Signs Temperature 97.4 F Pulse Rate 79 Respiratory Rate 18 Respiratory Rate 18 Blood Pressure 118/57 O2 Sat by Pulse Oximetry 99 General General Appearance: Alert Head Head Exam: Normal Inspection Eyes Eye exam: Normal Appearance Neck Neck Exam: Normal Inspection Chest Chest Inspection: Normal Inspection and Other Respiratory Respiratory Exam: Normal Lung Sounds Bilat Abdominal Exam Abdominal Exam: Normal Inspection Extremities Extremities Exam: Edema (4+ pretibial edema) Back Back Exam: Normal Inspection Neurologic Neurological Exam: Alert, Oriented X3 and CN II-XII Intact; negative Motor Sensory Deficit Skin Skin Exam: Warm and Normal Color ROR Labs Reviewed 05/26/24 08:42 05/26/24 08:42 Laboratory: WBC 11.4 X10^3/uL (3.6-10.0) H 05/26/24 08:42 RBC 3.71 X10^6/uL (4.7-6.0) L 05/26/24 08:42 Hgb 11.9 g/dL (13.5-18.0) L 05/26/24 08:42 Hct 36.3 % (42.0-54.0) L 05/26/24 08:42 MCV 97.8 fL (80.0-100.0) 05/26/24 08:42 MCH 32.0 pg (27.0-34.0) 05/26/24 08:42 MCHC 32.7 g/dL (33.0-35.0) L 05/26/24 08:42 RDW 16.9 % (11.6-16.5) H 05/26/24 08:42 Plt Count 55 X10^3/uL (150.0-450.0) L 05/26/24 08:42 Plt Count Comment Decreased (ADEQUATE) 05/26/24 08:42 MPV 9.2 fL (7.4-11.0) 05/26/24 08:42 Neut % (Auto) 96.0 % (42.0-75.0) H 05/26/24 08:42 Lymph % (Auto) 0.9 % (21.0-51.0) L 05/26/24 08:42 [place] % (Auto) 0.2 % (0.0-13.0) 05/26/24 08:42 Eos % (Auto) 2.4 % (0.9-2.9) 05/26/24 08:42 Baso % (Auto) 0.5 % (0.2-1.0) 05/26/24 08:42 Neut # (Auto) 11.0 x10^3/uL (2.2-4.8) H 05/26/24 08:42 Lymph # (Auto) 0.1 X10^3/uL (1.3-2.9) L 05/26/24 08:42 [place] # (Auto) 0 x10^3/uL (0.3-0.8) L 05/26/24 08:42 Eos # (Auto) 0.3 x10^3/uL (0.0-0.2) H 05/26/24 08:42 Baso # (Auto) 0.1 X10^3/uL (0.0-0.1) 05/26/24 08:42 Absolute Nucleated RBC 0.0 /100WBC 05/26/24 08:42 Total Counted 100 05/26/24 08:42 Neutrophils % (Manual) 84 % (39-76) H 05/26/24 08:42 Band Neutrophils % 7 % (0-10) 05/26/24 08:42 Lymphocytes % (Manual) 5 % (13-43) L 05/26/24 08:42 Monocytes % (Manual) 4 % (4-9) 05/26/24 08:42 Plt Morphology Comment Normal (NORMAL) 05/26/24 08:42 RBC Morphology Normal (NORMAL) 05/26/24 08:42 APTT 33.6 SECONDS (22.9-36.5) 05/26/24 08:42 PTT Comment - 05/26/24 08:42 Sodium 140 mmol/L (136-145) 05/26/24 08:42 Corrected Sodium TNP 05/26/24 08:42 Potassium 4.3 mmol/L (3.5-5.1) 05/26/24 08:42 Chloride 104 mmol/L (98-107) 05/26/24 08:42 Carbon Dioxide 20.8 mmol/L (21-32) L 05/26/24 08:42 BUN 55 mg/dL (7-18) H 05/26/24 08:42 Creatinine 2.13 mg/dL (0.70-1.30) H 05/26/24 08:42 Est GFR (MDRD) Af Amer 40 (>60) L 05/26/24 08:42 Est GFR (MDRD) Non-Af 33 (>60) L 05/26/24 08:42 Glucose 82 mg/dL (65-99) 05/26/24 08:42 Calcium 7.8 mg/dL (8.5-10.1) L 05/26/24 08:42 Corrected Calcium 9.5 mg/dL (8.5-10.1) 05/26/24 08:42 Total Bilirubin 0.80 mg/dL (0.2-1.0) 05/26/24 08:42 AST 84 Units/L (15-37) H 05/26/24 08:42 ALT 64 Units/L (12-78) 05/26/24 08:42 Alkaline Phosphatase 105 Units/L (46-116) 05/26/24 08:42 Troponin I High Sens 56.2 ng/L (4.0-60.0) 05/26/24 08:42 B-Natriuretic Peptide 413 pg/mL (0-79) H 05/26/24 08:42 Total Protein 5.5 g/dL (6.4-8.2) L 05/26/24 08:42 Albumin 1.9 g/dL (3.4-5.0) L 05/26/24 08:42 Globulin 3.6 g/dL (2.5-4.5) 05/26/24 08:42 Albumin/Globulin Ratio 0.5 Ratio (1.1-2.1) L 05/26/24 08:42 SARS-CoV-2 (PCR) Negative (NEGATIVE) 05/26/24 09:04 Influenza Type A (PCR) Negative (NEGATIVE) 05/26/24 09:04 Influenza Type B (PCR) Negative (NEGATIVE) 05/26/24 09:04 RSV (PCR) Negative (NEGATIVE) 05/26/24 09:04 Opioid Opioid Risk Tool Age (Jb box if 16-45): No History of Preadolescent Sexual Abuse: No Total: 0 Total Score Risk Category: Low Risk Copyright: Diomedes MONTAGUE predicting aberrant behaviors Discharge Plan Diagnosis Discharge Problem: Acute renal failure, Bilateral edema of lower extremity Discharge Plan Patient Disposition: 09 ADMITTED INPATIENT Condition: Stable Prescriptions: No Action levothyroxine 50 mcg tablet 50 mcg PO QDAY amlodipine 5 mg tablet 5 mg PO QDAY PRN tramadol 50 mg tablet 50 mg PO BID PRN doxazosin 4 mg tablet 4 mg PO QDAY montelukast 10 mg tablet 10 mg PO QDAY gabapentin 400 mg Capsule 400 mg PO TID furosemide 40 mg tablet 40 mg PO QDAY metoprolol succinate 50 mg tablet extended release 24 hr 50 mg PO QDAY potassium chloride 20 mEq tablet,ER particles/crystals 20 meq PO QDAY amitriptyline 10 mg tablet 10 mg PO QPM pantoprazole [Protonix] 40 mg tablet,delayed release (DR/EC) 40 mg PO QDAY doxycycline hyclate 100 mg capsule 100 mg PO BID Qty: 20 0RF Health Concerns: Post Hospitalization: new medications and changes needed to prevent readmission or further decline. Pt educated and given instructions on all concerns. Plan of Treatment: Continue with present treatment and follow up plan. Pt is to keep follow up appointment as instructed and take medications as ordered. Orders to Discharge Patient Discharge Orders: Transfer (Routine); Ordered 05/26/24 Ordered By: Aryan Maddox Follow ups/Referrals Follow ups/Referrals: JOANNE WING [Primary Care Provider] - 3 days
[2024-05-26] MEDS ORDERED: TYLENOL 325 MG TAB PO ONE (08:54)
[2024-05-26 08:58] LABS: BASOPHILS # (AUTO) 0.1 X10^3/uL (0.0-0.1); BASOPHILS % (AUTO) 0.5 % (0.2-1.0); EOSINOPHILS # (AUTO) 0.3 x10^3/uL (0.0-0.2); EOSINOPHILS % (AUTO) 2.4 % (0.9-2.9); HEMATOCRIT 36.3 % (42.0-54.0); HEMOGLOBIN 11.9 g/dL (13.5-18.0); LYMPHOCYTES # (AUTO) 0.1 X10^3/uL (1.3-2.9); LYMPHOCYTES % (AUTO) 0.9 % (21.0-51.0); MEAN CORPUSCULAR HGB CONC 32.7 g/dL (33.0-35.0); MEAN CORPUSCULAR VOLUME 97.8 fL (80.0-100.0); MEAN PLATELET VOLUME 9.2 fL (7.4-11.0); MONOCYTES # (AUTO) 0 x10^3/uL (0.3-0.8); MONOCYTES % (AUTO) 0.2 % (0.0-13.0); PLATELET COUNT 55 X10^3/uL (150.0-450.0); RED BLOOD COUNT 3.71 X10^6/uL (4.7-6.0); RED CELL DISTRIBUTION WIDTH 16.9 % (11.6-16.5); WHITE BLOOD COUNT 11.4 X10^3/uL (3.6-10.0)
[2024-05-26] MEDS: TYLENOL 325 MG TAB PO ONE (09:04)
--- NOTE | 2024-05-26 09:12 | EKG ---
Test Reason : swelling Blood Pressure : */* mmHG Vent. Rate : 71 BPM Atrial Rate : 71 BPM P-R Int : 252 ms QRS Dur : 104 ms QT Int : 402 ms P-R-T Axes : * -28 79 degrees QTc Int : 436 ms Atrial-paced rhythm with prolonged AV conduction and occasional pac Abnormal ECG When compared with ECG of 11-JUN-2023 17:22, Electronic atrial pacemaker has replaced Electronic ventricular pacemaker Confirmed by Olivier Johnson MD ([id number]) on 05/26/2024 9:31:43 AM Referred By: Confirmed By: Olivier Johnson MD
[2024-05-26 09:13] LABS: ALANINE AMINOTRANSFERASE 64 Units/L (12-78); ALBUMIN 1.9 g/dL (3.4-5.0); ALKALINE PHOSPHATASE 105 Units/L (46-116); ASPARTATE AMINO TRANSFERASE 84 Units/L (15-37); BLOOD UREA NITROGEN 55 mg/dL (7-18); CALCIUM 7.8 mg/dL (8.5-10.1); CARBON DIOXIDE 20.8 mmol/L (21-32); CHLORIDE 104 mmol/L (98-107); COR CA(FOR HYPOALB) 9.5 mg/dL (8.5-10.1); CREATININE 2.13 mg/dL (0.70-1.30); GLUCOSE 82 mg/dL (65-99); POTASSIUM 4.3 mmol/L (3.5-5.1); SODIUM 140 mmol/L (136-145); TOTAL PROTEIN 5.5 g/dL (6.4-8.2); eGFR NON BLACK RACES 33 (>60)
[2024-05-26 09:22] LABS: BAND NEUTROPHILS % 7 % (0-10); PLATELET MORPHOLOGY COMMENT NORMAL (NORMAL)
--- NOTE | 2024-05-26 09:23 | RAD ---
EXAM:Portable chestHISTORY:Weakness, lower extremity edemaCOMPARISON:04/28/2024FINDINGS:There is a pacemaker present on the left obscuring a portion of the lateral left upper lobe. Heart is enlarged. No congestive heart failure is noted. No acute alveolar infiltrates or pleural effusions are identified. Bony thorax is unremarkable.IMPRESSION:Mild cardiomegaly without congestive heart failureLungs clearTHIS IS AN ELECTRONICALLY VERIFIED FINAL REPORT05/26/2024 9:10 AM - Electronically signed by Elfego Forrester MD
--- NOTE | 2024-05-26 09:46 | VAS ---
EXAM:LOWER EXT VENOUS, BILATERALHISTORY:edema; EDEMA BLECOMPARISON:None available.TECHNIQUE:Multiple oshea scale and color flow Doppler images of the deep venous system were obtained of the right and left lower extremity.FINDINGS:The deep venous system of the right and left lower extremities were evaluated from the level of the common femoral vein through the popliteal vein. Normal color flow and augmentation can be observed. In addition, normal compression is seen throughout the deep venous system. Diffuse soft tissue edema is noted with some prominent nodes in the inguinal regions which are probably reactive.IMPRESSION:Negative for DVT.THIS IS AN ELECTRONICALLY VERIFIED FINAL REPORT05/26/2024 9:43 AM - Electronically signed by Abhishek Edwards MD
[2024-05-26] MEDS ORDERED: ALBUMIN HUMAN 25%- 100 ML 100 ML IV ONE (11:57)
[2024-05-26] MEDS ORDERED: CONSULT PHARMACY - POTASSIUM & MAGNESIUM XX SCH (12:00)
[2024-05-26 13:49] VITALS: BMI 27.2
[2024-05-26] MEDS: NS 1,000 ML IV 1,000 ML IV SCH (14:13)
[2024-05-26] MEDS: NEURONTIN CAP 400 MG PO SCH (14:14)
[2024-05-26] MEDS: ALBUMIN HUMAN 25%- 100 ML 100 ML IV ONE (14:14)
[2024-05-26] MEDS: NS 250 ML IV 250 ML IV ONE (14:14)
[2024-05-26] MEDS: VIBRAMYCIN 100 MG in D5W 250 ML IV 250 ML IV SCH (14:14)
[2024-05-26] MEDS ORDERED: MORPHINE SULFATE INJ 2 MG INJ IVP PRN (15:00)
[2024-05-26] MEDS ORDERED: DILAUDID INJ IVP PRN (15:00)
[2024-05-26] MEDS: NORCO 5/325 MG TAB PO PRN (15:21)
[2024-05-26] MEDS ORDERED: LASIX IVP SCH (17:00)
[2024-05-26] MEDS: LASIX IVP SCH (17:19)
[2024-05-26] MEDS: NovoLIN R (or HumuLIN R) SUBCUT PRN (17:45)
--- NOTE | 2024-05-26 18:06 | DR.H&P ---
H&P History & Physical for Day of: H&P Date: 05/26/24 Chief Complaint Chief Complaint: "FEVER, CANNOT EAT, DEHYDRATED" History of Present Illness History of Present Illness: PT IS 69 WM, ER ADMISSION. PT REPORTS HE WAS FINE , WE DROVE HIMSELF TO [place] FOR A CARDIOLOGY FU. ON MAY 23 PT CO FEVER AND INTRACTABLE LOWER BACK AND LEG PAIN. PT REPORTS HE WAS NOT BEEN ABLE TO EAT FOR 3 DAYS, DIFFUSE WEAKNESS AND FEVER. PT DENIES CHEST PAIN OR GI SYMPTOMS OTHER THAN APPETITE LOSS. PT HAS PVC AND WAS RECENTLY TREATED AT [facility] FOR CELLUTLITIS, WHICH APPEARS TO BE RESOLVED. PT HAS PMH OF AFIB, SP WATCHMAN, ANEMIA, HTN, OA, GERD, LALITA AND BPH. PT ADMITTED FOR TREATMENT AND EVALUATION OF ACUTE ILLNESS. Past Medical History Past Medical History: Anemia, Arthritis, Diabetes, Dyslipidemia and Hypertension Past Surgical History Surgical History: Abdominal Surgery and Weight Loss Surgery Additional Surgical History: PACEMAKER Family History Family Medical History: [place], Heart Failure and Hypertension Social History Does patient currently use any type of tobacco product: No Type of Tobacco Use: None Does any household member use tobacco: No Alcohol Use: None Drug Use: None Medications Home Medications: Home Medications Medication Instructions Recorded Confirmed Type gabapentin 400 mg capsule 400 mg PO TID 06/30/21 05/26/24 History levothyroxine 50 mcg tablet 50 mcg PO QDAY 08/28/22 05/26/24 History amlodipine 5 mg tablet 5 mg PO QDAY PRN 11/09/22 05/26/24 History doxazosin 4 mg tablet 4 mg PO QDAY 11/09/22 05/26/24 History montelukast 10 mg tablet 10 mg PO QDAY 11/09/22 05/26/24 History tramadol 50 mg tablet 50 mg PO BID PRN 11/09/22 05/26/24 History amitriptyline 10 mg tablet 10 mg PO QPM 04/04/24 05/26/24 History furosemide 40 mg tablet 40 mg PO QDAY 04/04/24 05/26/24 History metoprolol succinate 50 mg 50 mg PO QDAY 04/04/24 05/26/24 History tablet,extended release 24 hr potassium chloride 20 mEq 20 meq PO QDAY 04/04/24 05/26/24 History tablet,extended release(part/cryst) pantoprazole 40 mg tablet,delayed 40 mg PO QDAY 04/23/24 05/26/24 History release (Protonix) Allergies Allergies Allergy/AdvReac Type Severity Reaction Status Date / Time No Known Drug Allergies Allergy Unknown Verified 05/26/24 08:06 Labs 05/26/24 08:42 05/26/24 08:42 Labs: Laboratory WBC 11.4 X10^3/uL (3.6-10.0) H 05/26/24 08:42 RBC 3.71 X10^6/uL (4.7-6.0) L 05/26/24 08:42 Hgb 11.9 g/dL (13.5-18.0) L 05/26/24 08:42 Hct 36.3 % (42.0-54.0) L 05/26/24 08:42 MCV 97.8 fL (80.0-100.0) 05/26/24 08:42 MCH 32.0 pg (27.0-34.0) 05/26/24 08:42 MCHC 32.7 g/dL (33.0-35.0) L 05/26/24 08:42 RDW 16.9 % (11.6-16.5) H 05/26/24 08:42 Plt Count 55 X10^3/uL (150.0-450.0) L 05/26/24 08:42 Plt Count Comment Decreased (ADEQUATE) 05/26/24 08:42 MPV 9.2 fL (7.4-11.0) 05/26/24 08:42 Neut % (Auto) 96.0 % (42.0-75.0) H 05/26/24 08:42 Lymph % (Auto) 0.9 % (21.0-51.0) L 05/26/24 08:42 [place] % (Auto) 0.2 % (0.0-13.0) 05/26/24 08:42 Eos % (Auto) 2.4 % (0.9-2.9) 05/26/24 08:42 Baso % (Auto) 0.5 % (0.2-1.0) 05/26/24 08:42 Neut # (Auto) 11.0 x10^3/uL (2.2-4.8) H 05/26/24 08:42 Lymph # (Auto) 0.1 X10^3/uL (1.3-2.9) L 05/26/24 08:42 [place] # (Auto) 0 x10^3/uL (0.3-0.8) L 05/26/24 08:42 Eos # (Auto) 0.3 x10^3/uL (0.0-0.2) H 05/26/24 08:42 Baso # (Auto) 0.1 X10^3/uL (0.0-0.1) 05/26/24 08:42 Absolute Nucleated RBC 0.0 /100WBC 05/26/24 08:42 Total Counted 100 05/26/24 08:42 Neutrophils % (Manual) 84 % (39-76) H 05/26/24 08:42 Band Neutrophils % 7 % (0-10) 05/26/24 08:42 Lymphocytes % (Manual) 5 % (13-43) L 05/26/24 08:42 Monocytes % (Manual) 4 % (4-9) 05/26/24 08:42 Plt Morphology Comment Normal (NORMAL) 05/26/24 08:42 RBC Morphology Normal (NORMAL) 05/26/24 08:42 APTT 33.6 SECONDS (22.9-36.5) 05/26/24 08:42 PTT Comment - 05/26/24 08:42 Sodium 140 mmol/L (136-145) 05/26/24 08:42 Corrected Sodium TNP 05/26/24 08:42 Potassium 4.3 mmol/L (3.5-5.1) 05/26/24 08:42 Chloride 104 mmol/L (98-107) 05/26/24 08:42 Carbon Dioxide 20.8 mmol/L (21-32) L 05/26/24 08:42 BUN 55 mg/dL (7-18) H 05/26/24 08:42 Creatinine 2.13 mg/dL (0.70-1.30) H 05/26/24 08:42 Est GFR (MDRD) Af Amer 40 (>60) L 05/26/24 08:42 Est GFR (MDRD) Non-Af 33 (>60) L 05/26/24 08:42 Glucose 82 mg/dL (65-99) 05/26/24 08:42 POC Glucose (mg/dL) 197 mg/dL (65-99) H 05/26/24 17:22 Lactic Acid 0.8 mmol/L (0.4-2.0) 05/26/24 12:57 Calcium 7.8 mg/dL (8.5-10.1) L 05/26/24 08:42 Corrected Calcium 9.5 mg/dL (8.5-10.1) 05/26/24 08:42 Magnesium 2.0 mg/dL (2.0-2.9) 05/26/24 08:42 Total Bilirubin 0.80 mg/dL (0.2-1.0) 05/26/24 08:42 AST 84 Units/L (15-37) H 05/26/24 08:42 ALT 64 Units/L (12-78) 05/26/24 08:42 Alkaline Phosphatase 105 Units/L (46-116) 05/26/24 08:42 Troponin I High Sens 48.2 ng/L (4.0-60.0) 05/26/24 14:50 B-Natriuretic Peptide 413 pg/mL (0-79) H 05/26/24 08:42 Total Protein 5.5 g/dL (6.4-8.2) L 05/26/24 08:42 Albumin 1.9 g/dL (3.4-5.0) L 05/26/24 08:42 Globulin 3.6 g/dL (2.5-4.5) 05/26/24 08:42 Albumin/Globulin Ratio 0.5 Ratio (1.1-2.1) L 05/26/24 08:42 Acetone, Semi-Quant Small (NEGATIVE) H 05/26/24 08:42 SARS-CoV-2 (PCR) Negative (NEGATIVE) 05/26/24 09:04 Influenza Type A (PCR) Negative (NEGATIVE) 05/26/24 09:04 Influenza Type B (PCR) Negative (NEGATIVE) 05/26/24 09:04 RSV (PCR) Negative (NEGATIVE) 05/26/24 09:04 Review of Systems Constitutional: Fever, Chills, Weakness and Malaise Eyes: No Symptoms Reported ENT: No Symptoms Reported Respiratory: Shortness of Breath; denies Cough Cardiovascular: Edema; denies Chest Pain Gastrointestinal: Other (APPETITE LOSS ); denies Vomiting or Abdominal Pain Genitourinary: Retention Musculoskeletal: Back Pain and Leg Pain Skin: Rash Neurological: Weakness Physical Exam Vital Signs: Vital Signs Temperature 98.7 F Temperature 97.4 F Temperature 98.2 F Pulse Rate [Right Brachial] 77 Pulse Rate [Right Brachial] 78 Respiratory Rate 20 Respiratory Rate 18 Respiratory Rate 20 Respiratory Rate 20 Blood Pressure [Left Arm] 136/58 Blood Pressure [Right Arm] 146/69 O2 Sat by Pulse Oximetry 100 O2 Sat by Pulse Oximetry 99 Oriented: Normal Eyes: Normal Ear: Normal Nose: Normal Throat: Dry Respiratory: Diminished Throughout Cardiovascular: Normal and Edema Auscultation: Bowel Sounds: Normal Tenderness: Epigastric and Mild Musculoskeletal: Back:Thoracic, Back:Lumbar, Swelling and Motor Deficit Psychiatric: Depression Mood Description: Depressed Affect: Depressed Speech Pattern: Clear and Appropriate Assessment/Plan (1) Acute renal failure: Status: Acute Plan: ADMIT, IV HDYRATION CXR ON ADMISSION, BLOOD AND URINE CULTURE IV ATBX, BS CONTROL, STRICT I&OS, PT/INR ON ADMISSION RESP SWAB ON ADMISSION, VERIFY HOME MEDICATION CT T AND L SPINE, PAIN CONTROL (2) Bilateral edema of lower extremity: Status: Acute (3) Dehydration: Status: Acute (4) Generalized weakness: Status: Acute (5) Fever: Status: Acute (6) Thrombocytopenia: Narrative Support Text: ON CUSTODIAL ANTICOAGULANT THERAPY Status: Acute
[2024-05-26] MEDS: HEMOCYTE PLUS PO SCH (18:20)
[2024-05-26] MEDS: ELAVIL PO SCH (20:53)
--- NOTE | 2024-05-26 22:55 | CT ---
EXAM: THORACIC SPINE W/O CON HISTORY: HX FALLS, INTRACTABLE BACK PAIN, LOWER LEG WEAKNESS; COMPARISON: None available. TECHNIQUE: Multiple axial images of the thoracic spine were obtained from the thoracic inlet to the thoracolumba r junction. Sagittal and coronal reconstructions were performed and reviewed. Dose reduction techniq ues including Automated Exposure Control (AEC) and adjustment of mA and kV were utilized. FINDINGS: Slight dextroscoliosis of the upper thoracic spine. Disc space narrowing throughout the thoracic spi ne. Bridging osteophytes throughout the thoracic spine. No evidence for acute cortical disruption o r subluxation identified. The posterior elements and central canal appear unremarkable. No significa nt paraspinal soft tissue injury can be identified. There is a neurostimulator electrode within the midthoracic spinal canal. Bilateral moderate-sized pleural effusions with bibasilar atelectasis and/ or infiltrates noted. IMPRESSION: Moderate degenerative changes throughout the thoracic spine. No evidence of acute thoracic spine fracture. Bilateral moderate-sized pleural effusions with bibasilar atelectasis and/or infiltrates. THIS IS AN ELECTRONICALLY VERIFIED FINAL REPORT 05/26/2024 10:52 PM - Electronically signed by Ralph Nicole MD
--- NOTE | 2024-05-26 23:00 | CT ---
EXAM: LUMBAR SPINE W/O CON HISTORY: HX FALLS, INTRACTABLE BACK PAIN, LOWER LEG WEAKNESS; COMPARISON: CT of the abdomen and pelvis November 09, 2022 TECHNIQUE: CT of the lumbar spine without contrast FINDINGS: The bones are demineralized. Schmorl's node activity is noted in the superior endplate of L4, simila r to the comparison study. There is a mild compression deformity of the superior endplate of L1 whic h is similar to the prior study. Mild compression deformity of the superior endplate of T12 is simil ar. Bilateral facet arthritis L4-5 and L5-S1. No bony retropulsion into the central canal. Bilater al iliac vein stents are present. Limited visualization of the intrapelvic soft tissues demonstrates no acute process. IMPRESSION: No displaced fracture or subluxation. Degenerative changes as described. All CT scans at this facility use dose modulation, iterative reconstruction, and/or weight based dosi ng when appropriate to reduce radiation dose to as low as reasonably achievable. THIS IS AN ELECTRONICALLY VERIFIED FINAL REPORT 05/26/2024 10:57 PM - Electronically signed by Armani Lambert MD
[2024-05-27] MEDS: SNACK - Diabetic Appropriate PO SCH (00:44)
[2024-05-27 00:46] LABS: BILIRUBIN,URINE 1+ (NEGATIVE); BLOOD/HEMOGLOBIN,URINE 5+ (NEGATIVE); GLUCOSE, URINE NEGATIVE (NEGATIVE); KETONES,URINE NEGATIVE (NEGATIVE); LEUKOCYTE ESTERASE ,URINE 1+ (NEGATIVE); NITRITES,URINE NEGATIVE (NEGATIVE); PROTEIN,URINE 3+ (NEGATIVE); UROBILINOGEN,URINE NORMAL (NORMAL)
[2024-05-27] MEDS: ZYVOX 600MG IV 600 MG/300 ML BAG IV SCH (00:47)
[2024-05-27 00:50] LABS: APPEARANCE,URINE SLIGHTLY HAZY (CLEAR); BACTERIA,URINE TRACE /HPF (NEGATIVE); COLOR,URINE DARK YELLOW (YELLOW); RBC,URINE 30-50 /HPF (0-3); SQUAMOUS EPITHELIAL CELL,UR RARE /HPF (NEGATIVE)
[2024-05-27] MEDS: TYLENOL 325 MG TAB PO PRN (03:42)
[2024-05-27] MEDS: NYSTATIN POWDER TOP SCH (06:34)
[2024-05-27 06:37] LABS: BASOPHILS # (AUTO) 0.1 X10^3/uL (0.0-0.1); BASOPHILS % (AUTO) 1.1 % (0.2-1.0); EOSINOPHILS # (AUTO) 0.5 x10^3/uL (0.0-0.2); EOSINOPHILS % (AUTO) 4.2 % (0.9-2.9); HEMATOCRIT 30.5 % (42.0-54.0); HEMOGLOBIN 10.4 g/dL (13.5-18.0); LYMPHOCYTES # (AUTO) 0.5 X10^3/uL (1.3-2.9); LYMPHOCYTES % (AUTO) 4.9 % (21.0-51.0); MEAN CORPUSCULAR HEMOGLOBIN 32.4 pg (27.0-34.0); MEAN CORPUSCULAR HGB CONC 33.9 g/dL (33.0-35.0); MEAN CORPUSCULAR VOLUME 95.6 fL (80.0-100.0); MEAN PLATELET VOLUME 11.5 fL (7.4-11.0); MONOCYTES # (AUTO) 0.4 x10^3/uL (0.3-0.8); MONOCYTES % (AUTO) 3.6 % (0.0-13.0); NEUTROPHILS # (AUTO) 9.5 x10^3/uL (2.2-4.8); NEUTROPHILS % (AUTO) 86.2 % (42.0-75.0); PLATELET COUNT 26 X10^3/uL (150.0-450.0); RED CELL DISTRIBUTION WIDTH 16.6 % (11.6-16.5)
[2024-05-27 06:47] LABS: ALBUMIN 1.6 g/dL (3.4-5.0); CALCIUM 6.7 mg/dL (8.5-10.1); CARBON DIOXIDE 21.7 mmol/L (21-32); COR CA(FOR HYPOALB) 8.6 mg/dL (8.5-10.1); CREATININE 2.33 mg/dL (0.70-1.30); POTASSIUM 3.7 mmol/L (3.5-5.1); TOTAL PROTEIN 4.5 g/dL (6.4-8.2)
[2024-05-27 07:10] LABS: PLATELET MORPHOLOGY COMMENT NORMAL (NORMAL)
[2024-05-27] MEDS: CARDURA PO SCH (10:24)
[2024-05-27] MEDS: PROTONIX TAB 40 MG PO SCH (10:24)
[2024-05-27] MEDS: SYNTHROID 50 mcg TAB PO SCH (10:24)
[2024-05-27] MEDS: K-DUR TAB 20 MEQ PO SCH (10:24)
[2024-05-27] MEDS: TOPROL XL PO SCH (10:24)
[2024-05-27] MEDS: SINGULAIR TAB 10 MG PO SCH (10:24)
[2024-05-27 12:11] VITALS: PULSE 71; O2SAT 96
--- NOTE | 2024-05-27 13:07 | CT ---
EXAM: CT cervical spine without contrast HISTORY: Fall, neck pain TECHNIQUE: Axial noncontrast images with coronal and sagittal reformats. Dose reduction procedures were used wi th mA/kv adjusted for body size. COMPARISON: 06/09/2023 FINDINGS: Prevertebral soft tissues are normal. The alignment is normal. The vertebral bodies are of averag e height. Disc space narrowing and anterior and posterior spondylitic change present at C5-6. Pedic les, transverse processes, and posterior elements are intact. Mild spondylitic foraminal narrowing i s present bilaterally at C5-6. Mild bilateral facet arthropathy is present in the midcervical spine. Bilateral uncovertebral joint degenerative joint disease is present C5-6 and C6-7 bilaterally. The re is no evidence for cervical spine fracture or dislocation. IMPRESSION: No evidence for cervical spine fracture or dislocation Disc space narrowing and anterior and posterior spondylitic change C5-6 Mild spondylitic foraminal narrowing bilaterally at C5-6 Facet arthropathy and uncovertebral joint degenerative joint disease as described above THIS IS AN ELECTRONICALLY VERIFIED FINAL REPORT 05/27/2024 12:52 PM - Electronically signed by Elfego Forrester MD
[2024-05-27] MEDS ORDERED: DILAUDID INJ IVP PRN (13:54)
[2024-05-27] MEDS ORDERED: VERSED IVP ONE (13:54)
[2024-05-27] MEDS: NEURONTIN CAP 300 MG PO SCH (14:48)
[2024-05-27] MEDS ORDERED: NS 250 ML IV 250 ML IV ONE (15:47)
[2024-05-27 16:04] LABS: HEMOGLOBIN 10.6 g/dL (13.5-18.0)
[2024-05-27 16:09] LABS: BASOPHILS # (AUTO) 0.1 X10^3/uL (0.0-0.1); BASOPHILS % (AUTO) 0.7 % (0.2-1.0); EOSINOPHILS # (AUTO) 0.3 x10^3/uL (0.0-0.2); EOSINOPHILS % (AUTO) 2.8 % (0.9-2.9); HEMATOCRIT 31.2 % (42.0-54.0); LYMPHOCYTES # (AUTO) 0.1 X10^3/uL (1.3-2.9); LYMPHOCYTES % (AUTO) 1.4 % (21.0-51.0); MEAN CORPUSCULAR HEMOGLOBIN 32.5 pg (27.0-34.0); MEAN CORPUSCULAR VOLUME 95.8 fL (80.0-100.0); MEAN PLATELET VOLUME 8.4 fL (7.4-11.0); MONOCYTES # (AUTO) 0.2 x10^3/uL (0.3-0.8); MONOCYTES % (AUTO) 2.5 % (0.0-13.0); NEUTROPHILS # (AUTO) 8.9 x10^3/uL (2.2-4.8); NEUTROPHILS % (AUTO) 92.6 % (42.0-75.0); RED BLOOD COUNT 3.26 X10^6/uL (4.7-6.0); RED CELL DISTRIBUTION WIDTH 16.6 % (11.6-16.5); WHITE BLOOD COUNT 9.6 X10^3/uL (3.6-10.0)
[2024-05-27 16:17] LABS: PLATELET COUNT 15 X10^3/uL (150.0-450.0)
[2024-05-27 16:21] VITALS: TEMP 99.4
[2024-05-27 16:50] LABS: PLATELET MORPHOLOGY COMMENT NORMAL (NORMAL); TARGET CELLS PRESENT
[2024-05-27] MEDS ORDERED: NS 500 ML IV 500 ML IV ONE (16:51)
[2024-05-27] MEDS: NS 500 ML IV 500 ML IV ONE (17:20)
[2024-05-27] MEDS: ROCEPHIN VIAL 1 GRAM 1 G in NS 100 ML IV 100 ML IV SCH (17:30)
[2024-05-27 18:33] VITALS: BP 104/65
[2024-05-27 20:40] VITALS: RESP 20
[2024-05-27] MEDS: NORCO 7.5/325 MG TAB PO PRN (20:40)
--- NOTE | 2024-05-28 07:48 | CT ---
EXAMINATION: ABDOMEN/PELVIS W/O CON HISTORY: pt unable to void ..; . COMPARISON: CT abdomen and pelvis 11/09/2022 TECHNIQUE: Unenhanced axial images were obtained through the abdomen and pelvis using renal stone protocol. Ref ormatted images were obtained as well. Lack of oral and IV contrast limits diagnostic sensitivity The above CT scan was done with automated exposure control and the mA and kV was adjusted to obtain q uality images according to patient size. FINDINGS: Lung bases: Study limited by excessive respiratory motion, streak artifact from the patient's arms. Small to moderate bilateral effusions with atelectasis. Nodules described in the right middle lobe p reviously are not seen on the current study. Normal heart size. Pacemaker. No pericardial effusion Liver: No acute findings. GB/Biliary: No gallstones or dilated ducts Spleen: Normal size and density Pancreas: No acute findings. No pseudocyst or dilated duct Adrenal Glands: No mass Kidneys: No obstructing stone, hydronephrosis or solid-appearing lesions. Nonobstructing stone in th e right kidney. Left renal cyst Abdominal aorta: Tapers normally. Extensive atherosclerotic calcification Retroperitoneum: No pathologically enlarged lymph nodes. Stents in the common iliac vessels. Bowel: No grossly thickened or dilated loops of bowel, free air, pneumatosis or abscess. Diffuse smiley sarca. Minimal ascites. Postsurgical changes about the stomach. No CT evidence for appendicitis, o bstruction or diverticulitis. Battery pack projects in the right posterior subcutaneous tissues. Bladder/: Distended bladder. Ureters unremarkable. Prostate and seminal vesicles unremarkable for age. There is edema about the scrotum. Correlate clinically. No subcutaneous emphysema or collect ion is noted. Osseous: Degenerative changes in the thoracolumbar spine and both hips. No acute findings or bony le sions. IMPRESSION: Bilateral pleural effusions with atelectasis in the lung bases. Distended bladder. No obstructing renal stone. Scrotal edema with no subcutaneous emphysema or organized abscess. Anasarca with minimal ascites. No CT evidence for obstruction, diverticulitis or appendicitis. THIS IS AN ELECTRONICALLY VERIFIED FINAL REPORT 05/28/2024 7:44 AM - Electronically signed by Aj Martinez MD
--- NOTE | 2024-05-28 07:54 | CT ---
EXAMINATION:CHEST W/O CONHISTORY:CHEST PAIN; .COMPARISON:Chest x-ray 05/26/2024TECHNIQUE:Routine axial imaging of the chest was performed. Study is degraded by lack of contrast, streak artifact from the patient's arms and excessive respiratory motion. The above CT scan was done with automated exposure control and the mA and kV was adjusted to obtain quality images according to patient size.FINDINGS:Lungs: Bronchial thickening is noted. Atelectasis and/or developing pneumonia within the lung bases. No pulmonary nodules or ground-glass opacitiesCentral Airways: No obstructing endobronchial lesionsPleura: Moderate right effusion. Small left effusion. Evaluation limited by streak artifact. No pneumothoraxThoracic Aorta: Ectasia. Atherosclerotic calcificationMain Pulmonary Trunk: Normal diameterLymph Nodes: No pathologic hilar, axillary or mediastinal adenopathyHeart/Pericardium: Cardiomegaly with pacemaker and valve replacement on the left. No pericardial effusion. Diffuse anasarca notedLiver: No acute findings.GB/Biliary: No gallstones or dilated ductsSpleen: Normal size and densityPancreas: No acute findings as visualizedAdrenal Glands: No massKidneys no hydronephrosis.Abdominal Aorta: Tapers normally.Retroperitoneum: No pathologically enlarged lymph nodesBowel/Peritoneal Cavity: No acute findings as visualizedOsseous Structures: Degenerative changes in the thoracolumbar spine. No acute findings or bony lesions in the bony chestOther: NoneIMPRESSION:Bilateral effusions with atelectasis or developing pneumonia within the lung bases.Follow-up recommended.Diffuse anasarca. Limited studyThe above CT scan was done with automated exposure control and the mA and kV was adjusted to obtain quality images according to patient sizeTHIS IS AN ELECTRONICALLY VERIFIED FINAL REPORT05/28/2024 7:50 AM - Electronically signed by Aj Martinez MD
[2024-05-28] MEDS ORDERED: FLOMAX PO SCH (09:00)
== END 2024-05-27 20:40 | disposition critical access hospital (66) ==
LOC: MED/SURG 07:59 → ER 07:59 → MED/SURG 12:14
PROVIDERS: ADMIT Internal Medicine; ATTEND Internal Medicine
DX: R60.0 Localized edema; B96.89 Other specified bacterial agents as the cause of diseases classified elsewhere; R50.9 Fever, unspecified; E11.65 Type 2 diabetes mellitus with hyperglycemia; N40.0 Benign prostatic hyperplasia without lower urinary tract symptoms; R94.31 Abnormal electrocardiogram [ECG] [EKG]; N50.89 Other specified disorders of the male genital organs; R26.89 Other abnormalities of gait and mobility; W18.39XA Other fall on same level, initial encounter; R07.89 Other chest pain; K21.9 Gastro-esophageal reflux disease without esophagitis; I48.91 Unspecified atrial fibrillation; R06.02 Shortness of breath; E86.0 Dehydration; Z79.01 Long term (current) use of anticoagulants; R53.1 Weakness; N35.819 Other urethral stricture, male, unspecified site; M54.2 Cervicalgia; E78.5 Hyperlipidemia, unspecified; J90 Pleural effusion, not elsewhere classified; I10 Essential (primary) hypertension; Z03.818 Encounter for observation for suspected exposure to other biological agents ruled out; N17.8 Other acute kidney failure

== ENCOUNTER 2024-06-08 14:26 | Inpatient (IN) ==
--- NOTE | 2024-06-08 14:52 | DR.GENAD ---
HPI Time Seen Time Seen by Provider: 06/08/24 14:51 PCP Primary Care Physician: Karla PEDERSON HPI Comment HPI Comment: 69 y/o with hx afib, vtach, avb, peripheral neuropathy and cad sent to [facility] June 07, 2024 for generalized weakness, leg swelling and urinary retention; he was discharged to rehab on 06/07/24 but left AMA today b/c they weren't doing anything for him; he still can't walk and hasn't walked in three weeks as below; he would like to be in rehab closer to home ([facility] as well. Complaint/Symptoms Chief Complaint:: Patient states that he was shipped to [place] from [facility] 05/29/24 due to "Swelling in the legs". He states that he has been there since, and doesn't feel like they are giving him what he needs. He signed out AMA, and states that he has come here to get rehab. He states that he is unable to walk, and that he came here to get into [facility]. He states that he has not walked in three weeks. Patient is unsure of why he was specifically shipped. COVID-19 Coronavirus risk:travel/contact w/high risk person: No Has patient experienced Coronavirus symptoms: No Source History Provided: Patient Mode of Arrival Mode of Arrival: Wheelchair Timing Onset of Chief Complaint: 05/21/24 PMH PMH Past Medical History: Yes Past Medical History: Anemia, Arthritis, Diabetes, Dyslipidemia and Hypertension Past Surgical History: Yes Surgical History: Abdominal Surgery, Weight Loss Surgery and Other Past Surgical History Comment: Watchman placement Family History History of Family Medical Conditions: Yes Family Medical History: [place], Heart Failure and Hypertension Social History Does patient currently use any type of tobacco product: No Have you used tobacco products in the last 12 months: No Type of Tobacco Use: None Does any household member use tobacco: No Alcohol Use: None Do you use any recreational Drugs:: No Lives With: Family Lives Where: Home Travel Risk Coronavirus risk:travel/contact w/high risk person: No Has patient experienced Coronavirus symptoms: No Infectious screening In the last 2 months have you had wt loss of >10#?: NO Have you had fever, night sweats or hemotysis?: No Have you traveled outside the country in the last 6 months?: No Isolation: Standard ROS Review of Systems Constitutional: No Symptoms Reported Eyes: No Symptoms Reported ENTM: No Symptoms Reported Respiratoy: No Symptoms Reported Cardiovascular: No Symptoms Reported Gastrointestinal/Abdominal: No Symptoms Reported Genitourinary: No Symptoms Reported Neurological: No Symptoms Reported Integumentary: No Symptoms Reported Hematologic/Lymphatic: No Symptoms Reported Endocrine: No Symptoms Reported Psychiatric: No Symptoms Reported PE Vital Signs Vitals: Vital Signs Temperature 99.1 F Pulse Rate 82 Pulse Rate 94 Pulse Rate 92 Pulse Rate 101 Pulse Rate 95 Pulse Rate 89 Pulse Rate 92 Pulse Rate 95 Pulse Rate 78 Pulse Rate 81 Pulse Rate 91 Pulse Rate 86 Pulse Rate 83 Pulse Rate 83 Pulse Rate 92 Pulse Rate 101 Pulse Rate 86 Pulse Rate 83 Pulse Rate 96 Respiratory Rate 16 Respiratory Rate 17 Respiratory Rate 14 Respiratory Rate 18 Respiratory Rate 16 Respiratory Rate 16 Respiratory Rate 17 Respiratory Rate 21 Respiratory Rate 14 Respiratory Rate 15 Respiratory Rate 14 Respiratory Rate 16 Respiratory Rate 18 Respiratory Rate 15 Respiratory Rate 21 Respiratory Rate 19 Respiratory Rate 20 Respiratory Rate 18 Respiratory Rate 18 Blood Pressure 140/90 Blood Pressure 132/83 Blood Pressure 115/73 O2 Sat by Pulse Oximetry 96 O2 Sat by Pulse Oximetry 99 O2 Sat by Pulse Oximetry 97 O2 Sat by Pulse Oximetry 98 General Limitations: No Limitations General Appearance: Alert and In No Apparent Distress Head Head Exam: Normal Inspection Eyes Eye exam: Normal Appearance Neck Neck Exam: Normal Inspection Chest Chest Inspection: Normal Inspection Respiratory Respiratory Exam: Normal Lung Sounds Bilat Respiratory Exam: Bilateral: Clear to Auscultation Cardiovascular Cardiovascular Exam: Regular Rate and Normal Rhythm Abdominal Exam Abdominal Exam: Normal Inspection, Normal Bowel Sounds and Soft Extremities Extremities Exam: Edema (rle tr-1+ pitting edema, tr lle edema) Back Back Exam: Normal Inspection Neurologic Neurological Exam: Alert and Oriented X3 Psychiatric Psychiatric Exam: Normal Affect and Normal Mood Skin Skin Exam: Warm, Dry, Intact and Normal Color COURSE Consultation Call Returned: 20:06 (Dr Bella accepts admission.) ROR Labs Reviewed Laboratory Results Reviewed?: Yes 06/10/24 05:15 06/10/24 05:15 Laboratory: 06/08/24 18:19 Urine,Clean Catch Urine Culture - Final WBC 10.0 X10^3/uL (3.6-10.0) 06/09/24 05:38 RBC 2.72 X10^6/uL (4.7-6.0) L 06/09/24 05:38 Hgb 8.5 g/dL (13.5-18.0) L 06/09/24 05:38 Hct 25.3 % (42.0-54.0) L 06/09/24 05:38 MCV 93.0 fL (80.0-100.0) 06/09/24 05:38 MCH 31.3 pg (27.0-34.0) 06/09/24 05:38 MCHC 33.7 g/dL (33.0-35.0) 06/09/24 05:38 RDW 16.3 % (11.6-16.5) 06/09/24 05:38 Plt Count 236 X10^3/uL (150.0-450.0) 06/09/24 05:38 MPV 9.0 fL (7.4-11.0) 06/09/24 05:38 Neut % (Auto) 84.7 % (42.0-75.0) H 06/09/24 05:38 Lymph % (Auto) 8.9 % (21.0-51.0) L 06/09/24 05:38 [place] % (Auto) 5.2 % (0.0-13.0) 06/09/24 05:38 Eos % (Auto) 0.5 % (0.9-2.9) L 06/09/24 05:38 Baso % (Auto) 0.7 % (0.2-1.0) 06/09/24 05:38 Neut # (Auto) 8.5 x10^3/uL (2.2-4.8) H 06/09/24 05:38 Lymph # (Auto) 0.9 X10^3/uL (1.3-2.9) L 06/09/24 05:38 [place] # (Auto) 0.5 x10^3/uL (0.3-0.8) 06/09/24 05:38 Eos # (Auto) 0.0 x10^3/uL (0.0-0.2) 06/09/24 05:38 Baso # (Auto) 0.1 X10^3/uL (0.0-0.1) 06/09/24 05:38 Absolute Nucleated RBC 0.0 /100WBC 06/09/24 05:38 Sodium 141 mmol/L (136-145) 06/09/24 05:38 Corrected Sodium 143 mmol/L (136-145) 06/09/24 05:38 Potassium 3.2 mmol/L (3.5-5.1) L 06/09/24 05:38 Chloride 103 mmol/L (98-107) 06/09/24 05:38 Carbon Dioxide 30.5 mmol/L (21-32) 06/09/24 05:38 BUN 58 mg/dL (7-18) H 06/09/24 05:38 Creatinine 1.12 mg/dL (0.70-1.30) 06/09/24 05:38 Est GFR (MDRD) Af Amer > 60 (>60) 06/09/24 05:38 Est GFR (MDRD) Non-Af > 60 (>60) 06/09/24 05:38 Glucose 180 mg/dL (65-99) H 06/09/24 05:38 Calcium 8.0 mg/dL (8.5-10.1) L 06/09/24 05:38 Corrected Calcium 9.0 mg/dL (8.5-10.1) 06/09/24 05:38 Magnesium 2.2 mg/dL (2.0-2.9) 06/09/24 05:38 Total Bilirubin 0.70 mg/dL (0.2-1.0) 06/09/24 05:38 AST 79 Units/L (15-37) H 06/09/24 05:38 ALT 58 Units/L (12-78) 06/09/24 05:38 Alkaline Phosphatase 79 Units/L (46-116) 06/09/24 05:38 Total Protein 5.9 g/dL (6.4-8.2) L 06/09/24 05:38 Albumin 2.7 g/dL (3.4-5.0) L 06/09/24 05:38 Globulin 3.2 g/dL (2.5-4.5) 06/09/24 05:38 Albumin/Globulin Ratio 0.8 Ratio (1.1-2.1) L 06/09/24 05:38 Specimen Type Clean catch urine 06/08/24 18:19 Urine Color Yellow (YELLOW) 06/08/24 18:19 Urine Appearance Clear (CLEAR) 06/08/24 18:19 Urine pH 5.0 (5.0 - 8.0) 06/08/24 18:19 Ur Specific [place] 1.020 (1.000-1.030) 06/08/24 18:19 Urine Protein 4+ (NEGATIVE) 06/08/24 18:19 Urine Glucose (UA) 3+ (NEGATIVE) 06/08/24 18:19 Urine Ketones Negative (NEGATIVE) 06/08/24 18:19 Urine Blood 3+ (NEGATIVE) 06/08/24 18:19 Urine Nitrite Negative (NEGATIVE) 06/08/24 18:19 Urine Bilirubin Negative (NEGATIVE) 06/08/24 18:19 Urine Urobilinogen Normal (NORMAL) 06/08/24 18:19 Ur Leukocyte Esterase Negative (NEGATIVE) 06/08/24 18:19 Urine RBC 3-5 /HPF (0-3) A 06/08/24 18:19 Urine WBC 0-2 /HPF (0-5) 06/08/24 18:19 Ur Squamous Epith Cells Rare /HPF (NEGATIVE) 06/08/24 18:19 Urine Bacteria 2+ /HPF (NEGATIVE) 06/08/24 18:19 Ur Culture Indicated? Yes/culture set up 06/08/24 18:19 Opioid Opioid Risk Tool Age (Jb box if 16-45): No History of Preadolescent Sexual Abuse: No Total: 0 Total Score Risk Category: Low Risk Copyright: Diomedes MONTAGUE predicting aberrant behaviors Discharge Plan Diagnosis Discharge Problem: Inability to walk Urinary tract infection Qualifiers: Urinary tract infection type: acute cystitis Discharge Plan Patient Disposition: 09 ADMITTED INPATIENT Condition: Stable
[2024-06-08 17:07] LABS: BASOPHILS # (AUTO) 0.1 X10^3/uL (0.0-0.1); BASOPHILS % (AUTO) 1.2 % (0.2-1.0); EOSINOPHILS % (AUTO) 0.1 % (0.9-2.9); HEMATOCRIT 26.8 % (42.0-54.0); HEMOGLOBIN 8.8 g/dL (13.5-18.0); LYMPHOCYTES # (AUTO) 0.9 X10^3/uL (1.3-2.9); LYMPHOCYTES % (AUTO) 8.3 % (21.0-51.0); MEAN CORPUSCULAR HEMOGLOBIN 30.8 pg (27.0-34.0); MEAN CORPUSCULAR HGB CONC 32.8 g/dL (33.0-35.0); MEAN CORPUSCULAR VOLUME 93.8 fL (80.0-100.0); MONOCYTES # (AUTO) 0.5 x10^3/uL (0.3-0.8); MONOCYTES % (AUTO) 4.7 % (0.0-13.0); NEUTROPHILS # (AUTO) 9.7 x10^3/uL (2.2-4.8); NEUTROPHILS % (AUTO) 85.7 % (42.0-75.0); PLATELET COUNT 246 X10^3/uL (150.0-450.0); RED BLOOD COUNT 2.86 X10^6/uL (4.7-6.0); WHITE BLOOD COUNT 11.4 X10^3/uL (3.6-10.0)
[2024-06-08 17:17] LABS: ALANINE AMINOTRANSFERASE 40 Units/L (12-78); ALBUMIN 3.1 g/dL (3.4-5.0); ALKALINE PHOSPHATASE 76 Units/L (46-116); ASPARTATE AMINO TRANSFERASE 32 Units/L (15-37); BLOOD UREA NITROGEN 57 mg/dL (7-18); CALCIUM 8.1 mg/dL (8.5-10.1); CARBON DIOXIDE 32.9 mmol/L (21-32); CHLORIDE 101 mmol/L (98-107); COR CA(FOR HYPOALB) 8.8 mg/dL (8.5-10.1); COR NA(FOR HYPERGLY) 142 mmol/L (136-145); CREATININE 1.34 mg/dL (0.70-1.30); GLUCOSE 187 mg/dL (65-99); POTASSIUM 3.4 mmol/L (3.5-5.1); SODIUM 140 mmol/L (136-145); TOTAL PROTEIN 6.3 g/dL (6.4-8.2); eGFR NON BLACK RACES 56 (>60)
[2024-06-08 18:38] LABS: BILIRUBIN,URINE NEGATIVE (NEGATIVE); BLOOD/HEMOGLOBIN,URINE 3+ (NEGATIVE); GLUCOSE, URINE 3+ (NEGATIVE); KETONES,URINE NEGATIVE (NEGATIVE); LEUKOCYTE ESTERASE ,URINE NEGATIVE (NEGATIVE); NITRITES,URINE NEGATIVE (NEGATIVE); PROTEIN,URINE 4+ (NEGATIVE); UROBILINOGEN,URINE NORMAL (NORMAL)
[2024-06-08 18:42] LABS: APPEARANCE,URINE CLEAR (CLEAR); COLOR,URINE YELLOW (YELLOW)
[2024-06-08 18:45] LABS: BACTERIA,URINE 2+ /HPF (NEGATIVE); SQUAMOUS EPITHELIAL CELL,UR RARE /HPF (NEGATIVE)
[2024-06-08] MEDS: ROCEPHIN VIAL 1 GRAM 1 G in NS 100 ML IV 100 ML IV SCH (19:50)
[2024-06-08] MEDS ORDERED: CONSULT PHARMACY - POTASSIUM & MAGNESIUM XX SCH (21:00)
[2024-06-08 21:58] VITALS: BMI 21.3
[2024-06-09 06:31] LABS: BASOPHILS # (AUTO) 0.1 X10^3/uL (0.0-0.1); BASOPHILS % (AUTO) 0.7 % (0.2-1.0); EOSINOPHILS % (AUTO) 0.5 % (0.9-2.9); HEMATOCRIT 25.3 % (42.0-54.0); HEMOGLOBIN 8.5 g/dL (13.5-18.0); LYMPHOCYTES # (AUTO) 0.9 X10^3/uL (1.3-2.9); LYMPHOCYTES % (AUTO) 8.9 % (21.0-51.0); MEAN CORPUSCULAR HEMOGLOBIN 31.3 pg (27.0-34.0); MEAN CORPUSCULAR HGB CONC 33.7 g/dL (33.0-35.0); MONOCYTES # (AUTO) 0.5 x10^3/uL (0.3-0.8); MONOCYTES % (AUTO) 5.2 % (0.0-13.0); NEUTROPHILS # (AUTO) 8.5 x10^3/uL (2.2-4.8); NEUTROPHILS % (AUTO) 84.7 % (42.0-75.0); PLATELET COUNT 236 X10^3/uL (150.0-450.0); RED BLOOD COUNT 2.72 X10^6/uL (4.7-6.0); RED CELL DISTRIBUTION WIDTH 16.3 % (11.6-16.5)
[2024-06-09 06:48] LABS: ALANINE AMINOTRANSFERASE 58 Units/L (12-78); ALBUMIN 2.7 g/dL (3.4-5.0); ALKALINE PHOSPHATASE 79 Units/L (46-116); ASPARTATE AMINO TRANSFERASE 79 Units/L (15-37); BLOOD UREA NITROGEN 58 mg/dL (7-18); CARBON DIOXIDE 30.5 mmol/L (21-32); CHLORIDE 103 mmol/L (98-107); COR NA(FOR HYPERGLY) 143 mmol/L (136-145); CREATININE 1.12 mg/dL (0.70-1.30); GLUCOSE 180 mg/dL (65-99); MAGNESIUM 2.2 mg/dL (2.0-2.9); POTASSIUM 3.2 mmol/L (3.5-5.1); SODIUM 141 mmol/L (136-145); TOTAL PROTEIN 5.9 g/dL (6.4-8.2); eGFR NON BLACK RACES > 60 (>60)
[2024-06-09] MEDS: K-DUR TAB 20 MEQ PO SCH ×2 (09:59→14:16)
[2024-06-09] MEDS: FLOMAX PO SCH (09:59)
[2024-06-09] MEDS: PROTONIX TAB 40 MG PO SCH (09:59)
[2024-06-09] MEDS: SYNTHROID 50 mcg TAB PO SCH (09:59)
[2024-06-09] MEDS: TOPROL XL PO SCH (09:59)
[2024-06-09] MEDS: LASIX PO SCH (09:59)
[2024-06-09] MEDS: FARXIGA PO SCH (10:01)
--- NOTE | 2024-06-09 13:47 | DR.H&P ---
H&P History & Physical for Day of: H&P Date: 06/08/24 Chief Complaint Chief Complaint: weakness History of Present Illness History of Present Illness: 69 y/o with hx afib, vtach, avb, peripheral neuropathy and cad sent to [facility] June 07, 2024 for generalized weakness, leg swelling and urinary retention; he was discharged to rehab on 06/07/24 but left AMA today b/c they weren't doing anything for him; he still can't walk and hasn't walked in three weeks as below; he would like to be in rehab closer to home ([facility]) as well. Past Medical History Past Medical History: Anemia, Arthritis, Diabetes, Dyslipidemia and Hypertension Past Surgical History Surgical History: Weight Loss Surgery Additional Surgical History: PACEMAKER Family History Family Medical History: [place], Heart Failure and Hypertension Social History Does patient currently use any type of tobacco product: No Have you used tobacco products in the last 12 months: No Type of Tobacco Use: None Does any household member use tobacco: No Alcohol Use: None Drug Use: None Medications Home Medications: Home Medications Medication Instructions Recorded Confirmed Type gabapentin 400 mg capsule 400 mg PO TID 06/30/21 06/08/24 History levothyroxine 50 mcg tablet 50 mcg PO QDAY 08/28/22 06/08/24 History amlodipine 5 mg tablet 5 mg PO QDAY PRN 11/09/22 06/08/24 History doxazosin 4 mg tablet 4 mg PO QDAY 11/09/22 06/08/24 History montelukast 10 mg tablet 10 mg PO QDAY 11/09/22 06/08/24 History amitriptyline 10 mg tablet 10 mg PO QPM 04/04/24 06/08/24 History furosemide 40 mg tablet 40 mg PO QDAY 04/04/24 06/08/24 History metoprolol succinate 50 mg 50 mg PO QDAY 04/04/24 06/08/24 History tablet,extended release 24 hr potassium chloride 20 mEq 20 meq PO QDAY 04/04/24 06/08/24 History tablet,extended release(part/cryst) pantoprazole 40 mg tablet,delayed 40 mg PO QDAY 04/23/24 06/08/24 History release (Protonix) empagliflozin 10 mg tablet 10 mg PO DAILY 06/08/24 06/08/24 History (Jardiance) lisinopril 20 mg tablet 20 mg PO DAILY 06/08/24 06/08/24 History lovastatin 20 mg tablet 20 mg PO DAILY 06/08/24 06/08/24 History sacubitril 24 mg-valsartan 26 mg 1 tab PO BID 06/08/24 06/08/24 History tablet (Entresto) tamsulosin 0.4 mg capsule 0.4 mg PO DAILY 06/08/24 06/08/24 History Allergies Allergies Allergy/AdvReac Type Severity Reaction Status Date / Time No Known Drug Allergies Allergy Unknown Verified 05/26/24 08:06 Labs 06/09/24 05:38 06/09/24 05:38 Labs: 06/08/24 18:19 Urine,Clean Catch Urine Culture - Preliminary Laboratory WBC 10.0 X10^3/uL (3.6-10.0) 06/09/24 05:38 RBC 2.72 X10^6/uL (4.7-6.0) L 06/09/24 05:38 Hgb 8.5 g/dL (13.5-18.0) L 06/09/24 05:38 Hct 25.3 % (42.0-54.0) L 06/09/24 05:38 MCV 93.0 fL (80.0-100.0) 06/09/24 05:38 MCH 31.3 pg (27.0-34.0) 06/09/24 05:38 MCHC 33.7 g/dL (33.0-35.0) 06/09/24 05:38 RDW 16.3 % (11.6-16.5) 06/09/24 05:38 Plt Count 236 X10^3/uL (150.0-450.0) 06/09/24 05:38 MPV 9.0 fL (7.4-11.0) 06/09/24 05:38 Neut % (Auto) 84.7 % (42.0-75.0) H 06/09/24 05:38 Lymph % (Auto) 8.9 % (21.0-51.0) L 06/09/24 05:38 [place] % (Auto) 5.2 % (0.0-13.0) 06/09/24 05:38 Eos % (Auto) 0.5 % (0.9-2.9) L 06/09/24 05:38 Baso % (Auto) 0.7 % (0.2-1.0) 06/09/24 05:38 Neut # (Auto) 8.5 x10^3/uL (2.2-4.8) H 06/09/24 05:38 Lymph # (Auto) 0.9 X10^3/uL (1.3-2.9) L 06/09/24 05:38 [place] # (Auto) 0.5 x10^3/uL (0.3-0.8) 06/09/24 05:38 Eos # (Auto) 0.0 x10^3/uL (0.0-0.2) 06/09/24 05:38 Baso # (Auto) 0.1 X10^3/uL (0.0-0.1) 06/09/24 05:38 Absolute Nucleated RBC 0.0 /100WBC 06/09/24 05:38 Sodium 141 mmol/L (136-145) 06/09/24 05:38 Corrected Sodium 143 mmol/L (136-145) 06/09/24 05:38 Potassium 3.2 mmol/L (3.5-5.1) L 06/09/24 05:38 Chloride 103 mmol/L (98-107) 06/09/24 05:38 Carbon Dioxide 30.5 mmol/L (21-32) 06/09/24 05:38 BUN 58 mg/dL (7-18) H 06/09/24 05:38 Creatinine 1.12 mg/dL (0.70-1.30) 06/09/24 05:38 Est GFR (MDRD) Af Amer > 60 (>60) 06/09/24 05:38 Est GFR (MDRD) Non-Af > 60 (>60) 06/09/24 05:38 Glucose 180 mg/dL (65-99) H 06/09/24 05:38 Calcium 8.0 mg/dL (8.5-10.1) L 06/09/24 05:38 Corrected Calcium 9.0 mg/dL (8.5-10.1) 06/09/24 05:38 Magnesium 2.2 mg/dL (2.0-2.9) 06/09/24 05:38 Total Bilirubin 0.70 mg/dL (0.2-1.0) 06/09/24 05:38 AST 79 Units/L (15-37) H 06/09/24 05:38 ALT 58 Units/L (12-78) 06/09/24 05:38 Alkaline Phosphatase 79 Units/L (46-116) 06/09/24 05:38 Total Protein 5.9 g/dL (6.4-8.2) L 06/09/24 05:38 Albumin 2.7 g/dL (3.4-5.0) L 06/09/24 05:38 Globulin 3.2 g/dL (2.5-4.5) 06/09/24 05:38 Albumin/Globulin Ratio 0.8 Ratio (1.1-2.1) L 06/09/24 05:38 Specimen Type Clean catch urine 06/08/24 18:19 Urine Color Yellow (YELLOW) 06/08/24 18:19 Urine Appearance Clear (CLEAR) 06/08/24 18:19 Urine pH 5.0 (5.0 - 8.0) 06/08/24 18:19 Ur Specific [place] 1.020 (1.000-1.030) 06/08/24 18:19 Urine Protein 4+ (NEGATIVE) 06/08/24 18:19 Urine Glucose (UA) 3+ (NEGATIVE) 06/08/24 18:19 Urine Ketones Negative (NEGATIVE) 06/08/24 18:19 Urine Blood 3+ (NEGATIVE) 06/08/24 18:19 Urine Nitrite Negative (NEGATIVE) 06/08/24 18:19 Urine Bilirubin Negative (NEGATIVE) 06/08/24 18:19 Urine Urobilinogen Normal (NORMAL) 06/08/24 18:19 Ur Leukocyte Esterase Negative (NEGATIVE) 06/08/24 18:19 Urine RBC 3-5 /HPF (0-3) A 06/08/24 18:19 Urine WBC 0-2 /HPF (0-5) 06/08/24 18:19 Ur Squamous Epith Cells Rare /HPF (NEGATIVE) 06/08/24 18:19 Urine Bacteria 2+ /HPF (NEGATIVE) 06/08/24 18:19 Ur Culture Indicated? Yes/culture set up 06/08/24 18:19 Review of Systems Constitutional: Weakness Eyes: No Symptoms Reported ENT: No Symptoms Reported Respiratory: Shortness of Breath Cardiovascular: Edema Gastrointestinal: Nausea Genitourinary: Frequency and Other (hx bph, stable syptoms at this time) Musculoskeletal: Back Pain and Leg Pain Skin: No Symptoms Reported Neurological: Weakness Physical Exam Vital Signs: Vital Signs Temperature 98.0 F Temperature 98.0 F Pulse Rate [Right Brachial] 84 Pulse Rate [Right Brachial] 87 Respiratory Rate 18 Respiratory Rate 18 Blood Pressure [Right Arm] 125/66 Blood Pressure [Right Arm] 146/71 O2 Sat by Pulse Oximetry 97 O2 Sat by Pulse Oximetry 99 Oriented: Normal Eyes: Normal Nose: Normal Throat: Dry Respiratory: RLL Diminished and LLL Diminished Cardiovascular: Normal and Edema Auscultation: Bowel Sounds: Normal Palpation: Normal Tenderness: Normal Skin: Decreased Turgur Musculoskeletal: Back:Thoracic and Back:Lumbar Psychiatric: Anxiety Mood Description: Calm Speech Pattern: Clear and Appropriate Assessment/Plan (1) Generalized weakness: Status: Acute Plan: ADMIT, IV HYDRATION, VERIFY HOME MEDICATIONS BP AND BS CONTROL CASE MANAGEMENT CONSULT FOR REHAB PLACEMENT (2) Anemia: Status: Acute (3) Edema, peripheral: Status: Acute (4) Hypertension: Status: Chronic (5) Cerebrovascular disease: Status: Acute (6) CAD (coronary artery disease): Status: Chronic (7) LALITA (obstructive sleep apnea): Status: Chronic
[2024-06-09] MEDS: NEURONTIN CAP 400 MG PO SCH (14:16)
--- NOTE | 2024-06-09 17:14 | PCM.PROG ---
Progress Note Progress Note for Day of Date of Exam: 06/09/24 Subjective Subjective: PT IS 69 WM, ER ADMISSION WITH DIFFUSE WEAKNESS. PT HAS HAD AN EXTENDED ILLNESS AND WAS RECENTLY TREATED AT [facility] AND RELEASED FOR REHAB THERAPY, WHERE PT SIGNED OUT AMA FOR THE REASON OF WANTING TO BE CLOSER TO HOME. PT LIVES ALONE AND HAS BEEN INDEPENDENT UNTIL THE LAST HOSPITAL STAY WHICH HAS LEFT PT WITH DIFFUSE MUSCLE WEAKNESS AND UNSTEADY GAIT. CASE MANAGEMENT CONSULTED FOR PLACEMENT AT REHAB FACILTY. HGB 8.5, WBC 10, BUN 58,CREAT 1.12 Past Medical Family Social History Allergies: Allergies No Known Drug Allergies Allergy (Unknown, Verified 05/26/24 08:06) Onset Date: 12/21/2011 Vital Signs and I&O's Vital Signs: Vital Signs Temperature 98.0 F Pulse Rate [Right Brachial] 84 Respiratory Rate 18 Blood Pressure [Right Arm] 125/66 O2 Sat by Pulse Oximetry 97 Intake and Output: Intake & Output 06/07/24 06/08/24 06/09/24 06/10/24 11:59 11:59 11:59 11:59 Intake Total 620 / 620 Output Total 410 / 410 Balance 210 / 210 Physical Exam Oriented: Normal Eyes: Normal Nose: Normal Throat: Dry Respiratory: Diminished Cardiovascular: Normal and Edema Auscultation: Bowel Sounds: Normal Tenderness: Normal Skin: Decreased Turgur Musculoskeletal: Back:Thoracic and Back:Lumbar Psychiatric: Anxiety Mood Description: Calm Speech Pattern: Clear and Appropriate Laboratory and Diagnostics 06/09/24 05:38 06/09/24 05:38 Labs: 06/08/24 18:19 Urine,Clean Catch Urine Culture - Preliminary Laboratory WBC 10.0 X10^3/uL (3.6-10.0) 06/09/24 05:38 RBC 2.72 X10^6/uL (4.7-6.0) L 06/09/24 05:38 Hgb 8.5 g/dL (13.5-18.0) L 06/09/24 05:38 Hct 25.3 % (42.0-54.0) L 06/09/24 05:38 MCV 93.0 fL (80.0-100.0) 06/09/24 05:38 MCH 31.3 pg (27.0-34.0) 06/09/24 05:38 MCHC 33.7 g/dL (33.0-35.0) 06/09/24 05:38 RDW 16.3 % (11.6-16.5) 06/09/24 05:38 Plt Count 236 X10^3/uL (150.0-450.0) 06/09/24 05:38 MPV 9.0 fL (7.4-11.0) 06/09/24 05:38 Neut % (Auto) 84.7 % (42.0-75.0) H 06/09/24 05:38 Lymph % (Auto) 8.9 % (21.0-51.0) L 06/09/24 05:38 [place] % (Auto) 5.2 % (0.0-13.0) 06/09/24 05:38 Eos % (Auto) 0.5 % (0.9-2.9) L 06/09/24 05:38 Baso % (Auto) 0.7 % (0.2-1.0) 06/09/24 05:38 Neut # (Auto) 8.5 x10^3/uL (2.2-4.8) H 06/09/24 05:38 Lymph # (Auto) 0.9 X10^3/uL (1.3-2.9) L 06/09/24 05:38 [place] # (Auto) 0.5 x10^3/uL (0.3-0.8) 06/09/24 05:38 Eos # (Auto) 0.0 x10^3/uL (0.0-0.2) 06/09/24 05:38 Baso # (Auto) 0.1 X10^3/uL (0.0-0.1) 06/09/24 05:38 Absolute Nucleated RBC 0.0 /100WBC 06/09/24 05:38 Sodium 141 mmol/L (136-145) 06/09/24 05:38 Corrected Sodium 143 mmol/L (136-145) 06/09/24 05:38 Potassium 3.2 mmol/L (3.5-5.1) L 06/09/24 05:38 Chloride 103 mmol/L (98-107) 06/09/24 05:38 Carbon Dioxide 30.5 mmol/L (21-32) 06/09/24 05:38 BUN 58 mg/dL (7-18) H 06/09/24 05:38 Creatinine 1.12 mg/dL (0.70-1.30) 06/09/24 05:38 Est GFR (MDRD) Af Amer > 60 (>60) 06/09/24 05:38 Est GFR (MDRD) Non-Af > 60 (>60) 06/09/24 05:38 Glucose 180 mg/dL (65-99) H 06/09/24 05:38 Calcium 8.0 mg/dL (8.5-10.1) L 06/09/24 05:38 Corrected Calcium 9.0 mg/dL (8.5-10.1) 06/09/24 05:38 Magnesium 2.2 mg/dL (2.0-2.9) 06/09/24 05:38 Total Bilirubin 0.70 mg/dL (0.2-1.0) 06/09/24 05:38 AST 79 Units/L (15-37) H 06/09/24 05:38 ALT 58 Units/L (12-78) 06/09/24 05:38 Alkaline Phosphatase 79 Units/L (46-116) 06/09/24 05:38 Total Protein 5.9 g/dL (6.4-8.2) L 06/09/24 05:38 Albumin 2.7 g/dL (3.4-5.0) L 06/09/24 05:38 Globulin 3.2 g/dL (2.5-4.5) 06/09/24 05:38 Albumin/Globulin Ratio 0.8 Ratio (1.1-2.1) L 06/09/24 05:38 Specimen Type Clean catch urine 06/08/24 18:19 Urine Color Yellow (YELLOW) 06/08/24 18:19 Urine Appearance Clear (CLEAR) 06/08/24 18:19 Urine pH 5.0 (5.0 - 8.0) 06/08/24 18:19 Ur Specific [place] 1.020 (1.000-1.030) 06/08/24 18:19 Urine Protein 4+ (NEGATIVE) 06/08/24 18:19 Urine Glucose (UA) 3+ (NEGATIVE) 06/08/24 18:19 Urine Ketones Negative (NEGATIVE) 06/08/24 18:19 Urine Blood 3+ (NEGATIVE) 06/08/24 18:19 Urine Nitrite Negative (NEGATIVE) 06/08/24 18:19 Urine Bilirubin Negative (NEGATIVE) 06/08/24 18:19 Urine Urobilinogen Normal (NORMAL) 06/08/24 18:19 Ur Leukocyte Esterase Negative (NEGATIVE) 06/08/24 18:19 Urine RBC 3-5 /HPF (0-3) A 06/08/24 18:19 Urine WBC 0-2 /HPF (0-5) 06/08/24 18:19 Ur Squamous Epith Cells Rare /HPF (NEGATIVE) 06/08/24 18:19 Urine Bacteria 2+ /HPF (NEGATIVE) 06/08/24 18:19 Ur Culture Indicated? Yes/culture set up 06/08/24 18:19 Plan (1) Generalized weakness: Status: Acute Plan: IV HYDRATION, VERIFY HOME MEDICATIONS BP AND BS CONTROL, PAIN CONTROL CASE MANAGEMENT CONSULT FOR REHAB PLACEMENT (2) Anemia: Status: Acute (3) Edema, peripheral: Status: Acute (4) Hypertension: Status: Chronic (5) Cerebrovascular disease: Status: Acute (6) CAD (coronary artery disease): Status: Chronic (7) LALITA (obstructive sleep apnea): Status: Chronic
[2024-06-09] MEDS: NORCO 5/325 MG TAB PO PRN (21:37)
[2024-06-09] MEDS: ZOCOR TAB 10 MG PO SCH (21:38)
[2024-06-10 06:07] LABS: BASOPHILS # (AUTO) 0.1 X10^3/uL (0.0-0.1); BASOPHILS % (AUTO) 0.9 % (0.2-1.0); EOSINOPHILS # (AUTO) 0.1 x10^3/uL (0.0-0.2); EOSINOPHILS % (AUTO) 0.9 % (0.9-2.9); HEMATOCRIT 27.9 % (42.0-54.0); HEMOGLOBIN 9.4 g/dL (13.5-18.0); LYMPHOCYTES # (AUTO) 1.2 X10^3/uL (1.3-2.9); LYMPHOCYTES % (AUTO) 11.5 % (21.0-51.0); MEAN CORPUSCULAR HEMOGLOBIN 31.4 pg (27.0-34.0); MEAN CORPUSCULAR HGB CONC 33.8 g/dL (33.0-35.0); MEAN CORPUSCULAR VOLUME 92.9 fL (80.0-100.0); MEAN PLATELET VOLUME 9.1 fL (7.4-11.0); MONOCYTES # (AUTO) 0.4 x10^3/uL (0.3-0.8); MONOCYTES % (AUTO) 4.1 % (0.0-13.0); NEUTROPHILS # (AUTO) 8.8 x10^3/uL (2.2-4.8); NEUTROPHILS % (AUTO) 82.6 % (42.0-75.0); PLATELET COUNT 309 X10^3/uL (150.0-450.0); RED CELL DISTRIBUTION WIDTH 16.2 % (11.6-16.5); WHITE BLOOD COUNT 10.6 X10^3/uL (3.6-10.0)
[2024-06-10 06:16] LABS: ALANINE AMINOTRANSFERASE 107 Units/L (12-78); ALBUMIN 3.1 g/dL (3.4-5.0); ALKALINE PHOSPHATASE 98 Units/L (46-116); ASPARTATE AMINO TRANSFERASE 102 Units/L (15-37); BLOOD UREA NITROGEN 52 mg/dL (7-18); CALCIUM 8.2 mg/dL (8.5-10.1); CARBON DIOXIDE 30.9 mmol/L (21-32); CHLORIDE 100 mmol/L (98-107); COR CA(FOR HYPOALB) 8.9 mg/dL (8.5-10.1); COR NA(FOR HYPERGLY) 139 mmol/L (136-145); CREATININE 1.16 mg/dL (0.70-1.30); GLUCOSE 178 mg/dL (65-99); POTASSIUM 3.5 mmol/L (3.5-5.1); SODIUM 137 mmol/L (136-145); TOTAL PROTEIN 6.8 g/dL (6.4-8.2); eGFR NON BLACK RACES > 60 (>60)
[2024-06-10] MEDS: ASPIRIN EC 81 MG PO SCH (14:43)
[2024-06-10] MEDS: LEVAQUIN TAB 500 MG PO SCH (14:43)
--- NOTE | 2024-06-10 17:10 | PCM.PROG ---
Progress Note Progress Note for Day of Date of Exam: 06/10/24 Subjective Subjective: PT IS 69 WM, ER ADMISSION WITH DIFFUSE WEAKNESS, CYSTITIS AND BACTERREMIA. PT WAS STARTED ON IV ATBX ON ADMISSION WITH URINE CULTURE OBTAINED. PT HAD +BC FROM 05/26/24, STARTED ON LEVAQUIN. PT HAS HAD AN EXTENDED ILLNESS AND WAS RECENTLY TREATED AT [facility] AND RELEASED FOR REHAB THERAPY, WHERE PT SIGNED OUT AMA FOR THE REASON OF WANTING TO BE CLOSER TO HOME. PT LIVES ALONE AND HAS BEEN INDEPENDENT UNTIL THE LAST HOSPITAL STAY WHICH HAS LEFT PT WITH DIFFUSE MUSCLE WEAKNESS AND UNSTEADY GAIT. CASE MANAGEMENT CONSULTED FOR PLACEMENT AT REHAB FACILITY. HGB 8.5, WBC 10, BUN 58,CREAT 1.12 Past Medical Family Social History Allergies: Allergies No Known Drug Allergies Allergy (Unknown, Verified 05/26/24 08:06) Onset Date: 12/21/2011 Vital Signs and I&O's Vital Signs: Vital Signs Temperature 98.1 F Pulse Rate [Right Brachial] 94 Respiratory Rate 19 Blood Pressure [Left Arm] 106/62 O2 Sat by Pulse Oximetry 98 Intake and Output: Intake & Output 06/08/24 06/09/24 06/10/24 06/11/24 11:59 11:59 11:59 11:59 Intake Total 620 / 620 1210 / 1210 120 / 120 Output Total 410 / 410 2625 / 2625 350 / 350 Balance 210 / 210 -1415 / -1415 -230 / -230 Physical Exam Oriented: Normal Eyes: Normal Nose: Normal Throat: Dry Respiratory: Diminished Cardiovascular: Normal and Edema Auscultation: Bowel Sounds: Normal Tenderness: Normal Skin: Decreased Turgur Musculoskeletal: Back:Thoracic and Back:Lumbar Psychiatric: Anxiety Mood Description: Calm Speech Pattern: Clear and Appropriate Laboratory and Diagnostics 06/10/24 05:15 06/10/24 05:15 Labs: 06/08/24 18:19 Urine,Clean Catch Urine Culture - Final Laboratory WBC 10.6 X10^3/uL (3.6-10.0) H 06/10/24 05:15 RBC 3.00 X10^6/uL (4.7-6.0) L 06/10/24 05:15 Hgb 9.4 g/dL (13.5-18.0) L 06/10/24 05:15 Hct 27.9 % (42.0-54.0) L 06/10/24 05:15 MCV 92.9 fL (80.0-100.0) 06/10/24 05:15 MCH 31.4 pg (27.0-34.0) 06/10/24 05:15 MCHC 33.8 g/dL (33.0-35.0) 06/10/24 05:15 RDW 16.2 % (11.6-16.5) 06/10/24 05:15 Plt Count 309 X10^3/uL (150.0-450.0) 06/10/24 05:15 MPV 9.1 fL (7.4-11.0) 06/10/24 05:15 Neut % (Auto) 82.6 % (42.0-75.0) H 06/10/24 05:15 Lymph % (Auto) 11.5 % (21.0-51.0) L 06/10/24 05:15 [place] % (Auto) 4.1 % (0.0-13.0) 06/10/24 05:15 Eos % (Auto) 0.9 % (0.9-2.9) 06/10/24 05:15 Baso % (Auto) 0.9 % (0.2-1.0) 06/10/24 05:15 Neut # (Auto) 8.8 x10^3/uL (2.2-4.8) H 06/10/24 05:15 Lymph # (Auto) 1.2 X10^3/uL (1.3-2.9) L 06/10/24 05:15 [place] # (Auto) 0.4 x10^3/uL (0.3-0.8) 06/10/24 05:15 Eos # (Auto) 0.1 x10^3/uL (0.0-0.2) 06/10/24 05:15 Baso # (Auto) 0.1 X10^3/uL (0.0-0.1) 06/10/24 05:15 Absolute Nucleated RBC 0.0 /100WBC 06/10/24 05:15 Sodium 137 mmol/L (136-145) 06/10/24 05:15 Corrected Sodium 139 mmol/L (136-145) 06/10/24 05:15 Potassium 3.5 mmol/L (3.5-5.1) 06/10/24 05:15 Chloride 100 mmol/L (98-107) 06/10/24 05:15 Carbon Dioxide 30.9 mmol/L (21-32) 06/10/24 05:15 BUN 52 mg/dL (7-18) H 06/10/24 05:15 Creatinine 1.16 mg/dL (0.70-1.30) 06/10/24 05:15 Est GFR (MDRD) Af Amer > 60 (>60) 06/10/24 05:15 Est GFR (MDRD) Non-Af > 60 (>60) 06/10/24 05:15 Glucose 178 mg/dL (65-99) H 06/10/24 05:15 Calcium 8.2 mg/dL (8.5-10.1) L 06/10/24 05:15 Corrected Calcium 8.9 mg/dL (8.5-10.1) 06/10/24 05:15 Magnesium 2.2 mg/dL (2.0-2.9) 06/09/24 05:38 Total Bilirubin 0.70 mg/dL (0.2-1.0) 06/10/24 05:15 AST 102 Units/L (15-37) H 06/10/24 05:15 ALT 107 Units/L (12-78) H 06/10/24 05:15 Alkaline Phosphatase 98 Units/L (46-116) 06/10/24 05:15 Total Protein 6.8 g/dL (6.4-8.2) 06/10/24 05:15 Albumin 3.1 g/dL (3.4-5.0) L 06/10/24 05:15 Globulin 3.7 g/dL (2.5-4.5) 06/10/24 05:15 Albumin/Globulin Ratio 0.8 Ratio (1.1-2.1) L 06/10/24 05:15 Specimen Type Clean catch urine 06/08/24 18:19 Urine Color Yellow (YELLOW) 06/08/24 18:19 Urine Appearance Clear (CLEAR) 06/08/24 18:19 Urine pH 5.0 (5.0 - 8.0) 06/08/24 18:19 Ur Specific [place] 1.020 (1.000-1.030) 06/08/24 18:19 Urine Protein 4+ (NEGATIVE) 06/08/24 18:19 Urine Glucose (UA) 3+ (NEGATIVE) 06/08/24 18:19 Urine Ketones Negative (NEGATIVE) 06/08/24 18:19 Urine Blood 3+ (NEGATIVE) 06/08/24 18:19 Urine Nitrite Negative (NEGATIVE) 06/08/24 18:19 Urine Bilirubin Negative (NEGATIVE) 06/08/24 18:19 Urine Urobilinogen Normal (NORMAL) 06/08/24 18:19 Ur Leukocyte Esterase Negative (NEGATIVE) 06/08/24 18:19 Urine RBC 3-5 /HPF (0-3) A 06/08/24 18:19 Urine WBC 0-2 /HPF (0-5) 06/08/24 18:19 Ur Squamous Epith Cells Rare /HPF (NEGATIVE) 06/08/24 18:19 Urine Bacteria 2+ /HPF (NEGATIVE) 06/08/24 18:19 Ur Culture Indicated? Yes/culture set up 06/08/24 18:19 Plan (1) Generalized weakness: Status: Acute Plan: IV HYDRATION, VERIFY HOME MEDICATIONS IV ATBX BP AND BS CONTROL, PAIN CONTROL CASE MANAGEMENT CONSULT FOR REHAB PLACEMENT (2) Anemia: Status: Acute (3) Edema, peripheral: Status: Acute (4) Hypertension: Status: Chronic (5) Cerebrovascular disease: Status: Acute (6) CAD (coronary artery disease): Status: Chronic (7) LALITA (obstructive sleep apnea): Status: Chronic
[2024-06-10] MEDS: ALBUMIN HUMAN 25%- 100 ML 100 ML IV ONE (17:54)
[2024-06-10] MEDS: PERCOCET TAB 5/325 MG PO PRN (20:38)
[2024-06-11 06:19] LABS: BASOPHILS # (AUTO) 0.1 X10^3/uL (0.0-0.1); BASOPHILS % (AUTO) 1.2 % (0.2-1.0); EOSINOPHILS # (AUTO) 0.1 x10^3/uL (0.0-0.2); EOSINOPHILS % (AUTO) 1.3 % (0.9-2.9); HEMATOCRIT 24.4 % (42.0-54.0); LYMPHOCYTES % (AUTO) 11.2 % (21.0-51.0); MEAN CORPUSCULAR HEMOGLOBIN 30.9 pg (27.0-34.0); MEAN CORPUSCULAR VOLUME 93.6 fL (80.0-100.0); MEAN PLATELET VOLUME 8.8 fL (7.4-11.0); MONOCYTES # (AUTO) 0.4 x10^3/uL (0.3-0.8); MONOCYTES % (AUTO) 5.3 % (0.0-13.0); NEUTROPHILS # (AUTO) 6.9 x10^3/uL (2.2-4.8); PLATELET COUNT 210 X10^3/uL (150.0-450.0); RED CELL DISTRIBUTION WIDTH 16.4 % (11.6-16.5); WHITE BLOOD COUNT 8.5 X10^3/uL (3.6-10.0)
[2024-06-11 06:29] LABS: ALANINE AMINOTRANSFERASE 94 Units/L (12-78); ALKALINE PHOSPHATASE 88 Units/L (46-116); ASPARTATE AMINO TRANSFERASE 76 Units/L (15-37); BLOOD UREA NITROGEN 53 mg/dL (7-18); CALCIUM 8.1 mg/dL (8.5-10.1); CARBON DIOXIDE 31.6 mmol/L (21-32); CHLORIDE 102 mmol/L (98-107); COR CA(FOR HYPOALB) 8.9 mg/dL (8.5-10.1); COR NA(FOR HYPERGLY) 139 mmol/L (136-145); CREATININE 1.23 mg/dL (0.70-1.30); GLUCOSE 111 mg/dL (65-99); MAGNESIUM 2.3 mg/dL (2.0-2.9); SODIUM 139 mmol/L (136-145); TOTAL PROTEIN 6.4 g/dL (6.4-8.2); eGFR NON BLACK RACES > 60 (>60)
[2024-06-11] MEDS ORDERED: ZESTRIL TAB 20 MG ONE (08:21)
[2024-06-11] MEDS: ZESTRIL TAB 20 MG PO SCH (08:27)
[2024-06-11] MEDS: SINGULAIR TAB 10 MG PO SCH (08:30)
--- NOTE | 2024-06-11 10:45 | PCM.PROG ---
Progress Note Progress Note for Day of Date of Exam: 06/11/24 Subjective Subjective: Patient seen at bedside, no acute events overnight. He is currently admitted for generalized weakness, UTI and bacteremia. He is on levaquin. He is awaiting rehab placement. He has been working with PT/OT. Labs/imaging reviewed: -Hgb 8.0 WBC: 8.5 -Urine Cx: no growth Plan: continue current medications and treatment. PT/OT as tolerated. CM working on SNF placement. Replace electrolytes as needed. Monitor H&H. Monitor AM labs/imaging. Past Medical Family Social History Allergies: Allergies No Known Drug Allergies Allergy (Unknown, Verified 05/26/24 08:06) Onset Date: 12/21/2011 Vital Signs and I&O's Vital Signs: Vital Signs Temperature 97.9 F Temperature 98.3 F Pulse Rate [Right Brachial] 73 Pulse Rate [Right Brachial] 59 Respiratory Rate 21 Respiratory Rate 20 Respiratory Rate 18 Respiratory Rate 18 Blood Pressure [Left Arm] 162/71 Blood Pressure [Left Arm] 131/63 O2 Sat by Pulse Oximetry 100 O2 Sat by Pulse Oximetry 100 Intake and Output: Intake & Output 06/08/24 06/09/24 06/10/24 06/11/24 23:59 23:59 23:59 23:59 Intake Total 400 / 400 940 / 940 1667 / 1667 910 / 910 Output Total 310 / 310 1050 / 1050 2525 / 2525 550 / 550 Balance 90 / 90 -110 / -110 -858 / -858 360 / 360 Physical Exam Oriented: Normal Eyes: Normal Nose: Normal Throat: Dry Respiratory: Diminished Cardiovascular: Normal and Edema Auscultation: Bowel Sounds: Normal Palpation: Normal Tenderness: Normal Skin: Decreased Turgur Musculoskeletal: Back:Thoracic and Back:Lumbar Psychiatric: Anxiety Mood Description: Calm Affect: Normal Speech Pattern: Clear and Appropriate Laboratory and Diagnostics 06/11/24 06:01 06/11/24 06:01 Labs: 06/08/24 18:19 Urine,Clean Catch Urine Culture - Final Laboratory WBC 8.5 X10^3/uL (3.6-10.0) 06/11/24 06:01 RBC 2.60 X10^6/uL (4.7-6.0) L 06/11/24 06:01 Hgb 8.0 g/dL (13.5-18.0) L 06/11/24 06:01 Hct 24.4 % (42.0-54.0) L 06/11/24 06:01 MCV 93.6 fL (80.0-100.0) 06/11/24 06:01 MCH 30.9 pg (27.0-34.0) 06/11/24 06:01 MCHC 33.0 g/dL (33.0-35.0) 06/11/24 06:01 RDW 16.4 % (11.6-16.5) 06/11/24 06:01 Plt Count 210 X10^3/uL (150.0-450.0) 06/11/24 06:01 MPV 8.8 fL (7.4-11.0) 06/11/24 06:01 Neut % (Auto) 81.0 % (42.0-75.0) H 06/11/24 06:01 Lymph % (Auto) 11.2 % (21.0-51.0) L 06/11/24 06:01 [place] % (Auto) 5.3 % (0.0-13.0) 06/11/24 06:01 Eos % (Auto) 1.3 % (0.9-2.9) 06/11/24 06:01 Baso % (Auto) 1.2 % (0.2-1.0) H 06/11/24 06:01 Neut # (Auto) 6.9 x10^3/uL (2.2-4.8) H 06/11/24 06:01 Lymph # (Auto) 1.0 X10^3/uL (1.3-2.9) L 06/11/24 06:01 [place] # (Auto) 0.4 x10^3/uL (0.3-0.8) 06/11/24 06:01 Eos # (Auto) 0.1 x10^3/uL (0.0-0.2) 06/11/24 06:01 Baso # (Auto) 0.1 X10^3/uL (0.0-0.1) 06/11/24 06:01 Absolute Nucleated RBC 0.1 /100WBC 06/11/24 06:01 Sodium 139 mmol/L (136-145) 06/11/24 06:01 Corrected Sodium 139 mmol/L (136-145) 06/11/24 06:01 Potassium 4.0 mmol/L (3.5-5.1) 06/11/24 06:01 Chloride 102 mmol/L (98-107) 06/11/24 06:01 Carbon Dioxide 31.6 mmol/L (21-32) 06/11/24 06:01 BUN 53 mg/dL (7-18) H 06/11/24 06:01 Creatinine 1.23 mg/dL (0.70-1.30) 06/11/24 06:01 Est GFR (MDRD) Af Amer > 60 (>60) 06/11/24 06:01 Est GFR (MDRD) Non-Af > 60 (>60) 06/11/24 06:01 Glucose 111 mg/dL (65-99) H 06/11/24 06:01 Calcium 8.1 mg/dL (8.5-10.1) L 06/11/24 06:01 Corrected Calcium 8.9 mg/dL (8.5-10.1) 06/11/24 06:01 Magnesium 2.3 mg/dL (2.0-2.9) 06/11/24 06:01 Total Bilirubin 0.50 mg/dL (0.2-1.0) 06/11/24 06:01 AST 76 Units/L (15-37) H 06/11/24 06:01 ALT 94 Units/L (12-78) H 06/11/24 06:01 Alkaline Phosphatase 88 Units/L (46-116) 06/11/24 06:01 Total Protein 6.4 g/dL (6.4-8.2) 06/11/24 06:01 Albumin 3.0 g/dL (3.4-5.0) L 06/11/24 06:01 Globulin 3.4 g/dL (2.5-4.5) 06/11/24 06:01 Albumin/Globulin Ratio 0.9 Ratio (1.1-2.1) L 06/11/24 06:01 Specimen Type Clean catch urine 06/08/24 18:19 Urine Color Yellow (YELLOW) 06/08/24 18:19 Urine Appearance Clear (CLEAR) 06/08/24 18:19 Urine pH 5.0 (5.0 - 8.0) 06/08/24 18:19 Ur Specific [place] 1.020 (1.000-1.030) 06/08/24 18:19 Urine Protein 4+ (NEGATIVE) 06/08/24 18:19 Urine Glucose (UA) 3+ (NEGATIVE) 06/08/24 18:19 Urine Ketones Negative (NEGATIVE) 06/08/24 18:19 Urine Blood 3+ (NEGATIVE) 06/08/24 18:19 Urine Nitrite Negative (NEGATIVE) 06/08/24 18:19 Urine Bilirubin Negative (NEGATIVE) 06/08/24 18:19 Urine Urobilinogen Normal (NORMAL) 06/08/24 18:19 Ur Leukocyte Esterase Negative (NEGATIVE) 06/08/24 18:19 Urine RBC 3-5 /HPF (0-3) A 06/08/24 18:19 Urine WBC 0-2 /HPF (0-5) 06/08/24 18:19 Ur Squamous Epith Cells Rare /HPF (NEGATIVE) 06/08/24 18:19 Urine Bacteria 2+ /HPF (NEGATIVE) 06/08/24 18:19 Ur Culture Indicated? Yes/culture set up 06/08/24 18:19 Plan (1) Generalized weakness: Status: Acute (2) Anemia: Status: Acute Qualifiers: Anemia type: unspecified type Qualified Code(s): D64.9 - Anemia, unspecified (3) Edema, peripheral: Status: Acute (4) Hypertension: Status: Chronic Qualifiers: Hypertension type: primary hypertension Qualified Code(s): I10 - Essential (primary) hypertension (5) Cerebrovascular disease: Status: Chronic (6) CAD (coronary artery disease): Status: Chronic (7) LALITA (obstructive sleep apnea): Status: Chronic
[2024-06-12 06:09] LABS: BASOPHILS # (AUTO) 0.1 X10^3/uL (0.0-0.1); BASOPHILS % (AUTO) 0.6 % (0.2-1.0); EOSINOPHILS # (AUTO) 0.1 x10^3/uL (0.0-0.2); EOSINOPHILS % (AUTO) 1.1 % (0.9-2.9); HEMATOCRIT 23.5 % (42.0-54.0); HEMOGLOBIN 7.8 g/dL (13.5-18.0); LYMPHOCYTES # (AUTO) 0.8 X10^3/uL (1.3-2.9); LYMPHOCYTES % (AUTO) 8.9 % (21.0-51.0); MEAN CORPUSCULAR HGB CONC 33.2 g/dL (33.0-35.0); MEAN CORPUSCULAR VOLUME 93.3 fL (80.0-100.0); MEAN PLATELET VOLUME 9.1 fL (7.4-11.0); MONOCYTES # (AUTO) 0.5 x10^3/uL (0.3-0.8); MONOCYTES % (AUTO) 5.9 % (0.0-13.0); NEUTROPHILS # (AUTO) 7.5 x10^3/uL (2.2-4.8); NEUTROPHILS % (AUTO) 83.5 % (42.0-75.0); PLATELET COUNT 191 X10^3/uL (150.0-450.0); RED BLOOD COUNT 2.52 X10^6/uL (4.7-6.0); RED CELL DISTRIBUTION WIDTH 16.5 % (11.6-16.5); WHITE BLOOD COUNT 8.9 X10^3/uL (3.6-10.0)
[2024-06-12 06:28] LABS: ALANINE AMINOTRANSFERASE 79 Units/L (12-78); ALBUMIN 2.5 g/dL (3.4-5.0); ALKALINE PHOSPHATASE 84 Units/L (46-116); ASPARTATE AMINO TRANSFERASE 48 Units/L (15-37); BLOOD UREA NITROGEN 49 mg/dL (7-18); CALCIUM 7.8 mg/dL (8.5-10.1); CARBON DIOXIDE 30.5 mmol/L (21-32); CHLORIDE 102 mmol/L (98-107); COR NA(FOR HYPERGLY) 140 mmol/L (136-145); CREATININE 1.23 mg/dL (0.70-1.30); GLUCOSE 132 mg/dL (65-99); POTASSIUM 3.7 mmol/L (3.5-5.1); SODIUM 139 mmol/L (136-145); TOTAL PROTEIN 5.8 g/dL (6.4-8.2); eGFR NON BLACK RACES > 60 (>60)
[2024-06-12] MEDS ORDERED: ZESTRIL TAB 20 MG ONE (07:45)
--- NOTE | 2024-06-12 11:53 | RAD ---
EXAM:CHEST, 1 VIEWHISTORY:Placement facility request to Rule Out TB;COMPARISON:Prior study or studies were utilized for comparison during interpretation with the most relevant dated 05/27/2024TECHNIQUE:CHEST, 1 VIEWFINDINGS:Chest:Lines and tubes: Left-sided pacemaker generator with lead or leads in satisfactory position.Mediastinum: Borderline cardiomegaly.Pulmonary vessels: Pulmonary vasculature is prominent.Lung acuna: No suspicious airspace opacity.Pleura: There is blunting of the left costophrenic angle. No pneumothorax.Bones and soft tissues: No acute osseous or soft tissue abnormality.IMPRESSION:1. Findings suggest mild heart failure and trace left pleural effusionTHIS IS AN ELECTRONICALLY VERIFIED FINAL REPORT06/12/2024 11:49 AM - Electronically signed by Niraj Kong MD
[2024-06-13 06:10] LABS: BASOPHILS # (AUTO) 0.1 X10^3/uL (0.0-0.1); BASOPHILS % (AUTO) 1.1 % (0.2-1.0); EOSINOPHILS # (AUTO) 0.2 x10^3/uL (0.0-0.2); EOSINOPHILS % (AUTO) 2.3 % (0.9-2.9); HEMATOCRIT 21.7 % (42.0-54.0); HEMOGLOBIN 7.2 g/dL (13.5-18.0); LYMPHOCYTES # (AUTO) 0.9 X10^3/uL (1.3-2.9); LYMPHOCYTES % (AUTO) 11.4 % (21.0-51.0); MEAN CORPUSCULAR HEMOGLOBIN 30.9 pg (27.0-34.0); MEAN CORPUSCULAR VOLUME 93.4 fL (80.0-100.0); MEAN PLATELET VOLUME 8.6 fL (7.4-11.0); MONOCYTES # (AUTO) 0.5 x10^3/uL (0.3-0.8); MONOCYTES % (AUTO) 6.7 % (0.0-13.0); NEUTROPHILS # (AUTO) 6.2 x10^3/uL (2.2-4.8); NEUTROPHILS % (AUTO) 78.5 % (42.0-75.0); PLATELET COUNT 174 X10^3/uL (150.0-450.0); RED BLOOD COUNT 2.33 X10^6/uL (4.7-6.0); RED CELL DISTRIBUTION WIDTH 16.5 % (11.6-16.5); WHITE BLOOD COUNT 7.9 X10^3/uL (3.6-10.0)
[2024-06-13 06:31] LABS: ALANINE AMINOTRANSFERASE 62 Units/L (12-78); ALBUMIN 2.4 g/dL (3.4-5.0); ALKALINE PHOSPHATASE 80 Units/L (46-116); ASPARTATE AMINO TRANSFERASE 36 Units/L (15-37); BLOOD UREA NITROGEN 45 mg/dL (7-18); CALCIUM 7.6 mg/dL (8.5-10.1); CARBON DIOXIDE 28.6 mmol/L (21-32); CHLORIDE 103 mmol/L (98-107); COR CA(FOR HYPOALB) 8.9 mg/dL (8.5-10.1); COR NA(FOR HYPERGLY) 139 mmol/L (136-145); CREATININE 1.16 mg/dL (0.70-1.30); GLUCOSE 119 mg/dL (65-99); POTASSIUM 3.6 mmol/L (3.5-5.1); SODIUM 139 mmol/L (136-145); TOTAL PROTEIN 5.7 g/dL (6.4-8.2); eGFR NON BLACK RACES > 60 (>60)
[2024-06-13] MEDS ORDERED: CONSULT PHARMACY - POTASSIUM & MAGNESIUM XX SCH (07:00)
[2024-06-13 08:04] VITALS: O2SAT 97
[2024-06-13] MEDS ORDERED: ZESTRIL TAB 20 MG ONE (08:16)
[2024-06-13] MEDS: HEMOCYTE PLUS PO SCH (08:53)
[2024-06-13] MEDS ORDERED: NS 500 ML IV 500 ML IV ONE (10:03)
[2024-06-13] MEDS: K-DUR TAB 20 MEQ PO SCH (11:06)
[2024-06-13 12:12] VITALS: BP 143/75; PULSE 70; RESP 18; TEMP 98.8
[2024-06-13] MEDS ORDERED: K-DUR TAB 20 MEQ PO ONE (14:00)
== END 2024-06-13 14:30 | DRG 872 ==
LOC: SUPCPDRO → MED/SURG 14:26 → ER 14:26 → MED/SURG 21:11
PROVIDERS: ADMIT Obstetrics & Gynecology Obstetrics; ATTEND Internal Medicine
DX: R53.1 Weakness; R60.0 Localized edema; Z95.818 Presence of other cardiac implants and grafts; E11.65 Type 2 diabetes mellitus with hyperglycemia; N30.01 Acute cystitis with hematuria; E87.6 Hypokalemia; E78.5 Hyperlipidemia, unspecified; I10 Essential (primary) hypertension; G62.89 Other specified polyneuropathies; R06.02 Shortness of breath; R26.89 Other abnormalities of gait and mobility; D64.89 Other specified anemias; I25.10 Atherosclerotic heart disease of native coronary artery without angina pectoris; R78.81 Bacteremia; I67.89 Other cerebrovascular disease; Z98.84 Bariatric surgery status; I48.91 Unspecified atrial fibrillation; Z95.0 Presence of cardiac pacemaker; G47.33 Obstructive sleep apnea (adult) (pediatric)

== ENCOUNTER 2024-07-21 15:53 | Inpatient (IN) ==
--- NOTE | 2024-07-21 17:43 | DR.H&P ---
H&P History & Physical for Day of: H&P Date: 07/21/24 Chief Complaint Chief Complaint: pain and swelling to feet and legs, blisters to feet and severe diarrhea History of Present Illness History of Present Illness: PT IS 69 WM, DIRECT ADMIT FROM DR URIBE OFFICE WITH BILATERAL LOWER EXTREMITY EDEMA WITH BOTH OPEN AND CLOSED BLISTERS, WEEPING AND ULCERATIONS TO TOES ON BOTH FEET. PT CO SEVERE DIARRHEA FOR OVER A WEEK. PT WAS PREVIOUSLY AT [facility] IN [place] FOR REHAB THERAPY FOLLOWING AN ACUTE ILLNESS. PT REPORTS LEG SWELLING WAS CONTROLLED AT [place] ON 07/15. PT REPORTS OVER THE PAST WEEK FEET ARE SWELLING AND STARTING BLISTERING AND DRAINAGE. PT REPORT HE HAS BEEN TAKING LASIX FOR EDEMA WITHOUT IMRPOVEMENT. PT DENIES ANY FEVER OF FLU SYMPTOMS. PT CO DIARRHEA SINCE TAKING A ROUND OF KEFLEX AND LEVAQUIN. PT REPORTS BLACK STOOL BUT IS TAKING IRON. PT HAS HX OF ANEMIA AND IS UNDER DR PERRY AND WAITING A EGD WITH DR SOTO. PT DENIES ANY VOMITING. PT ADMITTED FOR TREATMENT OF ACUTE ILLNESS. Past Medical History Past Medical History: Anemia, Arthritis, Diabetes, Dyslipidemia and Hypertension Past Surgical History Surgical History: Weight Loss Surgery Additional Surgical History: PACEMAKER Family History Family Medical History: [place], Heart Failure and Hypertension Medications Home Medications: Home Medications Medication Instructions Recorded Confirmed Type gabapentin 400 mg capsule 400 mg PO TID 06/30/21 06/08/24 History levothyroxine 50 mcg tablet 50 mcg PO QDAY 08/28/22 06/08/24 History montelukast 10 mg tablet 10 mg PO QDAY 11/09/22 06/08/24 History furosemide 40 mg tablet 40 mg PO QDAY 04/04/24 06/08/24 History metoprolol succinate 50 mg 50 mg PO QDAY 04/04/24 06/08/24 History tablet,extended release 24 hr potassium chloride 20 mEq 20 meq PO QDAY 04/04/24 06/08/24 History tablet,extended release(part/cryst) pantoprazole 40 mg tablet,delayed 40 mg PO QDAY 04/23/24 06/08/24 History release (Protonix) lisinopril 20 mg tablet 20 mg PO DAILY 06/08/24 06/08/24 History tamsulosin 0.4 mg capsule 0.4 mg PO DAILY 06/08/24 06/08/24 History Allergies Allergies Allergy/AdvReac Type Severity Reaction Status Date / Time No Known Drug Allergies Allergy Unknown Verified 05/26/24 08:06 Review of Systems Constitutional: Weakness Eyes: No Symptoms Reported ENT: No Symptoms Reported Respiratory: Shortness of Breath Cardiovascular: Edema Gastrointestinal: Diarrhea; denies Nausea or Vomiting Genitourinary: Frequency and Incontinence Musculoskeletal: Leg Pain Skin: Wound Neurological: Weakness Oriented: Normal Eyes: Normal Ear: Normal Nose: Normal Throat: Dry Respiratory: RLL Diminished and LLL Diminished Cardiovascular: Normal and Edema (+4) Auscultation: Bowel Sounds: Normal Palpation: Normal Tenderness: Normal Skin: Decreased Turgur Musculoskeletal: Back:Lumbar, Swelling, Tender and Motor Deficit Psychiatric: Depression Mood Description: Depressed Speech Pattern: Clear and Appropriate Assessment/Plan (1) Cellulitis and abscess of lower extremity: Status: Acute Plan: ADMIT, BLOOD AND WOUND CULTURE ON ADMISSION TOPICAL WOUND CARE IV LASIX WITH I&OS ADMISSION LABS, STOOL STUDIES BP CONTROL, BS CONTROL CONSULT PHSYICAL THERAPY (2) Edema, peripheral: Status: Acute (3) Colitis: Status: Acute (4) Cerebrovascular disease: Status: Chronic (5) CAD (coronary artery disease): Status: Chronic (6) Diabetes mellitus: Status: Chronic
[2024-07-21] MEDS ORDERED: K-DUR TAB 20 MEQ PO SCH (18:00)
[2024-07-21 18:54] LABS: RETICULOCYTE % 2.22 % (0.8-2.2)
[2024-07-21 19:16] LABS: LYMPHOCYTES # (AUTO) 0.4 X10^3/uL (1.3-2.9); MEAN CORPUSCULAR HEMOGLOBIN 34.6 pg (27.0-34.0); MEAN CORPUSCULAR HGB CONC 33.5 g/dL (33.0-35.0); MONOCYTES # (AUTO) 0.4 x10^3/uL (0.3-0.8); NEUTROPHILS # (AUTO) 9.1 x10^3/uL (2.2-4.8); WHITE BLOOD COUNT 9.9 X10^3/uL (3.6-10.0)
[2024-07-21] MEDS: LASIX IVP SCH (19:17)
[2024-07-21] MEDS: ALBUMIN HUMAN 25%- 100 ML 100 ML IV SCH (19:19)
[2024-07-21 19:20] LABS: BASOPHILS # (AUTO) 0.1 X10^3/uL (0.0-0.1); BASOPHILS % (AUTO) 0.5 % (0.2-1.0); HEMATOCRIT 29.5 % (42.0-54.0); HEMOGLOBIN 9.9 g/dL (13.5-18.0); LYMPHOCYTES % (AUTO) 4.4 % (21.0-51.0); MEAN CORPUSCULAR VOLUME 103.3 fL (80.0-100.0); MEAN PLATELET VOLUME 9.9 fL (7.4-11.0); MONOCYTES % (AUTO) 3.7 % (0.0-13.0); NEUTROPHILS % (AUTO) 91.4 % (42.0-75.0); PLATELET COUNT 175 X10^3/uL (150.0-450.0); RED BLOOD COUNT 2.86 X10^6/uL (4.7-6.0); RED CELL DISTRIBUTION WIDTH 19.1 % (11.6-16.5)
[2024-07-21 19:26] LABS: ANISOCYTOSIS SLIGHT; PLATELET MORPHOLOGY COMMENT NORMAL (NORMAL)
[2024-07-21 19:42] LABS: ALBUMIN 2.8 g/dL (3.4-5.0); CALCIUM 8.3 mg/dL (8.5-10.1); CARBON DIOXIDE 23.6 mmol/L (21-32); COR CA(FOR HYPOALB) 9.3 mg/dL (8.5-10.1); CREATININE 1.55 mg/dL (0.70-1.30); MAGNESIUM 2.2 mg/dL (2.0-2.9); POTASSIUM 3.3 mmol/L (3.5-5.1); TOTAL PROTEIN 6.7 g/dL (6.4-8.2)
[2024-07-21 19:50] LABS: IRON 24 ug/dL (50-175); TOTAL IRON BINDING CAPACITY 183 ug/dL (250-450)
[2024-07-21] MEDS: NS 250 ML IV 250 ML IV ONE (19:51)
[2024-07-21] MEDS: FLAGYL TAB 500 MG PO SCH (19:56)
[2024-07-21] MEDS: K-DUR TAB 20 MEQ PO ONE (19:56)
[2024-07-21] MEDS ORDERED: CONSULT PHARMACY - POTASSIUM & MAGNESIUM XX SCH (20:00)
[2024-07-21] MEDS: GENTAMICIN TOPICAL OINT TOP SCH (20:01)
[2024-07-21] MEDS: NORCO 5/325 MG TAB PO PRN (20:06)
[2024-07-21 23:41] LABS: CRYPTOSPORIDIUM PARVUM ANTIGEN NEGATIVE (NEGATIVE); GIARDIA LAMBLIA ANTIGEN NEGATIVE (NEGATIVE)
[2024-07-22] MEDS ORDERED: HIBICLENS WASH ONE (05:18)
[2024-07-22 05:25] LABS: BASOPHILS % (AUTO) 0.3 % (0.2-1.0); EOSINOPHILS % (AUTO) 0.2 % (0.9-2.9); HEMATOCRIT 23.2 % (42.0-54.0); LYMPHOCYTES # (AUTO) 0.5 X10^3/uL (1.3-2.9); LYMPHOCYTES % (AUTO) 6.4 % (21.0-51.0); MEAN CORPUSCULAR HEMOGLOBIN 33.8 pg (27.0-34.0); MEAN CORPUSCULAR HGB CONC 33.1 g/dL (33.0-35.0); MEAN CORPUSCULAR VOLUME 102.2 fL (80.0-100.0); MEAN PLATELET VOLUME 9.8 fL (7.4-11.0); MONOCYTES # (AUTO) 0.5 x10^3/uL (0.3-0.8); MONOCYTES % (AUTO) 6.2 % (0.0-13.0); NEUTROPHILS # (AUTO) 6.8 x10^3/uL (2.2-4.8); NEUTROPHILS % (AUTO) 86.9 % (42.0-75.0); PLATELET COUNT 132 X10^3/uL (150.0-450.0); RED BLOOD COUNT 2.27 X10^6/uL (4.7-6.0); RED CELL DISTRIBUTION WIDTH 18.9 % (11.6-16.5); WHITE BLOOD COUNT 7.8 X10^3/uL (3.6-10.0)
[2024-07-22 05:35] LABS: ALANINE AMINOTRANSFERASE 27 Units/L (12-78); ALBUMIN 2.5 g/dL (3.4-5.0); ALKALINE PHOSPHATASE 77 Units/L (46-116); ASPARTATE AMINO TRANSFERASE 21 Units/L (15-37); BLOOD UREA NITROGEN 52 mg/dL (7-18); CARBON DIOXIDE 25.5 mmol/L (21-32); CHLORIDE 106 mmol/L (98-107); COR CA(FOR HYPOALB) 9.2 mg/dL (8.5-10.1); COR NA(FOR HYPERGLY) 141 mmol/L (136-145); GLUCOSE 111 mg/dL (65-99); POTASSIUM 3.4 mmol/L (3.5-5.1); SODIUM 141 mmol/L (136-145); TOTAL PROTEIN 5.7 g/dL (6.4-8.2); eGFR NON BLACK RACES 53 (>60)
[2024-07-22 06:16] LABS: HEMOGLOBIN 7.7 g/dL (13.5-18.0)
--- NOTE | 2024-07-22 06:26 | RAD ---
EXAM:CHEST, 1 VIEWHISTORY:sob;COMPARISON:06/12/2024 r.br.br.br positional changes. Left-sided pacer and pacer wires unchanged. Intrathecal stimulator wires overlying the mediastinum.Worsening bilateral airspace opacities. No pneumothorax.No acute osseous abnormality.IMPRESSION:Worsening bilateral opacities which may reflect edema or pneumonia. Recommend follow-up to resolution.THIS IS AN ELECTRONICALLY VERIFIED FINAL REPORT07/22/2024 6:22 AM - Electronically signed by Elfego Forrester MD
[2024-07-22] MEDS ORDERED: CONSULT PHARMACY - POTASSIUM & MAGNESIUM XX SCH (07:00)
[2024-07-22] MEDS ORDERED: PHARMACY CONSULT - LOVENOX XX SCH (09:00)
[2024-07-22] MEDS: HIBICLENS WASH EXT PRN (10:38)
[2024-07-22] MEDS: PROTONIX INJ 40 MG VIAL IVP SCH (10:38)
[2024-07-22] MEDS: K-DUR TAB 20 MEQ PO SCH (10:39)
[2024-07-22] MEDS: VISBIOME PROBIOTIC CAP 112.5 B or equivalent PO SCH (10:39)
[2024-07-22] MEDS: TOPROL XL PO SCH (10:39)
[2024-07-22] MEDS: INFeD or DEXFERRUM 25 MG in NS 100 ML IV 100 ML IV ONE (10:40)
[2024-07-22] MEDS: INFeD or DEXFERRUM 975 MG in NS 500 ML IV 500 ML IV ONE (12:34)
[2024-07-22] MEDS ORDERED: K-DUR TAB 20 MEQ PO SCH (13:00)
[2024-07-22] MEDS: NEURONTIN CAP 400 MG PO SCH (15:08)
[2024-07-22 18:26] VITALS: BMI 25.4
[2024-07-22] MEDS: NS 1,000 ML IV 1,000 ML IV SCH (18:43)
[2024-07-23 05:12] LABS: BASOPHILS % (AUTO) 0.4 % (0.2-1.0); EOSINOPHILS % (AUTO) 0.5 % (0.9-2.9); HEMATOCRIT 26.3 % (42.0-54.0); HEMOGLOBIN 8.6 g/dL (13.5-18.0); LYMPHOCYTES # (AUTO) 0.6 X10^3/uL (1.3-2.9); LYMPHOCYTES % (AUTO) 8.8 % (21.0-51.0); MEAN CORPUSCULAR HEMOGLOBIN 34.1 pg (27.0-34.0); MEAN CORPUSCULAR HGB CONC 32.7 g/dL (33.0-35.0); MEAN CORPUSCULAR VOLUME 104.2 fL (80.0-100.0); MEAN PLATELET VOLUME 10.1 fL (7.4-11.0); MONOCYTES # (AUTO) 0.3 x10^3/uL (0.3-0.8); MONOCYTES % (AUTO) 4.5 % (0.0-13.0); NEUTROPHILS # (AUTO) 5.9 x10^3/uL (2.2-4.8); NEUTROPHILS % (AUTO) 85.8 % (42.0-75.0); PLATELET COUNT 143 X10^3/uL (150.0-450.0); RED BLOOD COUNT 2.53 X10^6/uL (4.7-6.0); RED CELL DISTRIBUTION WIDTH 19.3 % (11.6-16.5); WHITE BLOOD COUNT 6.9 X10^3/uL (3.6-10.0)
[2024-07-23 05:25] LABS: ALBUMIN 2.7 g/dL (3.4-5.0); CARBON DIOXIDE 25.2 mmol/L (21-32); CREATININE 1.56 mg/dL (0.70-1.30); POTASSIUM 3.8 mmol/L (3.5-5.1)
--- NOTE | 2024-07-23 05:51 | RAD ---
EXAM: CHEST, PA/LAT ADULT HISTORY: SOB, CHF ; CAD, CHF, CARDIAC ARRHYTHMIA, VHD, HTN, SLEEP APNEA, PERIPHERAL NEUROPATHY, DM SX: WLS, UM BILICAL HERNI, ABDOMINAL COMPARISON: 07/21/2024 FINDINGS: The cardiomediastinal silhouette is stable. Left-sided pacer and pacer wires unchanged. Intrathecal stimulator wires overlying the mediastinum. Similar bilateral airspace opacities. No pneumothorax or effusion. No acute osseous abnormality. IMPRESSION: Similar chest without acute change. THIS IS AN ELECTRONICALLY VERIFIED FINAL REPORT 07/23/2024 5:41 AM - Electronically signed by Elfego Forrester MD
[2024-07-23] MEDS: FLOMAX PO SCH (08:30)
[2024-07-23] MEDS: HEMOCYTE PLUS PO SCH (08:30)
[2024-07-23] MEDS: ZESTRIL TAB 20 MG PO SCH (08:30)
[2024-07-23] MEDS: SYNTHROID 50 mcg TAB PO SCH (08:30)
[2024-07-23] MEDS: ZESTRIL TAB 20 MG ONE (08:31)
[2024-07-23] MEDS ORDERED: TOPROL XL PO SCH (09:00)
[2024-07-23] MEDS ORDERED: PROTONIX TAB 40 MG PO SCH (09:00)
[2024-07-23] MEDS ORDERED: PATIENT'S HOME MEDICATION (Mv-Mins No.73-Iron Fum-Folic [Hemocyte-Plus] 106 mg iron- 1 mg PO SCH (09:00)
[2024-07-23] MEDS: ROCEPHIN VIAL 1 GRAM 1 G in NS 100 ML IV 100 ML IV SCH (09:54)
[2024-07-23] MEDS: LOVENOX INJ 40 MG SYR SC SCH (09:54)
[2024-07-23] MEDS ORDERED: ZOFRAN INJ 4 MG VIAL ONE (11:54)
[2024-07-23] MEDS: ZOFRAN INJ 4 MG VIAL IVP PRN (12:02)
[2024-07-24 04:59] LABS: BASOPHILS % (AUTO) 0.6 % (0.2-1.0); EOSINOPHILS # (AUTO) 0.1 x10^3/uL (0.0-0.2); EOSINOPHILS % (AUTO) 1.2 % (0.9-2.9); HEMATOCRIT 25.4 % (42.0-54.0); HEMOGLOBIN 8.3 g/dL (13.5-18.0); LYMPHOCYTES # (AUTO) 0.7 X10^3/uL (1.3-2.9); LYMPHOCYTES % (AUTO) 9.4 % (21.0-51.0); MEAN CORPUSCULAR HGB CONC 32.7 g/dL (33.0-35.0); MEAN PLATELET VOLUME 9.8 fL (7.4-11.0); MONOCYTES # (AUTO) 0.4 x10^3/uL (0.3-0.8); NEUTROPHILS % (AUTO) 83.8 % (42.0-75.0); PLATELET COUNT 149 X10^3/uL (150.0-450.0); RED BLOOD COUNT 2.44 X10^6/uL (4.7-6.0); RED CELL DISTRIBUTION WIDTH 18.1 % (11.6-16.5); WHITE BLOOD COUNT 7.1 X10^3/uL (3.6-10.0)
[2024-07-24 05:24] LABS: ALANINE AMINOTRANSFERASE 22 Units/L (12-78); ALBUMIN 2.3 g/dL (3.4-5.0); ALKALINE PHOSPHATASE 72 Units/L (46-116); ASPARTATE AMINO TRANSFERASE 18 Units/L (15-37); BLOOD UREA NITROGEN 46 mg/dL (7-18); CALCIUM 7.5 mg/dL (8.5-10.1); CARBON DIOXIDE 25.3 mmol/L (21-32); CHLORIDE 109 mmol/L (98-107); COR CA(FOR HYPOALB) 8.9 mg/dL (8.5-10.1); CREATININE 1.47 mg/dL (0.70-1.30); GLUCOSE 105 mg/dL (65-99); POTASSIUM 3.6 mmol/L (3.5-5.1); SODIUM 141 mmol/L (136-145); TOTAL PROTEIN 5.4 g/dL (6.4-8.2); eGFR NON BLACK RACES 50 (>60)
[2024-07-24] MEDS ORDERED: ZESTRIL TAB 20 MG ONE (07:06)
[2024-07-24] MEDS: IVERMECTIN ONE (09:37)
[2024-07-24] MEDS: CITRACAL + VITAMIN D PO SCH (09:39)
[2024-07-24] MEDS: ELAVIL PO SCH (10:18)
[2024-07-24] MEDS: MERREM VIAL 1 G in NS 100 ML IV 100 ML IV SCH (15:00)
[2024-07-25 06:03] LABS: BASOPHILS % (AUTO) 0.3 % (0.2-1.0); EOSINOPHILS # (AUTO) 0.1 x10^3/uL (0.0-0.2); EOSINOPHILS % (AUTO) 1.2 % (0.9-2.9); HEMOGLOBIN 8.3 g/dL (13.5-18.0); LYMPHOCYTES # (AUTO) 0.6 X10^3/uL (1.3-2.9); LYMPHOCYTES % (AUTO) 6.1 % (21.0-51.0); MEAN CORPUSCULAR HEMOGLOBIN 34.8 pg (27.0-34.0); MEAN CORPUSCULAR HGB CONC 33.3 g/dL (33.0-35.0); MEAN CORPUSCULAR VOLUME 104.4 fL (80.0-100.0); MEAN PLATELET VOLUME 9.7 fL (7.4-11.0); MONOCYTES # (AUTO) 0.5 x10^3/uL (0.3-0.8); NEUTROPHILS % (AUTO) 87.4 % (42.0-75.0); PLATELET COUNT 154 X10^3/uL (150.0-450.0); RED BLOOD COUNT 2.39 X10^6/uL (4.7-6.0); RED CELL DISTRIBUTION WIDTH 17.7 % (11.6-16.5); WHITE BLOOD COUNT 9.2 X10^3/uL (3.6-10.0)
[2024-07-25 06:21] LABS: ALANINE AMINOTRANSFERASE 18 Units/L (12-78); ALBUMIN 2.1 g/dL (3.4-5.0); ALKALINE PHOSPHATASE 67 Units/L (46-116); ASPARTATE AMINO TRANSFERASE 19 Units/L (15-37); BLOOD UREA NITROGEN 43 mg/dL (7-18); CALCIUM 7.5 mg/dL (8.5-10.1); CARBON DIOXIDE 23.9 mmol/L (21-32); CHLORIDE 110 mmol/L (98-107); CREATININE 1.51 mg/dL (0.70-1.30); GLUCOSE 96 mg/dL (65-99); POTASSIUM 4.5 mmol/L (3.5-5.1); SODIUM 140 mmol/L (136-145); TOTAL PROTEIN 5.1 g/dL (6.4-8.2); eGFR NON BLACK RACES 49 (>60)
[2024-07-25] MEDS ORDERED: ZESTRIL TAB 20 MG ONE (09:15)
--- NOTE | 2024-07-25 12:41 | PCM.PROG ---
Progress Note Progress Note for Day of Date of Exam: 07/25/24 Subjective Subjective: The patient is a 69-year-old white male being treated for lower extremity cellulitis and venous stasis ulcerations bilaterally. He also has a past medical history of congestive heart failure. Since admission, he has been treated with IV Lasix 40 mg twice a day until yesterday his BUN and creatinine was up just a little so we held it this morning. BUN was at 46 and creatinine was at 1.47. The patient was encouraged oral hydration and we still have him at just KVO fluids. White count was 7.1, hemoglobin 8.3. The patient sleeps with a BiPAP and is doing well this morning. Blood pressure is 118/78. He is on room air at 96%. The patient is currently on Rocephin. He was having colitis symptoms and diarrhea positive for WBCs. The patient is currently on p.o. Flagyl, which we will continue for a total of 10 days. He reports that he is still having some diarrhea today. The patient has had a difficult time caring for himself at home. He was recently released from [facility]. We encouraged him to allow Home Health to come in for wound care. Patient is currently agreeable for daily nursing care outpatient at the hospital. Also, the patient has a past medical history of anemia. He is already under the care of Dr. Jones and he is under GI, Drs. Russell and Ella for management with a scope scheduled pretty soon. Past Medical Family Social History Allergies: Allergies No Known Drug Allergies Allergy (Unknown, Verified 05/26/24 08:06) Onset Date: 12/21/2011 Vital Signs and I&O's Vital Signs: Vital Signs Temperature 98.3 F Temperature 97.1 F Pulse Rate 69 Pulse Rate 68 Pulse Rate 68 Pulse Rate 69 Pulse Rate 69 Pulse Rate 69 Pulse Rate 69 Pulse Rate 69 Pulse Rate 69 Pulse Rate 71 Pulse Rate 74 Pulse Rate 73 Pulse Rate 69 Pulse Rate 68 Pulse Rate 68 Pulse Rate 68 Pulse Rate 68 Pulse Rate 68 Pulse Rate 68 Pulse Rate 68 Pulse Rate 68 Pulse Rate 68 Pulse Rate 68 Pulse Rate 68 Pulse Rate 68 Pulse Rate 68 Pulse Rate 68 Pulse Rate 64 Pulse Rate 64 Pulse Rate 60 Pulse Rate 60 Pulse Rate 60 Pulse Rate 60 Pulse Rate 60 Pulse Rate 60 Respiratory Rate 15 Respiratory Rate 16 Respiratory Rate 18 Respiratory Rate 14 Respiratory Rate 18 Respiratory Rate 16 Respiratory Rate 20 Respiratory Rate 19 Respiratory Rate 12 Respiratory Rate 18 Respiratory Rate 21 Respiratory Rate 22 Respiratory Rate 20 Respiratory Rate 20 Respiratory Rate 20 Respiratory Rate 20 Respiratory Rate 14 Respiratory Rate 14 Respiratory Rate 15 Respiratory Rate 16 Respiratory Rate 13 Respiratory Rate 16 Respiratory Rate 14 Respiratory Rate 16 Respiratory Rate 14 Respiratory Rate 13 Respiratory Rate 14 Respiratory Rate 16 Respiratory Rate 18 Respiratory Rate 16 Respiratory Rate 16 Respiratory Rate 14 Respiratory Rate 21 Respiratory Rate 16 Respiratory Rate 12 Respiratory Rate 13 Respiratory Rate 12 Blood Pressure 114/68 Blood Pressure 116/76 Blood Pressure 109/67 Blood Pressure 121/73 Blood Pressure 123/76 Blood Pressure 118/75 Blood Pressure 119/74 Blood Pressure 110/72 O2 Sat by Pulse Oximetry 100 O2 Sat by Pulse Oximetry 100 O2 Sat by Pulse Oximetry 100 O2 Sat by Pulse Oximetry 100 O2 Sat by Pulse Oximetry 100 O2 Sat by Pulse Oximetry 100 O2 Sat by Pulse Oximetry 100 O2 Sat by Pulse Oximetry 100 O2 Sat by Pulse Oximetry 99 O2 Sat by Pulse Oximetry 98 O2 Sat by Pulse Oximetry 100 O2 Sat by Pulse Oximetry 100 O2 Sat by Pulse Oximetry 98 O2 Sat by Pulse Oximetry 100 O2 Sat by Pulse Oximetry 100 O2 Sat by Pulse Oximetry 100 O2 Sat by Pulse Oximetry 100 O2 Sat by Pulse Oximetry 100 O2 Sat by Pulse Oximetry 100 O2 Sat by Pulse Oximetry 99 O2 Sat by Pulse Oximetry 99 O2 Sat by Pulse Oximetry 96 O2 Sat by Pulse Oximetry 96 O2 Sat by Pulse Oximetry 99 O2 Sat by Pulse Oximetry 98 O2 Sat by Pulse Oximetry 100 O2 Sat by Pulse Oximetry 100 O2 Sat by Pulse Oximetry 100 O2 Sat by Pulse Oximetry 100 O2 Sat by Pulse Oximetry 100 O2 Sat by Pulse Oximetry 96 O2 Sat by Pulse Oximetry 98 O2 Sat by Pulse Oximetry 98 O2 Sat by Pulse Oximetry 100 O2 Sat by Pulse Oximetry 98 O2 Sat by Pulse Oximetry 98 Intake and Output: Intake & Output 07/23/24 07/24/24 07/25/24 07/26/24 11:59 11:59 11:59 11:59 Intake Total 2484 / 2484 2694 / 2694 2324 / 2324 Output Total 600 / 600 800 / 800 401 / 401 Balance 1884 / 1884 1894 / 1894 1922 / 1922 Physical Exam Oriented: Normal Eyes: Normal Ear: Normal Nose: Normal Throat: Dry Respiratory: Diminished Cardiovascular: Normal and Edema (+4) Auscultation: Bowel Sounds: Normal Tenderness: Normal Skin: Decreased Turgur Musculoskeletal: Back:Lumbar, Swelling, Tender and Motor Deficit Psychiatric: Depression Mood Description: Depressed Speech Pattern: Clear and Appropriate Laboratory and Diagnostics 07/25/24 05:20 07/25/24 05:20 Labs: 07/22/24 11:00 Foot - Right Wound Gram Stain - Final 07/22/24 11:00 Foot - Right Wound Culture - Final Serratia Marcescens 07/21/24 20:08 Foot - Left Wound Culture - Final Acinetobacter Baumanii/Haemoly Enterobacter Cloacae 07/21/24 18:05 Blood Blood Culture - Preliminary 07/21/24 17:58 Blood Blood Culture - Preliminary Laboratory WBC 9.2 X10^3/uL (3.6-10.0) 07/25/24 05:20 RBC 2.39 X10^6/uL (4.7-6.0) L 07/25/24 05:20 Hgb 8.3 g/dL (13.5-18.0) L 07/25/24 05:20 Hct 25.0 % (42.0-54.0) L 07/25/24 05:20 MCV 104.4 fL (80.0-100.0) H 07/25/24 05:20 MCH 34.8 pg (27.0-34.0) H 07/25/24 05:20 MCHC 33.3 g/dL (33.0-35.0) 07/25/24 05:20 RDW 17.7 % (11.6-16.5) H 07/25/24 05:20 Plt Count 154 X10^3/uL (150.0-450.0) 07/25/24 05:20 Plt Count Comment Adequate (ADEQUATE) 07/21/24 17:58 MPV 9.7 fL (7.4-11.0) 07/25/24 05:20 Neut % (Auto) 87.4 % (42.0-75.0) H 07/25/24 05:20 Lymph % (Auto) 6.1 % (21.0-51.0) L 07/25/24 05:20 [place] % (Auto) 5.0 % (0.0-13.0) 07/25/24 05:20 Eos % (Auto) 1.2 % (0.9-2.9) 07/25/24 05:20 Baso % (Auto) 0.3 % (0.2-1.0) 07/25/24 05:20 Neut # (Auto) 8.0 x10^3/uL (2.2-4.8) H 07/25/24 05:20 Lymph # (Auto) 0.6 X10^3/uL (1.3-2.9) L 07/25/24 05:20 [place] # (Auto) 0.5 x10^3/uL (0.3-0.8) 07/25/24 05:20 Eos # (Auto) 0.1 x10^3/uL (0.0-0.2) 07/25/24 05:20 Baso # (Auto) 0.0 X10^3/uL (0.0-0.1) 07/25/24 05:20 Absolute Nucleated RBC 0.0 /100WBC 07/25/24 05:20 Total Counted 100 07/21/24 17:58 Neutrophils % (Manual) 93 % (39-76) H 07/21/24 17:58 Lymphocytes % (Manual) 5 % (13-43) L 07/21/24 17:58 Monocytes % (Manual) 2 % (4-9) L 07/21/24 17:58 Plt Morphology Comment Normal (NORMAL) 07/21/24 17:58 RBC Morphology Abnormal (NORMAL) 07/21/24 17:58 Anisocytosis Slight A 07/21/24 17:58 Absolute Retic 0.0651 10^6/uL 07/21/24 17:58 Percent Retic 2.22 % (0.8-2.2) H 07/21/24 17:58 Sodium 140 mmol/L (136-145) 07/25/24 05:20 Corrected Sodium TNP 07/25/24 05:20 Potassium 4.5 mmol/L (3.5-5.1) 07/25/24 05:20 Chloride 110 mmol/L (98-107) H 07/25/24 05:20 Carbon Dioxide 23.9 mmol/L (21-32) 07/25/24 05:20 BUN 43 mg/dL (7-18) H 07/25/24 05:20 Creatinine 1.51 mg/dL (0.70-1.30) H 07/25/24 05:20 Est GFR (MDRD) Af Amer 59 (>60) 07/25/24 05:20 Est GFR (MDRD) Non-Af 49 (>60) L 07/25/24 05:20 Glucose 96 mg/dL (65-99) 07/25/24 05:20 POC Glucose (mg/dL) 159 mg/dL (65-99) H 07/25/24 11:54 Calcium 7.5 mg/dL (8.5-10.1) L 07/25/24 05:20 Corrected Calcium 9.0 mg/dL (8.5-10.1) 07/25/24 05:20 Magnesium 2.2 mg/dL (2.0-2.9) 07/25/24 05:20 Iron 24 ug/dL (50-175) L 07/21/24 17:58 TIBC 183 ug/dL (250-450) L 07/21/24 17:58 Transferrin 148 mg/dL (202-364) L 07/21/24 17:58 Ferritin 362 ng/mL (26-388) 07/21/24 17:58 Total Bilirubin 0.30 mg/dL (0.2-1.0) 07/25/24 05:20 AST 19 Units/L (15-37) 07/25/24 05:20 ALT 18 Units/L (12-78) 07/25/24 05:20 Alkaline Phosphatase 67 Units/L (46-116) 07/25/24 05:20 B-Natriuretic Peptide 978 pg/mL (0-79) H 07/21/24 17:58 Total Protein 5.1 g/dL (6.4-8.2) L 07/25/24 05:20 Albumin 2.1 g/dL (3.4-5.0) L 07/25/24 05:20 Globulin 3.0 g/dL (2.5-4.5) 07/25/24 05:20 Albumin/Globulin Ratio 0.7 Ratio (1.1-2.1) L 07/25/24 05:20 Vitamin B12 710 pg/mL (193-986) 07/21/24 17:58 Folate > 20.0 ng/mL (>8.6) 07/21/24 17:58 Stl Occult Blood (IFOB) Negative (NEGATIVE) 07/21/24 22:20 Stool for White Cells Positive (NEGATIVE) A 07/21/24 22:20 Stl C. diff Tox B Gene Negative (NEGATIVE) 07/21/24 22:20 Stl C. diff [id number] Presumptive negative (NEGATIVE) 07/21/24 22:20 Stool H. pylori Ag Negative (NEGATIVE) 07/21/24 22:20 Cryptosporid parvum Ag Negative (NEGATIVE) 07/21/24 22:20 Giardia lamblia Ag Negative (NEGATIVE) 07/21/24 22:20 Plan (1) Cellulitis and abscess of lower extremity: Status: Acute Plan: BLOOD AND WOUND CULTURE ON ADMISSION TOPICAL WOUND CARE IV LASIX WITH I&OS AM LABS, STOOL STUDIES BP CONTROL, BS CONTROL CONSULT PHYSICAL THERAPY (2) Edema, peripheral: Status: Acute (3) Colitis: Status: Acute (4) Cerebrovascular disease: Status: Chronic (5) CAD (coronary artery disease): Status: Chronic (6) Diabetes mellitus: Status: Chronic
[2024-07-26 05:47] LABS: BASOPHILS # (AUTO) 0.1 X10^3/uL (0.0-0.1); BASOPHILS % (AUTO) 1.1 % (0.2-1.0); EOSINOPHILS # (AUTO) 0.1 x10^3/uL (0.0-0.2); EOSINOPHILS % (AUTO) 1.1 % (0.9-2.9); HEMOGLOBIN 8.9 g/dL (13.5-18.0); LYMPHOCYTES # (AUTO) 0.8 X10^3/uL (1.3-2.9); LYMPHOCYTES % (AUTO) 7.9 % (21.0-51.0); MEAN CORPUSCULAR HEMOGLOBIN 34.2 pg (27.0-34.0); MEAN CORPUSCULAR VOLUME 103.6 fL (80.0-100.0); MEAN PLATELET VOLUME 9.8 fL (7.4-11.0); MONOCYTES # (AUTO) 0.4 x10^3/uL (0.3-0.8); MONOCYTES % (AUTO) 4.2 % (0.0-13.0); NEUTROPHILS # (AUTO) 8.6 x10^3/uL (2.2-4.8); NEUTROPHILS % (AUTO) 85.7 % (42.0-75.0); PLATELET COUNT 180 X10^3/uL (150.0-450.0); RED BLOOD COUNT 2.61 X10^6/uL (4.7-6.0); RED CELL DISTRIBUTION WIDTH 17.9 % (11.6-16.5)
[2024-07-26 06:13] LABS: ALBUMIN 2.2 g/dL (3.4-5.0); CALCIUM 7.7 mg/dL (8.5-10.1); CARBON DIOXIDE 23.3 mmol/L (21-32); COR CA(FOR HYPOALB) 9.1 mg/dL (8.5-10.1); CREATININE 1.66 mg/dL (0.70-1.30); POTASSIUM 4.5 mmol/L (3.5-5.1); TOTAL PROTEIN 5.5 g/dL (6.4-8.2)
[2024-07-26] MEDS ORDERED: ZESTRIL TAB 20 MG ONE (09:51)
--- NOTE | 2024-07-26 12:20 | PCM.PROG ---
Progress Note Progress Note for Day of Date of Exam: 07/26/24 Subjective Subjective: Patient seen at bedside, no acute events overnight. He is currently admitted for lower extremity cellulitis and venous stasis ulcers bilaterally. He is on IV antibiotics. He has also been having some diarrhea and was started on p.o. Flagyl yesterday. He reports still having diarrhea. He reports decreased appetite and nausea. Labs/imaging reviewed: -WBC 10 hemoglobin 8.9 potassium 4.5 creatinine 1.66 -Chest x-ray: Bilateral pneumonia -Wound culture right foot Serratia Fecal WBCs positive Plan: Continue telemetry and close for ICU monitoring. Continue IV Merrem, monitor redness and swelling. Continue wound care. Continue p.o. Flagyl. Add probiotics. Will add Ensure. Encourage p.o. hydration. Lasix has been on hold due to decline in renal function. Replace electrolytes as needed. Monitor a.m. labs and imaging. Patient states he is scheduled to see vascular in [place] due to his peripheral vascular disease and nonhealing ulcers. Time spent for clinical assessment, reviewing labs/imaging, physical exam, decision making and documentation greater than 45 mins. Past Medical Family Social History Allergies: Allergies No Known Drug Allergies Allergy (Unknown, Verified 05/26/24 08:06) Onset Date: 12/21/2011 Vital Signs and I&O's Vital Signs: Vital Signs Temperature 98.0 F Pulse Rate 69 Pulse Rate 70 Pulse Rate 69 Pulse Rate 69 Pulse Rate 71 Pulse Rate 73 Pulse Rate 68 Pulse Rate 64 Pulse Rate 60 Pulse Rate 60 Pulse Rate 59 Pulse Rate 59 Pulse Rate 60 Pulse Rate 60 Pulse Rate 60 Pulse Rate 60 Respiratory Rate 14 Respiratory Rate 19 Respiratory Rate 21 Respiratory Rate 16 Respiratory Rate 16 Respiratory Rate 22 Respiratory Rate 25 Respiratory Rate 12 Respiratory Rate 11 Respiratory Rate 11 Respiratory Rate 14 Respiratory Rate 14 Respiratory Rate 15 Respiratory Rate 9 Respiratory Rate 12 Respiratory Rate 11 Blood Pressure 111/68 Blood Pressure 115/81 Blood Pressure 110/71 Blood Pressure 123/77 O2 Sat by Pulse Oximetry 100 O2 Sat by Pulse Oximetry 100 O2 Sat by Pulse Oximetry 100 O2 Sat by Pulse Oximetry 100 O2 Sat by Pulse Oximetry 100 O2 Sat by Pulse Oximetry 100 O2 Sat by Pulse Oximetry 100 O2 Sat by Pulse Oximetry 100 O2 Sat by Pulse Oximetry 100 O2 Sat by Pulse Oximetry 100 O2 Sat by Pulse Oximetry 100 O2 Sat by Pulse Oximetry 100 O2 Sat by Pulse Oximetry 100 O2 Sat by Pulse Oximetry 96 O2 Sat by Pulse Oximetry 100 O2 Sat by Pulse Oximetry 100 Intake and Output: Intake & Output 07/23/24 07/24/24 07/25/24 07/26/24 23:59 23:59 23:59 23:59 Intake Total 2449 / 2449 2344 / 2344 2250 / 2250 345 / 345 Output Total 850 / 850 450 / 450 201 / 201 Balance 1599 / 1599 1894 / 1894 2049 / 2049 345 / 345 Physical Exam Oriented: Normal Eyes: Normal Ear: Normal Nose: Normal Throat: Dry Respiratory: Diminished Cardiovascular: Normal and Edema (+4) Auscultation: Bowel Sounds: Normal Palpation: Normal Tenderness: Normal Skin: Decreased Turgur, Tender and Wound Musculoskeletal: Back:Lumbar, Swelling, Tender and Motor Deficit Psychiatric: Depression Mood Description: Depressed Affect: Normal Speech Pattern: Clear and Appropriate Laboratory and Diagnostics 07/26/24 05:00 07/26/24 05:09 Labs: 07/22/24 11:00 Foot - Right Wound Gram Stain - Final 07/22/24 11:00 Foot - Right Wound Culture - Final Serratia Marcescens 07/21/24 20:08 Foot - Left Wound Culture - Final Acinetobacter Baumanii/Haemoly Enterobacter Cloacae 07/21/24 18:05 Blood Blood Culture - Preliminary 07/21/24 17:58 Blood Blood Culture - Preliminary Laboratory WBC 10.0 X10^3/uL (3.6-10.0) 07/26/24 05:00 RBC 2.61 X10^6/uL (4.7-6.0) L 07/26/24 05:00 Hgb 8.9 g/dL (13.5-18.0) L 07/26/24 05:00 Hct 27.0 % (42.0-54.0) L 07/26/24 05:00 MCV 103.6 fL (80.0-100.0) H 07/26/24 05:00 MCH 34.2 pg (27.0-34.0) H 07/26/24 05:00 MCHC 33.0 g/dL (33.0-35.0) 07/26/24 05:00 RDW 17.9 % (11.6-16.5) H 07/26/24 05:00 Plt Count 180 X10^3/uL (150.0-450.0) 07/26/24 05:00 Plt Count Comment Adequate (ADEQUATE) 07/21/24 17:58 MPV 9.8 fL (7.4-11.0) 07/26/24 05:00 Neut % (Auto) 85.7 % (42.0-75.0) H 07/26/24 05:00 Lymph % (Auto) 7.9 % (21.0-51.0) L 07/26/24 05:00 [place] % (Auto) 4.2 % (0.0-13.0) 07/26/24 05:00 Eos % (Auto) 1.1 % (0.9-2.9) 07/26/24 05:00 Baso % (Auto) 1.1 % (0.2-1.0) H 07/26/24 05:00 Neut # (Auto) 8.6 x10^3/uL (2.2-4.8) H 07/26/24 05:00 Lymph # (Auto) 0.8 X10^3/uL (1.3-2.9) L 07/26/24 05:00 [place] # (Auto) 0.4 x10^3/uL (0.3-0.8) 07/26/24 05:00 Eos # (Auto) 0.1 x10^3/uL (0.0-0.2) 07/26/24 05:00 Baso # (Auto) 0.1 X10^3/uL (0.0-0.1) 07/26/24 05:00 Absolute Nucleated RBC 0.0 /100WBC 07/26/24 05:00 Total Counted 100 07/21/24 17:58 Neutrophils % (Manual) 93 % (39-76) H 07/21/24 17:58 Lymphocytes % (Manual) 5 % (13-43) L 07/21/24 17:58 Monocytes % (Manual) 2 % (4-9) L 07/21/24 17:58 Plt Morphology Comment Normal (NORMAL) 07/21/24 17:58 RBC Morphology Abnormal (NORMAL) 07/21/24 17:58 Anisocytosis Slight A 07/21/24 17:58 Absolute Retic 0.0651 10^6/uL 07/21/24 17:58 Percent Retic 2.22 % (0.8-2.2) H 07/21/24 17:58 Sodium 140 mmol/L (136-145) 07/26/24 05:09 Corrected Sodium 140 mmol/L (136-145) 07/26/24 05:09 Potassium 4.5 mmol/L (3.5-5.1) 07/26/24 05:09 Chloride 109 mmol/L (98-107) H 07/26/24 05:09 Carbon Dioxide 23.3 mmol/L (21-32) 07/26/24 05:09 BUN 46 mg/dL (7-18) H 07/26/24 05:09 Creatinine 1.66 mg/dL (0.70-1.30) H 07/26/24 05:09 Est GFR (MDRD) Af Amer 53 (>60) L 07/26/24 05:09 Est GFR (MDRD) Non-Af 44 (>60) L 07/26/24 05:09 Glucose 116 mg/dL (65-99) H 07/26/24 05:09 POC Glucose (mg/dL) 109 mg/dL (65-99) H 07/26/24 05:02 Calcium 7.7 mg/dL (8.5-10.1) L 07/26/24 05:09 Corrected Calcium 9.1 mg/dL (8.5-10.1) 07/26/24 05:09 Magnesium 2.2 mg/dL (2.0-2.9) 07/25/24 05:20 Iron 24 ug/dL (50-175) L 07/21/24 17:58 TIBC 183 ug/dL (250-450) L 07/21/24 17:58 Transferrin 148 mg/dL (202-364) L 07/21/24 17:58 Ferritin 362 ng/mL (26-388) 07/21/24 17:58 Total Bilirubin 0.30 mg/dL (0.2-1.0) 07/26/24 05:09 AST 25 Units/L (15-37) 07/26/24 05:09 ALT 21 Units/L (12-78) 07/26/24 05:09 Alkaline Phosphatase 72 Units/L (46-116) 07/26/24 05:09 B-Natriuretic Peptide 978 pg/mL (0-79) H 07/21/24 17:58 Total Protein 5.5 g/dL (6.4-8.2) L 07/26/24 05:09 Albumin 2.2 g/dL (3.4-5.0) L 07/26/24 05:09 Globulin 3.3 g/dL (2.5-4.5) 07/26/24 05:09 Albumin/Globulin Ratio 0.7 Ratio (1.1-2.1) L 07/26/24 05:09 Vitamin B12 710 pg/mL (193-986) 07/21/24 17:58 Folate > 20.0 ng/mL (>8.6) 07/21/24 17:58 Stl Occult Blood (IFOB) Negative (NEGATIVE) 07/21/24 22:20 Stool for White Cells Positive (NEGATIVE) A 07/21/24 22:20 Stl C. diff Tox B Gene Negative (NEGATIVE) 07/21/24 22:20 Stl C. diff [id number] Presumptive negative (NEGATIVE) 07/21/24 22:20 Stool H. pylori Ag Negative (NEGATIVE) 07/21/24 22:20 Cryptosporid parvum Ag Negative (NEGATIVE) 07/21/24 22:20 Giardia lamblia Ag Negative (NEGATIVE) 07/21/24 22:20 Plan (1) Cellulitis and abscess of lower extremity: Status: Acute (2) Edema, peripheral: Status: Chronic (3) Colitis: Status: Acute (4) Generalized weakness: Status: Acute (5) Cerebrovascular disease: Status: Chronic (6) CAD (coronary artery disease): Status: Chronic (7) Diabetes mellitus: Status: Chronic (8) PVD (peripheral vascular disease): Status: Chronic
[2024-07-26] MEDS: RESTORIL CAP 15 MG PO PRN (23:57)
[2024-07-27 05:39] LABS: BASOPHILS # (AUTO) 0.1 X10^3/uL (0.0-0.1); BASOPHILS % (AUTO) 1.5 % (0.2-1.0); EOSINOPHILS # (AUTO) 0.1 x10^3/uL (0.0-0.2); EOSINOPHILS % (AUTO) 1.7 % (0.9-2.9); HEMATOCRIT 25.2 % (42.0-54.0); HEMOGLOBIN 8.3 g/dL (13.5-18.0); LYMPHOCYTES # (AUTO) 0.8 X10^3/uL (1.3-2.9); LYMPHOCYTES % (AUTO) 10.2 % (21.0-51.0); MEAN CORPUSCULAR HEMOGLOBIN 34.4 pg (27.0-34.0); MEAN CORPUSCULAR VOLUME 104.2 fL (80.0-100.0); MEAN PLATELET VOLUME 9.6 fL (7.4-11.0); MONOCYTES # (AUTO) 0.3 x10^3/uL (0.3-0.8); MONOCYTES % (AUTO) 4.2 % (0.0-13.0); NEUTROPHILS # (AUTO) 6.7 x10^3/uL (2.2-4.8); NEUTROPHILS % (AUTO) 82.4 % (42.0-75.0); PLATELET COUNT 175 X10^3/uL (150.0-450.0); RED BLOOD COUNT 2.42 X10^6/uL (4.7-6.0); RED CELL DISTRIBUTION WIDTH 17.9 % (11.6-16.5); WHITE BLOOD COUNT 8.2 X10^3/uL (3.6-10.0)
[2024-07-27 06:11] LABS: ALANINE AMINOTRANSFERASE 26 Units/L (12-78); ALKALINE PHOSPHATASE 70 Units/L (46-116); ASPARTATE AMINO TRANSFERASE 37 Units/L (15-37); BLOOD UREA NITROGEN 42 mg/dL (7-18); CALCIUM 7.7 mg/dL (8.5-10.1); CARBON DIOXIDE 23.4 mmol/L (21-32); CHLORIDE 111 mmol/L (98-107); COR CA(FOR HYPOALB) 9.3 mg/dL (8.5-10.1); CREATININE 1.65 mg/dL (0.70-1.30); GLUCOSE 97 mg/dL (65-99); POTASSIUM 4.7 mmol/L (3.5-5.1); SODIUM 141 mmol/L (136-145); eGFR NON BLACK RACES 44 (>60)
[2024-07-27] MEDS ORDERED: ZESTRIL TAB 20 MG ONE (09:52)
--- NOTE | 2024-07-27 11:19 | PCM.PROG ---
Progress Note Progress Note for Day of Date of Exam: 07/27/24 Subjective Subjective: Patient seen at bedside, no acute events overnight. He is currently admitted for lower extremity cellulitis and venous stasis ulcers bilaterally. He is on IV antibiotics. He is still having diarrhea and nausea. Denies abdominal pain. Stool studies showed + fecal WBCs. His b/l legs appear to be the same. Labs/imaging reviewed: -WBC 8.2 hemoglobin 8.3 potassium 4.7 creatinine 1.65 -Chest x-ray: Bilateral pneumonia -Wound culture right foot Serratia Fecal WBCs positive Plan: Continue telemetry and close for ICU monitoring. Continue IV Merrem, monitor redness and swelling. Continue wound care. Repeat H&H this afternoon. Resend stool studies. Continue p.o. Flagyl and probiotics. Encourage p.o. hydration. Lasix has been on hold due to decline in renal function. Replace electrolytes as needed. Monitor a.m. labs and imaging. Patient states he is scheduled to see vascular in [place] due to his peripheral vascular disease and nonhealing ulcers. Time spent for clinical assessment, reviewing labs/imaging, physical exam, decision making and documentation greater than 45 mins. Past Medical Family Social History Allergies: Allergies No Known Drug Allergies Allergy (Unknown, Verified 05/26/24 08:06) Onset Date: 12/21/2011 Vital Signs and I&O's Vital Signs: Vital Signs Temperature 98.0 F Temperature 98.2 F Pulse Rate 69 Pulse Rate 69 Pulse Rate 69 Pulse Rate 70 Pulse Rate 69 Pulse Rate 68 Pulse Rate 64 Pulse Rate 59 Pulse Rate 65 Pulse Rate 64 Pulse Rate 63 Pulse Rate 59 Pulse Rate 60 Pulse Rate 60 Pulse Rate 59 Pulse Rate 59 Pulse Rate 59 Pulse Rate 59 Pulse Rate 60 Pulse Rate 60 Pulse Rate 60 Pulse Rate 60 Pulse Rate 60 Pulse Rate 60 Respiratory Rate 18 Respiratory Rate 17 Respiratory Rate 26 Respiratory Rate 21 Respiratory Rate 24 Respiratory Rate 19 Respiratory Rate 12 Respiratory Rate 14 Respiratory Rate 15 Respiratory Rate 36 Respiratory Rate 15 Respiratory Rate 17 Respiratory Rate 11 Respiratory Rate 12 Respiratory Rate 11 Respiratory Rate 12 Respiratory Rate 10 Respiratory Rate 12 Respiratory Rate 11 Respiratory Rate 13 Respiratory Rate 12 Respiratory Rate 12 Respiratory Rate 19 Respiratory Rate 13 Respiratory Rate 13 Blood Pressure 129/79 Blood Pressure 115/70 Blood Pressure 115/74 Blood Pressure 112/74 Blood Pressure 122/77 Blood Pressure 122/77 O2 Sat by Pulse Oximetry 100 O2 Sat by Pulse Oximetry 94 O2 Sat by Pulse Oximetry 100 O2 Sat by Pulse Oximetry 98 O2 Sat by Pulse Oximetry 98 O2 Sat by Pulse Oximetry 98 O2 Sat by Pulse Oximetry 100 O2 Sat by Pulse Oximetry 100 O2 Sat by Pulse Oximetry 99 O2 Sat by Pulse Oximetry 99 O2 Sat by Pulse Oximetry 99 O2 Sat by Pulse Oximetry 98 O2 Sat by Pulse Oximetry 99 O2 Sat by Pulse Oximetry 98 O2 Sat by Pulse Oximetry 99 O2 Sat by Pulse Oximetry 99 O2 Sat by Pulse Oximetry 99 O2 Sat by Pulse Oximetry 98 O2 Sat by Pulse Oximetry 98 O2 Sat by Pulse Oximetry 97 O2 Sat by Pulse Oximetry 97 O2 Sat by Pulse Oximetry 100 O2 Sat by Pulse Oximetry 98 O2 Sat by Pulse Oximetry 98 Intake and Output: Intake & Output 07/24/24 07/25/24 07/26/24 07/28/24 23:59 23:59 23:59 00:59 Intake Total 2344 / 2344 2250 / 2250 2405 / 2405 384 / 384 Output Total 450 / 450 201 / 201 300 / 300 Balance 1894 / 1894 2049 / 2049 2105 / 2105 384 / 384 Physical Exam Oriented: Normal Eyes: Normal Ear: Normal Nose: Normal Throat: Dry Respiratory: Diminished Cardiovascular: Normal and Edema (+4) Auscultation: Bowel Sounds: Normal Palpation: Normal Tenderness: Normal Skin: Decreased Turgur, Tender and Wound Musculoskeletal: Back:Lumbar, Swelling, Tender and Motor Deficit Psychiatric: Depression Mood Description: Calm Affect: Normal Speech Pattern: Clear and Appropriate Laboratory and Diagnostics 07/27/24 04:40 07/27/24 04:40 Labs: 07/22/24 11:00 Foot - Right Wound Gram Stain - Final 07/22/24 11:00 Foot - Right Wound Culture - Final Serratia Marcescens 07/21/24 20:08 Foot - Left Wound Culture - Final Acinetobacter Baumanii/Haemoly Enterobacter Cloacae 07/21/24 18:05 Blood Blood Culture - Preliminary 07/21/24 17:58 Blood Blood Culture - Preliminary Laboratory WBC 8.2 X10^3/uL (3.6-10.0) 07/27/24 04:40 RBC 2.42 X10^6/uL (4.7-6.0) L 07/27/24 04:40 Hgb 8.3 g/dL (13.5-18.0) L 07/27/24 04:40 Hct 25.2 % (42.0-54.0) L 07/27/24 04:40 MCV 104.2 fL (80.0-100.0) H 07/27/24 04:40 MCH 34.4 pg (27.0-34.0) H 07/27/24 04:40 MCHC 33.0 g/dL (33.0-35.0) 07/27/24 04:40 RDW 17.9 % (11.6-16.5) H 07/27/24 04:40 Plt Count 175 X10^3/uL (150.0-450.0) 07/27/24 04:40 Plt Count Comment Adequate (ADEQUATE) 07/21/24 17:58 MPV 9.6 fL (7.4-11.0) 07/27/24 04:40 Neut % (Auto) 82.4 % (42.0-75.0) H 07/27/24 04:40 Lymph % (Auto) 10.2 % (21.0-51.0) L 07/27/24 04:40 [place] % (Auto) 4.2 % (0.0-13.0) 07/27/24 04:40 Eos % (Auto) 1.7 % (0.9-2.9) 07/27/24 04:40 Baso % (Auto) 1.5 % (0.2-1.0) H 07/27/24 04:40 Neut # (Auto) 6.7 x10^3/uL (2.2-4.8) H 07/27/24 04:40 Lymph # (Auto) 0.8 X10^3/uL (1.3-2.9) L 07/27/24 04:40 [place] # (Auto) 0.3 x10^3/uL (0.3-0.8) 07/27/24 04:40 Eos # (Auto) 0.1 x10^3/uL (0.0-0.2) 07/27/24 04:40 Baso # (Auto) 0.1 X10^3/uL (0.0-0.1) 07/27/24 04:40 Absolute Nucleated RBC 0.0 /100WBC 07/27/24 04:40 Total Counted 100 07/21/24 17:58 Neutrophils % (Manual) 93 % (39-76) H 07/21/24 17:58 Lymphocytes % (Manual) 5 % (13-43) L 07/21/24 17:58 Monocytes % (Manual) 2 % (4-9) L 07/21/24 17:58 Plt Morphology Comment Normal (NORMAL) 07/21/24 17:58 RBC Morphology Abnormal (NORMAL) 07/21/24 17:58 Anisocytosis Slight A 07/21/24 17:58 Absolute Retic 0.0651 10^6/uL 07/21/24 17:58 Percent Retic 2.22 % (0.8-2.2) H 07/21/24 17:58 Sodium 141 mmol/L (136-145) 07/27/24 04:40 Corrected Sodium TNP 07/27/24 04:40 Potassium 4.7 mmol/L (3.5-5.1) 07/27/24 04:40 Chloride 111 mmol/L (98-107) H 07/27/24 04:40 Carbon Dioxide 23.4 mmol/L (21-32) 07/27/24 04:40 BUN 42 mg/dL (7-18) H 07/27/24 04:40 Creatinine 1.65 mg/dL (0.70-1.30) H 07/27/24 04:40 Est GFR (MDRD) Af Amer 53 (>60) L 07/27/24 04:40 Est GFR (MDRD) Non-Af 44 (>60) L 07/27/24 04:40 Glucose 97 mg/dL (65-99) 07/27/24 04:40 POC Glucose (mg/dL) 100 mg/dL (65-99) H 07/27/24 05:08 Calcium 7.7 mg/dL (8.5-10.1) L 07/27/24 04:40 Corrected Calcium 9.3 mg/dL (8.5-10.1) 07/27/24 04:40 Magnesium 2.2 mg/dL (2.0-2.9) 07/27/24 04:40 Iron 24 ug/dL (50-175) L 07/21/24 17:58 TIBC 183 ug/dL (250-450) L 07/21/24 17:58 Transferrin 148 mg/dL (202-364) L 07/21/24 17:58 Ferritin 362 ng/mL (26-388) 07/21/24 17:58 Total Bilirubin 0.20 mg/dL (0.2-1.0) 07/27/24 04:40 AST 37 Units/L (15-37) 07/27/24 04:40 ALT 26 Units/L (12-78) 07/27/24 04:40 Alkaline Phosphatase 70 Units/L (46-116) 07/27/24 04:40 B-Natriuretic Peptide 978 pg/mL (0-79) H 07/21/24 17:58 Total Protein 5.0 g/dL (6.4-8.2) L 07/27/24 04:40 Albumin 2.0 g/dL (3.4-5.0) L 07/27/24 04:40 Globulin 3.0 g/dL (2.5-4.5) 07/27/24 04:40 Albumin/Globulin Ratio 0.7 Ratio (1.1-2.1) L 07/27/24 04:40 Vitamin B12 710 pg/mL (193-986) 07/21/24 17:58 Folate > 20.0 ng/mL (>8.6) 07/21/24 17:58 Stl Occult Blood (IFOB) Negative (NEGATIVE) 07/21/24 22:20 Stool for White Cells Positive (NEGATIVE) A 07/21/24 22:20 Stl C. diff Tox B Gene Negative (NEGATIVE) 07/21/24 22:20 Stl C. diff [id number] Presumptive negative (NEGATIVE) 07/21/24 22:20 Stool H. pylori Ag Negative (NEGATIVE) 07/21/24 22:20 Cryptosporid parvum Ag Negative (NEGATIVE) 07/21/24 22:20 Giardia lamblia Ag Negative (NEGATIVE) 07/21/24 22:20 Plan (1) Cellulitis and abscess of lower extremity: Status: Acute Plan: (2) Edema, peripheral: Status: Chronic (3) Colitis: Status: Acute (4) Generalized weakness: Status: Acute (5) Cerebrovascular disease: Status: Chronic (6) CAD (coronary artery disease): Status: Chronic (7) Diabetes mellitus: Status: Chronic (8) PVD (peripheral vascular disease): Status: Chronic
[2024-07-27 12:50] LABS: CRYPTOSPORIDIUM PARVUM ANTIGEN NEGATIVE (NEGATIVE); GIARDIA LAMBLIA ANTIGEN NEGATIVE (NEGATIVE)
[2024-07-27 15:17] LABS: HEMATOCRIT 25.8 % (42.0-54.0); HEMOGLOBIN 8.4 g/dL (13.5-18.0)
[2024-07-27] MEDS: LASIX IVP ONE (16:50)
[2024-07-28 04:11] VITALS: TEMP 97.9
[2024-07-28 05:56] LABS: BASOPHILS # (AUTO) 0.1 X10^3/uL (0.0-0.1); BASOPHILS % (AUTO) 0.8 % (0.2-1.0); EOSINOPHILS # (AUTO) 0.1 x10^3/uL (0.0-0.2); EOSINOPHILS % (AUTO) 1.5 % (0.9-2.9); HEMATOCRIT 26.3 % (42.0-54.0); HEMOGLOBIN 8.6 g/dL (13.5-18.0); LYMPHOCYTES # (AUTO) 0.8 X10^3/uL (1.3-2.9); LYMPHOCYTES % (AUTO) 10.4 % (21.0-51.0); MEAN CORPUSCULAR HEMOGLOBIN 34.4 pg (27.0-34.0); MEAN CORPUSCULAR HGB CONC 32.6 g/dL (33.0-35.0); MEAN CORPUSCULAR VOLUME 105.6 fL (80.0-100.0); MEAN PLATELET VOLUME 9.9 fL (7.4-11.0); MONOCYTES # (AUTO) 0.5 x10^3/uL (0.3-0.8); NEUTROPHILS # (AUTO) 6.1 x10^3/uL (2.2-4.8); NEUTROPHILS % (AUTO) 81.3 % (42.0-75.0); PLATELET COUNT 167 X10^3/uL (150.0-450.0); RED BLOOD COUNT 2.49 X10^6/uL (4.7-6.0); RED CELL DISTRIBUTION WIDTH 17.5 % (11.6-16.5); WHITE BLOOD COUNT 7.5 X10^3/uL (3.6-10.0)
[2024-07-28 06:12] LABS: ALBUMIN 2.2 g/dL (3.4-5.0); CALCIUM 7.7 mg/dL (8.5-10.1); CARBON DIOXIDE 22.3 mmol/L (21-32); COR CA(FOR HYPOALB) 9.1 mg/dL (8.5-10.1); CREATININE 1.59 mg/dL (0.70-1.30); MAGNESIUM 2.4 mg/dL (2.0-2.9); POTASSIUM 4.6 mmol/L (3.5-5.1); TOTAL PROTEIN 5.3 g/dL (6.4-8.2)
[2024-07-28 07:13] LABS: PLATELET MORPHOLOGY COMMENT NORMAL (NORMAL)
[2024-07-28] MEDS: LASIX PO SCH (08:21)
[2024-07-28] MEDS: ZESTRIL TAB 20 MG ONE (08:39)
[2024-07-28] MEDS: LEVAQUIN TAB 500 MG PO SCH (08:49)
--- NOTE | 2024-07-28 10:23 | VAS ---
EXAM:UPPER EXT VENOUS, UNILATERALHISTORY:PAIN, CONCERN FOR BLOOT CLOT;COMPARISON:None available.TECHNIQUE:Multiple oshea scale and color flow Doppler images of the deep venous system were obtained of the left upper extremity.FINDINGS:The deep venous system of the left upper extremity well evaluated from the level of the internal jugular through the radial and ulnar veins. Normal color flow and augmentation can be observed. In addition, normal compression is seen throughout the deep venous system.IMPRESSION:Negative for DVT.THIS IS AN ELECTRONICALLY VERIFIED FINAL REPORT07/28/2024 10:11 AM - Electronically signed by Abhishek Edwards MD
[2024-07-28 11:16] VITALS: BP 122/79; PULSE 69
--- NOTE | 2024-07-28 11:59 | RAD ---
EXAM:CHEST, 1 VIEWHISTORY:VENOUS STSIS, CELLULITIS;COMPARISON:07/23/2024FINDINGS: thoracic aorta. A pacing device overlying the left hemithorax is observed. Bibasilar pleural-parenchymal opacity consistent with layering pleural effusion and subsegmental atelectasis. Increased interstitial changes with prominent vascular markings are observed consistent with underlying CHF. . The bony thorax is unremarkable.IMPRESSION:Bibasilar pleural-parenchymal opacities consistent with layering pleural effusion and subsegmental atelectasis. Increased interstitial changes with prominent vascular markings are observed consistent with underlying CHF. Findings are essentially stable when compared to prior examination.THIS IS AN ELECTRONICALLY VERIFIED FINAL REPORT07/28/2024 11:55 AM - Electronically signed by Kimani Rodríguez MD
[2024-07-28 12:08] VITALS: RESP 20; O2SAT 99
== END 2024-07-28 19:40 | disposition home or self-care (01) | DRG 603 ==
LOC: ICU → OBSVTOIN 17:01
PROVIDERS: ADMIT Internal Medicine; ATTEND Internal Medicine
DX: Z16.12 Extended spectrum beta lactamase (ESBL) resistance; R60.0 Localized edema; S51.012A Laceration without foreign body of left elbow, initial encounter; L03.116 Cellulitis of left lower limb; I67.89 Other cerebrovascular disease; Z29.89 Encounter for other specified prophylactic measures; E88.09 Other disorders of plasma-protein metabolism, not elsewhere classified; R26.89 Other abnormalities of gait and mobility; E87.6 Hypokalemia; I48.91 Unspecified atrial fibrillation; Z16.23 Resistance to quinolones and fluoroquinolones; I83.228 Varicose veins of left lower extremity with both ulcer of other part of lower extremity and inflammation; R06.02 Shortness of breath; R53.1 Weakness; Z16.11 Resistance to penicillins; X58.XXXA Exposure to other specified factors, initial encounter; Z95.818 Presence of other cardiac implants and grafts; B96.3 Hemophilus influenzae [H. influenzae] as the cause of diseases classified elsewhere; Z59.86 Financial insecurity; L97.828 Non-pressure chronic ulcer of other part of left lower leg with other specified severity; L03.115 Cellulitis of right lower limb; D50.8 Other iron deficiency anemias; Z98.890 Other specified postprocedural states; E78.5 Hyperlipidemia, unspecified; I83.225 Varicose veins of left lower extremity with both ulcer other part of foot and inflammation; Z16.29 Resistance to other single specified antibiotic; K52.89 Other specified noninfective gastroenteritis and colitis; L02.416 Cutaneous abscess of left lower limb; B96.89 Other specified bacterial agents as the cause of diseases classified elsewhere; I83.218 Varicose veins of right lower extremity with both ulcer of other part of lower extremity and inflammation; L02.415 Cutaneous abscess of right lower limb; Z91.148 Patient's other noncompliance with medication regimen for other reason; L97.818 Non-pressure chronic ulcer of other part of right lower leg with other specified severity; K21.9 Gastro-esophageal reflux disease without esophagitis; R62.7 Adult failure to thrive; I25.10 Atherosclerotic heart disease of native coronary artery without angina pectoris; Z16.19 Resistance to other specified beta lactam antibiotics; Z95.0 Presence of cardiac pacemaker; Z98.84 Bariatric surgery status; R19.7 Diarrhea, unspecified; I83.215 Varicose veins of right lower extremity with both ulcer other part of foot and inflammation; E11.65 Type 2 diabetes mellitus with hyperglycemia; I10 Essential (primary) hypertension